=== PATIENT | female | born 1940 | race Caucasian/White ===

== ENCOUNTER → 2017-12-29 10:01 | Outpatient (CLI) | payer MEDICARE, SELFPAY ==
--- NOTE | 2017-12-29 10:07 | NM_ITS ---
Procedure: Three-phase bone scan. INDICATIONS: Pain in left ankle after physical therapy. TECHNIQUE: Anterior flow phase, anterior blood pool and delayed anterior, posterior, HDZ, LPO, MALAY, RPO and left lateral delayed scintigrams. Obtained after the uneventful intravenous administration of 26.7 mCi of technetium 99 medronate. FINDINGS: There is mild increased blow flow to the left lower extremity and proximal ankle. Blood pool images demonstrate an area of asymmetric focal uptake of the radiopharmaceutical at the anterior left ankle. Delayed scintigrams demonstrate a vividly intense focus of uptake involving the anterior tibiotalar joint region. Regions of photopenia are seen consistent with orthopedic hardware involving the right knee and right fibula. NM/Bone Scan Three Phase IMPRESSION: Anterior left tibial talar uptake and increased blood flow consistent with fracture versus stress changes versus inflammatory focus. Recommend correlation with plain film exam today. Electronically Signed: Rahul Woody MD at 11:59 EDT , Service support ,
== END ==
PROVIDERS: Family Provider Family Medicine; PCP Family Medicine; Visit Provider Family Medicine
DX: H57.8 Other specified disorders of eye and adnexa (principal); R52 Pain, unspecified
CPT/HCPCS: 78315

== ENCOUNTER → 2018-02-25 23:17 | Outpatient (CLI) | payer MEDICARE, SELFPAY | PROVIDERS: Family Provider Family Medicine; PCP Family Medicine; Visit Provider Family Medicine | DX: G47.33 Obstructive sleep apnea (adult) (pediatric) (principal) | CPT/HCPCS: 95811 ==

== ENCOUNTER 2019-03-19 11:43 | Inpatient (IN) | payer MEDICARE, SELFPAY ==
[2019-03-19] VITALS (23 sets, daily range): BP systolic 96–127; BP diastolic 46–99; PULSE 91–116; RESP 28–39; TEMP 36.8–37.6; O2SAT 80–94; BMI 43.4; BMI 39.6; BMI 39.7
--- NOTE | 2019-03-19 11:51 | EKG12_ITS ---
Test Reason : SOB Blood Pressure : / mmHG Vent. Rate : 112 BPM Atrial Rate : 112 BPM P-R Int : 174 ms QRS Dur : 082 ms QT Int : 332 ms P-R-T Axes : 047 -13 008 degrees QTc Int : 453 ms Sinus tachycardia Minimal voltage criteria for LVH, may be normal variant Inferior infarct , age undetermined Abnormal ECG Confirmed by MARY MOY, LILIA ([id number]), desk editor INDER TONEY ([id number]) on 03/21/2019 1:51:06 PM Referred By: Arben Whitt Confirmed By:LILIA HERNANDEZ MD
[2019-03-19] MEDS: Ipratropium/Albuterol Sulfate 3 ML AMPUL.NEB INHALATION ×5 (11:59→22:55)
--- NOTE | 2019-03-19 12:00 | RAD_ITS ---
STUDY: X-RAY CHEST REASON FOR EXAM: Female, 78 years old. Shortness of breath. History of aspiration. TECHNIQUE: Single AP portable view of the chest. COMPARISON: 01/08/2017. FINDINGS: There again is elevation of the left hemidiaphragm. There is patchy infiltrate in right lung base. There are prominent markings in the left lung base which may be exaggerated by hypoventilatory aeration. There is no demonstrated pleural abnormality. There is borderline cardiomegaly. Normal mediastinum and rozina. Normal visualized pulmonary arteries. There is atherosclerotic calcification of the aortic arch with tortuosity. The bony structures are unchanged. There is no demonstrated abnormality of the visualized soft tissue structures of the upper abdomen. RAD/Chest 1 View (Portable) IMPRESSION: Patchy infiltrate in the right lung base and possibly in the left lung base. Electronically Signed: Narciso Jay MD at 13:12 EDT Tel , Service support ,
--- NOTE | 2019-03-19 12:04 | ED.VIS.GEN ---
History of Present Illness Chief Complaint: Shortness of Breath Informant: Patient Onset: Today Current Severity: Mild Narrative: Patient reports that basically she was in her usual state of health until this morning when the nurse that she claims gave her her oral medications to fast and she believes she aspirated some of the meds, she has not been ill and this all began after the morning med process and she tried to swallow meds. Indicates she is had no fever no cough she has no chest pain or shortness of breath, paramedics were called her pulse ox was 82 she was put on nonrebreather her pulse ox now is 88-92 she is speaking in full sentences she indicates she has no history of cardiopulmonary disorder she is at the [facility] from her history related to generalized debilitation weakness she does not walk at baseline Past Medical History - Allergies and Home Meds Allergies/Adverse Reactions: Allergies bupropion HCl [From Wellbutrin] Adverse Reaction (Verified 01/08/17 21:12) Other DIZZY ibuprofen Adverse Reaction (Verified 01/08/17 21:12) Other ULCER nitrofurantoin [From Macrobid] Adverse Reaction (Verified 01/08/17 21:12) Other HEADACHE nitrofurantoin macrocrystalline [From Macrobid] Adverse Reaction (Verified 01/08/17 21:12) Other HEADACHE piroxicam [From Feldene] Adverse Reaction (Verified 01/08/17 21:12) Upset Stomach Primary Care Physician: Eduard Bagley MD [Primary Care Provider] - Past Medical History: - - See above Surgical History: - - no known recent surgeries, remote history of left ankle fracture with external fixator bilateral knee replacements. Smoking Status: Never smoker - Family History Maternal Family History: Reports: No pertinent history Review of Systems General: Denies: Chills, Fever, Sweats Eyes: Denies: Visual changes - bilaterally, Diplopia ENT: Denies: Rhinorrhea, Sore throat Cardiovascular: Denies: Chest pain, Palpitations Respiratory: Reports: Dyspnea, Cough. Denies: Dyspnea on exertion Gastrointestinal: Denies: Abdominal pain, Nausea, Vomiting, Diarrhea, Melena, Hematochezia Genitourinary: Denies: Dysuria, Hematuria, Frequency Musculoskeletal: Denies: Back pain, Extremity Pain Skin: Denies: Rash, Wounds Neurological: Denies: Headache, Weakness, Numbness Physical Exam Vital Signs/Narrative: Vital Signs Temp Pulse Resp BP Pulse Ox 03/19/19 11:45 98.6 F 111 H 37 H 110/85 H 80 General: Well nourished, Well developed, No Acute Distress Head: Normocephalic, Atraumatic Eyes: Perrl, EOMI ENT: Moist mucous membranes, No rhinorrhea Neck: Supple, Nontender Cardiovascular: Regular rate, Regular rhythm, No murmurs Respiratory: No distress, Chest nontender, Rales, Wheezing, Decreased Air Movement, - - The patient speaking in full sentences she has obvious raspy airway noises when she breathes she has a slight cough nothing is coming up her oral cavity is unremarkable her neck is supple her lung lungs are diminished she is a very large woman there is no signs of cardiopulmonary distress or failure Abdomen: Soft, Nontender, Nondistended, Normal bowel sounds Back: Nontender, Normal Inspection Extremities: Nontender, No edema Skin: Normal color, No rash Neurological: Alert, Oriented x3, Cranial nerves II-XII grossly intact, Normal Strength, Normal Sensation Psychological: Normal affect, Normal Mood Diagnostic/Tx/Re-eval - Medical Decision Making Given all of the above there is certainly possible of aspiration or other occult condition screening labs aerosol chest x-ray continued high flow oxygen IV antibiotics and admission Patient screening labs are generally unremarkable, her EKG shows a sinus rhythm rate 112, chest x-ray shows patchy infiltrate right base possibly left base she is maintaining her sats on the nonrebreather to about 92%, she received multiple aerosol she is awake alert speaking in full sentences, the family has arrived and report the patient chronically aspirates due to trouble swallowing, she has been in the past on pressure support type ventilation this time after the aerosols will be obtained a blood gas, 7.3, 44, PO2 64, pulse ox 90%, she seems comfortable, if pressure support ventilation is indicated we will provide that, in addition we have started IV antibiotics and will asked hospice here for the management admission Admit stable ICU Final impression Aspiration pneumonia, history of aspiration, ED Disposition - Plan for ED Patient: Referrals: Eduard Bagley MD [Primary Care Provider] -
[2019-03-19 12:23] LABS: Absolute Lymphocyte Count 2.27 X10^3/ul (0.83-4.51); Absolute Neutrophil Count 5.8 X10^3/uL (2.0-7.7); Basophil# 0.03 X10^3/uL; Basophil% 0.3 % (0-1); Eosinophil# 0.24 X10^3/uL; Eosinophils% 2.8 % (0-5); Hematocrit 45.1 % (37-47); Hemoglobin 14.1 g/dl (12.0-15.0); Lymphocyte # 2.27 X10^3/ul (4.0); Lymphocyte % 26.2 % (19-41); Mean Corp Hgb Conc 31.3 g/gl (32-36); Mean Corpuscular Hgb 31.1 pg (27.0-32.0); Mean Corpuscular Volume 99.6 fL (81-99); Mean Platelet Vol. 11.1 fl (6.2-12.0); Monocyte% 3.5 % (0-10); Neutrophil # 5.78 X10^3/uL (2.7-7.7); Neutrophil % 66.5 % (47-70); POSITIVE COUNT NO; POSITIVE DIFFERENTIAL NO; POSITIVE MORPHOLOGY NO; Platelet Count 250 K/mm3 (150-450); RBC Distribution Width CV 14.5 % (11.6-14.6); RBC Distribution Width SD 51.5 fl (35.1-43.9); Red Blood Count 4.53 M/mm3 (4.2-5.4); White Blood Count 8.7 K/mm3 (4.4-11.0)
[2019-03-19 12:35] LABS: Anion Gap 5 (5-15); BUN 27 mg/dL (7-18); BUN/Creat Ratio 26.5 RATIO (10-20); Calcium,Total 10.1 mg/dL (8.5-10.1); Chloride 109 mmol/L (98-107); Creatinine, Serum 1.02 mg/dL (0.55-1.02); EST Glomerular Filtration Rate 56 mL/min (>60); Est Glom Filt Rate - Afr Amer 67 mL/min (>60); Estimated Creatinine Clearance 33.75 ml/min; Glucose 151 mg/dL (74-106); Potassium 4.2 mmol/L (3.5-5.1); Sodium Level 142 mmol/L (136-145)
--- NOTE | 2019-03-19 12:35 | CPS ---
Verbal order for ABG and Aerosol Duoneb tx. given to this CREATIVE SERVICES DIRECTOR by .
[2019-03-19 12:49] LABS: BNP,B-Type NATRIURETIC PEPTIDE 22.8 pg/mL (0-100)
[2019-03-19 13:26] LABS: Allen Test POS; Base Excess -3 mmol/L (-2 to +2); Bicarbonate 22.6 mmol/L (22-26); Blood Gas Specimen Type ART; O2 Delivery Device NRB Mask; PO2 64 mmHG (75-100); SITE L Radial; SO2 90 % (95-99); Time Given 1319; Total Carbon Dioxide 24 mmol/L; pCO2 43.4 mmHg (35-45); pH 7.32 (7.35-7.45)
--- NOTE | 2019-03-19 14:13 | HP.PCM_ITS ---
Problem List (1) Acute respiratory failure with hypoxia Status: Acute (2) Gram-negative pneumonia Status: Suspected (3) Sepsis Status: Acute Qualifiers: Sepsis type: sepsis due to unspecified organism Qualified Code(s): A41.9 - Sepsis, unspecified organism History of Present Illness Date of Admission: 03/19/19 Chief Complaint: Aspiration and hypoxia The patient is a 78 year old F she was in her facility receiving medications. Patient has a known history of aspiration pneumonia and aspiration in general may take her pills too fast and then became short of breath and was noted to be hypoxic at 82%. Was sent to the emergency room where patient had been put on nonrebreather to maintain her sats in the low 90s. Chest x-ray showed a right lower lobe infiltrate and patient received IV Zosyn and daughter is present and provides most of the history and states that patient was diagnosed with possible pneumonia earlier in the week but she did not hear definitely about the an x-ray at that time but that showed pneumonia or not. Patient has history of chronic aspiration but does not have a PEG tube and patient does not want a PEG tube. [] Past Medical History Past Medical History (Chronic Problems): Chronic Problems (Last Updated 03/19/19 @ 14:22 by Arben Whitt DO) Dyslipidemia (Chronic) Hypothyroidism (Chronic) HTN (hypertension) (Chronic) Histrionic personality disorder (Chronic) Dysphagia (Chronic) Depression (Chronic) Medical History: Medical History (Last Updated 03/19/19 @ 14:34 by Arben Whitt DO) Depression F32.9 Dysphagia R13.10 Hypothyroidism E03.9 Post-polio syndrome G14 Venous thromboembolism (VTE) I82.90 HTN (hypertension) I10 Allergies bupropion HCl [From Wellbutrin] Adverse Reaction (Verified 01/08/17 21:12) Other DIZZY ibuprofen Adverse Reaction (Verified 01/08/17 21:12) Other ULCER nitrofurantoin [From Macrobid] Adverse Reaction (Verified 01/08/17 21:12) Other HEADACHE nitrofurantoin macrocrystalline [From Macrobid] Adverse Reaction (Verified 01/08/17 21:12) Other HEADACHE piroxicam [From Feldene] Adverse Reaction (Verified 01/08/17 21:12) Upset Stomach Home Medications: Ambulatory Orders Medication Instructions Recorded Duloxetine Hcl [Cymbalta] 60 mg PO BID 03/12/15 Fluticasone 0.05% [Flonase Nasal 2 spray NARES DAILY 03/12/15 [place]] Calcium Polycarbophil [Fiber-Lax] 1,350 mg PO BID 11/24/16 Omeprazole 20 mg PO BID 11/24/16 Levothyroxine [Synthroid] 100 mcg PO MOTUWETHFR 01/09/17 Potassium Chloride 40 meq PO DAILY 01/09/17 ALPRAZolam [Xanax] 0.5 mg PO BID 03/19/19 ALPRAZolam [Xanax] 1 mg PO QHS 03/19/19 Cholecalciferol (Vitamin D3) 4,000 unit PO DAILY 03/19/19 [Vitamin D3] Cyanocobalamin [Vitamin B12] 1,000 mcg IM Q30D 03/19/19 Fenofibrate 160 mg PO DAILY 03/19/19 Hydrocodone/Acetaminophen [Lutsen 1 ea PO TID PRN 03/19/19 5-325 Tablet] Levothyroxine [Synthroid] 50 mcg PO SUSA 03/19/19 Mv-Mn/Folic Acid/Vit K/Ofzb143 1 ea PO DAILY 03/19/19 [Alive Once Daily Women 50 Plus] Olopatadine HCl [Pataday] 1 drp OP BID PRN 03/19/19 Oxybutynin Chloride [Ditropan Xl] 15 mg PO DAILY 03/19/19 Polyethylene Glycol 3350 [Miralax] 17 gm PO DAILY 03/19/19 Rivaroxaban [Xarelto] 20 mg PO DAILY 03/19/19 Venlafaxine HCl [Venlafaxine HCl 75 mg PO DAILY 03/19/19 ER] Surgical History: - - no known recent surgeries, remote history of left ankle fracture with external fixator bilateral knee replacements. Smoking Status: Former smoker - *Family History Maternal History Items: No pertinent history Offspring History Items: - - Son from multiple myeloma Review of Systems Constitutional: Denies: Anorexia, Chills, Fever, Night Sweats Eyes: Denies: Blurred vision, Double vision HEENT: Denies: Head Aches, Sinus Congestion, Sinus Drainage Cardiovascular: Denies: Chest Pain, Palpitations Respiratory: Reports: Cough, Shortness of Breath. Denies: Sputum production Gastrointestinal: Denies: Abdominal Pain, Nausea, Vomiting Genitourinary: Denies: Dysuria, Frequency, Hematuria Musculoskeletal: Denies: Joint Pain, Joint Tenderness Skin: Denies: Rash, Wounds Neurological: Reports: Balance problems. Denies: Blurred vision, Double vision Psychiatric: Reports: Depression Hematologic/ Lymphatic: Denies: Easy Bruising, Easy Bleeding Comment: A 10 point review of systems were negative except as mentioned in the history of present illness and the other review of systems. VTE Information - Inpt Only VTE Present on Admission: No VTE Mechan Device Prophylaxis: None VTE Pharm Prophylaxis ordered?: No Reason prophylaxis not ordered:: Procedure Not Indicated Patient Problems: Active and Suspected Problems (Last Updated 03/19/19 @ 14:22 by Arben Whitt DO) Acute respiratory failure with hypoxia (Acute) Gram-negative pneumonia (Suspected) Sepsis (Acute) - Physical Exam General: Alert, Cooperative, - - Year. Speaking in full sentences. No respiratory distress. No conversational dyspnea. HEENT: Atraumatic, Normocephalic Oral: Moist Mucosa, No Gingival or Mucosal Lesions/ Ulcerations Neck: No Nodes, Thyroid Normal Size and Texture Lungs: Diminished, - - Coarse breath sounds bilaterally Cardiovascular: Regular rate, Regular Rhythm, Normal S1, Normal S2, No murmurs Abdomen: Bowel Sounds Present, Soft, Non Tender, Non-Distended, No Hepato- splenomegaly, Obese Extremities: No Calf Tenderness, Edema - Trace Skin: No rashes, No breakdown, - - Mottling of the feet as well has her right upper extremity with her fingers Musculoskeletal: No Muscle Wasting, - - Contractures of her fingers Neurological: Sensory exam intact to light touch and pain, - - No clonus Psych/Mental Status: Normal Affect, Appropriate Vital Signs Temp Pulse Resp BP Pulse Ox 37.0 C 115 H 28 H 101/81 H 91 03/19/19 11:45 03/19/19 13:56 03/19/19 13:56 03/19/19 13:56 03/19/19 13:56 Oxygen Delivery Method Non-Rebreather Weight: 104.3 kg Body Mass Index (BMI) 43.4 Laboratory Tests Past 24 Hrs 03/19/19 03/19/19 03/19/19 12:05 12:05 12:05 WBC 8.7 RBC 4.53 Hgb 14.1 Hct 45.1 MCV 99.6 H MCH 31.1 MCHC 31.3 L RDW 14.5 RDW Differential 51.5 H Plt Count 250 MPV 11.1 Immature Gran % (Auto) 0.700 Neut % (Auto) 66.5 Lymph % (Auto) 26.2 [place] % (Auto) 3.5 Eos % (Auto) 2.8 Baso % (Auto) 0.3 Absolute Neuts (auto) 5.8 Absolute Lymphs (auto) 2.27 Total Counted Not Reportable Specimen Type Sample Site pH Bicarbonate Actual POC Total CO2 Base Excess O2 Saturation ABG pCO2 ABG pO2 Yvon Test O2 Delivery Device Liter Flow Blood Gas Notified Whom Blood Gas Notified Time Sodium 142 Potassium 4.2 Chloride 109 H Carbon Dioxide 28.0 Anion Gap 5 BUN 27 H Creatinine 1.02 Estim Creat Clear Calc 33.75 Est GFR (MDRD) Af Amer 67 Est GFR (MDRD) Non-Af 56 L BUN/Creatinine Ratio 26.5 H Glucose 151 H Calcium 10.1 Troponin I < 0.015 B-Natriuretic Peptide 22.8 03/19/19 13:23 WBC RBC Hgb Hct MCV MCH MCHC RDW RDW Differential Plt Count MPV Immature Gran % (Auto) Neut % (Auto) Lymph % (Auto) [place] % (Auto) Eos % (Auto) Baso % (Auto) Absolute Neuts (auto) Absolute Lymphs (auto) Total Counted Specimen Type ART Sample Site L Radial pH 7.32 L Bicarbonate Actual 22.6 POC Total CO2 24 Base Excess -3 L O2 Saturation 90 L ABG pCO2 43.4 ABG pO2 64 L Yvon Test POS O2 Delivery Device NRB Mask Liter Flow 15.0 Blood Gas Notified Whom ED MD Blood Gas Notified Time 1319 Sodium Potassium Chloride Carbon Dioxide Anion Gap BUN Creatinine Estim Creat Clear Calc Est GFR (MDRD) Af Amer Est GFR (MDRD) Non-Af BUN/Creatinine Ratio Glucose Calcium Troponin I B-Natriuretic Peptide Chest x-ray personally reviewed and shows right lower lobe infiltrates change from 2017. Assessment/Plan All Active Problems (Last Updated 03/19/19 @ 14:22 by Arben Whitt DO) UTI (urinary tract infection) (Acute) Migraines (Acute) Pyelonephritis, acute (Acute) Sepsis (Acute) Bacteremia due to Gram-negative bacteria (Acute) Altered mental status (Acute) Acute kidney injury (Acute) Acute respiratory failure with hypoxia (Acute) Sepsis (Acute) 1. Acute hypoxic respiratory failure * Certainly the aspiration event certainly contributed but this occurred while patient was taking pills and given the extent of the infiltrate was seen to be more excessive than I would expect with her just taking her medications. Additionally seem rather early for that to present so probably on chest x-ray as well. Patient's daughter was told that she had some early pneumonia about a week prior but never heard anything further on follow-up chest x-ray. So not sure the patient had previously had pneumonia which certainly could be aspiration given the patient's chronic history of aspiration but given the lives she lives in the facility could be a healthcare acquired pneumonia. We will treat the patient empirically with healthcare acquired pneumonia with vancomycin and Zosyn. * Currently, the patient is stable on nonrebreather but given the extent of oxygen that she requires she may require BiPAP support. Patient be admitted to the progressive care unit in case she were to defervesce and require BiPAP. * Pulmonary toilet 2. Suspected gram-negative pneumonia * As mentioned previously, patient is a facility and certainly at risk for healthcare acquired pneumonia though this could certainly just be aspiration pneumonia given her history of dysphagia * Antibiotics as above 3. Sepsis present on admission * Secondary to pneumonia * Supportive management 4. Dysphagia * Clarified with the patient that she does not want a PEG tube. * Patient will be on pur?ed diet as well as nectar thickened liquids * Speech therapy to evaluate * Previously, patient was offered the ability to eat regularly but with the caveat that she would need to be hospice. Patient was seen by hospice and did not meet criteria for hospice at that time. 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 Depression and anxiety * Patient on alprazolam as outpatient 0.5 mg tablets twice daily scheduled as well as 1 mg at night. This is certainly, given the patient's overall respiratory status this is some degree but also should be used with extreme caution some of her age and multiple comorbidities. * The benzodiazepine should be weaned off over. Of the next several weeks and will start by changing over to 0.5 mg of alprazolam twice daily as needed. We then recommend after about a week of that to gear changer to daily as needed and then them for a week every other day and then to stop. 8. VTE prophylaxis: Not indicated as patient is already on rivaroxaban. Advanced care planning: Spent an additional 15 minutes discussing with the patient and the family clarifying CODE STATUS. Patient was very direct and saying that she did not want a PEG tube. I explained that if she wants to eat so we will continue to run the risk of aspiration that she should be DNR Comfort Care arrest. I did discuss CPR and ventilator in detail with her. Patient reluctantly agreed to DNR Comfort Care arrest no intubation explained to patient and her family that they can certainly make changes to this decision a later point but I feel that if we are not pursuing aggressive medical care and we are palliating her symptoms discerns extent by letting her eat then DNR Comfort Care arrest no intubation is certainly very appropriate. Code Visit Inpatient E&M: 23070 Init Hosp L3 Procedures: 92906 Advncd Care Plan 30 Min
--- NOTE | 2019-03-19 14:38 | PCM.RX.CS ---
Consult Pharmacy has been consulted to manage selected antiobiotic: Vancomycin Type of Consult: New start Suspected Infection: Pneumonia Prior Doses of Antibiotics Received/Current Regimen: NONE Labs: Sodium 142 mmol/L (136-145) 03/19/19 12:05 Potassium 4.2 mmol/L (3.5-5.1) 03/19/19 12:05 Chloride 109 mmol/L (98-107) H 03/19/19 12:05 Carbon Dioxide 28.0 mmol/L (21.0-32.0) 03/19/19 12:05 5 (5-15) 03/19/19 12:05 BUN 27 mg/dL (7-18) H 03/19/19 12:05 1.02 mg/dL (0.55-1.02) 03/19/19 12:05 Est GFR (MDRD) Af Amer 67 mL/min (>60) 03/19/19 12:05 Est GFR (MDRD) Non-Af 56 mL/min (>60) L 03/19/19 12:05 26.5 RATIO (10-20) H 03/19/19 12:05 Glucose 151 mg/dL (74-106) H 03/19/19 12:05 Weight used for dosin.4 kg Estimated Creatinine Clearance: 34 ML/MIN Goal Trough: 15-20 mcg/mL Pharmacy Plan for Drug Dosing: PLAN/RECOMMENDATIONS 1. Since initial dose and scheduled dose is the same (1500mg), will just start scheduled dosing now 2. Vancomycin 1500mg Q24h to start 03/19/19 @1500 3. Trough prior to 3rd total dose per protocol 03/21/19 @1430 4. Pharmacy Service will continue to monitor and adjust dosing as required.
[2019-03-19 16:01] LABS: Bedside Glucose 168 mg/dL (70-110)
--- NOTE | 2019-03-19 20:45 | SLEEP ---
Set up pt's home CPAP unit with oxygen bleed in at 5 lpm, New full face mask given to pt from sleep lab.
[2019-03-19] MEDS: DULoxetine Hcl 60 MG Capsule PO (21:39)
[2019-03-19] MEDS: guaiFENesin 1,200 MG Tablet 1200 MG PO (21:40)
[2019-03-19] MEDS: Menthol/Lanolin/Calamine/Znox 113 GM Tube 1 APPLIC TOPICAL (21:52)
[2019-03-19 22:16] LABS: Bedside Glucose 140 mg/dL (70-110)
[2019-03-20] VITALS (29 sets, daily range): BP systolic 94–144; BP diastolic 65–102; PULSE 81–111; RESP 21–38; TEMP 36.1–37.7; O2SAT 90–98
[2019-03-20] MEDS: Ipratropium/Albuterol Sulfate 3 ML AMPUL.NEB INHALATION ×2 (02:25→07:00)
[2019-03-20] MEDS: Levothyroxine 100 MCG Tablet PO (05:28)
[2019-03-20 06:24] LABS: Absolute Neutrophil Count 13.9 X10^3/uL (2.0-7.7); Basophil# 0.03 X10^3/uL; Basophil% 0.2 % (0-1); Eosinophil# 0.02 X10^3/uL; Eosinophils% 0.1 % (0-5); Hematocrit 38.5 % (37-47); Hemoglobin 12.1 g/dl (12.0-15.0); Lymphocyte % 11.3 % (19-41); Mean Corp Hgb Conc 31.4 g/gl (32-36); Mean Corpuscular Hgb 31.3 pg (27.0-32.0); Mean Corpuscular Volume 99.5 fL (81-99); Mean Platelet Vol. 11.5 fl (6.2-12.0); Monocyte# 0.95 X10^3/uL; Monocyte% 5.7 % (0-10); Neutrophil # 13.85 X10^3/uL (2.7-7.7); Neutrophil % 82.5 % (47-70); Platelet Count 206 K/mm3 (150-450); RBC Distribution Width CV 14.6 % (11.6-14.6); RBC Distribution Width SD 52.7 fl (35.1-43.9); Red Blood Count 3.87 M/mm3 (4.2-5.4); White Blood Count 16.8 K/mm3 (4.4-11.0)
[2019-03-20 06:39] LABS: Differential Indicated SCAN CRITERIA MET; POSITIVE COUNT NO; POSITIVE DIFFERENTIAL NO; POSITIVE MORPHOLOGY YES
[2019-03-20 06:43] LABS: Anion Gap 6 (5-15); BUN 26 mg/dL (7-18); Calcium,Total 9.5 mg/dL (8.5-10.1); Chloride 115 mmol/L (98-107); Creatinine, Serum 0.93 mg/dL (0.55-1.02); EST Glomerular Filtration Rate 62 mL/min (>60); Est Glom Filt Rate - Afr Amer 75 mL/min (>60); Estimated Creatinine Clearance 38.79 ml/min; Glucose 125 mg/dL (74-106); Potassium 4.2 mmol/L (3.5-5.1); Sodium Level 141 mmol/L (136-145)
[2019-03-20 06:55] LABS: Bedside Glucose 108 mg/dL (70-110)
[2019-03-20 07:14] LABS: Differential Comment SCANNED
[2019-03-20] MEDS: Pantoprazole Sodium 20 MG Tablet PO ×2 (09:34→21:38)
[2019-03-20] MEDS: DULoxetine Hcl 60 MG Capsule PO ×2 (09:35→21:38)
[2019-03-20] MEDS: Venlafaxine XR 75 MG Capsule PO (09:36)
[2019-03-20] MEDS: Multivitamins,Ther W-Minerals Tablet 1 TABLET PO (09:36)
[2019-03-20] MEDS: Fenofibrate 145 MG Tablet PO (09:36)
[2019-03-20] MEDS: guaiFENesin 1,200 MG Tablet 1200 MG PO ×2 (09:36→21:39)
[2019-03-20] MEDS: Menthol/Lanolin/Calamine/Znox 113 GM Tube 1 APPLIC TOPICAL ×2 (09:37→21:39)
[2019-03-20] MEDS: Polyethylene Glycol 3350 17 GM PACKET PO (09:38)
[2019-03-20] MEDS: Tolterodine Tartrate 4 MG CAP.SA PO (09:55)
[2019-03-20] MEDS: Acetaminophen 325 MG Tablet 650 MG PO (09:55)
[2019-03-20] MEDS: Fluticasone 0.05% 1 SPRAY NASAL.SRY 2 SPRAY NASAL (10:09)
--- NOTE | 2019-03-20 11:26 | PCM.PN.HOSP ---
Patient Problems: Active and Suspected Problems (Last Updated 03/19/19 @ 14:34 by Arben Whitt DO) Acute respiratory failure with hypoxia (Acute) Gram-negative pneumonia (Suspected) Sepsis (Acute) Subjective: Still confused, daughter is at bedside and states that she does seem a little bit better than she did yesterday but she is not at her baseline. No issues overnight and has improved from being on a Ventimask to nasal cannula. Vitals/I&O's: Vital Signs Temp Pulse Resp BP Pulse Ox 98.6 F 89 26 H 112/68 94 03/20/19 11:00 03/20/19 11:00 03/20/19 11:00 03/20/19 11:00 03/20/19 11:00 Oxygen Flow Rate (L/min) 5 Oxygen Delivery Method Nasal Cannula Weight: 216 lb 14.958 oz Body Mass Index (BMI) 39.6 Intake and Output for Last 24 Hours 03/18/19 03/19/19 03/20/19 23:59 23:59 23:59 Intake Total 534 / 608 397 / 397 Output Total 200 / 200 Balance 334 / 408 397 / 397 General: Alert, Cooperative, No apparent distress HEENT: Atraumatic, EOMI, Normocephalic Oral: Moist Mucosa Neck: Supple, No JVD Lungs: Diminished, Rhonchi Cardiovascular: Regular rate, Regular Rhythm, Normal S1, Normal S2, No murmurs Abdomen: Soft, Non Tender, Non-Distended, No Hepato-splenomegaly, Passing Flatus Extremities: No edema, Capillary Refill Less than 3 Seconds Skin: No rashes, No breakdown Musculoskeletal: - - Her right fingers are contracted Neurological: Neuro grossly intact, Sensory exam intact to light touch and pain Psych/Mental Status: Normal Affect, Appropriate Microbiology Past 72 Hours 03/19/19 15:45 Urine Catheter - Catheter Streptococcus pneumoniae Antigen (M - Final 03/19/19 15:45 Urine Catheter - Catheter Legionella Antigen - Final Laboratory Results 03/19/19 12:05: WBC 8.7, RBC 4.53, Hgb 14.1, Hct 45.1, MCV 99.6 H, MCH 31.1, MCHC 31.3 L, RDW 14.5, RDW Differential 51.5 H, Plt Count 250, MPV 11.1, Immature Gran % (Auto) 0.700, Neut % (Auto) 66.5, Lymph % (Auto) 26.2, [place] % (Auto) 3.5, Eos % (Auto) 2.8, Baso % (Auto) 0.3, Absolute Neuts (auto) 5.8, Absolute Lymphs (auto) 2.27, Total Counted Not Reportable 03/19/19 12:05: Sodium 142, Potassium 4.2, Chloride 109 H, Carbon Dioxide 28.0, Anion Gap 5, BUN 27 H, Creatinine 1.02, Estim Creat Clear Calc 33.75, Est GFR (MDRD) Af Amer 67, Est GFR (MDRD) Non-Af 56 L, BUN/Creatinine Ratio 26.5 H, Glucose 151 H, Calcium 10.1, Troponin I < 0.015 03/19/19 12:05: B-Natriuretic Peptide 22.8 03/19/19 13:23: Specimen Type ART, Sample Site L Radial, pH 7.32 L, Bicarbonate Actual 22.6, POC Total CO2 24, Base Excess -3 L, O2 Saturation 90 L, ABG pCO2 43.4, ABG pO2 64 L, Yvon Test POS, O2 Delivery Device NRB Mask, Liter Flow 15.0, Blood Gas Notified Whom ED MD, Blood Gas Notified Time 1319 03/19/19 15:57: POC Glucose 168 H 03/19/19 21:59: POC Glucose 140 H 03/20/19 05:56: Sodium 141, Potassium 4.2, Chloride 115 H, Carbon Dioxide 20.0 L, Anion Gap 6, BUN 26 H, Creatinine 0.93, Estim Creat Clear Calc 38.79, Est GFR (MDRD) Af Amer 75, Est GFR (MDRD) Non-Af 62, BUN/Creatinine Ratio 28.0 H, Glucose 125 H, Calcium 9.5 03/20/19 05:56: WBC 16.8 H, RBC 3.87 L, Hgb 12.1, Hct 38.5, MCV 99.5 H, MCH 31.3, MCHC 31.4 L, RDW 14.6, RDW Differential 52.7 H, Plt Count 206, MPV 11.5, Immature Gran % (Auto) 0.200, Neut % (Auto) 82.5 H, Lymph % (Auto) 11.3 L, [place] % (Auto) 5.7, Eos % (Auto) 0.1, Baso % (Auto) 0.2, Absolute Neuts (auto) 13.9 H, Absolute Lymphs (auto) 1.90, Total Counted Not Reportable, Differential Comment SCANNED 03/20/19 06:50: POC Glucose 108 Current Medications Acetaminophen (Tylenol) 650 mg PO Q6H PRN PRN PRN Reason: Mild pain 1-3/Temp > 100.7 F Last Admin: 03/20/19 09:55 Dose: 650 mg Documented by: Hydrocodone Bitart/Acetaminophen ([place] 5mg-325mg) 1 tablet PO TID PRN PRN Reason: SEVERE PAIN (6-10/10) Albuterol Sulfate (Ventolin Aerosols) 2.5 mg INHALATION Q2H PRN PRN PRN Reason: SHORTNESS OF BREATH Albuterol/Ipratropium (Duoneb) 3 ml INHALATION Q4H.RT [facility] Last Admin: 03/20/19 10:02 Dose: Not Given Documented by: Alprazolam (Xanax) 0.5 mg PO BID PRN PRN Reason: ANXIETY Calamine/Phenol (Calmoseptine Ointment) 1 applic TOPICAL BID [facility]; Protocol Last Admin: 03/20/19 09:37 Dose: 1 applicatio Documented by: Calcium Polycarbophil (Fibercon) 1,250 mg PO BID [facility] Last Admin: 03/20/19 09:35 Dose: 1,250 mg Documented by: Cholecalciferol (Vitamin D) 4,000 unit PO DAILY [facility] Last Admin: 03/20/19 09:36 Dose: 4,000 unit Documented by: Cyanocobalamin (Vitamin B12) 1,000 mcg IM Q30D [facility] Dextrose (D50w Syringe) 0 gm IV X1 PRN; Protocol PRN Reason: Hypoglycemia Duloxetine HCl (Cymbalta) 60 mg PO BID [facility] Last Admin: 03/20/19 09:35 Dose: 60 mg Documented by: Fenofibrate (Tricor) 145 mg PO DAILY [facility] Last Admin: 03/20/19 09:36 Dose: 145 mg Documented by: Fluticasone Propionate (Flonase Nasal [place]) 2 spray NASAL DAILY [facility] Last Admin: 03/20/19 10:09 Dose: 2 spray Documented by: Glucagon () 1 mg IM .X1 PRN PRN Reason: Hypoglycemia Guaifenesin (Mucinex) 1,200 mg PO BID [facility] Last Admin: 03/20/19 09:36 Dose: 1,200 mg Documented by: Piperacillin Sod/Tazobactam (Sod 3.375 gm/ Sodium Chloride) 50 mls @ 12.5 mls/hr IV Q8 [facility] Last Admin: 03/20/19 05:27 Dose: 12.5 mls/hr Documented by: Vancomycin IV Pharmacy to Dose (1 ea/ Sodium Chloride) 500 mls @ 250 mls/hr IV PRN PRN; Protocol PRN Reason: Rx to Dose Vancomycin HCl 1,500 mg/ (Sodium Chloride) 530 mls @ 250 mls/hr IV Q24H [facility] Last Admin: 03/19/19 15:52 Dose: 250 mls/hr Documented by: Insulin Human Lispro (Humalog Kwikpen (Bkc)) 0 unit SC TIDAC [facility]; Protocol Last Admin: 03/20/19 07:53 Dose: Not Given Documented by: Levothyroxine Sodium (Synthroid) 50 mcg PO SUSA [facility] Levothyroxine Sodium (Synthroid) 100 mcg PO MOTUWETHFR [facility] Last Admin: 03/20/19 05:28 Dose: 100 mcg Documented by: Multivitamins/Minerals (Multivitamin With Minerals) 1 tablet PO DAILY@0800 [facility] Last Admin: 03/20/19 09:36 Dose: 1 tablet Documented by: Ondansetron HCl (Zofran) 4 mg IV Q8H PRN PRN PRN Reason: NAUSEA/VOMITING Pantoprazole Sodium (Protonix) 20 mg PO BID [facility] Last Admin: 03/20/19 09:34 Dose: 20 mg Documented by: Polyethylene Glycol (Miralax) 17 gm PO DAILY [facility] Last Admin: 03/20/19 09:38 Dose: 17 gm Documented by: Potassium Ch[facility] (K[facility]Dur) [facility] Last Admin: 03/20/19 09:34 Dose: 40 meq Documented by: Rivaroxaban (Xarelto) 20 mg PO DAILY@1700 [facility] Sodium Chloride () 10 - 40 ml IV UD PRN PRN Reason: SALINE FLUSH Tolterodine Tartrate (Detrol La) 4 mg PO DAILY [facility] Last Admin: 03/20/19 09:55 Dose: 4 mg Documented by: Venlafaxine HCl (Effexor Xr) 75 mg PO DAILY [facility] Last Admin: 03/20/19 09:36 Dose: 75 mg Documented by: Medical Necessity - Tobacco Use Smoking Status: Former smoker Assessment/Plan All Active Problems (Last Updated 03/19/19 @ 14:34 by Arben Whitt DO) UTI (urinary tract infection) (Acute) Migraines (Acute) Pyelonephritis, acute (Acute) Sepsis (Acute) Bacteremia due to Gram-negative bacteria (Acute) Altered mental status (Acute) Acute kidney injury (Acute) Acute respiratory failure with hypoxia (Acute) Sepsis (Acute) 1. Altered mental status and acute hypoxic respiratory failure secondary to sepsis caused by gram-negative pneumonia/dysphagia -Continue with Vanco/Zosyn to treat possible aspiration event, the daughter states that she has had these in the past -She does not want a PEG tube and at the [facility] is on a pur?ed diet with nectar thickened liquids -She currently is not hospice appropriate though she has been offered hospice in the past -She is off the Ventimask and on nasal cannula, will continue to monitor 2. Anxiety/depression -Stable -Continue on Cymbalta, Effexor and Xanax 3. Hypothyroidism -Stable -Continue with Synthroid 4. GERD -Stable -Continue with PPI DVT: Xarelto for previous VTE Code Visit Inpatient E&M: 10464 Subs Hosp L2
--- NOTE | 2019-03-20 11:33 | CASEMGMT ---
Patient is from [facility]. ALIYA spoke with Shweta at [facility]. ALIYA faxed updates to [facility]. Renetta SINGH MSW
[2019-03-20 11:40] LABS: Bedside Glucose 131 mg/dL (70-110)
--- NOTE | 2019-03-20 13:30 | CASEMGMT ---
ALIYA returned a phone call from Marily with [facility]. She confirmed patient's admission date and diagnosis. Renetta RUDOLPH
[2019-03-20] MEDS: 0.9% NaCl Peripheral Flush Adult/Peds IV (16:35)
[2019-03-20 17:05] LABS: Bedside Glucose 109 mg/dL (70-110)
[2019-03-20] MEDS: Rivaroxaban 20 MG Tablet PO (18:42)
[2019-03-20 22:00] LABS: Bedside Glucose 172 mg/dL (70-110)
[2019-03-21] VITALS (16 sets, daily range): BP systolic 113–149; BP diastolic 65–98; PULSE 70–95; RESP 19–24; TEMP 36.1–37.1; O2SAT 92–97
--- NOTE | 2019-03-21 | RAD_ITS ---
STUDY: SWALLOWING STUDY REASON FOR EXAM: Female, 78 years old. Dysphagia. TECHNIQUE: The examination was performed with Speech Pathology in attendance. Under fluoroscopic observation, the patient ingested thin barium, thick barium, barium pudding, and barium coated cracker. FLUOROSCOPY TIME: 2:29 minutes/seconds. 2303 images were obtained. RADIOLOGIST INVOLVEMENT: Radiologist was present and providing direct supervision. COMPARISON: None. FINDINGS: The following was observed during swallowing of the various mixtures of barium: Thin Barium: Silent aspiration with ingestion of thin liquids. Thick Barium: Silent aspiration with injection of nectar thickened liquids. Honey thickened liquids are unremarkable. Barium Pudding: There was no evidence of aspiration or laryngeal penetration. Barium Coated Cracker: There was no evidence of aspiration or laryngeal penetration. RAD/Swallowing Function w/Video IMPRESSION: Silent aspiration with ingestion of thin liquids and nectar thickened liquids. The swallow study findings were discussed with the patient by the speech pathologist at the conclusion of the examination. Please see speech pathology report for more information and recommendations. Electronically Signed: Lloyd Ambrocio, at 14:47 EDT , Service support ,
[2019-03-21] MEDS: Levothyroxine 100 MCG Tablet PO (05:49)
[2019-03-21 06:39] LABS: Absolute Lymphocyte Count 1.33 X10^3/ul (0.83-4.51); Absolute Neutrophil Count 8.5 X10^3/uL (2.0-7.7); Basophil# 0.02 X10^3/uL; Basophil% 0.2 % (0-1); Eosinophil# 0.56 X10^3/uL; Hematocrit 37.4 % (37-47); Hemoglobin 11.7 g/dl (12.0-15.0); Lymphocyte # 1.33 X10^3/ul (4.0); Mean Corp Hgb Conc 31.3 g/gl (32-36); Mean Corpuscular Volume 99.2 fL (81-99); Mean Platelet Vol. 11.7 fl (6.2-12.0); Monocyte# 0.66 X10^3/uL; Monocyte% 5.9 % (0-10); Neutrophil % 76.6 % (47-70); POSITIVE COUNT NO; POSITIVE DIFFERENTIAL NO; POSITIVE MORPHOLOGY NO; Platelet Count 201 K/mm3 (150-450); RBC Distribution Width CV 14.5 % (11.6-14.6); RBC Distribution Width SD 50.2 fl (35.1-43.9); Red Blood Count 3.77 M/mm3 (4.2-5.4); White Blood Count 11.1 K/mm3 (4.4-11.0)
[2019-03-21 06:51] LABS: Bedside Glucose 103 mg/dL (70-110)
[2019-03-21 07:07] LABS: Anion Gap 3 (5-15); BUN 23 mg/dL (7-18); BUN/Creat Ratio 27.4 RATIO (10-20); Calcium,Total 9.6 mg/dL (8.5-10.1); Chloride 111 mmol/L (98-107); Creatinine, Serum 0.84 mg/dL (0.55-1.02); EST Glomerular Filtration Rate 70 mL/min (>60); Est Glom Filt Rate - Afr Amer 84 mL/min (>60); Estimated Creatinine Clearance 42.95 ml/min; Glucose 107 mg/dL (74-106); Potassium 3.9 mmol/L (3.5-5.1); Sodium Level 141 mmol/L (136-145)
[2019-03-21] MEDS: Multivitamins,Ther W-Minerals Tablet 1 TABLET PO (08:03)
[2019-03-21] MEDS: Menthol/Lanolin/Calamine/Znox 113 GM Tube 1 APPLIC TOPICAL ×2 (08:03→22:11)
[2019-03-21] MEDS: Fluticasone 0.05% 1 SPRAY NASAL.SRY 2 SPRAY NASAL (08:04)
[2019-03-21] MEDS: DULoxetine Hcl 60 MG Capsule PO ×2 (08:04→22:10)
[2019-03-21] MEDS: Tolterodine Tartrate 4 MG CAP.SA PO (08:04)
[2019-03-21] MEDS: Venlafaxine XR 75 MG Capsule PO (08:04)
[2019-03-21] MEDS: Polyethylene Glycol 3350 17 GM PACKET PO (08:05)
[2019-03-21] MEDS: Pantoprazole Sodium 20 MG Tablet PO ×2 (08:05→22:10)
[2019-03-21] MEDS: Fenofibrate 145 MG Tablet PO (08:05)
[2019-03-21] MEDS: guaiFENesin 1,200 MG Tablet 1200 MG PO ×2 (08:05→22:10)
--- NOTE | 2019-03-21 10:45 | PN_ITS ---
Patient Problems: Active and Suspected Problems (Last Updated 03/19/19 @ 14:34 by Arben Whitt DO) Acute respiratory failure with hypoxia (Acute) Gram-negative pneumonia (Suspected) Sepsis (Acute) Subjective: Still confused and the daughter states that she has been crying because she did not realize that her and her son had both . her leukocytosis is improving and she has remained afebrile Vitals/I&O's: Vital Signs Temp Pulse Resp BP Pulse Ox 98.6 F 70 24 H 147/98 H 94 03/21/19 09:00 03/21/19 09:00 03/21/19 09:00 03/21/19 09:00 03/21/19 09:00 Oxygen Flow Rate (L/min) 4 Oxygen Delivery Method Nasal Cannula Weight: 216 lb 14.958 oz Body Mass Index (BMI) 39.6 Intake and Output for Last 24 Hours 03/19/19 03/20/19 03/21/19 23:59 23:59 23:59 Intake Total 534 / 608 1191 / 1191 85.7 / 85.7 Output Total 200 / 200 Balance 334 / 408 1191 / 1191 85.7 / 85.7 General: Alert, Cooperative, No apparent distress, she is not oriented HEENT: Atraumatic, EOMI, Normocephalic Oral: Moist Mucosa Neck: Supple, No JVD Lungs: Diminished, Rhonchi Cardiovascular: Regular rate, Regular Rhythm, Normal S1, Normal S2, No murmurs Abdomen: Soft, Non Tender, Non-Distended, No Hepato-splenomegaly, Passing Flatus Extremities: No edema, Capillary Refill Less than 3 Seconds Skin: No rashes, No breakdown Musculoskeletal: - - Her right fingers are contracted Neurological: Neuro grossly intact, Sensory exam intact to light touch and pain Psych/Mental Status: Normal Affect, Appropriate Microbiology Past 72 Hours 03/19/19 15:45 Urine Catheter - Catheter Streptococcus pneumoniae Antigen (M - Final 03/19/19 15:45 Urine Catheter - Catheter Legionella Antigen - Final Laboratory Results 03/20/19 11:38: POC Glucose 131 H 03/20/19 16:58: POC Glucose 109 03/20/19 21:34: POC Glucose 172 H 03/21/19 06:00: WBC 11.1 H, RBC 3.77 L, Hgb 11.7 L, Hct 37.4, MCV 99.2 H, MCH 31.0, MCHC 31.3 L, RDW 14.5, RDW Differential 50.2 H, Plt Count 201, MPV 11.7, Immature Gran % (Auto) 0.300, Neut % (Auto) 76.6 H, Lymph % (Auto) 12.0 L, [place] % (Auto) 5.9, Eos % (Auto) 5.0, Baso % (Auto) 0.2, Absolute Neuts (auto) 8.5 H, Absolute Lymphs (auto) 1.33, Total Counted Not Reportable 03/21/19 06:00: Sodium 141, Potassium 3.9, Chloride 111 H, Carbon Dioxide 27.0, Anion Gap 3 L, BUN 23 H, Creatinine 0.84, Estim Creat Clear Calc 42.95, Est GFR (MDRD) Af Amer 84, Est GFR (MDRD) Non-Af 70, BUN/Creatinine Ratio 27.4 H, Glucose 107 H, Calcium 9.6 03/21/19 06:45: POC Glucose 103 Current Medications Acetaminophen (Tylenol) 650 mg PO Q6H PRN PRN PRN Reason: Mild pain 1-3/Temp > 100.7 F Last Admin: 03/20/19 09:55 Dose: 650 mg Documented by: Hydrocodone Bitart/Acetaminophen ([place] 5mg-325mg) 1 tablet PO TID PRN PRN Reason: SEVERE PAIN (6-10/10) Albuterol Sulfate (Ventolin Aerosols) 2.5 mg INHALATION Q2H PRN PRN PRN Reason: SHORTNESS OF BREATH Albuterol/Ipratropium (Duoneb) 3 ml INHALATION Q4H.RT [facility] Last Admin: 03/21/19 07:15 Dose: Not Given Documented by: Alprazolam (Xanax) 0.5 mg PO BID PRN PRN Reason: ANXIETY Calamine/Phenol (Calmoseptine Ointment) 1 applic TOPICAL BID [facility]; Protocol Last Admin: 03/21/19 08:03 Dose: 1 applicatio Documented by: Calcium Polycarbophil (Fibercon) 1,250 mg PO BID [facility] Last Admin: 03/21/19 08:04 Dose: 1,250 mg Documented by: Cholecalciferol (Vitamin D) 4,000 unit PO DAILY [facility] Last Admin: 03/21/19 08:06 Dose: 4,000 unit Documented by: Cyanocobalamin (Vitamin B12) 1,000 mcg IM Q30D [facility] Dextrose (D50w Syringe) 0 gm IV X1 PRN; Protocol PRN Reason: Hypoglycemia Duloxetine HCl (Cymbalta) 60 mg PO BID [facility] Last Admin: 03/21/19 08:04 Dose: 60 mg Documented by: Fenofibrate (Tricor) 145 mg PO DAILY [facility] Last Admin: 03/21/19 08:05 Dose: 145 mg Documented by: Fluticasone Propionate (Flonase Nasal [place]) 2 spray NASAL DAILY [facility] Last Admin: 03/21/19 08:04 Dose: 2 spray Documented by: Glucagon () 1 mg IM .X1 PRN PRN Reason: Hypoglycemia Guaifenesin (Mucinex) 1,200 mg PO BID [facility] Last Admin: 03/21/19 08:05 Dose: 1,200 mg Documented by: Piperacillin Sod/Tazobactam (Sod 3.375 gm/ Sodium Chloride) 50 mls @ 12.5 mls/hr IV Q8 [facility] Last Admin: 03/21/19 05:49 Dose: 12.5 mls/hr Documented by: Insulin Human Lispro (Humalog Kwikpen (Bkc)) 0 unit SC TIDAC [facility]; Protocol Last Admin: 03/21/19 06:46 Dose: Not Given Documented by: Levothyroxine Sodium (Synthroid) 50 mcg PO SUSA [facility] Levothyroxine Sodium (Synthroid) 100 mcg PO MOTUWETHFR [facility] Last Admin: 03/21/19 05:49 Dose: 100 mcg Documented by: Multivitamins/Minerals (Multivitamin With Minerals) 1 tablet PO DAILY@0800 [facility] Last Admin: 03/21/19 08:03 Dose: 1 tablet Documented by: Ondansetron HCl (Zofran) 4 mg IV Q8H PRN PRN PRN Reason: NAUSEA/VOMITING Pantoprazole Sodium (Protonix) 20 mg PO BID [facility] Last Admin: 03/21/19 08:05 Dose: 20 mg Documented by: Polyethylene Glycol (Miralax) 17 gm PO DAILY [facility] Last Admin: 03/21/19 08:05 Dose: 17 gm Documented by: Potassium Chloride (K-Dur) [facility] Last Admin: 03/21/19 08:03 Dose: 40 meq Documented by: Rivaroxaban (Xarelto) 20 mg PO DAILY@1700 [facility] Last Admin: 03/20/19 18:42 Dose: 20 mg Documented by: Sodium Chloride () 10 - 40 ml IV UD PRN PRN Reason: SALINE FLUSH Last Admin: 03/20/19 16:35 Dose: 10 ml Documented by: Tolterodine Tartrate (Detrol La) 4 mg PO DAILY [facility] Last Admin: 03/21/19 08:04 Dose: 4 mg Documented by: Venlafaxine HCl (Effexor Xr) 75 mg PO DAILY [facility] Last Admin: 03/21/19 08:04 Dose: 75 mg Documented by: Medical Necessity - Tobacco Use Smoking Status: Former smoker Assessment/Plan All Active Problems (Last Updated 03/19/19 @ 14:34 by Arben Whitt DO) UTI (urinary tract infection) (Acute) Migraines (Acute) Pyelonephritis, acute (Acute) Sepsis (Acute) Bacteremia due to Gram-negative bacteria (Acute) Altered mental status (Acute) Acute kidney injury (Acute) Acute respiratory failure with hypoxia (Acute) Sepsis (Acute) 1. Altered mental status and acute hypoxic respiratory failure secondary to sepsis caused by gram-negative pneumonia/dysphagia -Continue with Zosyn to treat possible aspiration event, the daughter states that she has had these in the past -She does not want a PEG tube and at the senior living is on a pur?ed diet with nectar thickened liquids -She currently is not hospice appropriate though she has been offered hospice in the past -She is off the Ventimask and on nasal cannula, will continue to monitor -We will obtain a urine culture for further evaluation as the daughter is adamant that this only happens when she has a urinary tract infection despite the chest x-ray demonstrating a pneumonia 2. Anxiety/depression -Stable -Continue on Cymbalta, Effexor and Xanax 3. Hypothyroidism -Stable -Continue with Synthroid 4. GERD -Stable -Continue with PPI DVT: Xarelto for previous VTE Code Visit Inpatient E&M: 88218 [facility] Hosp L2
--- NOTE | 2019-03-21 10:51 | CASEMGMT ---
Updates faxed to [facility]. Renetta SINGH SUPPORT [employer]CH[employer]
--- NOTE | 2019-03-21 13:30 | SP.MBSS_ITS ---
PRIMARY / SECONDARY DIAGNOSIS: Aspiration Pneumonia/Dysphagia REFERRING PHYSICIAN: Dr. Lugo CURRENT DIET: pureed textures/honey thickened liquids DENTITION: present MENTAL STATUS: WFL for participation in MBS RESPIRATORY STATUS: oxygenating on 3L/min O2 via nasal cannula PREVIOUS MODIFIED BARIUM SWALLOW STUDY: 01/11/2017 MBS revealed moderate to severe oropharyngeal dysphagia w/ SILENT aspiration of thin and nectar thickened liquids. REASON FOR REFERRAL: Presented to [facility] following aspiration event during medication consumption w/ patient reporting ?they were giving them too fast?. Per Clinical Bedside Swallow Evaluation completed 03/20/2019 - Patient did not overtly aspirate w/ thin liquids, though did demonstrate a consistent audible swallow w/ subjective reduction in hyolaryngeal excursion upon digital palpation; she does have a history of silent aspiration of multiple viscosities, which complicates clinical assessments performed at bedside. The Patient did demonstrate overt post prandial signs of aspiration, though again this was well below the expected frequencies as to what would be expected based on chart reviews. Given the above findings, advancement w/ objective imaging under fluoroscopy via MBS is clinically indicated. MEDICAL HISTORY: Patient is a 78 year old female who was admitted to [facility] on 03/19/2019 d/t hypoxia w/ RLL infiltration following aspiration event; treated for aspiration related pneumonia. Pt.?s Past medical history is significant for post-polio syndrome, dysphagia, histrionic personality disorder, depression, hypertension, dyslipidemia, hypothyroidism. STUDY FINDINGS: Patient participated in a Modified Barium Swallow (MBS) study on 03/21/2019. Dr. Ambrocio was the radiologist present for this evaluation. This study was recorded in the lateral view and images were sent to PACs for storage. The following consistencies were presented to this patient for analysis of oropharyngeal swallow function: honey thickened liquids and pudding. Results of the MBS are as follows: PENETRATION / ASPIRATION SCALE (TIMMONS): 1 = does not enter airway 2 = enters airway/above vocal folds/ejected 3 = enters airway/above vocal folds/not ejected 4 = enters airway/contacts vocal folds/ejected 5 = enters airway/contacts vocal folds/not ejected 6 = enters airway/below vocal folds/ejected 7 = enters airway/below vocal folds/not ejected despite effort 8 = enters airway/below vocal folds/no effort PENETRATION / ASPIRATION SCALE (SCORE): 1. Thin teaspoon: 5 2. Thin straw: 8; < 10% aspirated 3. Thin straw: 8; < 10% aspirated 4. Gleed straw: 2 5. Gleed straw: 1 6. Honey straw: 2 7. Honey straw: 2 8. Puddin 9. Gleed straw: 1 10. Gleed straw: 1 11. Gleed straw: 5 12. Cookie: 1 13. Honey straw: 1 14. Gleed straw: 8; < 10% aspirated IMPRESSION ORAL PHASE CHARACTERIZED BY: LABIAL SEAL: escape beyond interlabial space or lateral juncture; no extension beyond jill border TONGUE CONTROL DURING BOLUS MANIPULATION: posterior escape of greater than half of bolus BOLUS PREPARATION / MASTICATION: disorganized chewing/mashing with solid pieces of bolus unchewed BOLUS TRANSPORT / LINGUAL MOTION: slowed tongue motion ORAL RESIDUE: residue collection on oral structures PHARYNGEAL PHASE CHARACTERIZED BY: INITIATION OF PHARYNGEAL SWALLOW: bolus head in pyriforms at first hyoid excursion SOFT PALATE ELEVATION: no bolus between soft palate and pharyngeal wall LARYNGEAL ELEVATION: partial superior movement of thyroid cartilage/partial approximation of arytenoids cartilage to epiglottic petiole ANTERIOR HYOID EXCURSION: trace anterior movement EPIGLOTTIC MOVEMENT: partial epiglottic inversion LARYNGEAL VESTIBULE CLOSURE AT HEIGHT OF SWALLOW: incomplete laryngeal vestibule closure with narrow column of air/contrast in laryngeal vestibule PHARYNGEAL STRIPPING WAVE: pharyngeal stripping wave present / diminished PHARYNGOESOPHAGEAL SEGMENT OPENING: complete distension and complete duration with no obstruction of flow TONGUE BASE RETRACTION: narrow column of contrast between tongue base and posterior pharyngeal wall PHARYNGEAL RESIDUE: collection of residue within or on pharyngeal structures ESOPHAGEAL PHASE CHARACTERIZED BY: ESOPHAGEAL BOLUS CLEARANCE IN THE UPRIGHT POSITION: could not view EFFECTS OF TREATMENT STRATEGIES ATTEMPTED: Compensatory strategies not trialed under fluoroscopy in order to achieve results similar to what would be seen at bedside. Daughter reports that patient adamantly refuses to utilize strategies when prompted by therapy/staff at [facility] and will often do the opposite (ex take one bite at a time, will take several). Patient confirmed that she is supposed to tuck her chin but won?t. INTERPRETATION OF RESULTS: Patient presents with moderate oropharyngeal dysphagia (R13.12). Oral phase primarily marked by moderate mastication inefficiency and suboptimal lingual control w /swallow onset delay resulting in premature pharyngeal bolus entry w/ penetration before swallow onset. Moderate oral residue retention post deglutition. Pharyngeal phase primarily marked by delayed pharyngeal swallow onset timing resulting in suboptimal bolus location upon swallow onset. Reduced closure of the airway during deglutition attributed to incomplete laryngeal elevation and reduced anterior hyoid excursion contributing to intermittent penetration/aspiration. Aspiration was scant in volume and intermittent in nature w/ audible swallow as only outward sign of swallow dysfunction. Patient noted to SILENTLY aspirate with thin and nectar thickened liquids with clinical assessment at bedside relying on identification of classic overt signs and symptoms of aspiration unreliable. Mildly impaired pharyngeal motility attributed to reduced tongue based retraction and posterior pharyngeal stripping wave action resulting in trace-mild diffuse pharyngeal residue retention lining structures. Patient was fed by BUILDING MAINTENANCE CUSTODIAN for this study w/ liquids consumed via straw d/t inability of patient to get cup to lips given constraints of fluoroscopy suite size and UE mobility limitations. RECOMMENDATIONS DIET TEXTURE RECOMMENDATIONS: pureed textures/honey thickened liquids COMPENSATORY STRATEGIES RECOMMENDED: Supervision, assist/feed as necessary, alternate small bites & sips, liquids by straw, seated upright at 90 degrees during PO intake, remain upright for 30-60 minutes post meal (GERD precaution), medications with applesauce. JUSTIFICATION FOR SKILLED SPEECH THERAPY INTERVENTION: Patient requires intensive skilled speech-language intervention targeting diet texture management w/ use of compensatory strategies/bolus modification to reduce aspiration risk. Would strongly discourage advancement past honey thickened liquids without completion of a repeat modified barium swallow study due to the extent of aspirate identified that was SILENT in nature. Would consider training and implementation of oropharyngeal strengthening exercises to facilitate improved oropharyngeal strength and coordination, though significant improvements are unlikely due to lack of patient motivation and willingness to participate ADDITIONAL COMMENTS/RECOMMENDATIONS: Results and recommendations were discussed with the Patient immediately following MBS completion, with the Patient indicating understanding/denying questions, although additional education likely to be necessary. IMAGE COUNT: [id number]
[2019-03-21] MEDS: 0.9% NaCl Peripheral Flush Adult/Peds IV (14:18)
[2019-03-21 15:44] LABS: Vancomycin, Trough Level 14.5 ug/mL (5.0-15.0)
[2019-03-21] MEDS: Rivaroxaban 20 MG Tablet PO (16:16)
[2019-03-21] MEDS: Ipratropium/Albuterol Sulfate 3 ML AMPUL.NEB INHALATION ×2 (18:57→22:50)
[2019-03-22] VITALS (13 sets, daily range): BP systolic 113–157; BP diastolic 50–88; PULSE 60–91; RESP 16–24; TEMP 36.8–36.9; O2SAT 92–95
[2019-03-22] MEDS: Ipratropium/Albuterol Sulfate 3 ML AMPUL.NEB INHALATION ×4 (03:55→20:34)
[2019-03-22] MEDS: Levothyroxine 100 MCG Tablet PO (05:36)
[2019-03-22] MEDS: Multivitamins,Ther W-Minerals Tablet 1 TABLET PO (08:04)
[2019-03-22] MEDS: Tolterodine Tartrate 4 MG CAP.SA PO (08:05)
[2019-03-22] MEDS: Venlafaxine XR 75 MG Capsule PO (08:05)
[2019-03-22] MEDS: Menthol/Lanolin/Calamine/Znox 113 GM Tube 1 APPLIC TOPICAL ×2 (08:05→21:41)
[2019-03-22] MEDS: DULoxetine Hcl 60 MG Capsule PO ×2 (08:05→21:43)
[2019-03-22] MEDS: Fluticasone 0.05% 1 SPRAY NASAL.SRY 2 SPRAY NASAL (08:05)
[2019-03-22] MEDS: Pantoprazole Sodium 20 MG Tablet PO ×2 (08:06→21:43)
[2019-03-22] MEDS: Fenofibrate 145 MG Tablet PO (08:06)
[2019-03-22] MEDS: guaiFENesin 1,200 MG Tablet 1200 MG PO ×2 (08:06→21:42)
--- NOTE | 2019-03-22 09:06 | PCM.PN.HOSP ---
Patient Problems: Active and Suspected Problems (Last Updated 03/19/19 @ 14:34 by Arben Whitt DO) Acute respiratory failure with hypoxia (Acute) Gram-negative pneumonia (Suspected) Sepsis (Acute) Subjective: Still confused though she seems a little bit better today Vitals/I&O's: Vital Signs Temp Pulse Resp BP Pulse Ox 98.4 F 87 16 139/71 H 94 03/22/19 03:40 03/22/19 07:00 03/22/19 06:49 03/22/19 03:40 03/22/19 06:49 Oxygen Flow Rate (L/min) 4 Oxygen Delivery Method Nasal Cannula Weight: 216 lb 14.958 oz Body Mass Index (BMI) 39.6 Intake and Output for Last 24 Hours 03/20/19 03/21/19 03/22/19 23:59 23:59 23:59 Intake Total 1191 / 1191 969.5 / 969.5 137.7 / 137.7 Balance 1191 / 1191 969.5 / 969.5 137.7 / 137.7 General: Alert, Cooperative, No apparent distress, she is not oriented HEENT: Atraumatic, EOMI, Normocephalic Oral: Moist Mucosa Neck: Supple, No JVD Lungs: Diminished, clear to auscultation bilaterally, no wheezes, rales, or rhonchi Cardiovascular: Regular rate, Regular Rhythm, Normal S1, Normal S2, No murmurs Abdomen: Soft, Non Tender, Non-Distended, No Hepato-splenomegaly, Passing Flatus Extremities: No edema, Capillary Refill Less than 3 Seconds Skin: No rashes, No breakdown Musculoskeletal: - - Her right fingers are contracted Neurological: Neuro grossly intact, Sensory exam intact to light touch and pain Psych/Mental Status: Normal Affect, Appropriate Microbiology Past 72 Hours 03/19/19 14:38 Blood Culture (Wb) - Anticubital Right Blood Culture - Preliminary No growth in 48 hours. 03/19/19 12:05 Blood Culture (Wb) - Anticubital Left Blood Culture - Preliminary No growth in 48 hours. 03/19/19 15:45 Urine Catheter - Catheter Streptococcus pneumoniae Antigen (M - Final 03/19/19 15:45 Urine Catheter - Catheter Legionella Antigen - Final Laboratory Results 03/21/19 14:32: Vancomycin Trough 14.5 Current Medications Acetaminophen (Tylenol) 650 mg PO Q6H PRN PRN PRN Reason: Mild pain 1-3/Temp > 100.7 F Last Admin: 03/20/19 09:55 Dose: 650 mg Documented by: Hydrocodone Bitart/Acetaminophen ([place] 5mg-325mg) 1 tablet PO TID PRN PRN Reason: SEVERE PAIN (6-10/10) Albuterol Sulfate (Ventolin Aerosols) 2.5 mg INHALATION Q2H PRN PRN PRN Reason: SHORTNESS OF BREATH Albuterol/Ipratropium (Duoneb) 3 ml INHALATION Q4H.RT [facility] Last Admin: 03/22/19 06:49 Dose: 3 ml Documented by: Alprazolam (Xanax) 0.5 mg PO BID PRN PRN Reason: ANXIETY Calamine/Phenol (Calmoseptine Ointment) 1 applic TOPICAL BID [facility]; Protocol Last Admin: 03/22/19 08:05 Dose: 1 applicatio Documented by: Calcium Polycarbophil (Fibercon) 1,250 mg PO BID [facility] Last Admin: 03/22/19 08:05 Dose: 1,250 mg Documented by: Cholecalciferol (Vitamin D) 4,000 unit PO DAILY [facility] Last Admin: 03/22/19 08:06 Dose: 4,000 unit Documented by: Cyanocobalamin (Vitamin B12) 1,000 mcg IM Q30D [facility] Dextrose (D50w Syringe) 0 gm IV X1 PRN; Protocol PRN Reason: Hypoglycemia Duloxetine HCl (Cymbalta) 60 mg PO BID [facility] Last Admin: 03/22/19 08:05 Dose: 60 mg Documented by: Fenofibrate (Tricor) 145 mg PO DAILY [facility] Last Admin: 03/22/19 08:06 Dose: 145 mg Documented by: Fluticasone Propionate (Flonase Nasal [place]) 2 spray NASAL DAILY [facility] Last Admin: 03/22/19 08:05 Dose: 2 spray Documented by: Glucagon () 1 mg IM .X1 PRN PRN Reason: Hypoglycemia Guaifenesin (Mucinex) 1,200 mg PO BID [facility] Last Admin: 03/22/19 08:06 Dose: 1,200 mg Documented by: Piperacillin Sod/Tazobactam (Sod 3.375 gm/ Sodium Chloride) 50 mls @ 12.5 mls/hr IV Q8 [facility] Last Admin: 03/22/19 05:36 Dose: 12.5 mls/hr Documented by: Levothyroxine Sodium (Synthroid) 50 mcg PO SUSA [facility] Levothyroxine Sodium (Synthroid) 100 mcg PO MOTUWETHFR [facility] Last Admin: 03/22/19 05:36 Dose: 100 mcg Documented by: Multivitamins/Minerals (Multivitamin With Minerals) 1 tablet PO DAILY@0800 [facility] Last Admin: 03/22/19 08:04 Dose: 1 tablet Documented by: Ondansetron HCl (Zofran) 4 mg IV Q8H PRN PRN PRN Reason: NAUSEA/VOMITING Pantoprazole Sodium (Protonix) 20 mg PO BID [facility] Last Admin: 03/22/19 08:06 Dose: 20 mg Documented by: Polyethylene Glycol (Miralax) 17 gm PO DAILY [facility] Last Admin: 03/22/19 08:06 Dose: Not Given Documented by: Potassium Chloride (K-Dur) 40 meq PO DAILYCM [facility] Last Admin: 03/22/19 08:04 Dose: 40 meq Documented by: Rivaroxaban (Xarelto) 20 mg PO DAILY@1700 [facility] Last Admin: 03/21/19 16:16 Dose: 20 mg Documented by: Sodium Chloride () 10 - 40 ml IV UD PRN PRN Reason: SALINE FLUSH Last Admin: 03/21/19 14:18 Dose: 10 ml Documented by: Tolterodine Tartrate (Detrol La) 4 mg PO DAILY [facility] Last Admin: 03/22/19 08:05 Dose: 4 mg Documented by: Venlafaxine HCl (Effexor Xr) 75 mg PO DAILY [facility] Last Admin: 03/22/19 08:05 Dose: 75 mg Documented by: Medical Necessity - Tobacco Use Smoking Status: Former smoker Assessment/Plan All Active Problems (Last Updated 03/19/19 @ 14:34 by Arben Whitt DO) UTI (urinary tract infection) (Acute) Migraines (Acute) Pyelonephritis, acute (Acute) Sepsis (Acute) Bacteremia due to Gram-negative bacteria (Acute) Altered mental status (Acute) Acute kidney injury (Acute) Acute respiratory failure with hypoxia (Acute) Sepsis (Acute) 1. Altered mental status and acute hypoxic respiratory failure secondary to sepsis caused by gram-negative pneumonia/dysphagia -Continue with Zosyn to treat possible aspiration event, the daughter states that she has had these in the past -She does not want a PEG tube and at the correction is on a pur?ed diet with nectar thickened liquids -She currently is not hospice appropriate though she has been offered hospice in the past -She is off the Ventimask and on nasal cannula, will continue to monitor -We will obtain a urine culture for further evaluation as the daughter is adamant that this only happens when she has a urinary tract infection despite the chest x-ray demonstrating a pneumonia -She had a videoscopic swallowing study demonstrating silent aspiration with ingestion of thin liquid and nectar thickened liquids. This is likely going to cause continued aspiration events and pneumonia. 2. Anxiety/depression -Stable -Continue on Cymbalta, Effexor and Xanax 3. Hypothyroidism -Stable -Continue with Synthroid 4. GERD -Stable -Continue with PPI DVT: Xarelto for previous VTE Code Visit Inpatient E&M: [id number] Subs Hosp L2
[2019-03-22] MEDS: Rivaroxaban 20 MG Tablet PO (16:00)
[2019-03-23] VITALS (8 sets, daily range): BP systolic 125–148; BP diastolic 84–93; PULSE 71–84; RESP 18–20; TEMP 36.7–36.9; O2SAT 93–94
[2019-03-23] MEDS: Levothyroxine 100 MCG Tablet PO (06:34)
[2019-03-23 07:01] LABS: Anion Gap 9 (5-15); BUN 24 mg/dL (7-18); BUN/Creat Ratio 25.3 RATIO (10-20); Calcium,Total 9.7 mg/dL (8.5-10.1); Chloride 107 mmol/L (98-107); Creatinine, Serum 0.95 mg/dL (0.55-1.02); EST Glomerular Filtration Rate 60 mL/min (>60); Est Glom Filt Rate - Afr Amer 73 mL/min (>60); Estimated Creatinine Clearance 37.98 ml/min; Glucose 111 mg/dL (74-106); Potassium 4.3 mmol/L (3.5-5.1); Sodium Level 141 mmol/L (136-145)
[2019-03-23] MEDS: Ipratropium/Albuterol Sulfate 3 ML AMPUL.NEB INHALATION ×2 (07:02→11:08)
[2019-03-23] MEDS: Menthol/Lanolin/Calamine/Znox 113 GM Tube 1 APPLIC TOPICAL (08:59)
[2019-03-23] MEDS: Tolterodine Tartrate 4 MG CAP.SA PO (09:00)
[2019-03-23] MEDS: Multivitamins,Ther W-Minerals Tablet 1 TABLET PO (09:00)
[2019-03-23] MEDS: DULoxetine Hcl 60 MG Capsule PO (09:00)
[2019-03-23] MEDS: Pantoprazole Sodium 20 MG Tablet PO (09:01)
[2019-03-23] MEDS: Fluticasone 0.05% 1 SPRAY NASAL.SRY 2 SPRAY NASAL (09:01)
[2019-03-23] MEDS: guaiFENesin 1,200 MG Tablet 1200 MG PO (09:01)
[2019-03-23] MEDS: Venlafaxine XR 75 MG Capsule PO (09:01)
[2019-03-23] MEDS: Fenofibrate 145 MG Tablet PO (09:02)
--- NOTE | 2019-03-23 09:31 | TREXTCAR_ITS ---
- Diet 03/20/19 09:03 Diet: Cardiac/Low Cholesterol Food consistency:: Puree Liquid Consistency:: Honey Thick Is pt able to select menu?: Yes Diet Comments: Direct supervision; use straw; seated at 90 degrees; meds w/ purees - Routine Orders/Code Status [facility] - [facility]ies Physical Therapy: Eval and Treat Occupational Therapy: Eval and Treat Speech Therapy: Eval and Treat - Allergies/Procedures Done in Hospital Allergies/Adverse Reactions: Allergies bupropion HCl [From Wellbutrin] Adverse Reaction (Verified 01/08/17 21:12) Other DIZZY ibuprofen Adverse Reaction (Verified 01/08/17 21:12) Other ULCER nitrofurantoin [From Macrobid] Adverse Reaction (Verified 01/08/17 21:12) Other HEADACHE nitrofurantoin macrocrystalline [From Macrobid] Adverse Reaction (Verified 01/08/17 21:12) Other HEADACHE piroxicam [From Feldene] Adverse Reaction (Verified 01/08/17 21:12) Upset Stomach - Type of Care/Length of Stay Estimated LOS: Convalescent Care Less Than 30 days Type of Care Needed: Skilled Rehab Potential: Good Prognosis: Good - Additional Orders/Day of Discharge Day of Discharge: 03/23/19 - Dietary and Speech Recommendations Dietitian Recommendations/Changes: Recommend continue Cardiac diet with consistency determined by WORK OVER RIG OPERATOR. Speech Linguistic Eval Summary: RECOMMENDATIONS. DIET TEXTURE RECOMMENDATIONS: pureed textures/honey thickened liquids. COMPENSATORY STRATEGIES RECOMMENDED: Supervision, assist/feed as necessary, alternate small bites & sips, liquids by straw, seated upright at 90 degrees during PO intake, remain upright for 30-60 minutes post meal (GERD precaution), medications with applesauce. JUSTIFICATION FOR SKILLED SPEECH THERAPY INTERVENTION: Patient requires intensive skilled speech-language intervention targeting diet texture management w/ use of compensatory strategies/bolus modification to reduce aspiration risk. Would strongly discourage advancement past honey thickened liquids without completion of a repeat modified barium swallow study due to the extent of aspirate identified that was SILENT in nature. Would consider training and implementation of oropharyngeal strengthening exercises to facilitate improved oropharyngeal strength and coordination, though significant improvements are unlikely due to lack of patient motivation and willingness to participate - Follow Up Care Primary Care Physician: Eduard Bagley MD [Primary Care Provider] - Please follow up with your Primary Care Physician in: 3-5 days
--- NOTE | 2019-03-23 09:33 | PCM.DC.SUM ---
Discharge Date and Diagnosis - Problem List Patient Problems: Active and Suspected Problems (Last Updated 03/19/19 @ 14:34 by Arben Whitt DO) Acute respiratory failure with hypoxia (Acute) Gram-negative pneumonia (Suspected) Sepsis (Acute) Date of Admission: 03/19/19 Date of Discharge: 03/23/19 - Primary Discharge Diagnosis Active and Suspected Problems (Last Updated 03/19/19 @ 14:34 by Arben Whitt DO) Acute respiratory failure with hypoxia (Acute) Gram-negative pneumonia (Suspected) Sepsis (Acute) - Secondary Discharge Diagnosis Chronic Problems (Last Updated 03/19/19 @ 14:34 by Arben Whitt DO) Dyslipidemia (Chronic) Hypothyroidism (Chronic) HTN (hypertension) (Chronic) Histrionic personality disorder (Chronic) Dysphagia (Chronic) Depression (Chronic) Hospital Course and Treatment Imaging Results: CXR: IMPRESSION: Patchy infiltrate in the right lung base and possibly in the left lung base. Swallow Study: IMPRESSION: Silent aspiration with ingestion of thin liquids and nectar thickened liquids. Modified Barium Swallow:IMPRESSION ORAL PHASE CHARACTERIZED BY: LABIAL SEAL: escape beyond interlabial space or lateral juncture; no extension beyond jill border TONGUE CONTROL DURING BOLUS MANIPULATION: posterior escape of greater than half of bolus BOLUS PREPARATION / MASTICATION: disorganized chewing/mashing with solid pieces of bolus unchewed BOLUS TRANSPORT / LINGUAL MOTION: slowed tongue motion ORAL RESIDUE: residue collection on oral structures PHARYNGEAL PHASE CHARACTERIZED BY: INITIATION OF PHARYNGEAL SWALLOW: bolus head in pyriforms at first hyoid excursion SOFT PALATE ELEVATION: no bolus between soft palate and pharyngeal wall LARYNGEAL ELEVATION: partial superior movement of thyroid cartilage/partial approximation of arytenoids cartilage to epiglottic petiole ANTERIOR HYOID EXCURSION: trace anterior movement EPIGLOTTIC MOVEMENT: partial epiglottic inversion LARYNGEAL VESTIBULE CLOSURE AT HEIGHT OF SWALLOW: incomplete laryngeal vestibule closure with narrow column of air/contrast in laryngeal vestibule PHARYNGEAL STRIPPING WAVE: pharyngeal stripping wave present / diminished PHARYNGOESOPHAGEAL SEGMENT OPENING: complete distension and complete duration with no obstruction of flow TONGUE BASE RETRACTION: narrow column of contrast between tongue base and posterior pharyngeal wall PHARYNGEAL RESIDUE: collection of residue within or on pharyngeal structures ESOPHAGEAL PHASE CHARACTERIZED BY: ESOPHAGEAL BOLUS CLEARANCE IN THE UPRIGHT POSITION: could not view EFFECTS OF TREATMENT STRATEGIES ATTEMPTED: Compensatory strategies not trialed under fluoroscopy in order to achieve results similar to what would be seen at bedside. Daughter reports that patient adamantly refuses to utilize strategies when prompted by therapy/staff at [facility] and will often do the opposite (ex take one bite at a time, will take several). Patient confirmed that she is supposed to tuck her chin but won?t. INTERPRETATION OF RESULTS: Patient presents with moderate oropharyngeal dysphagia (R13.12). Oral phase primarily marked by moderate mastication inefficiency and suboptimal lingual control w /swallow onset delay resulting in premature pharyngeal bolus entry w/ penetration before swallow onset. Moderate oral residue retention post deglutition. Pharyngeal phase primarily marked by delayed pharyngeal swallow onset timing resulting in suboptimal bolus location upon swallow onset. Reduced closure of the airway during deglutition attributed to incomplete laryngeal elevation and reduced anterior hyoid excursion contributing to intermittent penetration/aspiration. Aspiration was scant in volume and intermittent in nature w/ audible swallow as only outward sign of swallow dysfunction. Patient noted to SILENTLY aspirate with thin and nectar thickened liquids with clinical assessment at bedside relying on identification of classic overt signs and symptoms of aspiration unreliable. Mildly impaired pharyngeal motility attributed to reduced tongue based retraction and posterior pharyngeal stripping wave action resulting in trace-mild diffuse pharyngeal residue retention lining structures. Patient was fed by [employer] SET UP MECHANIC for this study w/ liquids consumed via straw d/t inability of patient to get cup to lips given constraints of fluoroscopy suite size and UE mobility limitations. RECOMMENDATIONS DIET TEXTURE RECOMMENDATIONS: pureed textures/honey thickened liquids COMPENSATORY STRATEGIES RECOMMENDED: Supervision, assist/feed as necessary, alternate small bites & sips, liquids by straw, seated upright at 90 degrees during PO intake, remain upright for 30-60 minutes post meal (GERD precaution), medications with applesauce. JUSTIFICATION FOR SKILLED SPEECH THERAPY INTERVENTION: Patient requires intensive skilled speech-language intervention targeting diet texture management w/ use of compensatory strategies/bolus modification to reduce aspiration risk. Would strongly discourage advancement past honey thickened liquids without completion of a repeat modified barium swallow study due to the extent of aspirate identified that was SILENT in nature. Would consider training and implementation of oropharyngeal strengthening exercises to facilitate improved oropharyngeal strength and coordination, though significant improvements are unlikely due to lack of patient motivation and willingness to participate Operations: None Procedures: None Summary of Care Provided: Per HPI:The patient is a 78 year old F she was in her facility receiving medications. Patient has a known history of aspiration pneumonia and aspiration in general may take her pills too fast and then became short of breath and was noted to be hypoxic at 82%. Was sent to the emergency room where patient had been put on nonrebreather to maintain her sats in the low 90s. Chest x-ray showed a right lower lobe infiltrate and patient received IV Zosyn and daughter is present and provides most of the history and states that patient was diagnosed with possible pneumonia earlier in the week but she did not hear definitely about the an x-ray at that time but that showed pneumonia or not. Patient has history of chronic aspiration but does not have a PEG tube and patient does not want a PEG tube. Hospital Course: 1. Altered mental status and acute hypoxic respiratory failure secondary to sepsis caused by gram-negative pneumonia and UTI/lnvjczfel-27-eagz-old female who lives in a facility, presented with shortness of breath and hypoxia on the 82%. She was sent to the emergency room where she was found to have possibly bilateral pneumonia, with most of the disease present on the right. This was felt to be secondary to probable aspiration and she had a modified barium swallow during her stay which recommended pur?ed textures and honey thickened liquids. Per the daughter's request a urine culture was obtained which did show 100,000 E. coli sensitive to Augmentin. She has been on Zosyn for 3 days for her pneumonia and will be discharged for 6 more days on Augmentin twice daily. Her mental status was according to the daughter very different during her admission, she was highly confused and did not remember that her had and that her son had also . She did not know where she was and what the year was. However this morning on the day of discharge she stated that she was at [facility] and that the year was 2018. She is still requiring 4 L nasal cannula to maintain her oxygenation and she does wear her CPAP at night which she was wearing at the assisted living. I anticipate that this should improve over the course of her antibiotics, and also if she is more ambulatory or at least out of the hospital bed at the group home. 2. Her other medical diagnoses were evaluated and her home medications were continued where appropriate Patient Problems: Active and Suspected Problems (Last Updated 03/19/19 @ 14:34 by Arben Whitt DO) Acute respiratory failure with hypoxia (Acute) Gram-negative pneumonia (Suspected) Sepsis (Acute) Objective: General: Alert, Cooperative, No apparent distress, oriented x3 HEENT: Atraumatic, EOMI, Normocephalic Oral: Moist Mucosa Neck: Supple, No JVD Lungs: Diminished, clear to auscultation bilaterally, no wheezes, rales, or rhonchi Cardiovascular: Regular rate, Regular Rhythm, Normal S1, Normal S2, No murmurs Abdomen: Soft, Non Tender, Non-Distended, No Hepato-splenomegaly Extremities: No edema, Capillary Refill Less than 3 Seconds Skin: No rashes, No breakdown Musculoskeletal: - - Her right fingers are contracted Neurological: Neuro grossly intact, Sensory exam intact to light touch and pain Psych/Mental Status: Normal Affect, Appropriate - Physical Exam Vital Signs Temp Pulse Resp BP Pulse Ox 98.1 F 80 18 148/93 H 94 03/23/19 03:25 03/23/19 07:07 03/23/19 07:03 03/23/19 03:25 03/23/19 07:03 Oxygen Flow Rate (L/min) 4 Oxygen Delivery Method Nasal Cannula Weight: 216 lb 14.958 oz Body Mass Index (BMI) 39.6 Intake and Output for Last 24 Hours 03/21/19 03/22/19 03/23/19 23:59 23:59 23:59 Intake Total 969.5 / 969.5 661.5 / 661.5 290.4 / 290.4 Balance 969.5 / 969.5 661.5 / 661.5 290.4 / 290.4 Microbiology Past 72 Hours 03/19/19 15:45 Urine Culture - Final Urine Catheter - Catheter Presumptive E. coli 03/19/19 14:38 Blood Culture - Preliminary Blood Culture (Wb) - Anticubital Right No growth in 48 hours. 03/19/19 12:05 Blood Culture - Preliminary Blood Culture (Wb) - Anticubital Left No growth in 48 hours. Laboratory Tests Past 24 Hrs 03/23/19 06:25 Sodium 141 Potassium 4.3 Chloride 107 Carbon Dioxide 25.0 Anion Gap 9 BUN 24 H Creatinine 0.95 Estim Creat Clear Calc 37.98 Est GFR (MDRD) Af Amer 73 Est GFR (MDRD) Non-Af 60 BUN/Creatinine Ratio 25.3 H Glucose 111 H Calcium 9.7 Home Medications: Medications to take at Discharge Duloxetine Hcl [Cymbalta] 60 mg PO BID 03/12/15 Fluticasone 0.05% [Flonase Nasal [place]] 2 spray NARES DAILY 03/12/15 Calcium Polycarbophil [Fiber-Lax] 1,350 mg PO BID 11/24/16 Omeprazole 20 mg PO BID 11/24/16 Levothyroxine [Synthroid] 100 mcg PO MOTUWETHFR 01/09/17 Potassium Chloride 40 meq PO DAILY 01/09/17 ALPRAZolam [Xanax] 0.5 mg PO BID 03/19/19 ALPRAZolam [Xanax] 1 mg PO QHS 03/19/19 Cholecalciferol (Vitamin D3) [Vitamin D3] 4,000 unit PO DAILY 03/19/19 Cyanocobalamin [Vitamin B12] 1,000 mcg IM Q30D 03/19/19 Fenofibrate 160 mg PO DAILY 03/19/19 Hydrocodone/Acetaminophen [[place] 5-325 Tablet] 1 ea PO TID PRN 03/19/19 Levothyroxine [Synthroid] 50 mcg PO SUSA 03/19/19 Mv-Mn/Folic Acid/Vit K/Xszh020 [Alive Once Daily Women 50 Plus] 1 ea PO DAILY 03/19/19 Olopatadine HCl [Pataday] 1 drp OP BID PRN 03/19/19 Oxybutynin Chloride [Ditropan Xl] 10 mg PO DAILY 03/19/19 Polyethylene Glycol 3350 [Miralax] 17 gm PO DAILY 03/19/19 Rivaroxaban [Xarelto] 20 mg PO DAILY 03/19/19 Venlafaxine HCl [Venlafaxine HCl ER] 75 mg PO DAILY 03/19/19 Amoxicillin/Potassium Clav [Augmentin 875-125 Tablet] 1 ea PO BID #12 tab 03/23/19 Following Prescrptions Were Given to Patient: Amoxicillin/Potassium Clav [Augmentin 875-125 Tablet] 1 ea PO BID #12 tab Primary Care Physician: Eduard Bagley MD [Primary Care Provider] - Please follow up with your Primary Care Physician in: 3-5 days Disposition: Long-Term facility Minutes spent on discharge:: 35 Patient Condition:: Stable Medical Necessity - Tobacco Use Smoking Status: Former smoker Meaningful Use Info Meaningful Use Diagnoses (Choose all that apply): None applicable Code Visit Inpatient E&M: 16628 Disch Hosp
--- NOTE | 2019-03-23 16:13 | CASEMGMT ---
Patient is ready for discharge back to [facility]. ALIYA faxed orders to [facility]. ALIYA called [facility] and arranged for patient to get picked up at 2p via cot. ALIYA notified Coni NOLAN at [facility], and assistant corporate secretary. Plan: d/c back to [facility] under skilled level of care. 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. [facility] transported via cot. Renetta SINGH MSW
--- NOTE | 2019-03-23 16:15 | CASEMGMT ---
ALIYA called patient's daughter, Brenda and let her know [facility]. ALIYA apologized for not notifying her before now. Renetta SINGH MSW
--- NOTE | 2019-03-24 09:08 | CASEMGMT ---
ALIYA called Marily, patient's [facility] case reviewer and left her a voice mail letting her know [facility]. Renetta SINGH MSW
== END 2019-03-23 14:05 | disposition skilled nursing facility (03) | DRG 871 ==
LOC: ED 13:24 → PCU 16:55
PROVIDERS: Emergency Provider Emergency Medicine; Family Provider Family Medicine; PCP Family Medicine; Visit Provider Family Medicine
DX: A41.9 Sepsis, unspecified organism (principal); J96.01 Acute respiratory failure with hypoxia; J15.6 Pneumonia due to other Gram-negative bacteria; N39.0 Urinary tract infection, site not specified; E78.5 Hyperlipidemia, unspecified; E03.9 Hypothyroidism, unspecified; I10 Essential (primary) hypertension; F32.9 Major depressive disorder, single episode, unspecified; G14 Postpolio syndrome; F60.4 Histrionic personality disorder; R13.10 Dysphagia, unspecified; B96.20 Unspecified Escherichia coli [E. coli] as the cause of diseases classified elsewhere; Z87.891 Personal history of nicotine dependence
CPT/HCPCS: 36415; 36600; 71045; 74230; 80048; 80202; 82803; 82962; 83880; 84484; 85025; 87040; 87086; 87088; 87186; 87449; 92526; 92610; 92611; 93005; 94640; 94667; 97162; 97166; 97530; 97802; 99251; 99285; J7040; A4216; G0463

== ENCOUNTER 2019-04-06 11:02 | Inpatient (IN) | payer MEDICARE, SELFPAY ==
[2019-03-19 14:27] VITALS: BMI 39.6
[2019-04-06] VITALS (9 sets, daily range): BP systolic 150–177; BP diastolic 66–94; PULSE 69–98; RESP 14–24; TEMP 36.6–36.9; O2SAT 95–99; BMI 40.9; BMI 39.9
--- NOTE | 2019-04-06 11:12 | ED.RN ---
PER ECF PT WAS GIVEN 0600 MEDS BUT WAS UNABLE TO SWALLOW SO STAFF CLEARED HER MOUTH WITH A SPOON. UNKNOWN HOW LONG PT HAS BEEN HAVING DIFFICULTY.
--- NOTE | 2019-04-06 12:01 | RAD_ITS ---
STUDY: X-RAY CHEST REASON FOR EXAM: Female, 78 years old. Dyspnea. TECHNIQUE: Single AP portable view of the chest. COMPARISON: Comparison is made with prior study dated March 19, 2019. FINDINGS: EKG electrodes are seen. There is evidence of a central pulmonary vascular congestion with mild increased markings at the lung bases suggestive of atelectasis. There is no demonstrated pleural abnormality. There is mild cardiac enlargement. Normal mediastinum and rozina. Normal visualized pulmonary arteries. There is atherosclerotic calcification of the aortic arch with tortuosity. There are diffuse degenerative changes of the visualized thoracic spine. [place] pins are seen overlying the left humeral head in keeping with prior rotator cuff surgery. There is no demonstrated abnormality of the visualized soft tissue structures of the upper abdomen. RAD/Chest 1 View (Portable) IMPRESSION: Findings suggestive of a vascular congestion with superimposed bibasilar atelectasis more prominent on the left side. Electronically Signed: Lloyd Ambrocio, at 13:21 EDT , Service support ,
--- NOTE | 2019-04-06 12:01 | EKG12_ITS ---
Test Reason : Blood Pressure : / mmHG Vent. Rate : 095 BPM Atrial Rate : 095 BPM P-R Int : 172 ms QRS Dur : 092 ms QT Int : 370 ms P-R-T Axes : 045 -17 028 degrees QTc Int : 464 ms Sinus rhythm with frequent Premature ventricular complexes Minimal voltage criteria for LVH, may be normal variant Inferior infarct , age undetermined Abnormal ECG Confirmed by MARY MOY, LILIA ([id number]), acquisition editor SANTHOSH AGUILA ([id number]) on 04/10/2019 1:15:00 PM Referred By: Anshu López Confirmed By:LILIA HERNANDEZ MD
--- NOTE | 2019-04-06 12:03 | ED.DCSUM_ITS ---
- ER Visit Summary Date of Service: 04/06/19 Chief Complaint: Not acting right per the ECF. History of Present Illness: The patient is a 78 F currently in the senior living after being discharged from the hospital recently for UTI and aspiration pneumonia. 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 And treatment oxygen ever since she was in the hospital. Daughter states he was called by nursing today they thought she was herself and was not talking as much as she normally does so they sent her to the hospital. Patient does not give me any history. Physical Examination: Vital signs are stable and pulse ox is 99% on oxygen. Temperature 97. HEENT exam atraumatic. TMs. Neck nontender. Lungs clear to auscultation bilaterally. Diminished lower bases. Heart rate and rhythm no murmur. Abdomen soft obese but nontender. Normal bowel sounds no peritoneal signs. Extremities she does move all 4. She does paper twister tender my hands. Neurologically she is awake. The room she follows commands. She really is not speaking or give me any history. Test Results: Chest x-ray chronic changes no acute process. One view portable. CT brain chronic changes no acute process read by the radiologist reviewed by me. EKG sinus rhythm rate of 95 with PVCs. White count elevated 15,000. No bands. Electro lites unremarkable normal creatinine and gap. UA consistent with infection with 10-25 white cells greater than 100 red cells and 1+ bacteria. Culture sent. Troponin normal. Lactic acid 1.6. Calcium slightly elevated 10.3. Emergency Department Course and Treatment: White female from a senior living clinically looks dehydrated no vital status change. CT and labs to be obtained. She will be treated with a liter of normal saline. Repeat exam no change. Patient started on IV Rocephin for UTI. Treatment Plan: I spoke to the hospitalist about admission. Discussed test results with family. Disposition: Admission Impression: Acute mental status change Acute UTI Leukocytosis Anticoagulated on Xarelto This note was generated with [employer] dictation software. It may contain incorrect words, spelling, and punctuation that were not noted in review of the chart prior to signing ED Disposition - Plan for ED Patient: Referrals: Eduard Bagley MD [Primary Care Provider] -
--- NOTE | 2019-04-06 12:03 | CT_ITS ---
STUDY: CT BRAIN WITHOUT CONTRAST REASON FOR EXAM: Female, 78 years old. Mental status change. RADIATION DOSAGE (If Supplied By Facility): CTDIvol = ( 44.99 ) mGy, DLP = ( 796.11 ) mGycm TECHNIQUE: Transaxial CT imaging of the brain was performed without administration of intravenous contrast material. Individualized dose optimization techniques were used for this CT. COMPARISON: No relevant priors. FINDINGS: Normal soft tissue structures. Normal calvarium. There is moderate cerebral atrophy with widening of the extra-axial spaces and ventricular dilatation. There are areas of decreased attenuation within the white matter tracts of the supratentorial brain, consistent with microvascular disease changes. Normal basal ganglia and thalami. Normal brainstem. There is mild cerebellar atrophy. There is no intracranial hemorrhage. There are no findings of an acute ischemic infarction. Atherosclerotic calcification of the vertebral arteries and cavernous portions of the internal carotid arteries bilaterally. Normal visualized paranasal sinuses. CT/Brain/Head without Contrast IMPRESSION: Chronic involutional changes of the brain. Electronically Signed: Lloyd Ambrocio, at 13:16 EDT , Service support ,
[2019-04-06 12:12] LABS: Absolute Lymphocyte Count 1.64 X10^3/uL (0.83-4.51); Absolute Neutrophil Count 12.9 X10^3/uL (2.0-7.7); Basophil# 0.05 X10^3/uL; Basophil% 0.3 % (0-1); Eosinophils% 1.3 % (0-5); Hematocrit 44.1 % (37-47); Hemoglobin 13.6 g/dL (12.0-15.0); Lymphocyte # 1.64 X10^3/ul (4.0); Lymphocyte % 10.4 % (19-41); Mean Corp Hgb Conc 30.8 g/dL (32-36); Mean Corpuscular Hgb 31.6 pg (27.0-32.0); Mean Corpuscular Volume 102.3 fL (81-99); Mean Platelet Vol. 11.8 fl (6.2-12.0); Monocyte# 0.81 X10^3/uL; Monocyte% 5.1 % (0-10); NRBC Flagged by Analyzer 0 % (0-5); Neutrophil # 12.93 X10^3/uL (2.7-7.7); Neutrophil % 82.2 % (47-70); Platelet Count 274 K/mm3 (150-450); RBC Distribution Width CV 14.6 % (11.6-14.6); RBC Distribution Width SD 54.7 fl (35.1-43.9); Red Blood Count 4.31 M/mm3 (4.2-5.4); White Blood Count 15.7 K/mm3 (4.4-11.0)
[2019-04-06 12:41] LABS: Anion Gap 8 (5-15); BUN 19 mg/dL (7-18); BUN/Creat Ratio 19.8 RATIO (10-20); Calcium,Total 10.3 mg/dL (8.5-10.1); Chloride 105 mmol/L (98-107); Creatinine, Serum 0.96 mg/dL (0.55-1.02); EST Glomerular Filtration Rate 60 mL/min (>60); Est Glom Filt Rate - Afr Amer 72 mL/min (>60); Estimated Creatinine Clearance 37.58 ml/min; Glucose 133 mg/dL (74-106); Lactic Acid 1.6 mmol/L (0.4-2.0); Potassium 4.3 mmol/L (3.5-5.1); Sodium Level 145 mmol/L (136-145)
--- NOTE | 2019-04-06 13:18 | ED.RN ---
ATTEMPTED TO STRAIGHT CATH THE PT. PT IS RED AND SWOLLEN IN THAT AREA. UNABLE TO ADVANCE CATHETER TO GET URINE. PT WAS INCONTINENT OF STOOL AND WAS CLEANED UP WITH A CLEAN DEPENDS PLACED UNDER HER. A PURE WICK WAS ALSO PLACED. PHYSICIAN WAS NOTIFIED.
[2019-04-06] MEDS: 0.9% Normal Saline 1,000 ML 1000 ML IV (13:20)
[2019-04-06 14:30] LABS: Mucous, Urine 0 SEEN /hpf (<or=2+)
[2019-04-06 14:37] LABS: Color, Urine Yellow (Yellow); Glucose, Dipstick Normal (Normal); Ketone-Dipstick 5 mg/dl (Negative); Leukocyte Esterase-Dipstick 100 /ul (Negative); Nitrite-Dipstick Negative (Negative); Occult Blood-Urine 250 /ul (Negative); Protein-Dipstick 30 mg/dl (Negative); Urine Bilirubin Dipstick Negative (Negative); Urine Clarity Clear (Clear); Urine Urobilinogen 1 mg/dl (Normal)
[2019-04-06 14:45] LABS: Red Blood Cells-Urine > 100 SEEN /hpf (0-5); Squamous Epithelial Cells - UA 0-5 SEEN /hpf (5-10); White Blood Cells 10-25 SEEN /hpf (0-5)
[2019-04-06 14:46] LABS: Bacteria 1+ /hpf (None Seen)
--- NOTE | 2019-04-06 16:33 | NURSING ---
HOSPITALIST FOR DR KWON
--- NOTE | 2019-04-06 16:43 | NURSING ---
MED SURG UTI, LEUKOCYTOSIS, CONFUSION ELEANOR
[2019-04-06] MEDS: Ceftriaxone 1 GM/50 ML BAG IV (17:11)
--- NOTE | 2019-04-06 18:37 | HP.PCM_ITS ---
Problem List (1) Acute hypoactive delirium due to another medical condition Status: Acute History of Present Illness Date of Admission: 04/06/19 Chief Complaint: Change in mental status The patient is a 78 year old F with a senior living resident recently admitted f or pneumonia and UTI. Presents to the hospital with a 1 day history of change in mental status and personality changes as well. Patient has been more confused and disoriented and not quite herself. On account of this patient was sent to the emergency department. Daughters by the bedside and provides some of the history. Patient herself states that she feels fairly good. [] Past Medical History Past Medical History (Chronic Problems): Chronic Problems (Last Updated 03/19/19 @ 14:34 by Arben Whitt DO) Dyslipidemia (Chronic) Hypothyroidism (Chronic) HTN (hypertension) (Chronic) Histrionic personality disorder (Chronic) Dysphagia (Chronic) Depression (Chronic) Medical History: Medical History (Last Updated 03/19/19 @ 14:34 by Arben Whitt DO) Depression F32.9 Dysphagia R13.10 Hypothyroidism E03.9 Post-polio syndrome G14 Venous thromboembolism (VTE) I82.90 HTN (hypertension) I10 Allergies bupropion HCl [From Wellbutrin] Adverse Reaction (Verified 04/06/19 11:15) Other DIZZY ibuprofen Adverse Reaction (Verified 04/06/19 11:15) Other ULCER nitrofurantoin [From Macrobid] Adverse Reaction (Verified 04/06/19 11:15) Other HEADACHE nitrofurantoin macrocrystalline [From Macrobid] Adverse Reaction (Verified 04/06/19 11:15) Other HEADACHE piroxicam [From Feldene] Adverse Reaction (Verified 04/06/19 11:15) Upset Stomach Home Medications: Ambulatory Orders Medication Instructions Recorded Duloxetine Hcl [Cymbalta] 60 mg PO BID 03/12/15 Fluticasone 0.05% [Flonase Nasal 2 spray NARES DAILY 03/12/15 [place]] Levothyroxine [Synthroid] 100 mcg PO MOTUWETHFR 01/09/17 ALPRAZolam [Xanax] 0.5 mg PO BID 03/19/19 ALPRAZolam [Xanax] 1 mg PO QHS 03/19/19 Cholecalciferol (Vitamin D3) 1,000 unit PO DAILY 03/19/19 [Vitamin D3] Cyanocobalamin [Vitamin B12] 1,000 mcg IM Q30D 03/19/19 Fenofibrate 160 mg PO DAILY 03/19/19 Hydrocodone/Acetaminophen [[facility] 1 ea PO TID 03/19/19 5-325 Tablet] Levothyroxine [Synthroid] 50 mcg PO SUSA 03/19/19 Mv-Mn/Folic Acid/Vit K/Lvku198 1 ea PO DAILY 03/19/19 [Alive Once Daily Women 50 Plus] Olopatadine HCl [Pataday] 1 drp OP BID PRN PRN 03/19/19 Polyethylene Glycol 3350 [Miralax] 17 gm PO DAILY 03/19/19 Rivaroxaban [Xarelto] 20 mg PO DAILY 03/19/19 Venlafaxine HCl [Venlafaxine HCl 75 mg PO DAILY 03/19/19 ER] Calcium Polycarbophil [Fiber Lax] 1,250 mg PO BID 04/06/19 Diclofenac Sodium [Voltaren] 4 gm TP BID 04/06/19 Omeprazole 20 mg PO BID 04/06/19 Oxybutynin [Ditropan] 10 mg PO DAILY 04/06/19 Potassium Chloride 40 meq PO DAILY 04/06/19 Surgical History: - - no known recent surgeries, remote history of left ankle fracture with external fixator bilateral knee replacements. Smoking Status: Never smoker Tobacco Use: Non-smoker - *Family History Offspring History Items: - - Son from multiple myeloma Maternal History Items: No pertinent history Review of Systems Constitutional: Reports: Anorexia, Chills, Fever HEENT: Reports: Difficulty Hearing Cardiovascular: Denies: Chest Pain Respiratory: Denies: Cough, Hemoptysis Gastrointestinal: Denies: Abdominal Pain Genitourinary: Denies: Dysuria, Frequency Skin: Reports: Wounds Psychiatric: Reports: Anxiety Endocrine: Reports: Hx of Irradiation Comment: Will order systems reviewed and essentially negative VTE Information - Inpt Only VTE Present on Admission: No VTE Mechan Device Prophylaxis: None VTE Pharm Prophylaxis ordered?: Yes Reason prophylaxis not ordered:: Medical Contraindication Patient Problems: Active and Suspected Problems (Last Updated 03/19/19 @ 14:34 by Arben Whitt DO) Acute hypoactive delirium due to another medical condition (Acute) - Physical Exam General: Lethargic, - - Acutely ill looking but not in any obvious distress. HEENT: Atraumatic, PERRLA Oral: Moist Mucosa, No Gingival or Mucosal Lesions/ Ulcerations Neck: Supple, No Nodes Lungs: Clear to auscultation, Normal air movement, No rhonchi, No wheeze Cardiovascular: Regular rate, Normal S2 Abdomen: Soft, Non Tender, Non-Distended, No Hepato-splenomegaly Extremities: No clubbing, No cyanosis Skin: No rashes Musculoskeletal: No Tenderness to Palpation of Joints or Extremities Neurological: Cranial nerves II-XII grossly intact Vital Signs Temp Pulse Resp BP Pulse Ox 98.5 F 80 22 H 158/75 H 95 04/06/19 17:30 04/06/19 17:53 04/06/19 17:53 04/06/19 17:30 04/06/19 17:53 Oxygen Flow Rate (L/min) 3 Oxygen Delivery Method Nasal Cannula Weight: 98.43 kg Body Mass Index (BMI) 39.9 Laboratory Tests Past 24 Hrs 04/06/19 04/06/19 04/06/19 11:24 11:24 11:24 WBC 15.7 H RBC 4.31 Hgb 13.6 Hct 44.1 MCV 102.3 H MCH 31.6 MCHC 30.8 L RDW Std Deviation 54.7 H RDW Coeff of Kadeem 14.6 Plt Count 274 MPV 11.8 Immature Gran % (Auto) 0.700 Neut % (Auto) 82.2 H Lymph % (Auto) 10.4 L [place] % (Auto) 5.1 Eos % (Auto) 1.3 Baso % (Auto) 0.3 Absolute Neuts (auto) 12.9 H Absolute Lymphs (auto) 1.64 Nucleated RBC % 0 Sodium 145 Potassium 4.3 Chloride 105 Carbon Dioxide 32.0 Anion Gap 8 BUN 19 H Creatinine 0.96 Estim Creat Clear Calc 37.58 Est GFR (MDRD) Af Amer 72 Est GFR (MDRD) Non-Af 60 BUN/Creatinine Ratio 19.8 Glucose 133 H Lactic Acid 1.6 Calcium 10.3 H Troponin I < 0.015 Urine Color Urine Clarity Urine pH Ur Specific [place] Urine Protein Urine Glucose (UA) Urine Ketones Urine Occult Blood Urine Nitrite Urine Bilirubin Urine Urobilinogen Ur Leukocyte Esterase Urine RBC Urine WBC Ur Squamous Epith Cells Urine Bacteria Urine Mucus 04/06/19 14:25 WBC RBC Hgb Hct MCV MCH MCHC RDW Std Deviation RDW Coeff of Kadeem Plt Count MPV Immature Gran % (Auto) Neut % (Auto) Lymph % (Auto) [place] % (Auto) Eos % (Auto) Baso % (Auto) Absolute Neuts (auto) Absolute Lymphs (auto) Nucleated RBC % Sodium Potassium Chloride Carbon Dioxide Anion Gap BUN Creatinine Estim Creat Clear Calc Est GFR (MDRD) Af Amer Est GFR (MDRD) Non-Af BUN/Creatinine Ratio Glucose Lactic Acid Calcium Troponin I Urine Color Yellow Urine Clarity Clear Urine pH 7.0 Ur Specific [place] 1.010 Urine Protein 30 H Urine Glucose (UA) Normal Urine Ketones 5 H Urine Occult Blood 250 H Urine Nitrite Negative Urine Bilirubin Negative Urine Urobilinogen 1 H Ur Leukocyte Esterase 100 H Urine RBC > 100 SEEN Urine WBC 10-25 SEEN Ur Squamous Epith Cells 0-5 SEEN Urine Bacteria 1+ Urine Mucus 0 SEEN Assessment/Plan All Active Problems (Last Updated 03/19/19 @ 14:34 by Arben Whitt DO) UTI (urinary tract infection) (Acute) Migraines (Acute) Pyelonephritis, acute (Acute) Sepsis (Acute) Bacteremia due to Gram-negative bacteria (Acute) Altered mental status (Acute) Acute kidney injury (Acute) Acute respiratory failure with hypoxia (Acute) Sepsis (Acute) Acute hypoactive delirium due to another medical condition (Acute) #1. Acute hypoactive delirium. Unable to UTI. Will treat with IV antibiotics. [place] delirium precautions. 2. Recurrent urinary tract infection. Patient may benefit from use of topical estrogen cream for prevention and prophylaxis. 3. Morbid obesity. 4. Acute hypoxic respiratory failure. Most likely secondary to aspiration and atelectasis. Chest x-ray showing reduced left lung volume. We will do chest CT without contrast to further evaluate and define. Consult pulmonology. Continue oxygen supplementation. Breathing treatments. IV Zosyn should cover. Breathing treatments and mucolytic's. Code Visit Inpatient E&M: 61189 Init Hosp L3
--- NOTE | 2019-04-06 19:06 | CT_ITS ---
STUDY: CT CHEST WITHOUT CONTRAST REASON FOR EXAM: Female, 78 years old. Hypoxia. UTI. Altered mental status. RADIATION DOSAGE (If Supplied By Facility): CTDIvol = ( 20.03 ) mGy, DLP = ( 705.78 ) mGycm TECHNIQUE: Transaxial imaging was performed without the administration of intravenous contrast material. Multiplanar coronal and sagittal images were reformatted. Individualized dose optimization techniques were used for this CT. COMPARISON: Chest, April 06, 2019. FINDINGS: The lungs appear hypoexpanded. There are bilateral pleural effusions and atelectasis at the lung bases. There is mild elevation of the left hemidiaphragm. There is no focal mass. Normal heart and pericardium. There are calcifications of the coronary arteries. Normal mediastinum. Normal hilar regions. Normal unenhanced pulmonary arteries. There is atherosclerotic calcification of the aortic arch with tortuosity and elongation of the aortic arch and descending thoracic aorta. There are multi-level degenerative changes of the thoracic spine. Question mild fatty infiltration liver. There is barium within diverticuli in the neck fracture. CT/Chest without Contrast IMPRESSION: 1. Bilateral pleural effusions with atelectasis. The lungs appear hypoexpanded. 2. 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 3. Question fatty infiltration of liver. 4. Diverticulosis. 5. Degenerative changes of the thoracic spine. Electronically Signed: Castillo Mina DO at 21:51 EDT Tel [phone], Service support ,
--- NOTE | 2019-04-06 19:23 | NURSING ---
female at bedside, states she is pt daughter and POA and medical POA. states pt is a DNRCCA thats what she was 2 weeks ago in PCU and that is what mom wanted at that time.
--- NOTE | 2019-04-06 19:25 | NURSING ---
daughter reports she is on a pureed diet with honey thickened liquids at [facility]. md phoned in, updated him on pt and daughter request- while on the phone in the room with md- informed pt daughter states DNRCCA, daughter corrects nurse and states 'she is to be DNRCC, not DNRCCA, just a DNRCC.
[2019-04-07] VITALS (7 sets, daily range): BP systolic 131–155; BP diastolic 71–97; PULSE 84–96; RESP 16–20; TEMP 36.6–37.1; O2SAT 93–98
--- NOTE | 2019-04-07 05:34 | CCHN_ITS ---
Hospitalist Note The nurse called me for positive blood culture. Preliminary blood culture shows gram-positive cocci. MRSA nasal screen ordered. Patient is [facility] resident and admitted for change in mental status. Chest CT shows bilateral pleural effusion with atelectasis. UA positive of WBCs 10-25 cells, RBC more than 100 cells. Urine culture pending. Patient already on IV Zosyn. MRSA nasal screen ordered. Empirically started on IV vancomycin for gram-positive cocci coverage. Microbiology Past 72 Hours 04/06/19 13:15 Blood Culture (Wb) - Right Hand Blood Culture - Preliminary Clinical Impression(s) from Imaging Studies Chest X-Ray 04/06/19 12:01 IMPRESSION: Findings suggestive of a vascular congestion with superimposed bibasilar atelectasis more prominent on the left side. Chest CT 04/06/19 19:06 IMPRESSION: 1. Bilateral pleural effusions with atelectasis. The lungs appear hypoexpanded. 2. 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 3. Question fatty infiltration of liver. 4. Diverticulosis. 5. Degenerative changes of the thoracic spine.
[2019-04-07 05:54] LABS: Absolute Neutrophil Count 4.8 X10^3/uL (2.0-7.7); Basophil# 0.06 X10^3/uL; Basophil% 0.8 % (0-1); Eosinophil# 0.54 X10^3/uL; Eosinophils% 7.3 % (0-5); Hematocrit 36.8 % (37-47); Hemoglobin 11.4 g/dL (12.0-15.0); Lymphocyte % 17.7 % (19-41); Mean Corpuscular Hgb 31.2 pg (27.0-32.0); Mean Corpuscular Volume 100.8 fL (81-99); Mean Platelet Vol. 11.4 fl (6.2-12.0); Monocyte# 0.61 X10^3/uL; Monocyte% 8.3 % (0-10); NRBC Flagged by Analyzer 0 % (0-5); Neutrophil % 65.4 % (47-70); Platelet Count 219 K/mm3 (150-450); RBC Distribution Width CV 14.7 % (11.6-14.6); RBC Distribution Width SD 53.7 fl (35.1-43.9); Red Blood Count 3.65 M/mm3 (4.2-5.4); White Blood Count 7.4 K/mm3 (4.4-11.0)
--- NOTE | 2019-04-07 06:13 | PCM.RX.CS ---
Consult Pharmacy has been consulted to manage selected antiobiotic: Vancomycin Type of Consult: New start Suspected Infection: Other Microbiology: Microbiology 04/06/19 13:15 Blood Culture (Wb) - Right Hand Blood Culture - Preliminary Weight used for dosin.4 kg Estimated Creatinine Clearance: 51.82 Goal Trough: 10-15 mcg/mL Pharmacy Plan for Drug Dosing: Pharmacy Service will continue to monitor and adjust dosing as required. Medications Vancomycin HCl 1,500 mg/ (Sodium Chloride) 530 mls @ 250 mls/hr IV X1 ONE Stop: 04/07/19 08:07 Last Admin: 04/07/19 06:05 Dose: 250 mls/hr Documented by: Vancomycin HCl 750 mg/ Sodium (Chloride) 265 mls @ 250 mls/hr IV Q12H ESTHER Follow-Up Labs: Trough Vancomycin Labs to be done on [date and time ordered]: 04/08 @ 6662
[2019-04-07 06:22] LABS: ALB/GLOB Ratio 0.7 RATIO (0.9-2.4); AST(SGOT) 21 U/L (15-37); Alanine Aminotransfer ALT/SGPT 22 U/L (13-56); Albumin, Serum 2.5 g/dL (3.2-5.0); Alkaline Phosphatase 50 U/L (45-117); Anion Gap 7 (5-15); BUN 18 mg/dL (7-18); BUN/Creat Ratio 23.7 RATIO (10-20); Calcium,Total 9.6 mg/dL (8.5-10.1); Chloride 110 mmol/L (98-107); Creatinine, Serum 0.76 mg/dL (0.55-1.02); EST Glomerular Filtration Rate 78 mL/min (>60); Est Glom Filt Rate - Afr Amer 94 mL/min (>60); Estimated Creatinine Clearance 34.42 ml/min; Globulin 3.7 g/dL (2.2-4.2); Glucose 111 mg/dL (74-106); Potassium 3.9 mmol/L (3.5-5.1); Protein, Total 6.2 g/dL (6.4-8.2); Sodium Level 146 mmol/L (136-145)
[2019-04-07] MEDS: Ipratropium/Albuterol Sulfate 3 ML AMPUL.NEB INHALATION ×3 (06:54→18:48)
[2019-04-07] MEDS: DULoxetine Hcl 60 MG Capsule PO ×2 (08:33→08:34)
[2019-04-07] MEDS: Venlafaxine XR 75 MG Capsule PO (08:34)
[2019-04-07] MEDS: guaiFENesin 1,200 MG Tablet 1200 MG PO ×2 (08:34→21:43)
--- NOTE | 2019-04-07 09:19 | PCM.PN.HOSP ---
Patient Problems: Active and Suspected Problems (Last Updated 03/19/19 @ 14:34 by Arben Whitt DO) Acute hypoactive delirium due to another medical condition (Acute) Subjective: Patient seen and examined. She was admitted from a snf with complaint of altered mental status and was found to have urinary tract infection. She has been managed for acute hyperactive delirium due to UTI. Also be managed for acute hypoxic respiratory failure thought to be due to atelectasis possible aspiration. Patient is currently on IV Zosyn. This morning. She was alert but confused and kept saying she was going to get into a car and drive home. Patient was in the differential for exactly where she was. However she was able to deny any fever chills, chest pain, palpitations or dizziness, burning with urination, diarrhea vomiting. Review of systems otherwise negative. Labs and vitals reviewed. Vitals/I&O's: Vital Signs Temp Pulse Resp BP Pulse Ox 98.2 F 85 18 149/97 H 94 04/07/19 08:30 04/07/19 08:30 04/07/19 08:30 04/07/19 08:30 04/07/19 08:30 Oxygen Flow Rate (L/min) 3 Oxygen Delivery Method Nasal Cannula Weight: 217 lb Body Mass Index (BMI) 39.9 Intake and Output for Last 24 Hours 04/05/19 04/06/19 04/07/19 23:59 23:59 23:59 Intake Total 858 / 858 Output Total 460 / 460 Balance 398 / 398 General: Alert, Confused HEENT: Atraumatic, PERRLA, EOMI, Normocephalic Oral: Dry Mucosa Neck: Supple, No JVD, Negative Carotid Bruits Lungs: Clear to auscultation, Normal air movement, No rhonchi, No wheeze, No rales Cardiovascular: Regular rate, Regular Rhythm, Normal S1, Normal S2, No murmurs Abdomen: Bowel Sounds Present, Soft, Non Tender, Non-Distended, No Hepato-splenomegaly Extremities: No clubbing, No cyanosis, No edema, Capillary Refill Less than 3 Seconds Skin: No rashes, No breakdown Musculoskeletal: No Tenderness to Palpation of Joints or Extremities Lymphatic: No Cervical, Supraclavicular, or Inguinal Adenopathy Neurological: Cranial nerves II-XII grossly intact Psych/Mental Status: Normal Affect, - - confused Microbiology Past 72 Hours 04/06/19 13:15 Blood Culture (Wb) - Right Hand Bacteria Detection (PCR) - Final Coag Negative Staph 04/06/19 13:15 Blood Culture (Wb) - Right Hand Blood Culture - Preliminary 04/07/19 02:45 Urine Catheter - Catheter Legionella Antigen - Preliminary 04/07/19 02:45 Urine Catheter - Catheter Streptococcus pneumoniae Antigen (M - Preliminary Laboratory Results 04/06/19 11:24: WBC 15.7 H, RBC 4.31, Hgb 13.6, Hct 44.1, MCV 102.3 H, MCH 31.6, MCHC 30.8 L, RDW Std Deviation 54.7 H, RDW Coeff of Kadeem 14.6, Plt Count 274, MPV 11.8, Immature Gran % (Auto) 0.700, Neut % (Auto) 82.2 H, Lymph % (Auto) 10.4 L, [place] % (Auto) 5.1, Eos % (Auto) 1.3, Baso % (Auto) 0.3, Absolute Neuts (auto) 12.9 H, Absolute Lymphs (auto) 1.64, Nucleated RBC % 0 04/06/19 11:24: Sodium 145, Potassium 4.3, Chloride 105, Carbon Dioxide 32.0, Anion Gap 8, BUN 19 H, Creatinine 0.96, Estim Creat Clear Calc 37.58, Est GFR (MDRD) Af Amer 72, Est GFR (MDRD) Non-Af 60, BUN/Creatinine Ratio 19.8, Glucose 133 H, Calcium 10.3 H, Troponin I < 0.015 04/06/19 11:24: Lactic Acid 1.6 04/06/19 14:25: Urine Color Yellow, Urine Clarity Clear, Urine pH 7.0, Ur Specific [place] 1.010, Urine Protein 30 H, Urine Glucose (UA) Normal, Urine Ketones 5 H, Urine Occult Blood 250 H, Urine Nitrite Negative, Urine Bilirubin Negative, Urine Urobilinogen 1 H, Ur Leukocyte Esterase 100 H, Urine RBC > 100 SEEN, Urine WBC 10-25 SEEN, Ur Squamous Epith Cells 0-5 SEEN, Urine Bacteria 1+, Urine Mucus 0 SEEN 04/07/19 05:35: WBC 7.4, RBC 3.65 L, Hgb 11.4 L, Hct 36.8 L, MCV 100.8 H, MCH 31.2, MCHC 31.0 L, RDW Std Deviation 53.7 H, RDW Coeff of Kadeem 14.7 H, Plt Count 219, MPV 11.4, Immature Gran % (Auto) 0.500, Neut % (Auto) 65.4, Lymph % (Auto) 17.7 L, [place] % (Auto) 8.3, Eos % (Auto) 7.3 H, Baso % (Auto) 0.8, Absolute Neuts (auto) 4.8, Absolute Lymphs (auto) 1.30, Nucleated RBC % 0 04/07/19 05:35: Sodium 146 H, Potassium 3.9, Chloride 110 H, Carbon Dioxide 29.0, Anion Gap 7, BUN 18, Creatinine 0.76, Estim Creat Clear Calc 34.42, Est GFR (MDRD) Af Amer 94, Est GFR (MDRD) Non-Af 78, BUN/Creatinine Ratio 23.7 H, Glucose 111 H, Calcium 9.6, Total Bilirubin 0.70, AST 21, ALT 22, Alkaline Phosphatase 50, Total Protein 6.2 L, Albumin 2.5 L, Globulin 3.7, Albumin/Globulin Ratio 0.7 L Diagnostic Data Chest X-Ray 04/06/19 12:01 IMPRESSION: Findings suggestive of a vascular congestion with superimposed bibasilar atelectasis more prominent on the left side. Electronically Signed: Lloyd Ambrocio, at 13:21 EDT , Service support , Brain CT 04/06/19 12:03 IMPRESSION: Chronic involutional changes of the brain. Electronically Signed: Lloyd Ambrocio, at 13:16 EDT , Service support , Chest CT 04/06/19 19:06 IMPRESSION: 1. Bilateral pleural effusions with atelectasis. The lungs appear hypoexpanded. 2. 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 3. Question fatty infiltration of liver. 4. Diverticulosis. 5. Degenerative changes of the thoracic spine. Electronically Signed: Castillo Mina at 21:51 EDT Tel [phone], Service support , Current Medications Acetaminophen (Tylenol) 650 mg PO Q6H PRN PRN PRN Reason: Mild Pain (1-3)/Temp > 100.7 F Hydrocodone Bitart/Acetaminophen ([place] 5mg-325mg) 1 tablet PO TID PRN PRN PRN Reason: SEVERE PAIN (6-10/10) Albuterol/Ipratropium (Duoneb) 3 ml INHALATION Q6H.RT [facility] Last Admin: 04/07/19 06:54 Dose: 3 ml Documented by: Calcium Polycarbophil (Fibercon) 1,250 mg PO BID [facility] Last Admin: 04/07/19 08:33 Dose: 1,250 mg Documented by: Duloxetine HCl (Cymbalta) 60 mg PO BID [facility] Last Admin: 04/07/19 08:34 Dose: 60 mg Documented by: Guaifenesin (Mucinex) 1,200 mg PO BID [facility] Last Admin: 04/07/19 08:34 Dose: 1,200 mg Documented by: Potassium Chloride/Sodium Chloride () 1,000 mls @ 100 mls/hr IV .Q10H [facility] Stop: 04/08/19 18:01 Last Admin: 04/07/19 06:45 Dose: Not Given Documented by: Piperacillin Sod/Tazobactam (Sod 3.375 gm/ Sodium Chloride) 50 mls @ 12.5 mls/hr IV Q8 [facility] Last Admin: 04/07/19 05:43 Dose: 12.5 mls/hr Documented by: Sodium Chloride () 250 mls @ 15 mls/hr IV .[id number] PRN PRN Reason: SALINE FLUSH Vancomycin IV Pharmacy to Dose (1 ea/ Sodium Chloride) 500 mls @ 250 mls/hr IV DAILY PRN; Protocol Vancomycin HCl 750 mg/ Sodium (Chloride) 265 mls @ 250 mls/hr IV Q12H [facility] Lactobacillus Acidophilus (Acidophilus) 2 tablet PO BID [facility] Last Admin: 04/07/19 08:35 Dose: Not Given Documented by: Levothyroxine Sodium (Synthroid) 50 mcg PO SuSa@0600 [facility] Levothyroxine Sodium (Synthroid) 100 mcg PO MoTuWeThFr@0600 [facility] Last Admin: 04/07/19 05:18 Dose: Not Given Documented by: Melatonin (Melatonin) 10 mg PO QHS [facility] Last Admin: 04/06/19 20:30 Dose: Not Given Documented by: Potassium Chloride (K-Dur) 40 meq PO DAILY@0800 [facility] Last Admin: 04/07/19 08:33 Dose: 40 meq Documented by: Rivaroxaban (Xarelto) 20 mg PO DAILY@1700 [facility] Sodium Chloride () 10 - 40 ml IV UD PRN PRN Reason: SALINE FLUSH Venlafaxine HCl (Effexor Xr) 75 mg PO DAILY [facility] Last Admin: 04/07/19 08:34 Dose: 75 mg Documented by: Medical Necessity - Tobacco Use Smoking Status: Never smoker Tobacco Use: Non-smoker Assessment/Plan All Active Problems (Last Updated 03/19/19 @ 14:34 by Arben Whitt DO) UTI (urinary tract infection) (Acute) Migraines (Acute) Pyelonephritis, acute (Acute) Sepsis (Acute) Bacteremia due to Gram-negative bacteria (Acute) Altered mental status (Acute) Acute kidney injury (Acute) Acute respiratory failure with hypoxia (Acute) Sepsis (Acute) Acute hypoactive delirium due to another medical condition (Acute) 1. Acute hypoactive delirium due to UTI patient more alert today. She still is confused, but is able to carry on a conversation continue treatment for UTI fall precautions 2. UTI: has had recurrent UTIs. On IV zosyn. Urine cultures pending. also on IV vancomycin as blood cultures gram positive cocci (speciation pending) 3. Acute hypoxic respiratory failure due to and pleural effusions currently on 3L of oxygen CT chest showed small bilateral pleural effusions with atelectasis and hypoexpanded lungs. chest physiotherapy; incentive spirometry breathing treatments. Titrate oxygen to maintain sats >90% 4. Hypothyroidism: on synthroid 5. History of venous thromboembolism: on xarelto 6. Morbid obesity: complicates current care and management, expected recovery and prognosis DVT prophylaxis: on xarelto Code status: DNRCC Code Visit Inpatient E&M: 69080 Subs Hosp L3
--- NOTE | 2019-04-07 09:42 | CASEMGMT ---
Addendum entered by Daisha Peoples 04/07/19 10:46: ALIYA placed a call to pt's daughter Brenda. Brenda confirms pt is from [facility] and the plan is for pt to return to [facility] once medically cleared. ALIYA placed green sheet and transportation form on pt's chart. Original Note: Social Work Note Pt is listed as being from [facility]. ALIYA placed a call to Lizy at [facility] [address]. [facility] states pt is skilled nursing resident and is able to return whenever medically cleared. ALIYA faxed updated clinicals to [facility]. Plan: Return to [facility] [address] once medically cleared Daisha Peoples POLICE COMMUNICATIONS DISPATCHER, SANE RN
--- NOTE | 2019-04-07 16:21 | CHAPLAIN ---
Type of Pastoral Visit _x__ Initial Visit ___ Follow-up Visit ___ On-call Visit ___ General Patient Visit ___ Spiritual Assessment ___ Family Conference ___ Bereavement ___ Rapid Response ___ Code Blue ___ Other (describe below) Pastoral Care Referral From _x__ Patient ___ Family ___ Nurse ___ Physician ___ Floor Helper ___ Breaker Mechanic ___ Other (describe below) Sacrament/Intervention _x__ Active listening ___ Anointing ___ Jain ___ Bereavement ___ Communion ___ Ana exploration ___ ___ Life review _x__ Prayer ___ Reconciliation ___ Sacrament of Sick _x__ Supportive presence ___ Wedding ___ Other (describe below) Pastoral Comments
[2019-04-07] MEDS: Rivaroxaban 20 MG Tablet PO (17:08)
[2019-04-07] MEDS: MELATONIN 10 MG TABLET PO (21:43)
[2019-04-08] VITALS (8 sets, daily range): BP systolic 128–150; BP diastolic 67–87; PULSE 59–104; RESP 17–19; TEMP 36.4–37.3; O2SAT 92–99
[2019-04-08] MEDS: 0.9% NaCl Peripheral Flush Adult/Peds IV (06:05)
[2019-04-08] MEDS: Levothyroxine 50 MCG Tablet PO (06:14)
[2019-04-08] MEDS: Ipratropium/Albuterol Sulfate 3 ML AMPUL.NEB INHALATION ×2 (06:44→18:33)
[2019-04-08 07:14] LABS: Absolute Lymphocyte Count 1.66 X10^3/uL (0.83-4.51); Absolute Neutrophil Count 3.3 X10^3/uL (2.0-7.7); Basophil# 0.05 X10^3/uL; Basophil% 0.8 % (0-1); Hematocrit 35.8 % (37-47); Hemoglobin 10.9 g/dL (12.0-15.0); Lymphocyte # 1.66 X10^3/ul (4.0); Lymphocyte % 26.4 % (19-41); Mean Corp Hgb Conc 30.4 g/dL (32-36); Mean Corpuscular Volume 101.7 fL (81-99); Mean Platelet Vol. 11.7 fl (6.2-12.0); Monocyte# 0.66 X10^3/uL; Monocyte% 10.5 % (0-10); NRBC Flagged by Analyzer 0 % (0-5); Neutrophil # 3.33 X10^3/uL (2.7-7.7); Platelet Count 210 K/mm3 (150-450); RBC Distribution Width CV 14.9 % (11.6-14.6); RBC Distribution Width SD 54.4 fl (35.1-43.9); Red Blood Count 3.52 M/mm3 (4.2-5.4); White Blood Count 6.3 K/mm3 (4.4-11.0)
[2019-04-08 07:34] LABS: Anion Gap 6 (5-15); BUN 20 mg/dL (7-18); BUN/Creat Ratio 24.8 RATIO (10-20); Calcium,Total 9.6 mg/dL (8.5-10.1); Chloride 112 mmol/L (98-107); EST Glomerular Filtration Rate 73 mL/min (>60); Est Glom Filt Rate - Afr Amer 88 mL/min (>60); Estimated Creatinine Clearance 43.03 ml/min; Glucose 113 mg/dL (74-106); Sodium Level 144 mmol/L (136-145)
--- NOTE | 2019-04-08 09:15 | PCM.PN.HOSP ---
Patient Problems: Active and Suspected Problems (Last Updated 03/19/19 @ 14:34 by Arben Whitt DO) Acute hypoactive delirium due to another medical condition (Acute) Subjective: Patient seen and examined. Daughter was by her bedside. Patient was much more alert today. She had no complaints and felt well. Review of systems otherwise negative. Labs and vitals reviewed. She is on IV vancomycin and Zosyn. Vitals/I&O's: Vital Signs Temp Pulse Resp BP Pulse Ox 97.7 F L 68 18 150/81 H 95 04/08/19 08:31 04/08/19 08:31 04/08/19 08:31 04/08/19 08:31 04/08/19 08:31 Oxygen Flow Rate (L/min) 3 Oxygen Delivery Method Room Air Weight: 217 lb Body Mass Index (BMI) 39.9 Intake and Output for Last 24 Hours 04/06/19 04/07/19 04/08/19 23:59 23:59 23:59 Intake Total 1799 / 1924 276 / 276 Output Total 760 / 910 650 / 650 Balance 1039 / 1014 -374 / -374 General: Alert, Confused HEENT: Atraumatic, PERRLA, EOMI, Normocephalic Oral: Dry Mucosa Neck: Supple, No JVD, Negative Carotid Bruits Lungs: Clear to auscultation, Normal air movement, No rhonchi, No wheeze, No rales Cardiovascular: Regular rate, Regular Rhythm, Normal S1, Normal S2, No murmurs Abdomen: Bowel Sounds Present, Soft, Non Tender, Non-Distended, No Hepato-splenomegaly Extremities: No clubbing, No cyanosis, No edema, Capillary Refill Less than 3 Seconds Skin: No rashes, No breakdown Musculoskeletal: No Tenderness to Palpation of Joints or Extremities Lymphatic: No Cervical, Supraclavicular, or Inguinal Adenopathy Neurological: Cranial nerves II-XII grossly intact Psych/Mental Status: Normal Affect, - - confused Microbiology Past 72 Hours 04/06/19 13:15 Blood Culture (Wb) - Right Hand Bacteria Detection (PCR) - Final Coag Negative Staph 04/06/19 13:15 Blood Culture (Wb) - Right Hand Blood Culture - Preliminary Coag Negative Staph Coag Negative Staph#2 04/07/19 02:45 Urine Catheter - Catheter Streptococcus pneumoniae Antigen (M - Final 04/07/19 02:45 Urine Catheter - Catheter Legionella Antigen - Final Laboratory Results 04/08/19 06:50: WBC 6.3, RBC 3.52 L, Hgb 10.9 L, Hct 35.8 L, MCV 101.7 H, MCH 31.0, MCHC 30.4 L, RDW Std Deviation 54.4 H, RDW Coeff of Kadeem 14.9 H, Plt Count 210, MPV 11.7, Immature Gran % (Auto) 1.300 H, Neut % (Auto) 53.0, Lymph % (Auto) 26.4, [place] % (Auto) 10.5 H, Eos % (Auto) 8.0 H, Baso % (Auto) 0.8, Absolute Neuts (auto) 3.3, Absolute Lymphs (auto) 1.66, Nucleated RBC % 0 04/08/19 06:50: Sodium 144, Potassium 4.0, Chloride 112 H, Carbon Dioxide 26.0, Anion Gap 6, BUN 20 H, Creatinine 0.80, Estim Creat Clear Calc 43.03, Est GFR (MDRD) Af Amer 88, Est GFR (MDRD) Non-Af 73, BUN/Creatinine Ratio 24.8 H, Glucose 113 H, Calcium 9.6 Diagnostic Data Chest X-Ray 04/06/19 12:01 IMPRESSION: Findings suggestive of a vascular congestion with superimposed bibasilar atelectasis more prominent on the left side. Electronically Signed: Lloyd Ambrocio, at 13:21 EDT , Service support , Brain CT 04/06/19 12:03 IMPRESSION: Chronic involutional changes of the brain. Electronically Signed: Lloyd Ambrocio, at 13:16 EDT , Service support , Chest CT 04/06/19 19:06 IMPRESSION: 1. Bilateral pleural effusions with atelectasis. The lungs appear hypoexpanded. 2. 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 3. Question fatty infiltration of liver. 4. Diverticulosis. 5. Degenerative changes of the thoracic spine. Electronically Signed: Castillo Mina at 21:51 EDT Tel [phone], Service support , Current Medications Acetaminophen (Tylenol) 650 mg PO Q6H PRN PRN PRN Reason: Mild Pain (1-3)/Temp > 100.7 F Hydrocodone Bitart/Acetaminophen ([place] 5mg-325mg) 1 tablet PO TID PRN PRN PRN Reason: SEVERE PAIN (6-10/10) Albuterol/Ipratropium (Duoneb) 3 ml INHALATION Q6H.RT [facility] Last Admin: 04/08/19 06:44 Dose: 3 ml Documented by: Calcium Polycarbophil (Fibercon) 1,250 mg PO BID [facility] Last Admin: 04/07/19 21:43 Dose: 1,250 mg Documented by: Duloxetine HCl (Cymbalta) 60 mg PO BID [facility] Last Admin: 04/07/19 08:34 Dose: 60 mg Documented by: Guaifenesin (Mucinex) 1,200 mg PO BID [facility] Last Admin: 04/07/19 21:43 Dose: 1,200 mg Documented by: Piperacillin Sod/Tazobactam (Sod 3.375 gm/ Sodium Chloride) 50 mls @ 12.5 mls/hr IV Q8 [facility] Last Admin: 04/08/19 06:13 Dose: 12.5 mls/hr Documented by: Sodium Chloride () 250 mls @ 15 mls/hr IV .[id number] PRN PRN Reason: SALINE FLUSH Vancomycin IV Pharmacy to Dose (1 ea/ Sodium Chloride) 500 mls @ 250 mls/hr IV DAILY PRN; Protocol Vancomycin HCl 750 mg/ Sodium (Chloride) 265 mls @ 250 mls/hr IV Q12H [facility] Last Admin: 04/08/19 06:05 Dose: 250 mls/hr Documented by: Lactobacillus Acidophilus (Acidophilus) 2 tablet PO BID [facility] Last Admin: 04/07/19 21:43 Dose: 2 tablet Documented by: Levothyroxine Sodium (Synthroid) 50 mcg PO SuSa@0600 [facility] Last Admin: 04/08/19 06:14 Dose: 50 mcg Documented by: Levothyroxine Sodium (Synthroid) 100 mcg PO MoTuWeThFr@0600 [facility] Last Admin: 04/07/19 05:18 Dose: Not Given Documented by: Melatonin (Melatonin) 10 mg PO QHS [facility] Last Admin: 04/07/19 21:43 Dose: 10 mg Documented by: Potassium Chloride (K-Dur) 40 meq PO DAILY@0800 [facility] Last Admin: 04/08/19 08:36 Dose: 40 meq Documented by: Rivaroxaban (Xarelto) 20 mg PO DAILY@1700 [facility] Last Admin: 04/07/19 17:08 Dose: 20 mg Documented by: Sodium Chloride () 10 - 40 ml IV UD PRN PRN Reason: SALINE FLUSH Last Admin: 04/08/19 06:05 Dose: 10 ml Documented by: Venlafaxine HCl (Effexor Xr) 75 mg PO DAILY [facility] Last Admin: 04/07/19 08:34 Dose: 75 mg Documented by: Medical Necessity - Tobacco Use Smoking Status: Never smoker Tobacco Use: Non-smoker Assessment/Plan All Active Problems (Last Updated 03/19/19 @ 14:34 by Arben Whitt DO) UTI (urinary tract infection) (Acute) Migraines (Acute) Pyelonephritis, acute (Acute) Sepsis (Acute) Bacteremia due to Gram-negative bacteria (Acute) Altered mental status (Acute) Acute kidney injury (Acute) Acute respiratory failure with hypoxia (Acute) Sepsis (Acute) Acute hypoactive delirium due to another medical condition (Acute) 1. Acute hypoactive delirium due to UTI patient more alert and was able to answer questions. on IV antibiotics for UTI fall precautions PT/OT on board 2. UTI: has had recurrent UTIs. On IV vancomycin and zosyn. Urine cultures pending. wbc is 6.3 blood cultured Coagulase negative Staph, likely a contaminant. will dc IV vancomycin. 3. Acute hypoxic respiratory failure due to and pleural effusions currently on 3L of oxygen CT chest showed small bilateral pleural effusions with atelectasis and hypoexpanded lungs. chest physiotherapy; incentive spirometry breathing treatments. Titrate oxygen to maintain sats >90% 4. Hypothyroidism: on synthroid 5. History of venous thromboembolism: on xarelto 6. Morbid obesity: complicates current care and management, expected recovery and prognosis DVT prophylaxis: on xarelto Code status: DNRCC Code Visit Inpatient E&M: 75964 Subs Hosp L2
[2019-04-08] MEDS: DULoxetine Hcl 60 MG Capsule PO ×2 (10:52→21:37)
[2019-04-08] MEDS: Venlafaxine XR 75 MG Capsule PO (10:52)
[2019-04-08] MEDS: guaiFENesin 1,200 MG Tablet 1200 MG PO ×2 (10:53→21:37)
[2019-04-08] MEDS: Rivaroxaban 20 MG Tablet PO (17:32)
[2019-04-08] MEDS: MELATONIN 10 MG TABLET PO (21:37)
[2019-04-09 01:50] VITALS: BP 134/82; PULSE 46; RESP 18; TEMP 36.4; O2SAT 94
[2019-04-09] MEDS: Levothyroxine 100 MCG Tablet PO (05:31)
[2019-04-09] MEDS: 0.9% NaCl Peripheral Flush Adult/Peds IV (05:32)
[2019-04-09] MEDS: Levothyroxine 50 MCG Tablet PO (05:32)
[2019-04-09 06:19] LABS: Absolute Lymphocyte Count 1.59 X10^3/uL (0.83-4.51); Absolute Neutrophil Count 3.5 X10^3/uL (2.0-7.7); Basophil# 0.04 X10^3/uL; Basophil% 0.6 % (0-1); Eosinophil# 0.58 X10^3/uL; Hematocrit 38.1 % (37-47); Lymphocyte # 1.59 X10^3/ul (4.0); Lymphocyte % 24.8 % (19-41); Mean Corp Hgb Conc 31.5 g/dL (32-36); Mean Corpuscular Hgb 31.6 pg (27.0-32.0); Mean Corpuscular Volume 100.3 fL (81-99); Mean Platelet Vol. 11.7 fl (6.2-12.0); Monocyte# 0.56 X10^3/uL; Monocyte% 8.7 % (0-10); NRBC Flagged by Analyzer 0 % (0-5); Neutrophil # 3.53 X10^3/uL (2.7-7.7); Neutrophil % 55.2 % (47-70); Platelet Count 228 K/mm3 (150-450); RBC Distribution Width CV 14.6 % (11.6-14.6); RBC Distribution Width SD 52.3 fl (35.1-43.9); White Blood Count 6.4 K/mm3 (4.4-11.0)
[2019-04-09 06:35] LABS: Anion Gap 5 (5-15); BUN 17 mg/dL (7-18); Calcium,Total 9.5 mg/dL (8.5-10.1); Chloride 109 mmol/L (98-107); Creatinine, Serum 0.77 mg/dL (0.55-1.02); EST Glomerular Filtration Rate 77 mL/min (>60); Est Glom Filt Rate - Afr Amer 93 mL/min (>60); Estimated Creatinine Clearance 34.42 ml/min; Glucose 122 mg/dL (74-106); Sodium Level 141 mmol/L (136-145)
[2019-04-09 08:01] VITALS: BP 158/89; PULSE 78; RESP 18; TEMP 36.6; O2SAT 94
[2019-04-09 09:01] VITALS: O2SAT 94
--- NOTE | 2019-04-09 09:34 | PCM.TXEXTCAR ---
- Diet 04/07/19 08:44 Diet: Regular Diet Food consistency:: Puree Liquid Consistency:: Honey Thick Is pt able to select menu?: No Diet Comments: Supervision w/ assist; use straws; seated at 90 degrees; meds w/purees - Routine Orders/Code Status Enema Type: Fleetz Enema Frequency: Daily PRN Suppository Type: Dulcolax 10mg Suppository Frequency: Daily PRN O2 Frequency: PRN Keep PO Greater than or Equal to (%): 90 Code Status: DNRCC - Therapies Physical Therapy: Eval and Treat Occupational Therapy: Eval and Treat - Allergies/Procedures Done in Hospital Allergies/Adverse Reactions: Allergies bupropion HCl [From Wellbutrin] Adverse Reaction (Verified 04/06/19 11:15) Other DIZZY ibuprofen Adverse Reaction (Verified 04/06/19 11:15) Other ULCER nitrofurantoin [From Macrobid] Adverse Reaction (Verified 04/06/19 11:15) Other HEADACHE nitrofurantoin macrocrystalline [From Macrobid] Adverse Reaction (Verified 04/06/19 11:15) Other HEADACHE piroxicam [From Feldene] Adverse Reaction (Verified 04/06/19 11:15) Upset Stomach - Type of Care/Length of Stay Estimated LOS: More Than 30 Days Type of Care Needed: Skilled Rehab Potential: Fair Prognosis: Fair - Additional Orders/Day of Discharge Day of Discharge: 04/09/19 - Dietary and Speech Recommendations Dietitian Recommendations/Changes: Rec Cardiac diet d/t pmhx and BMI - consistency per ASSEMBLY ADJUSTER - Follow Up Care Primary Care Physician: Eduard Bagley MD [Primary Care Provider] - Please follow up with your Primary Care Physician in: within one week
--- NOTE | 2019-04-09 09:38 | PCM.DC.SUM ---
Discharge Date and Diagnosis - Problem List Patient Problems: Active and Suspected Problems (Last Updated 03/19/19 @ 14:34 by Arben Whitt DO) Acute hypoactive delirium due to another medical condition (Acute) Date of Admission: 04/06/19 Date of Discharge: 04/09/19 - Primary Discharge Diagnosis Active and Suspected Problems (Last Updated 03/19/19 @ 14:34 by Arben Whitt DO) Acute hypoactive delirium due to another medical condition (Acute) UTI acute on chronic hypoxic respiratory failure - Secondary Discharge Diagnosis Chronic Problems (Last Updated 03/19/19 @ 14:34 by Arben Whitt DO) Dyslipidemia (Chronic) Hypothyroidism (Chronic) HTN (hypertension) (Chronic) Histrionic personality disorder (Chronic) Dysphagia (Chronic) Depression (Chronic) Hospital Course and Treatment Imaging Results: Diagnostic Data Chest X-Ray 04/06/19 12:01 IMPRESSION: Findings suggestive of a vascular congestion with superimposed bibasilar atelectasis more prominent on the left side. Electronically Signed: Lloyd Ambrocio at 13:21 EDT , Service support , Brain CT 04/06/19 12:03 IMPRESSION: Chronic involutional changes of the brain. Electronically Signed: Lloyd Ambrocio, at 13:16 EDT , Service support , Chest CT 04/06/19 19:06 IMPRESSION: 1. Bilateral pleural effusions with atelectasis. The lungs appear hypoexpanded. 2. 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 3. Question fatty infiltration of liver. 4. Diverticulosis. 5. Degenerative changes of the thoracic spine. Electronically Signed: Castillo Mina DO at 21:51 EDT Tel [phone], Service support , Operations: None Procedures: None Summary of Care Provided: The patient is a 78 year old F with a PMH as listed. She was admitted through the ED from her long term on 04/06/2019 with a complaint of altered mental status. Patient had recently been admitted in the hospital and managed for pneumonia and UTI. She was noted to become more confused and disoriented in the long term and was brought to the ED. She was admitted and managed for acute hyperactive delirium due to UTI and acute hypoxic respiratory failure due to atelectasis. Patient was started on IV Zosyn for UTI and possible concerns for aspiration pneumonia. Urine showed evidence of UTI. Urine culture was negative and blood culture coagulase-negative staph in 1 out of 2 samples which was thought to be a skin contaminant. Urine for strep and Legionella were negative. Patient originally received vancomycin at time of blood culture results and this was eventually stopped. Patient's MRSA nasal screen was also positive but as she had received vancomycin, no further treatment was warranted. Patient remained stable and was discharged back to a long term on 04/09/2019. She was eventually weaned down to 1L of oxygen at time of discharge. Patient has been on oxygen in the long term, and is to continue her oxygen by nasal canula prn in SNF, to maintain sats>90%. She was discharged with a prescription for p.o. cefdinir. She is to follow-up with her primary care doctor within 1 to 2 weeks. Patient seen and examined prior to discharge. She is much more alert and had no complaints. Review of systems otherwise negative. Labs and vitals reviewed. Medications reviewed and reconciled. o/E: Vital Signs Height 5 ft 1.81 in Weight: 217 lb Weight in Pounds 217.0 lbs Pulse Ox 94 Temperature 97.9 F Pulse Rate 78 Respiratory Rate 18 Blood Pressure 158/89 Blood Pressure Position Semi-Fowlers [] General: Alert, Confused HEENT: Atraumatic, PERRLA, EOMI, Normocephalic Oral: Dry Mucosa Neck: Supple, No JVD, Negative Carotid Bruits Lungs: Clear to auscultation, Normal air movement, No rhonchi, No wheeze, No rales; on 1L of oxygen Cardiovascular: Regular rate, Regular Rhythm, Normal S1, Normal S2, No murmurs Abdomen: Bowel Sounds Present, Soft, Non Tender, Non-Distended, No Hepato-splenomegaly Extremities: No clubbing, No cyanosis, No edema, Capillary Refill Less than 3 Seconds Skin: No rashes, No breakdown Musculoskeletal: No Tenderness to Palpation of Joints or Extremities Lymphatic: No Cervical, Supraclavicular, or Inguinal Adenopathy Neurological: Cranial nerves II-XII grossly intact Psych/Mental Status: Normal Affect, - - confused Plan as above. Patient Problems: Active and Suspected Problems (Last Updated 03/19/19 @ 14:34 by Arben Whitt DO) Acute hypoactive delirium due to another medical condition (Acute) - Physical Exam Vital Signs Temp Pulse Resp BP Pulse Ox 97.9 F 78 18 158/89 H 94 04/09/19 08:01 04/09/19 08:01 04/09/19 08:01 04/09/19 08:01 04/09/19 09:01 Oxygen Flow Rate (L/min) 2 Oxygen Delivery Method Nasal Cannula Weight: 217 lb Body Mass Index (BMI) 39.9 Intake and Output for Last 24 Hours 04/07/19 04/08/19 04/09/19 23:59 23:59 23:59 Intake Total 1799 / 1924 1046 / 1046 250 / 250 Output Total 760 / 910 1000 / 1000 400 / 400 Balance 1039 / 1014 46 / 46 -150 / -150 Microbiology Past 72 Hours 04/06/19 11:24 Blood Culture - Preliminary Blood Culture (Wb) - Anticubital Left No growth in 48 hours. 04/07/19 05:35 Nasal Screen MRSA/MSSA - Final Swab (Method) 04/06/19 14:25 Urine Culture - Preliminary Urine, Clean Catch Culture exhibits no growth. 04/06/19 13:15 Bacteria Detection (PCR) - Final Blood Culture (Wb) - Right Hand Coag Negative Staph Blood Culture - Preliminary Coag Negative Staph Coag Negative Staph#2 04/07/19 02:45 Streptococcus pneumoniae Antigen (M - Final Urine Catheter - Catheter 04/07/19 02:45 Legionella Antigen - Final Urine Catheter - Catheter Laboratory Tests Past 24 Hrs 04/09/19 04/09/19 05:30 05:30 WBC 6.4 RBC 3.80 L Hgb 12.0 Hct 38.1 MCV 100.3 H MCH 31.6 MCHC 31.5 L RDW Std Deviation 52.3 H RDW Coeff of Kadeem 14.6 Plt Count 228 MPV 11.7 Immature Gran % (Auto) 1.700 H Neut % (Auto) 55.2 Lymph % (Auto) 24.8 [place] % (Auto) 8.7 Eos % (Auto) 9.0 H Baso % (Auto) 0.6 Absolute Neuts (auto) 3.5 Absolute Lymphs (auto) 1.59 Nucleated RBC % 0 Sodium 141 Potassium 4.0 Chloride 109 H Carbon Dioxide 27.0 Anion Gap 5 BUN 17 Creatinine 0.77 Estim Creat Clear Calc 34.42 Est GFR (MDRD) Af Amer 93 Est GFR (MDRD) Non-Af 77 BUN/Creatinine Ratio 22.0 H Glucose 122 H Calcium 9.5 Diagnostic Data Chest X-Ray 04/06/19 12:01 IMPRESSION: Findings suggestive of a vascular congestion with superimposed bibasilar atelectasis more prominent on the left side. Electronically Signed: Lloyd Ambrocio, at 13:21 EDT , Service support , Brain CT 04/06/19 12:03 IMPRESSION: Chronic involutional changes of the brain. Electronically Signed: Lloyd Ambrocio, at 13:16 EDT , Service support , Chest CT 04/06/19 19:06 IMPRESSION: 1. Bilateral pleural effusions with atelectasis. The lungs appear hypoexpanded. 2. 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 3. Question fatty infiltration of liver. 4. Diverticulosis. 5. Degenerative changes of the thoracic spine. Electronically Signed: Castillo Mina DO at 21:51 EDT Tel [phone], Service support , Discharge Diet: Low fat/ Low Cholesterol Weight Bearing Status: Weight bearing as tolerated Call your doctor if you observe: Fever of 101 or Higher, Shortness of breath Home Medications: Medications to take at Discharge Duloxetine Hcl [Cymbalta] 60 mg PO BID 03/12/15 Fluticasone 0.05% [Flonase Nasal [place]] 2 spray NARES DAILY 03/12/15 Levothyroxine [Synthroid] 100 mcg PO MOTUWETHFR 01/09/17 ALPRAZolam [Xanax] 0.5 mg PO BID 03/19/19 ALPRAZolam [Xanax] 1 mg PO QHS 03/19/19 Cholecalciferol (Vitamin D3) [Vitamin D3] 1,000 unit PO DAILY 03/19/19 Cyanocobalamin [Vitamin B12] 1,000 mcg IM Q30D 03/19/19 Fenofibrate 160 mg PO DAILY 03/19/19 Hydrocodone/Acetaminophen [[place] 5-325 Tablet] 1 ea PO TID 03/19/19 Levothyroxine [Synthroid] 50 mcg PO SUSA 03/19/19 Mv-Mn/Folic Acid/Vit [id number] [Alive Once Daily Women 50 Plus] 1 ea PO DAILY 03/19/19 Olopatadine HCl [Pataday] 1 drp OP BID PRN PRN 03/19/19 Polyethylene Glycol 3350 [Miralax] 17 gm PO DAILY 03/19/19 Rivaroxaban [Xarelto] 20 mg PO DAILY 03/19/19 Venlafaxine HCl [Venlafaxine HCl ER] 75 mg PO DAILY 03/19/19 Calcium Polycarbophil [Fiber Lax] 1,250 mg PO BID 04/06/19 Diclofenac Sodium [Voltaren] 4 gm TP BID 04/06/19 Omeprazole 20 mg PO BID 04/06/19 Oxybutynin [Ditropan] 10 mg PO DAILY 04/06/19 Potassium Chloride 40 meq PO DAILY 04/06/19 Cefdinir [Omnicef [equiv]] 300 mg PO Q12H #3 cap 04/09/19 Following Prescrptions Were Given to Patient: Cefdinir [Omnicef [equiv]] 300 mg PO Q12H #3 cap Prescription Printed Primary Care Physician: Eduard Bagley MD [Primary Care Provider] - Please follow up with your Primary Care Physician in: within one week Disposition: [facility] facility Minutes spent on discharge:: 40 Patient Condition:: Stable Medical Necessity - Tobacco Use Smoking Status: Never smoker Tobacco Use: Non-smoker Meaningful Use Info Meaningful Use Diagnoses (Choose all that apply): None applicable Code Visit Inpatient E&M: 50099 Disch Hosp
[2019-04-09] MEDS: DULoxetine Hcl 60 MG Capsule PO (09:52)
[2019-04-09] MEDS: Venlafaxine XR 75 MG Capsule PO (09:52)
[2019-04-09] MEDS: guaiFENesin 1,200 MG Tablet 1200 MG PO (09:53)
[2019-04-09 12:36] VITALS: BP 139/82; PULSE 87; RESP 18; TEMP 36.6; O2SAT 95
--- NOTE | 2019-04-09 13:32 | NURSING ---
report called to [facility] and talked with franck phelps
== END 2019-04-09 14:32 | disposition skilled nursing facility (03) | DRG 689 ==
LOC: ED 12:07 → MS3 17:52
PROVIDERS: Admitting Provider Internal Medicine; Emergency Provider Emergency Medicine; Family Provider Family Medicine; PCP Family Medicine; Referring Provider Internal Medicine; Visit Provider Student in an Organized Health Care Education/Training Program
DX: N39.0 Urinary tract infection, site not specified (principal); J96.21 Acute and chronic respiratory failure with hypoxia; F05 Delirium due to known physiological condition; J90 Pleural effusion, not elsewhere classified; J98.11 Atelectasis; Z86.718 Personal history of other venous thrombosis and embolism; Z79.02 Long term (current) use of antithrombotics/antiplatelets; E86.0 Dehydration; E78.5 Hyperlipidemia, unspecified; E03.9 Hypothyroidism, unspecified; I10 Essential (primary) hypertension; R13.10 Dysphagia, unspecified; F32.9 Major depressive disorder, single episode, unspecified; G14 Postpolio syndrome; Z79.899 Other long term (current) drug therapy; Z87.440 Personal history of urinary (tract) infections; E66.01 Morbid (severe) obesity due to excess calories; Z68.39 Body mass index [BMI] 39.0-39.9, adult; Z66 Do not resuscitate; Z99.81 Dependence on supplemental oxygen
CPT/HCPCS: 36415; 70450; 71045; 71250; 80048; 80053; 81001; 83605; 84484; 85025; 87040; 87077; 87081; 87086; 87149; 87449; 92526; 92610; 93005; 94640; 99285; J7030; J7040; J7050; A4216

== ENCOUNTER 2019-04-17 15:11 | Emergency (ER) | payer MEDICARE, SELFPAY ==
[2019-04-06 17:29] VITALS: BMI 39.9
[2019-04-17 15:16] VITALS: BP 137/97; PULSE 76; RESP 20; TEMP 36.2; O2SAT 97; BMI 39.1
[2019-04-17 15:20] VITALS: BP 137/97; PULSE 81; RESP 20; TEMP 36.2; O2SAT 96
--- NOTE | 2019-04-17 16:03 | EKG12_ITS ---
Test Reason : SOB Blood Pressure : / mmHG Vent. Rate : 077 BPM Atrial Rate : 277 BPM P-R Int : 000 ms QRS Dur : 088 ms QT Int : 416 ms P-R-T Axes : 061 011 046 degrees QTc Int : 470 ms Atrial flutter with variable A-V block with premature ventricular or aberrantly conducted complexes Abnormal ECG Confirmed by CONCHA QUINTEROS ([id number]), editor publications DEANNA JONES ([id number]) on 04/20/2019 2:12:46 PM Referred By: JESSICA Confirmed By:CONCHA QUINTEROS
--- NOTE | 2019-04-17 16:03 | RAD_ITS ---
STUDY: X-RAY CHEST REASON FOR EXAM: Female, 78 years old. Short of breath TECHNIQUE: AP portable COMPARISON: April 06, 2019 FINDINGS: Less than optimal inspiratory effort is seen. There is atelectasis in left lower lobe.. There is no demonstrated pleural abnormality. Normal size heart. Normal mediastinum and rozina. Normal visualized pulmonary arteries. Mildly calcified aortic arch and descending thoracic aorta. Dorsal spine demonstrates degenerative change. Normal visualized ribs, and postsurgical changes of the left shoulder. Status post resection of the mid left clavicle There is no demonstrated abnormality of the visualized soft tissue structures of the upper abdomen. RAD/Chest 1 View (Portable) IMPRESSION: Mild left lower lobe atelectasis Electronically Signed: Niranjan Chamberlain MD at 16:32 EDT , Service support ,
--- NOTE | 2019-04-17 16:14 | ED.DCSUM_ITS ---
- ER Visit Summary Date of Service: 04/17/19 Chief Complaint: Shortness of breath, altered mental status History of Present Illness: The patient is a 78 F who presents with shortness of breath and altered mental status that was noticed today the extended care facility. Patient is a poor historian. Patient states she has been having a cough. Patient denies any fevers or chills. Patient denies any chest pain. Patient denies any nausea or vomiting. Physical Examination: Vital signs are stable. Patient is afebrile. Patient is in no acute distress. Oral mucosa is pink and somewhat dry. Neck is supple. Trachea is midline. There is no JVD. Heart was regular rate and rhythm. Lungs are clear and equal bilaterally. There is poor respiratory effort. There are no retractions noted. Abdomen is soft. Bowel sounds are normal. There is mild diffuse tenderness. There is no rebound or guarding noted. Patient is awake, alert, and oriented to person, place, year, and month. Patient is unsure of the day. Cranial nerves II through XII are intact. There are no focal motor or sensory deficits noted. Test Results: EKG showed atrial flutter with variable block with a rate of 77. There are no acute ST or T wave changes noted. Portable chest x-ray shows mild left lower lobe atelectasis but no acute infiltrate. CT scan of the brain was obtained. There is atrophy but no acute process. CBC showed a slight leukocytosis of 11.2. Comprehensive metabolic profile was essentially within normal limits. PT with INR was obtained and INR was 2.9. PTT was normal. Urinalysis showed evidence of hematuria but no evidence of urinary tract infection. Patient was complaining of abdominal pain. CT scan of the abdomen pelvis was then obtained. There is no acute intra-abdominal process. There is cholelithiasis without evidence of cholecystitis. There is diverticulosis but no evidence of diverticulitis. Emergency Department Course and Treatment: Patient was resting comfortably. Patient remained stable throughout her emergency department course. I do not have any signs of any infection or sepsis. Patient will be discharged back to the extended care facility. Disposition: Discharge to extended care facility Impression: Dyspnea This note was generated with [employer] dictation software. It may contain incorrect words, spelling, and punctuation that were not noted in review of the chart prior to signing ED Disposition - Plan for ED Patient: Disposition: [facility] Facility Diagnosis: Dyspnea Instructions: ED Dyspnea Referrals: Eduard Bagley MD [Primary Care Provider] - 5-7 Days
--- NOTE | 2019-04-17 16:17 | CT_ITS ---
STUDY: CT BRAIN WITHOUT CONTRAST REASON FOR EXAM: Female, 78 years old. Altered mental status RADIATION DOSAGE (If Supplied By Facility): CTDIvol = ( 44.99 ) mGy, DLP = ( 779.24 ) mGycm TECHNIQUE: Transaxial CT imaging of the brain was performed without administration of intravenous contrast material. Individualized dose optimization techniques were used for this CT. COMPARISON: April 06, 2018 FINDINGS: Normal soft tissue structures. Normal calvarium. Calcification of cavernous carotids. Vertebrobasilar dolichoectasia consistent with systemic hypertension Moderate atrophy and periventricular white matter ischemic changes. Normal basal ganglia and thalami. Normal brainstem. Normal cerebellum. There is no intracranial hemorrhage. There are no findings of an acute ischemic infarction. Postsurgical changes of the orbits. Normal visualized paranasal sinuses. No significant changes since prior study CT/Brain/Head without Contrast IMPRESSION: Moderate atrophy and periventricular white matter ischemic change. No evidence for acute bleed. If concern for acute infarct MRI recommended Electronically Signed: Niranjan Chamberlain MD at 17:43 EDT , Service support ,
[2019-04-17 16:27] LABS: Absolute Lymphocyte Count 1.62 X10^3/uL (0.83-4.51); Absolute Neutrophil Count 8.6 X10^3/uL (2.0-7.7); Basophil# 0.04 X10^3/uL; Basophil% 0.3 % (0-1); Eosinophil# 0.68 X10^3/uL; Eosinophils% 5.8 % (0-5); Hematocrit 43.5 % (37-47); Hemoglobin 13.4 g/dL (12.0-15.0); Lymphocyte # 1.62 X10^3/ul (4.0); Lymphocyte % 13.8 % (19-41); Mean Corp Hgb Conc 30.8 g/dL (32-36); Mean Corpuscular Hgb 31.6 pg (27.0-32.0); Mean Corpuscular Volume 102.6 fL (81-99); Mean Platelet Vol. 11.4 fl (6.2-12.0); Monocyte# 0.68 X10^3/uL; Monocyte% 5.8 % (0-10); NRBC Flagged by Analyzer 0 % (0-5); Neutrophil # 8.64 X10^3/uL (2.7-7.7); Neutrophil % 73.5 % (47-70); Platelet Count 247 K/mm3 (150-450); RBC Distribution Width SD 56.6 fl (35.1-43.9); Red Blood Count 4.24 M/mm3 (4.2-5.4); White Blood Count 11.8 K/mm3 (4.4-11.0)
[2019-04-17 16:45] LABS: ALB/GLOB Ratio 0.7 RATIO (0.9-2.4); AST(SGOT) 36 U/L (15-37); Alanine Aminotransfer ALT/SGPT 25 U/L (13-56); Albumin, Serum 2.9 g/dL (3.2-5.0); Alkaline Phosphatase 59 U/L (45-117); Anion Gap 4 (5-15); BUN 20 mg/dL (7-18); BUN/Creat Ratio 20.2 RATIO (10-20); Calcium,Total 10.3 mg/dL (8.5-10.1); Chloride 106 mmol/L (98-107); Creatinine, Serum 0.99 mg/dL (0.55-1.02); EST Glomerular Filtration Rate 57 mL/min (>60); Est Glom Filt Rate - Afr Amer 69 mL/min (>60); Estimated Creatinine Clearance 36.44 ml/min; Globulin 4.4 g/dL (2.2-4.2); Glucose 135 mg/dL (74-106); Potassium 4.7 mmol/L (3.5-5.1); Protein, Total 7.3 g/dL (6.4-8.2); Sodium Level 141 mmol/L (136-145)
[2019-04-17 16:49] LABS: Lactic Acid 1.4 mmol/L (0.4-2.0)
[2019-04-17 16:50] LABS: International Normalized Ratio 2.9; Prothrombin Time (Protime)PT. 30.2 SECONDS (11.7-14.9)
[2019-04-17 16:51] LABS: Partial Thromboplast Time 53.5 Seconds (24.1-36.2)
[2019-04-17 17:12] LABS: Bacteria 0 SEEN /hpf (None Seen); Mucous, Urine 0 SEEN /hpf (<or=2+)
[2019-04-17 17:15] VITALS: BP 142/94; PULSE 75; RESP 15; O2SAT 98
[2019-04-17 17:31] LABS: Color, Urine Yellow (Yellow); Glucose, Dipstick Normal (Normal); Ketone-Dipstick 5 mg/dl (Negative); Leukocyte Esterase-Dipstick 100 /ul (Negative); Nitrite-Dipstick Negative (Negative); Occult Blood-Urine 250 /ul (Negative); Protein-Dipstick Negative (Negative); Urine Bilirubin Dipstick Negative (Negative); Urine Clarity Sl. Cloudy (Clear); Urine Urobilinogen Normal (Normal)
[2019-04-17 17:45] LABS: Red Blood Cells-Urine 50-100 SEEN /hpf (0-5); Squamous Epithelial Cells - UA 5-10 SEEN /hpf (5-10); White Blood Cells 5-10 SEEN /hpf (0-5)
[2019-04-17 19:00] VITALS: BP 132/90; PULSE 87; RESP 16; O2SAT 91
[2019-04-17 19:28] VITALS: BMI 39.2
--- NOTE | 2019-04-17 20:03 | CT_ITS ---
STUDY: CT ABDOMEN AND PELVIS WITHOUT CONTRAST REASON FOR EXAM: Female, 78 years old. Increasing shortness of breath and lower abdominal pain RADIATION DOSAGE (If Supplied By Facility): CTDIvol = ( 23.68 ) mGy, DLP = ( 1236.59 ) mGycm TECHNIQUE: Transaxial images were obtained from the dome of the diaphragm to the symphysis pubis without oral contrast, and without intravenous contrast. Sagittal and coronal images were reconstructed. Individualized dose optimization techniques were used for this CT. COMPARISON: None. FINDINGS: There are small bilateral pleural effusions and bibasilar atelectasis. The heart is normal size and there is multivessel coronary artery calcification. Normal liver. Calcified gallstones are noted. There is no evidence for pericholecystic edema Normal spleen. Mildly atrophic pancreas Normal bilateral adrenal glands. No evidence for renal obstruction or ureteral calculus. There are tiny cysts Normal visualized stomach. Normal small intestine. Scattered diverticular changes of the descending and sigmoid colon without evidence for acute diverticulitis. No evidence for acute appendicitis. Atherosclerotic changes of the aorta without evidence for aneurysm Normal inferior vena cava. Normal retroperitoneum. There is mild asymmetric thickening of the left posterior inferior wall of the bladder. Possibility of bladder wall lesion not excluded. Normal abdominal wall. Lumbar spine demonstrates spondylosis CT/Abdomen/Pelvis without Cont IMPRESSION: Cholelithiasis without definitive evidence for acute cholecystitis. HIDA scan would be helpful for further evaluation if indicated Diverticular disease of the descending and sigmoid colon without evidence for acute diverticulitis Question focal wall lesion of the right posterior-inferior bladder wall. Clinical correlation recommended Electronically Signed: Niranjan Chamberlain MD at 21:18 EDT , Service support ,
[2019-04-17 21:00] VITALS: BP 110/74; PULSE 99; RESP 19; O2SAT 95
--- NOTE | 2019-04-17 21:24 | ED.RN ---
PT FAMILY MEMBER MARY ISABEL CALLED FOR AN UPDATE, PT SAID IT WAS OK TO UPDATE HER, NOTHING NEW TO REPORT AT THIS TIME, DAUGHTER WANTS AN UPDATE IF THE PT IS GOING TO GET ADMITTED PHONE NUMBER [phone].
--- NOTE | 2019-04-17 21:36 | ED.RN ---
REPORT WAS CALLED TO [facility], THIS NURSE SPOKE WITH NURSE HUYNH AT [phone], [facility] WILL BE TRANSPORTING THE PT TO [facility] BY JENAE.
--- NOTE | 2019-04-17 21:50 | ED.RN ---
REPORT GIVEN TO [facility].
[2019-04-17 21:51] VITALS: BP 116/95; PULSE 83; RESP 14; O2SAT 95
--- NOTE | 2019-04-17 21:54 | ED.RN ---
FAMILY MEMBER MAAME WAS UPDATED PER FAMILIES EARLIER REQUEST. FAMILY AND PT HAD NO FURTHER QUESTOINS ATT THI TIME AND VERBALIZED UNDERSTANDING OF DISCHARGE INSTRUCTIONS
--- NOTE | 2019-04-19 10:09 | ED.RN ---
SPOKE WITH THE STAFF AT [facility]. PT IS NOT FEELING ILL SO THEY TOOK A VERBAL ORDER FROM DR TENORIO FOR FOSFOMYCIN 3G X 1. THEY WERE GOING TO CALL IT INTO [place]. NURSE WAS TOLD TO SEND PT IN IF SHE STARTED FEELING BAD.
== END 2019-04-17 21:55 | disposition skilled nursing facility (03) ==
PROVIDERS: Emergency Provider Emergency Medicine; Family Provider Family Medicine; PCP Family Medicine
DX: R06.00 Dyspnea, unspecified (principal); K80.20 Calculus of gallbladder without cholecystitis without obstruction; K57.30 Diverticulosis of large intestine without perforation or abscess without bleeding; R31.9 Hematuria, unspecified
CPT/HCPCS: 36415; 70450; 71045; 74176; 80053; 81001; 83605; 85025; 85610; 85730; 87040; 87077; 87086; 87088; 87186; 93005; 99285; J7030; A4216

== ENCOUNTER 2020-07-11 09:13 | Inpatient (IN) | payer MEDICARE, MEDICAID, SELFPAY ==
[2020-07-11] VITALS (12 sets, daily range): BP systolic 106–182; BP diastolic 71–104; PULSE 56–103; RESP 16–28; TEMP 36.4–37.1; O2SAT 90–98; BMI 26.4; BMI 25.2
--- NOTE | 2020-07-11 09:15 | EKG12_ITS ---
Test Reason : Blood Pressure : / mmHG Vent. Rate : 044 BPM Atrial Rate : 044 BPM P-R Int : 148 ms QRS Dur : 084 ms QT Int : 484 ms P-R-T Axes : 046 -04 041 degrees QTc Int : 413 ms Marked sinus bradycardia Abnormal ECG Confirmed by KURT MOY, PILAR ([id number]), marketing editor DEANNA JONES ([id number]) on 07/15/2020 2:36:41 PM Referred By: MJ Confirmed By:PILAR HICKS MD
--- NOTE | 2020-07-11 09:17 | ED.VIS.GEN ---
History of Present Illness Chief Complaint: Fever Narrative: Patient presents with mental status and fever from an ECF she is usually somewhat oriented however over the past 3 days she has been minimally responsive. She has a history of a rapid positive Covid but the PCR was negative she is on a Covid floor at her ECF. She has not eaten and has not been verbal now she is not speaking at all. Past Medical History - Allergies and Home Meds Allergies/Adverse Reactions: Allergies bupropion HCl [From Wellbutrin] Adverse Reaction (Verified 04/06/19 11:15) Other DIZZY ibuprofen Adverse Reaction (Verified 04/06/19 11:15) Other ULCER nitrofurantoin [From Macrobid] Adverse Reaction (Verified 04/06/19 11:15) Other HEADACHE nitrofurantoin macrocrystalline [From Macrobid] Adverse Reaction (Verified 04/06/19 11:15) Other HEADACHE piroxicam [From Feldene] Adverse Reaction (Verified 04/06/19 11:15) Upset Stomach Primary Care Physician: Eduard Bagley MD [Primary Care Provider] - Past Medical History: - - Dysphagia COPD CHF hypothyroidism depression GERD bipolar Surgical History: - - no known recent surgeries, remote history of left ankle fracture with external fixator bilateral knee replacements. Smoking Status: Never smoker - Family History Offspring Family History: Reports: - - Son from multiple myeloma Maternal Family History: Reports: No pertinent history Review of Systems ROS: Unable to Obtain - Secondary to mental status changes Physical Exam General: - - Paper patient is nonverbal she does not appear in distress but she does look acutely ill Head: Normocephalic, Atraumatic Eyes: Pale conjunctiva ENT: Dry mucous membranes Neck: Supple Cardiovascular: Regular rhythm Respiratory: - - Coarse bilateral breath sounds no obvious respiratory distress Abdomen: Soft, - - As I palpate her abdomen she does not seem to withdraw or grimace : - - Haque catheter intact otherwise normal external genitalia Back: Nontender, Normal Inspection. Negative for: CVA tenderness Extremities: Nontender Skin: Normal color Neurological: - - GCS is E:3, V:2, M:4 Diagnostic/Tx/Re-eval - Rhythm Strip Rhythm Strip: Sinus Rhythm Rate: 81 Ectopy: None - EKG Initial EKG Interpretation: - - This rhythm with a rate of 86. Normal MS and QTc intervals. There is artifact however no obvious ischemic changes even though limited the artifact. Interpreted by emergency doctor - Medical Decision Making Patient is given IV fluids, she has a normal blood pressure. She is found to have a urinary tract infection and I do see a left-sided fullness on the x-ray which may be secondary to Covid or an underlying pneumonia patient is given antibiotics for both a possible pneumonia and urinary tract infection. She will be admitted - Critical Care Time Critical care time (excluding procedures): 30-74 minutes ED Disposition - Plan for ED Patient: Disposition: Acute Care Hospital [facility] Diagnosis: Sepsis, UTI (urinary tract infection) Referrals: Eduard Bagley MD [Primary Care Provider] -
[2020-07-11] MEDS: 0.9% Normal Saline 1,000 ML 999 ML IV (09:39)
[2020-07-11 09:46] LABS: Mucous, Urine 0 SEEN /hpf (<or=2+); Squamous Epithelial Cells - UA 0 SEEN /hpf (5-10)
[2020-07-11 09:47] LABS: Color, Urine Yellow (Yellow); Glucose, Dipstick Normal (Normal); Ketone-Dipstick 15 mg/dl (Negative); Leukocyte Esterase-Dipstick 500 /ul (Negative); Nitrite-Dipstick Negative (Negative); Occult Blood-Urine 250 /ul (Negative); Protein-Dipstick 100 mg/dl (Negative); Specific Gravity, Urine 1.015 (1.002-1.030); Urine Clarity Cloudy (Clear); Urine Urobilinogen 4 mg/dl (Normal)
[2020-07-11 09:50] LABS: Urine Bilirubin Dipstick 1 mg/dL (Negative)
--- NOTE | 2020-07-11 09:50 | RAD_ITS ---
STUDY: X-RAY CHEST REASON FOR EXAM: Female, 80 years old. FEVER/ SOB, DECREASED URIN OUTPUT, URINARY SEPSIS TECHNIQUE: Single AP portable view of the chest. COMPARISON: Comparison is made with prior study done 04/17/2019. FINDINGS: EKG electrodes are seen. Stable increased markings at the left lung base suggestive of left basilar scarring. There is no demonstrated pleural abnormality. Normal size heart. Normal mediastinum and rozina. Normal visualized pulmonary arteries. There is atherosclerotic calcification of the aortic arch with tortuosity. There are diffuse degenerative changes of the visualized thoracic spine. Evidence of prior left rotator cuff surgery. There is no demonstrated abnormality of the visualized soft tissue structures of the upper abdomen. RAD/Chest 1 View (Portable) IMPRESSION: Stable mild increased markings at the lung bases suggestive of basilar scarring. Electronically Signed: Lloyd Ambrocio, at 10:43 EST , Service support ,
[2020-07-11 09:52] LABS: Hematocrit 45.7 % (37-47); Mean Corp Hgb Conc 30.6 g/dL (32-36); Mean Corpuscular Volume 98.1 fL (81-99); Mean Platelet Vol. 11.6 fl (6.2-12.0); POSITIVE COUNT YES; POSITIVE MORPHOLOGY YES; Platelet Count 283 K/mm3 (150-450); RBC Distribution Width CV 14.4 % (11.6-14.6); RBC Distribution Width SD 51.8 fl (35.1-43.9); Red Blood Count 4.66 M/mm3 (4.2-5.4); White Blood Count 8.9 K/mm3 (4.4-11.0)
[2020-07-11 09:53] LABS: Differential Indicated MANUAL DIFF
[2020-07-11 09:58] LABS: Bacteria 3+ /hpf (None Seen); White Blood Cells 25-50 SEEN /hpf (0-5)
[2020-07-11 09:59] LABS: Red Blood Cells-Urine 0-5 SEEN /hpf (0-5)
[2020-07-11 10:06] LABS: ALB/GLOB Ratio 0.6 RATIO (0.9-2.4); AST(SGOT) 71 U/L (15-37); Alanine Aminotransfer ALT/SGPT 55 U/L (13-56); Albumin, Serum 2.9 g/dL (3.2-5.0); Alkaline Phosphatase 164 U/L (45-117); Anion Gap 9 (5-15); BUN 36 mg/dL (7-18); BUN/Creat Ratio 44.9 RATIO (10-20); Calcium,Total 10.5 mg/dL (8.5-10.1); Chloride 117 mmol/L (98-107); EST Glomerular Filtration Rate 73 mL/min (>60); Est Glom Filt Rate - Afr Amer 88 mL/min (>60); Estimated Creatinine Clearance 47.63 ml/min; Globulin 4.9 g/dL (2.2-4.2); Glucose 102 mg/dL (74-106); Protein, Total 7.8 g/dL (6.4-8.2); Sodium Level 149 mmol/L (136-145)
[2020-07-11 10:07] LABS: International Normalized Ratio 1.1; Partial Thromboplast Time 27.2 Seconds (24.1-36.2); Prothrombin Time (Protime)PT. 13.5 SECONDS (11.7-14.9)
[2020-07-11 10:14] LABS: Lactic Acid 0.6 mmol/L (0.4-1.9)
--- NOTE | 2020-07-11 10:45 | CT_ITS ---
STUDY: CT BRAIN WITHOUT CONTRAST REASON FOR EXAM: Female, 80 years old. CONFUSION, FEVER, DECREASED URINARY OUTPUT, NEG COVID RADIATION DOSAGE (If Supplied By Facility): CTDIvol = ( 44.99 ) mGy, DLP = ( 812.98 ) mGycm TECHNIQUE: Transaxial CT imaging of the brain was performed without administration of intravenous contrast material. Individualized dose optimization techniques were used for this CT. COMPARISON: Comparison is made with prior study dated 04/17/2019. FINDINGS: Normal soft tissue structures. Normal calvarium. There is moderate cerebral atrophy with widening of the extra-axial spaces and ventricular dilatation. There are areas of decreased attenuation within the white matter tracts of the supratentorial brain, consistent with microvascular disease changes. Stable focal encephalomalacia in the anterior aspect of the right temporal lobe. Normal basal ganglia and thalami. Normal brainstem. Normal cerebellum. There is no intracranial hemorrhage. There are no findings of an acute ischemic infarction. Normal visualized paranasal sinuses. CT/Brain/Head without Contrast IMPRESSION: Chronic involutional changes of the brain. Electronically Signed: Lloyd Ambrocio, at 11:01 EST , Service support ,
--- NOTE | 2020-07-11 10:48 | HP.PCM_ITS ---
Problem List (1) COVID-19 Status: Acute (2) Sepsis Status: Acute (3) UTI (urinary tract infection) Status: Acute Qualifiers: Urinary tract infection type: acute cystitis (4) Altered mental status Status: Acute (5) Dyslipidemia Status: Chronic (6) Hypothyroidism Status: Chronic (7) HTN (hypertension) Status: Chronic (8) Histrionic personality disorder Status: Chronic (9) Migraines Status: Chronic (10) Dysphagia Status: Chronic (11) Pyelonephritis, acute Status: Resolved (12) Depression Status: Chronic (13) Acute kidney injury Status: Ruled-out History of Present Illness Date of Admission: 07/11/20 Chief Complaint: Altered mental status The patient is a 80 year old F with multiple comorbidities resident [facility] who was brought to the emergency department with increasing lethargy with associated fever and decreased urine output. Patient could not provide any history given her admission status. Patient was reported to have tested positive on a Covid screening test at the [facility] follow-up PCR was however reported to be nondiagnostic. As stated above patient was brought to the emergency department in view of worsening clinical condition. Repeat COVID-19 assay performed in the ED came back positive. Patient was also found to have abnormal urinalysis consistent with cystitis. Started on antibiotic therapy admitted to a monitored bed for subsequent management. Past Medical History Past Medical History (Chronic Problems): Chronic Problems (Last Updated 03/19/19 @ 14:[address] Arben Whitt DO) Dyslipidemia (Chronic) Hypothyroidism (Chronic) HTN (hypertension) (Chronic) Histrionic personality disorder (Chronic) Migraines (Chronic) Dysphagia (Chronic) Depression (Chronic) Medical History: Medical History (Last Reviewed 07/11/20 @ 15:[address] 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 HTN (hypertension) I10 Allergies bupropion HCl [From Wellbutrin] Adverse Reaction (Verified 04/06/19 11:15) Other DIZZY ibuprofen Adverse Reaction (Verified 04/06/19 11:15) Other ULCER nitrofurantoin [From Macrobid] Adverse Reaction (Verified 04/06/19 11:15) Other HEADACHE nitrofurantoin macrocrystalline [From Macrobid] Adverse Reaction (Verified 04/06/19 11:15) Other HEADACHE piroxicam [From Feldene] Adverse Reaction (Verified 04/06/19 11:15) Upset Stomach Home Medications: Ambulatory Orders Medication Instructions Recorded Duloxetine Hcl [Cymbalta] 60 mg PO BID 03/12/15 Fluticasone 0.05% [Flonase Nasal 2 spray NARES DAILY 03/12/15 [place]] ALPRAZolam [Xanax] 0.5 mg PO TID 03/19/19 Cyanocobalamin [Vitamin B12] 1,000 mcg IM Q30D 03/19/19 Polyethylene Glycol 3350 [Miralax] 17 gm PO DAILY 03/19/19 Venlafaxine HCl [Venlafaxine HCl 75 mg PO DAILY 03/19/19 ER] Diclofenac Sodium [Voltaren] 4 gm TP BID 04/06/19 Omeprazole 20 mg PO BID 04/06/19 Cholecalciferol (VIT D3) [Vitamin 2,000 unit PO DAILY 04/17/19 D] Calcium Polycarbophil [Fiber Lax] 1,250 mg PO BID 07/11/20 Fluconazole [Diflucan] 150 mg PO WE 07/11/20 Hydrocodone Bitart/Apap 5-325 1 tab PO Q6H 07/11/20 [[place] 5MG-325MG] Levothyroxine Sodium [Synthroid] 100 mcg PO DAILY 07/11/20 Potassium Chloride 40 meq PO DAILY 07/11/20 Quetiapine Fumarate [Seroquel Xr] 200 mg PO QHS 07/11/20 Rivaroxaban [Xarelto] 10 mg PO DAILY 07/11/20 Surgical History: - - no known recent surgeries, remote history of left ankle fracture with external fixator bilateral knee replacements. Smoking Status: Unknown if ever smoked - *Family History Offspring History Items: - - Son from multiple myeloma Maternal History Items: No pertinent history Review of Systems Unable to obtain accurate/complete ROS d/t: Current medical condition?patient noncommunicative VTE Information - Inpt Only VTE Present on Admission: No VTE Mechan Device Prophylaxis: None VTE Pharm Prophylaxis ordered?: Yes Patient Problems: Active and Suspected Problems (Last Updated 03/19/19 @ 14:[address] Arben Whitt, DO) UTI (urinary tract infection) (Acute) Sepsis (Acute) Altered mental status (Acute) COVID-19 (Acute) Objective: GENERAL: Patient awake but not responding to questions HEENT: Atraumatic; EYES; Anicteric, Normal Conjunctiva NECK; supple, normal thyroid, RESPIRATORY: Diminished to auscultation CARDIOVASCULAR: Regular S1 S2, GI: soft, normoactive bowel sounds, : No Renal angle tenderness; EXTREMITIES: No edema, no clubbing, MUSCULOSKELETAL: no muscle waisting NEURO: Awake; no lateralizing signs. SKIN: No Rash PSYCH; Flat affect - Physical Exam Vitals/I&O's: Vital Signs Temp Pulse Resp BP Pulse Ox 98.7 F 85 16 182/104 H 98 07/11/20 10:40 07/11/20 10:40 07/11/20 10:40 07/11/20 10:40 07/11/20 10:40 Oxygen Flow Rate (L/min) 3 Oxygen Delivery Method Nasal Cannula Weight: 70 kg Body Mass Index (BMI) 26.4 Laboratory Results 07/11/20 09:25: WBC 8.9, RBC 4.66, Hgb 14.0, Hct 45.7, MCV 98.1, MCH 30.0, MCHC 30.6 L, RDW Std Deviation 51.8 H, RDW Coeff of Kadeem 14.4, Plt Count 283, MPV 11.6, Neut % (Auto) Not Reportable, Absolute Neuts (auto) Pending 07/11/20 09:25: PT 13.5, INR 1.1, APTT 27.2 07/11/20 09:25: Sodium 149 H, Potassium 4.0, Chloride 117 H, Carbon Dioxide 23.0, Anion Gap 9, BUN 36 H, Creatinine 0.80, Estim Creat Clear Calc 47.63, Est GFR (MDRD) Af Amer 88, Est GFR (MDRD) Non-Af 73, BUN/Creatinine Ratio 44.9 H, Glucose 102, Calcium 10.5 H, Total Bilirubin 2.40 H, AST 71 H, ALT 55, Alkaline Phosphatase 164 H, Total Protein 7.8, Albumin 2.9 L, Globulin 4.9 H, Albumin/Globulin Ratio 0.6 L 07/11/20 09:25: Lactic Acid 0.6 07/11/20 09:37: Urine Color Yellow, Urine Clarity Cloudy, Urine pH 8.0, Ur Specific [place] 1.015, Urine Protein 100 H, Urine Glucose (UA) Normal, Urine Ketones 15 H, Urine Occult Blood 250 H, Urine Nitrite Negative, Urine Bilirubin 1 H, Urine Urobilinogen 4 H, Ur Leukocyte Esterase 500 H, Urine RBC 0-5 SEEN, Urine WBC 25-50 SEEN, Ur Squamous Epith Cells 0 SEEN, Urine Bacteria 3+, Urine Mucus 0 SEEN Current Medications Vancomycin HCl (Vancomycin) 1,000 mg in 200 mls @ 200 mls/hr IV X1 ONE Stop: 07/11/20 11:29 Assessment/Plan All Active Problems (Last Updated 03/19/19 @ 14:[address] Arben Whitt, DO) UTI (urinary tract infection) (Acute) Pyelonephritis, acute (Resolved) Sepsis (Acute) Altered mental status (Acute) Acute kidney injury (Ruled-out) COVID-19 (Acute) Patient is an 80-year-old lady admitted with increasing lethargy fever and decreased urine output. An assessment of acute COVID-19 infection and cystitis made admitted for subsequent inpatient management 1. Acute COVID-19 infection ?Patient has been admitted to the COVID-19 cohort floor. Placed on supplemental oxygen and Decadron with consultation placed to both pulmonary medicine and infectious disease. Decision to start adjuvant therapy including remdesivir deferred 2. Acute cystitis ?Urine and blood culture sent patient started on Rocephin with plans to either continue or adjust antibiotic therapy based on results 3. Hyponatremia ?Secondary to dehydration patient on half-normal saline with subsequent monitoring of electrolyte 4. Hypertension -blood pressure controlled, home medications continued with dose adjustment as needed 5. Dyslipidemia -patient is on statin therapy, continued at home dose 6. Hypothyroidism -patient is on levothyroxine home dose continued 7. History of venous thromboembolism ?Patient is on Xarelto did continue Advance planning; did discuss with the patient daughter who happens to be her POA regarding advanced directives as well as CODE STATUS. Did explain the various scenarios involved ( FULL CODE, DNR CCA, DNR CCA with no intubation, and DNR CC and what each meant) patient's daughter elected to be DNR CCA no intubation. Order was placed. Time spent on discussion 18 minutes. Clinical Impression(s) from Imaging Studies Chest X-Ray 07/11/20 09:50 IMPRESSION: Stable mild increased markings at the lung bases suggestive of basilar scarring. Electronically Signed: Lloyd Ambrocio, at 10:43 EST , Service support , Brain CT 07/11/20 10:45 IMPRESSION: Chronic involutional changes of the brain. Electronically Signed: Lloyd Ambrocio, at 11:01 EST , Service support , Inpatient E&M: [id number] Init Hosp L3 Procedures: [id number] Advncd Care Plan 30 Min
[2020-07-11 10:57] LABS: Lymphocyte 17 % (19-41); Metamyelocyte 4 % (0-1); Monocyte 5 % (0-10); Neutrophil-Segmented 71 % (47-70); Platelet Estimate ADEQUATE (ADEQ); Promyelocyte 3 (0-0); Red Cell Morphology NORM C+C NORMAL (NORM C&C); Total Cells Counted 100 (MANUAL DIFF)
[2020-07-11 10:58] LABS: Absolute Neutrophil Count 6.3 X10^3/uL (2.0-7.7)
[2020-07-11] MEDS: Vancomycin IV 1,000 MG/200 ML BAG 200 MG IV (11:07)
--- NOTE | 2020-07-11 12:27 | ED.RN ---
spoke to pts daughter bernarda. She is aware of what is going on and would like updated when we figure out where she is going and the results of the covid test
--- NOTE | 2020-07-11 12:57 | ED.RN ---
SWABBED PTS MOUTH MULTIPLE TIMES WITH WATER. PT IS RESPONDING WITH HEAD NODS. PT DENIES PAIN AND STATES MOUTH FELS BETTER AFTER MULTIPLE SWABS AND WIPING THE DRY SKIN OFF.
--- NOTE | 2020-07-11 14:15 | ED.RN ---
REPORT CALLED TO [facility]
[2020-07-11] MEDS: 0.9% Normal Saline 1,000 ML 125 ML IV (15:47)
[2020-07-11 16:11] LABS: AST(SGOT) 69 U/L (15-37); Alanine Aminotransfer ALT/SGPT 55 U/L (13-56); Albumin, Serum 2.9 g/dL (3.2-5.0); Alkaline Phosphatase 164 U/L (45-117); Bilirubin, Direct 1.71 mg/dL (0.00-0.30); Protein, Total 7.9 g/dL (6.4-8.2)
[2020-07-11 16:23] LABS: Procalcitonin 0.08 ng/mL (0.00-0.09)
[2020-07-11 16:37] LABS: D-Dimer Quantitative (DVT/PE) 0.67 FEU/ug/m (0.27-0.49)
[2020-07-11] MEDS: Dext 5%-0.45% NS 1,000 ML 150 ML IV (17:49)
--- NOTE | 2020-07-11 18:54 | CON.PCM_ITS ---
Problem List (1) COVID-19 Status: Acute Reason for Consult: covid Consulted by: Dr. Sigala History of Present Illness: The patient is a 80 year old F F resident, presented with confusion, fever, not feeling well from ECF. UA with some pyuria, pt not able to provide history or ROS. Covid pcr (+), given vanc/zosyn, changed to azithro and ceftriaxone. - Medical History Past Medical History (Chronic Problems): Chronic Problems (Last Reviewed 07/11/20 @ 15:[address] Jaylon Sigala MD) Dyslipidemia (Chronic) Hypothyroidism (Chronic) HTN (hypertension) (Chronic) Histrionic personality disorder (Chronic) Migraines (Chronic) Dysphagia (Chronic) Depression (Chronic) Allergies/Adverse Reactions: Allergies bupropion HCl [From Wellbutrin] Adverse Reaction (Verified 04/06/19 11:15) Other DIZZY ibuprofen Adverse Reaction (Verified 04/06/19 11:15) Other ULCER nitrofurantoin [From Macrobid] Adverse Reaction (Verified 04/06/19 11:15) Other HEADACHE nitrofurantoin macrocrystalline [From Macrobid] Adverse Reaction (Verified 04/06/19 11:15) Other HEADACHE piroxicam [From Feldene] Adverse Reaction (Verified 04/06/19 11:15) Upset Stomach Home Medications: Ambulatory Orders Medication Instructions Recorded Duloxetine Hcl [Cymbalta] 60 mg PO BID 03/12/15 Fluticasone 0.05% [Flonase Nasal 2 spray NARES DAILY 03/12/15 [place]] ALPRAZolam [Xanax] 0.5 mg PO TID 03/19/19 Cyanocobalamin [Vitamin B12] 1,000 mcg IM Q30D 03/19/19 Polyethylene Glycol 3350 [Miralax] 17 gm PO DAILY 03/19/19 Venlafaxine HCl [Venlafaxine HCl 75 mg PO DAILY 03/19/19 ER] Diclofenac Sodium [Voltaren] 4 gm TP BID 04/06/19 Omeprazole 20 mg PO BID 04/06/19 Cholecalciferol (VIT D3) [Vitamin 2,000 unit PO DAILY 04/17/19 D] Calcium Polycarbophil [Fiber Lax] 1,250 mg PO BID 07/11/20 Fluconazole [Diflucan] 150 mg PO WE 07/11/20 Hydrocodone Bitart/Apap 5-325 1 tab PO Q6H 07/11/20 [Brandon 5MG-325MG] Levothyroxine Sodium [Synthroid] 100 mcg PO DAILY 07/11/20 Potassium Chloride 40 meq PO DAILY 07/11/20 Quetiapine Fumarate [Seroquel Xr] 200 mg PO QHS 07/11/20 Rivaroxaban [Xarelto] 10 mg PO DAILY 07/11/20 - Social History SMOKING STATUS:: Unknow if ever smoked Vital Signs Temp Pulse Resp BP Pulse Ox 97.7 F L 56 L 18 149/71 H 96 07/11/20 18:17 07/11/20 18:17 07/11/20 18:17 07/11/20 18:17 07/11/20 18:17 Oxygen Flow Rate (L/min) 4 Oxygen Delivery Method Nasal Cannula Weight: 66.7 kg Body Mass Index (BMI) 25.2 Microbiology Past 72 Hours 07/11/20 09:37 Legionella Antigen - Final Urine Catheter - Haque Streptococcus pneumoniae Antigen (M - Final Laboratory Tests Past 24 Hrs 07/11/20 07/11/20 07/11/20 09:25 09:25 09:25 WBC 8.9 RBC 4.66 Hgb 14.0 Hct 45.7 MCV 98.1 MCH 30.0 MCHC 30.6 L RDW Std Deviation 51.8 H RDW Coeff of Kadeem 14.4 Plt Count 283 MPV 11.6 Neut % (Auto) Not Reportable Absolute Neuts (auto) 6.3 Absolute Lymphs (auto) 1.50 Total Counted 100 Neutrophils % (Manual) 71 H Lymphocytes % (Manual) 17 L Monocytes % (Manual) 5 Metamyelocytes % 4 H Promyelocytes % 3 H Diff Path Review May foll Platelet Estimate ADEQUATE RBC Morphology NORM C+C PT 13.5 INR 1.1 APTT 27.2 D-Dimer Quant (PE/DVT) Sodium 149 H Potassium 4.0 Chloride 117 H Carbon Dioxide 23.0 Anion Gap 9 BUN 36 H Creatinine 0.80 Estim Creat Clear Calc 47.63 Est GFR (MDRD) Af Amer 88 Est GFR (MDRD) Non-Af 73 BUN/Creatinine Ratio 44.9 H Glucose 102 Lactic Acid Calcium 10.5 H Total Bilirubin 2.40 H Direct Bilirubin AST 71 H ALT 55 Alkaline Phosphatase 164 H Total Protein 7.8 Albumin 2.9 L Globulin 4.9 H Albumin/Globulin Ratio 0.6 L Procalcitonin Urine Color Urine Clarity Urine pH Ur Specific [place] Urine Protein Urine Glucose (UA) Urine Ketones Urine Occult Blood Urine Nitrite Urine Bilirubin Urine Urobilinogen Ur Leukocyte Esterase Urine RBC Urine WBC Ur Squamous Epith Cells Urine Bacteria Urine Mucus COVID-19 (RAQUEL) 07/11/20 07/11/20 07/11/20 09:25 09:25 09:25 WBC RBC Hgb Hct MCV MCH MCHC RDW Std Deviation RDW Coeff of Kadeem Plt Count MPV Neut % (Auto) Absolute Neuts (auto) Absolute Lymphs (auto) Total Counted Neutrophils % (Manual) Lymphocytes % (Manual) Monocytes % (Manual) Metamyelocytes % Promyelocytes % Diff Path Review Platelet Estimate RBC Morphology PT INR APTT D-Dimer Quant (PE/DVT) 0.67 H* Sodium Potassium Chloride Carbon Dioxide Anion Gap BUN Creatinine Estim Creat Clear Calc Est GFR (MDRD) Af Amer Est GFR (MDRD) Non-Af BUN/Creatinine Ratio Glucose Lactic Acid 0.6 Calcium Total Bilirubin 2.60 H Direct Bilirubin 1.71 H AST 69 H ALT 55 Alkaline Phosphatase 164 H Total Protein 7.9 Albumin 2.9 L Globulin 5.0 H Albumin/Globulin Ratio Procalcitonin Urine Color Urine Clarity Urine pH Ur Specific [place] Urine Protein Urine Glucose (UA) Urine Ketones Urine Occult Blood Urine Nitrite Urine Bilirubin Urine Urobilinogen Ur Leukocyte Esterase Urine RBC Urine WBC Ur Squamous Epith Cells Urine Bacteria Urine Mucus COVID-19 (RAQUEL) 07/11/20 07/11/20 07/11/20 09:25 09:37 10:59 WBC RBC Hgb Hct MCV MCH MCHC RDW Std Deviation RDW Coeff of Kadeem Plt Count MPV Neut % (Auto) Absolute Neuts (auto) Absolute Lymphs (auto) Total Counted Neutrophils % (Manual) Lymphocytes % (Manual) Monocytes % (Manual) Metamyelocytes % Promyelocytes % Diff Path Review Platelet Estimate RBC Morphology PT INR APTT D-Dimer Quant (PE/DVT) Sodium Potassium Chloride Carbon Dioxide Anion Gap BUN Creatinine Estim Creat Clear Calc Est GFR (MDRD) Af Amer Est GFR (MDRD) Non-Af BUN/Creatinine Ratio Glucose Lactic Acid Calcium Total Bilirubin Direct Bilirubin AST ALT Alkaline Phosphatase Total Protein Albumin Globulin Albumin/Globulin Ratio Procalcitonin 0.08 Urine Color Yellow Urine Clarity Cloudy Urine pH 8.0 Ur Specific [place] 1.015 Urine Protein 100 H Urine Glucose (UA) Normal Urine Ketones 15 H Urine Occult Blood 250 H Urine Nitrite Negative Urine Bilirubin 1 H Urine Urobilinogen 4 H Ur Leukocyte Esterase 500 H Urine RBC 0-5 SEEN Urine WBC 25-50 SEEN Ur Squamous Epith Cells 0 SEEN Urine Bacteria 3+ Urine Mucus 0 SEEN COVID-19 (RAQUEL) Detected - Other Studies Radiology: [] reviewed Other Studies: [] Route of nutrition/ use of supplements: [] Nutritional Intake: [] IV Site: [] Haque Catheter: [] - Physical Exam General: Lethargic, Non-Cooperative HEENT: Atraumatic, PERRLA, EOMI Neck: Supple, No Nodes Lungs: Diminished Cardiovascular: Regular rate, Regular Rhythm Abdomen: Soft, Non Tender, Non-Distended Extremities: No edema Skin: No rashes IV Site: Peripheral, without redness Musculoskeletal: No Tenderness to Palpation of Joints or Extremities Neurological: Cranial nerves II-XII grossly intact - Assessment/Plan Antibiotics: [] Assessment/Plan: [] Active and Suspected Problems (Last Reviewed 07/11/20 @ 15:[address] Jaylon Sigala MD) UTI (urinary tract infection) (Acute) Sepsis (Acute) Altered mental status (Acute) COVID-19 (Acute) covid with hypoxia and encephalopathy - UAg neg. mild rise in d-dimer. Will order dose of dexamethasone for today and start remdesivir. Will stop azithro, continue ceftriaxone for urinary coverage given pyuria seen on UA. Daily CMP and cbc while on remdesivir. Head CT neg. Will follow, thank you
[2020-07-11] MEDS: dexAMETHasone 4 MG/ML Vial 6 MG IV (21:13)
[2020-07-12] VITALS (11 sets, daily range): BP systolic 123–154; BP diastolic 66–89; PULSE 40–106; RESP 16–18; TEMP 36.4–36.8; O2SAT 94–98
[2020-07-12] MEDS: Dext 5%-0.45% NS 1,000 ML 150 ML IV ×3 (04:00→22:58)
--- NOTE | 2020-07-12 06:51 | NURSING ---
pt's hr noted to be variable over this shift. telemetry applied. pt spontaneously converts from aflutter to SB. tele strips printed and placed in pt chart. dr burnett aware. new orders entered.
[2020-07-12 07:19] LABS: Hematocrit 39.1 % (37-47); Hemoglobin 11.6 g/dL (12.0-15.0); Mean Corp Hgb Conc 29.7 g/dL (32-36); Mean Platelet Vol. 11.5 fl (6.2-12.0); POSITIVE COUNT YES; POSITIVE MORPHOLOGY YES; Platelet Count 202 K/mm3 (150-450); RBC Distribution Width CV 14.4 % (11.6-14.6); RBC Distribution Width SD 53.9 fl (35.1-43.9); Red Blood Count 3.87 M/mm3 (4.2-5.4)
--- NOTE | 2020-07-12 08:11 | PN_ITS ---
Patient Problems: Active and Suspected Problems (Last Reviewed 07/11/20 @ 15:[address] Jaylon Sigala MD) UTI (urinary tract infection) (Acute) Sepsis (Acute) Altered mental status (Acute) COVID-19 (Acute) Bradycardia (Acute) Reason for Visit: COVID-19 pneumonia Acute cystitis Bradycardia Subjective: Patient is an 80-year-old lady admitted with increasing lethargy fever and decreased urine output. An assessment of acute COVID-19 infection and cystitis made admitted for subsequent inpatient management Patient was found to be significantly bradycardic. Confirmed with EKG. Troponin ordered during the night. Consultation placed to cardiology. Objective: GENERAL: Patient awake but not responding to questions HEENT: Atraumatic; EYES; Anicteric, Normal Conjunctiva NECK; supple, normal thyroid, RESPIRATORY: Diminished to auscultation CARDIOVASCULAR: Regular S1 S2, GI: soft, normoactive bowel sounds, : No Renal angle tenderness; EXTREMITIES: No edema, no clubbing, MUSCULOSKELETAL: no muscle waisting NEURO: Awake; no lateralizing signs. SKIN: No Rash PSYCH; Flat affect Vitals/I&O's: Vital Signs Temp Pulse Resp BP Pulse Ox 98.2 F 50 L 16 142/66 H 95 07/12/20 08:00 07/12/20 08:00 07/12/20 08:00 07/12/20 08:00 07/12/20 08:00 Oxygen Flow Rate (L/min) 4 Oxygen Delivery Method Nasal Cannula Weight: 66.7 kg Body Mass Index (BMI) 25.2 Intake and Output for Last 24 Hours 07/10/20 07/11/20 07/12/20 23:59 23:59 23:59 Intake Total 1920. / 1920.25 0 / 0 Output Total 400 / 400 Balance 1920.25 / 192.25 -400 / -400 Microbiology Past 72 Hours 07/11/20 09:37 Urine Catheter - Haque Legionella Antigen - Final 07/11/20 09:37 Urine Catheter - Haque Streptococcus pneumoniae Antigen (M - Final Laboratory Results 07/11/20 09:25: WBC 8.9, RBC 4.66, Hgb 14.0, Hct 45.7, MCV 98.1, MCH 30.0, MCHC 30.6 L, RDW Std Deviation 51.8 H, RDW Coeff of Kadeem 14.4, Plt Count 283, MPV 11.6, Neut % (Auto) Not Reportable, Absolute Neuts (auto) 6.3, Absolute Lymphs (auto) 1.50, Total Counted 100, Neutrophils % (Manual) 71 H, Lymphocytes % (Manual) 17 L, Monocytes % (Manual) 5, Metamyelocytes % 4 H, Promyelocytes % 3 H , Diff Path Review January, Platelet Estimate ADEQUATE, RBC Morphology NORM C+C 07/11/20 09:25: PT 13.5, INR 1.1, APTT 27.2 07/11/20 09:25: Sodium 149 H, Potassium 4.0, Chloride 117 H, Carbon Dioxide 23.0, Anion Gap 9, BUN 36 H, Creatinine 0.80, Estim Creat Clear Calc 47.63, Est GFR (MDRD) Af Amer 88, Est GFR (MDRD) Non-Af 73, BUN/Creatinine Ratio 44.9 H, Glucose 102, Calcium 10.5 H, Total Bilirubin 2.40 H, AST 71 H, ALT 55, Alkaline Phosphatase 164 H, Total Protein 7.8, Albumin 2.9 L, Globulin 4.9 H, Albumin/Globulin Ratio 0.6 L 07/11/20 09:25: Lactic Acid 0.6 07/11/20 09:25: D-Dimer Quant (PE/DVT) 0.67 H* 07/11/20 09:25: Total Bilirubin 2.60 H, Direct Bilirubin 1.71 H, AST 69 H, ALT 55, Alkaline Phosphatase 164 H, Total Protein 7.9, Albumin 2.9 L, Globulin 5.0 H 07/11/20 09:25: Procalcitonin 0.08 07/11/20 09:37: Urine Color Yellow, Urine Clarity Cloudy, Urine pH 8.0, Ur Specific [place] 1.015, Urine Protein 100 H, Urine Glucose (UA) Normal, Urine Ketones 15 H, Urine Occult Blood 250 H, Urine Nitrite Negative, Urine Bilirubin 1 H, Urine Urobilinogen 4 H, Ur Leukocyte Esterase 500 H, Urine RBC 0-5 SEEN, Urine WBC 25-50 SEEN, Ur Squamous Epith Cells 0 SEEN, Urine Bacteria 3+, Urine Mucus 0 SEEN 07/11/20 10:59: COVID-19 (RAQUEL) Detected 07/12/20 07:00: WBC 6.0, RBC 3.87 L, Hgb 11.6 L, Hct 39.1, MCV 101.0 H, MCH 30.0, MCHC 29.7 L, RDW Std Deviation 53.9 H, RDW Coeff of Kadeem 14.4, Plt Count 202, MPV 11.5, Immature Gran % (Auto) 7.800 H, Neut % (Auto) 65.9, Lymph % (Auto) 17.8 L, [place] % (Auto) 7.3, Eos % (Auto) 0.2, Baso % (Auto) 1.0, Absolute Neuts (auto) 4.0, Absolute Lymphs (auto) 1.07, Nucleated RBC % 0 07/12/20 07:00: Sodium Pending, Potassium Pending, Chloride Pending, Carbon Dioxide Pending, Anion Gap Pending, BUN Pending, Creatinine Pending, Est GFR (M DRD) Af Amer Pending, Est GFR (MDRD) Non-Af Pending, BUN/Creatinine Ratio Pending, Glucose Pending, Calcium Pending, Magnesium Pending, Total Bilirubin Pending, AST Pending, ALT Pending, Alkaline Phosphatase Pending, Total Protein Pending, Albumin Pending, TSH Pending, Free T4 Pending 07/12/20 07:00: Troponin I < 0.015 Current Medications Acetaminophen (Acetaminophen 325 Mg Tablet) 650 mg PO Q6H PRN PRN PRN Reason: Pain Score 1-10/Temp > 100.7 F Albuterol Sulfate (Albuterol 2.5 Mg/3 Ml Vial.Neb.) 2.5 mg INHALATION Q2H PRN PRN PRN Reason: Shortness of Breath/Wheezing Dexamethasone Sodium Phosphate (Dexamethasone 10 Mg/Ml Vial) 6 mg IV DAILY [facility] Duloxetine HCl (Duloxetine Hcl 60 Mg Capsule) 60 mg PO BID [facility] Last Admin: 07/11/20 21:13 Dose: Not Given Documented by: Fluticasone Propionate (Fluticasone 0.05% 1 [place] Nasal.Sry) 2 spray NASAL DAILY [facility] Guaifenesin (Guaifenesin 10 Ml Udc (200mg/10ml)) 20 ml PO Q4H PRN PRN PRN Reason: COUGH Ceftriaxone Sodium (Rocephin) 1 gm in 50 mls @ 100 mls/hr IV Q24 [facility] Dextrose/Sodium Chloride () 1,000 mls @ 150 mls/hr IV .Q6H40M [facility] Last Admin: 07/12/20 04:00 Dose: 150 mls/hr Documented by: Remdesivir 100 mg/ Sodium (Chloride) 250 mls @ 125 mls/hr IV DAILY [facility]; Protocol Stop: 07/15/20 11:59 Levothyroxine Sodium (Levothyroxine 100 Mcg Tablet) 100 mcg PO DAILY@0600 [facility] Last Admin: 07/12/20 05:22 Dose: Not Given Documented by: Ondansetron HCl (Ondansetron 4 Mg/2 Ml Vial) 4 mg IV Q8H PRN PRN PRN Reason: NAUSEA/VOMITING Pantoprazole Sodium (Pantoprazole Sodium 20 Mg Tablet) 20 mg PO BID [facility] Last Admin: 07/11/20 21:14 Dose: Not Given Documented by: Polyethylene Glycol (Polyethylene Glycol 3350 17 Gm Packet) 17 gm PO DAILY [facility] Potassium Chloride (Potassium Chloride 20 Meq Tablet) 40 meq PO DAILY [facility] Quetiapine Fumarate (Quetiapine 100 Mg Tablet) 100 mg PO BID [facility] Last Admin: 07/11/20 21:14 Dose: Not Given Documented by: Rivaroxaban (Rivaroxaban 10 Mg Tablet) 10 mg PO DAILY [facility] Senna/Docusate Sodium (Senna/Docusate Sodium 1 Tablet) 2 tablet PO BID PRN PRN PRN Reason: Constipation Sodium Chloride (0.9% Saline Lock 10 Ml Syringe) 10 - 40 ml IV UD PRN PRN Reason: SALINE FLUSH Venlafaxine HCl (Venlafaxine Xr 75 Mg Capsule) 75 mg PO DAILY [facility] STROKE Vital Signs/Narrative: Vital Signs Temp Pulse Resp BP Pulse Ox 07/12/20 08:00 98.2 F 50 L 16 142/66 H 95 07/12/20 05:48 45 L 07/12/20 05:36 41 L 18 96 Medical Necessity - Tobacco Use Smoking Status: Unknown if ever smoked Assessment/Plan All Active Problems (Last Reviewed 07/11/20 @ 15:[address] Jaylon Sigala MD) UTI (urinary tract infection) (Acute) Pyelonephritis, acute (Resolved) Sepsis (Acute) Altered mental status (Acute) Acute kidney injury (Ruled-out) COVID-19 (Acute) Bradycardia (Acute) Patient is an 80-year-old lady admitted with increasing lethargy fever and decreased urine output. An assessment of acute COVID-19 infection and cystitis made admitted for subsequent inpatient management 1. Acute COVID-19 infection ?Patient has been admitted to the COVID-19 cohort floor. Placed on supplemental oxygen and Decadron with consultation placed to both pulmonary medicine and infectious disease. Decision to start adjuvant therapy including remdesivir deferred -07/12/2020; patient started on remdesivir by infectious disease 2. Acute cystitis ?Urine and blood culture sent patient started on Rocephin with plans to either continue or adjust antibiotic therapy based on results 3. Hyponatremia ?Secondary to dehydration patient on half-normal saline with subsequent monitoring of electrolyte 4. Hypertension -blood pressure controlled, home medications continued with dose adjustment as needed 5. Dyslipidemia -patient is on statin therapy, continued at home dose 6. Hypothyroidism -patient is on levothyroxine home dose continued 7. History of venous thromboembolism ?Patient is on Xarelto did continue 8. Bradycardia ?Patient currently being monitored continuously on telemetry. As part of her management ordered TSH, serial cardiac enzymes and consultation placed to cardiology. Will defer decision to obtain echo to cardiology. Inpatient E&M: [facility] L3
[2020-07-12 08:18] LABS: ALB/GLOB Ratio 0.6 RATIO (0.9-2.4); AST(SGOT) 65 U/L (15-37); Alanine Aminotransfer ALT/SGPT 50 U/L (13-56); Albumin, Serum 2.3 g/dL (3.2-5.0); Alkaline Phosphatase 128 U/L (45-117); Anion Gap 8 (5-15); BUN 26 mg/dL (7-18); BUN/Creat Ratio 44.5 RATIO (10-20); Calcium,Total 8.6 mg/dL (8.5-10.1); Chloride 116 mmol/L (98-107); Creatinine, Serum 0.58 mg/dL (0.55-1.02); EST Glomerular Filtration Rate 105 mL/min (>60); Est Glom Filt Rate - Afr Amer 127 mL/min (>60); Globulin 4.1 g/dL (2.2-4.2); Glucose 141 mg/dL (74-106); Magnesium 1.7 mg/dL (1.6-2.6); Potassium 3.1 mmol/L (3.5-5.1); Protein, Total 6.4 g/dL (6.4-8.2); Sodium Level 147 mmol/L (136-145); Thyroid Stim Hormone (TSH) 1.41 uIU/mL (0.358-3.74)
[2020-07-12 08:26] LABS: Differential Indicated MANUAL DIFF
[2020-07-12 08:31] LABS: Eosinophil 1 % (0-5); Lymphocyte 17 % (19-41); Monocyte 5 % (0-10); Neutrophil-Band 1 % (0-5); Neutrophil-Segmented 76 % (47-70); Total Cells Counted 100 (MANUAL DIFF)
[2020-07-12 08:32] LABS: Anisocytosis 1+; Platelet Estimate ADEQUATE (ADEQ); Red Cell Morphology N CHROM NORMAL (NORM C&C)
[2020-07-12 08:33] LABS: Scan Smear per Review Criteria MANUAL DIFF
[2020-07-12 08:34] LABS: Absolute Lymphocyte Count 1.02 X10^3/uL (0.83-4.51); Absolute Neutrophil Count 4.6 X10^3/uL (2.0-7.7)
[2020-07-12] MEDS: Ceftriaxone 1 GM/50 ML BAG IV (08:55)
--- NOTE | 2020-07-12 10:06 | CON.PCM_ITS ---
Problem List (1) Bradycardia Status: Acute (2) Dyslipidemia Status: Chronic (3) HTN (hypertension) Status: Chronic (4) UTI (urinary tract infection) Status: Acute Qualifiers: Urinary tract infection type: acute cystitis (5) COVID-19 Status: Acute (6) Altered mental status Status: Acute Reason for Consult Date of Consultation: 07/12/20 History of Present Illness: The patient is a 80 year old white female resident of an extended care facility who presented for altered mental status with a history of dyslipidemia, hypertension, who was also found to have concerns of UTI and is COVID-19 positive who is being referred for concerns of sinus bradycardia. The patient was reported as being relatively noncommunicative and not providing any obvious history. She has been evaluated by internal medicine and has been undergoing cardiac rhythm monitoring, laboratory evaluation, radiologic evaluation, and adjustments of medication. She was noted to be in sinus rhythm. Earlier this day there were concerns that she had sinus bradycardia. An ECG was performed. She did demonstrate evidence of sinus bradycardia with a ventricular rate in the 40s. She was not reported as hypotensive and has had episodes of hypertension. There was no obvious symptomatic complaints. Upon my evaluation the patient was able to open her eyes to verbal stimuli. She did answer no to the question as to whether or not she was in any pain. However upon palpating her abdomen she did grimace. During that time, watching her cardiac rhythm monitor, she was noted to have an increase in her heart rate up to approximately 60 bpm-sinus rhythm. There is been no other report of any acute cardiovascular symptoms such as ongoing chest discomfort or acute respiratory distress. There has been no report of any obvious orthopnea or PND. There is been no report of near syncope or syncope. [] Past Medical History Allergies/Adverse Reactions: Allergies bupropion HCl [From Wellbutrin] Adverse Reaction (Verified 04/06/19 11:15) Other DIZZY ibuprofen Adverse Reaction (Verified 04/06/19 11:15) Other ULCER nitrofurantoin [From Macrobid] Adverse Reaction (Verified 04/06/19 11:15) Other HEADACHE nitrofurantoin macrocrystalline [From Macrobid] Adverse Reaction (Verified 04/06/19 11:15) Other HEADACHE piroxicam [From Feldene] Adverse Reaction (Verified 04/06/19 11:15) Upset Stomach Home Medications: Ambulatory Orders Medication Instructions Recorded Duloxetine Hcl [Cymbalta] 60 mg PO BID 03/12/15 Fluticasone 0.05% [Flonase Nasal 2 spray NARES DAILY 03/12/15 [place]] ALPRAZolam [Xanax] 0.5 mg PO TID 03/19/19 Cyanocobalamin [Vitamin B12] 1,000 mcg IM Q30D 03/19/19 Polyethylene Glycol 3350 [Miralax] 17 gm PO DAILY 03/19/19 Venlafaxine HCl [Venlafaxine HCl 75 mg PO DAILY 03/19/19 ER] Diclofenac Sodium [Voltaren] 4 gm TP BID 04/06/19 Omeprazole 20 mg PO BID 04/06/19 Cholecalciferol (VIT D3) [Vitamin 2,000 unit PO DAILY 04/17/19 D] Calcium Polycarbophil [Fiber Lax] 1,250 mg PO BID 07/11/20 Fluconazole [Diflucan] 150 mg PO WE 07/11/20 Hydrocodone Bitart/Apap 5-325 1 tab PO Q6H 07/11/20 [[place] 5MG-325MG] Levothyroxine Sodium [Synthroid] 100 mcg PO DAILY 07/11/20 Potassium Chloride 40 meq PO DAILY 07/11/20 Quetiapine Fumarate [Seroquel Xr] 200 mg PO QHS 07/11/20 Rivaroxaban [Xarelto] 10 mg PO DAILY 07/11/20 Past Medical History (Chronic Problems): Chronic Problems (Last Reviewed 07/11/20 @ 15:[address] Jaylon Sigala MD) Dyslipidemia (Chronic) Hypothyroidism (Chronic) HTN (hypertension) (Chronic) Histrionic personality disorder (Chronic) Migraines (Chronic) Dysphagia (Chronic) Depression (Chronic) Surgical History: - - no known recent surgeries, remote history of left ankle fracture with external fixator bilateral knee replacements. - *Family History Offspring History Items: - - Son from multiple myeloma Maternal History Items: No pertinent history Lives: Long-Term Smoking Status: Unknown if ever smoked Review of Systems - Review of Systems Gastrointestinal: Reports: Abdominal Discomfort Objective: Vital Signs Temp Pulse Resp BP Pulse Ox 98.2 F 50 L 16 142/66 H 95 07/12/20 08:00 07/12/20 08:00 07/12/20 08:00 07/12/20 08:00 07/12/20 08:00 Oxygen Flow Rate (L/min) 4 Oxygen Delivery Method Nasal Cannula Weight: 147 lb 0.773 oz Body Mass Index (BMI) 25.2 Intake and Output for Last 24 Hours 07/10/20 07/11/20 07/12/20 23:59 23:59 23:59 Intake Total 1920. / 1920. 0 / 0 Output Total 400 / 400 Balance 1920.25 / 192.25 -400 / -400 07/11/20 09:25: Absolute Neuts (auto) 6.3, Total Counted 100, Neutrophils % (Manual) 71 H, Lymphocytes % (Manual) 17 L, Monocytes % (Manual) 5, Metamyelocytes % 4 H, Promyelocytes % 3 H 07/11/20 09:25: PT 13.5, INR 1.1, APTT 27.2 07/11/20 09:25: Sodium 149 H, Potassium 4.0, Chloride 117 H, Carbon Dioxide 23.0, Anion Gap 9, BUN 36 H, Creatinine 0.80, Est GFR (MDRD) Af Amer 88, Est GFR (MDRD) Non-Af 73, BUN/Creatinine Ratio 44.9 H, Glucose 102, Calcium 10.5 H, Total Bilirubin 2.40 H 07/11/20 09:25: Lactic Acid 0.6 07/11/20 09:25: D-Dimer Quant (PE/DVT) 0.67 H* 07/11/20 09:25: Total Bilirubin 2.60 H, Direct Bilirubin 1.71 H 07/12/20 07:00: WBC 6.0, RBC 3.87 L, Hgb 11.6 L, Hct 39.1, MCV 101.0 H, MCH 30.0, MCHC 29.7 L, Plt Count 202, MPV 11.5, Immature Gran % (Auto) [employer]PERATIONS [employer]OCATIONAL INSTRUCTOR, Neut % (Auto) OPERATIONS VOCATIONAL INSTRUCTOR, Lymph % (Auto) OPERATIONS VOCATIONAL INSTRUCTOR, [place] % (Auto) OPERATIONS VOCATIONAL INSTRUCTOR, Eos % (Auto) OPERATIONS VOCATIONAL INSTRUCTOR, Baso % (Auto) OPERATIONS VOCATIONAL INSTRUCTOR, Absolute Neuts (auto) 4.6, Total Counted 100, Neutrophils % (Manual) 76 H, Band Neutrophils % 1, Lymphocytes % (Manual) 17 L, Monocytes % (Manual) 5, Eosinophils % (Manual) 1, Nucleated RBC % [employer]PERATIONS VOCATIONAL INSTRUCTOR 07/12/20 07:00: Sodium 147 H, Potassium 3.1 L, Chloride 116 H, Carbon Dioxide 23.0, Anion Gap 8, BUN 26 H, Creatinine 0.58, Est GFR (MDRD) Af Amer 127, Est GFR (MDRD) Non-Af 105, BUN/Creatinine Ratio 44.5 H, Glucose 141 H, Calcium 8.6, Magnesium 1.7, Total Bilirubin 0.70 07/12/20 07:00: Troponin I < 0.015 Rhythm: Sinus rhythm EKG: As noted above ECHO: Stress Test: 05-02-2014 PHARMACOLOGIC MYOCARDIAL PERFUSION STRESS TEST REASON FOR EVALUATION: This is a 73-year-old lady with a history of coronary artery disease. BASELINE INFORMATION: Baseline EKG demonstrates sinus rhythm with a rate of 66 beats per minute. Normal intervals are noted. The resting blood pressure was 128/84. STRESS TEST: 0.4 mg of regadenoson was infused per usual protocol followed by rapid intravenous saline flush injection. Continuous EKG monitoring was performed. The maximum heart rate was 90 beats per minute, which was 61% of maximum predicted heart rate. The maximum workload attained was 1 MET. At rest, there were no ST or T-wave changes noted to suggest abnormal flow reserve. At peak infusion, no ST or T-wave changes were noted to suggest abnormal flow reserve. MYOCARDIAL PERFUSION PROTOCOL: 11.5 mCi of Sestamibi was injected at rest. 0.4 mg of regadenoson was infused per usual protocol. At peak infusion, 34.2 mCi of Sestamibi was injected. Stress images were obtained. Stress and rest images were reconstructed and compared in the short axis, vertical long, and horizontal long axes. Gated images were also obtained. PERFUSION SPECT ANALYSIS: Review of the images demonstrate normal uptake of tracer noted in all areas of the myocardium on the stress and resting images to a similar extent with no areas of reversibility to suggest ischemia or previous infarct. Mild GI attenuation artifact is present. GATED SPECT ANALYSIS: The gated ejection fraction is 60%. No wall motion abnormalities are present. CONCLUSION: 1. Normal pharmacologic myocardial perfusion stress test. 2. Preserved ejection fraction. Chest x-ray: 07-11-2020 IMPRESSION: Stable mild increased markings at the lung bases suggestive of basilar scarring. Assessment/Plan 1. Sinus bradycardia The patient has had transient sinus bradycardia. She appears without obvious acute symptoms. She appears with a stable blood pressure. She has reportedly not been on any specific rate limiting medications. She has been found to have hypokalemia. Her TSH was checked and appears to be within normal range. At the present time she will continue to be monitored. She should avoid any rate limiting medications. An attempt should be made to correct any underlying correctable such as her hypokalemia. She does not appear at this time to require additional supportive therapy in the way of medications such as atropine, dopamine, etc. or other measures such as transcutaneous or temporary transvenous pacemakers or a more permanent solution such as a permanent pacemaker. 2. Dyslipidemia She has a history of dyslipidemia. She should continue medical therapy as deemed appropriate. 3. Hypertension Her blood pressure can be followed. She can be treated with nonrate limiting medications as needed. 4. UTI She is reported as having a UTI. She is undergoing evaluation care per internal medicine. 5. COVID-19 positive She has been found to be COVID-19 positive. She is being monitored for the need for any additional pulmonary support. 6. Altered mental status She has been reported as having an altered mental status. It is unclear whether this is related to her underlying infectious disease process such as UTI. She will need to be followed for change in mental status as she undergoes her evaluation and care/treatment. Overall, at the present time, the patient will continue as above. She can be reassessed by cardiology as needed. Comment: The patient's case was discussed and reviewed with Dr. Sigala. This note was generated using a voice recognition system and there may be incorrect words, spelling or punctuation that were not noted when reviewing the office note prior to saving.
--- NOTE | 2020-07-12 10:38 | CASEMGMT ---
Addendum entered by Renetta Ramirez 07/12/20 13:17: Green sheet on patient's chart in the event she is ready over the weekend. 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 Renetta RUDOLPH Original Note: [facility]. ALIYA spoke with Lizy and there is no problem with patient returning even though she has COVID. They just need to know in advance so they can find a room for patient. She will also work on obtaining pre-cert. [facility] [place]. Renetta SINGH MSW
[2020-07-12] MEDS: DULoxetine Hcl 60 MG Capsule PO ×2 (11:10→21:32)
[2020-07-12] MEDS: Venlafaxine XR 75 MG Capsule PO (11:10)
[2020-07-12] MEDS: Polyethylene Glycol 3350 17 GM PACKET PO (11:10)
[2020-07-12] MEDS: Pantoprazole Sodium 20 MG Tablet PO ×2 (11:10→21:32)
[2020-07-12] MEDS: Acetaminophen 325 MG Tablet 650 MG PO (11:15)
[2020-07-12] MEDS: dexAMETHasone 10 MG/ML Vial 6 MG IV (11:16)
[2020-07-12] MEDS: Rivaroxaban 10 MG Tablet PO (11:17)
--- NOTE | 2020-07-12 12:57 | PCM.CONS.PUL ---
Reason for Consult Date of Consultation: 07/12/20 Reason for Consultation: Acute hypoxemic respiratory insufficiency secondary to COVID-19 pneumonia History of Present Illness: The patient is an 80-year-old female, with a history as outlined below, who presented to the emergency department on July 11 from her nursing home facility with altered mentation, malaise and fever. On presentation to the emergency department, the patient was noted to be afebrile and hemodynamically stable. She was initially documented to be saturating 96% on room air. Laboratory evaluation revealed a normal white blood cell count. Coagulation profile revealed a D-dimer level of 0.67. Lactate was within normal limits. Urine analysis was negative for nitrates, positive for leukocyte esterase and 3+ urine bacteria. Coronavirus PCR was positive. Head CT only revealed chronic involutional changes of the brain. Chest x-ray revealed some possible basilar scarring but was otherwise unremarkable. The patient was placed on Decadron and admitted to the progressive care unit for further management. The patient was subsequently seen in consultation by infectious diseases. She was started on remdesivir and continued on ceftriaxone over concerns for possible urinary tract source of infection as well. Past Medical History Past Medical History (Chronic Problems): Chronic Problems (Last Reviewed 07/11/20 @ 15:[address] Jaylon Sigala MD) Dyslipidemia (Chronic) Hypothyroidism (Chronic) HTN (hypertension) (Chronic) Histrionic personality disorder (Chronic) Migraines (Chronic) Dysphagia (Chronic) Depression (Chronic) Medical History: Medical History (Last Reviewed 07/11/20 @ 15:[address] 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 HTN (hypertension) I10 Allergies bupropion HCl [From Wellbutrin] Adverse Reaction (Verified 04/06/19 11:15) Other DIZZY ibuprofen Adverse Reaction (Verified 04/06/19 11:15) Other ULCER nitrofurantoin [From Macrobid] Adverse Reaction (Verified 04/06/19 11:15) Other HEADACHE nitrofurantoin macrocrystalline [From Macrobid] Adverse Reaction (Verified 04/06/19 11:15) Other HEADACHE piroxicam [From Feldene] Adverse Reaction (Verified 04/06/19 11:15) Upset Stomach Home Medications: Ambulatory Orders Medication Instructions Recorded Duloxetine Hcl [Cymbalta] 60 mg PO BID 03/12/15 Fluticasone 0.05% [Flonase Nasal 2 spray NARES DAILY 03/12/15 [place]] ALPRAZolam [Xanax] 0.5 mg PO TID 03/19/19 Cyanocobalamin [Vitamin B12] 1,000 mcg IM Q30D 03/19/19 Polyethylene Glycol 3350 [Miralax] 17 gm PO DAILY 03/19/19 Venlafaxine HCl [Venlafaxine HCl 75 mg PO DAILY 03/19/19 ER] Diclofenac Sodium [Voltaren] 4 gm TP BID 04/06/19 Omeprazole 20 mg PO BID 04/06/19 Cholecalciferol (VIT D3) [Vitamin 2,000 unit PO DAILY 04/17/19 D] Calcium Polycarbophil [Fiber Lax] 1,250 mg PO BID 07/11/20 Fluconazole [Diflucan] 150 mg PO WE 07/11/20 Hydrocodone Bitart/Apap 5-325 1 tab PO Q6H 07/11/20 [Ronald 5MG-325MG] Levothyroxine Sodium [Synthroid] 100 mcg PO DAILY 07/11/20 Potassium Chloride 40 meq PO DAILY 07/11/20 Quetiapine Fumarate [Seroquel Xr] 200 mg PO QHS 07/11/20 Rivaroxaban [Xarelto] 10 mg PO DAILY 07/11/20 Surgical History: - - no known recent surgeries, remote history of left ankle fracture with external fixator bilateral knee replacements. Lives: Retirement Smoking Status: Unknown if ever smoked - *Family History Offspring History Items: - - Son from multiple myeloma Maternal History Items: No pertinent history Review of Systems Unable to obtain accurate/complete ROS d/t: Due to encephalopathy Patient Problems: Active and Suspected Problems (Last Reviewed 07/11/20 @ 15:[address] Jaylon Sigala MD) UTI (urinary tract infection) (Acute) Sepsis (Acute) Altered mental status (Acute) COVID-19 (Acute) Bradycardia (Acute) Objective: The patient's most recent lab work, culture data and imaging studies have all been personally reviewed. Coronavirus PCR was positive on July 11. Preliminary urine culture is positive for gram-negative lactose milieu manager. - Physical Exam Vitals/I&O's: Vital Signs Temp Pulse Resp BP Pulse Ox 98.2 F 50 L 16 142/66 H 95 07/12/20 08:00 07/12/20 08:00 07/12/20 08:00 07/12/20 08:00 07/12/20 08:00 Oxygen Flow Rate (L/min) 4 Oxygen Delivery Method Nasal Cannula Weight: 147 lb 0.773 oz Body Mass Index (BMI) 25.2 Intake and Output for Last 24 Hours 07/10/20 07/11/20 07/12/20 23:59 23:59 23:59 Intake Total 1050 / 1050 Output Total 400 / 400 Balance 650 / 650 General: No apparent distress, Confused, Lethargic HEENT: Atraumatic, Normocephalic Oral: Moist Mucosa Neck: Supple, No Nodes, Trachea Midline Lungs: Diminished Cardiovascular: Normal S1, Normal S2, Bradycardic Abdomen: Bowel Sounds Present, Soft, Non Tender Extremities: No clubbing, No cyanosis, No edema Skin: No breakdown Musculoskeletal: No Tenderness to Palpation of Joints or Extremities Lymphatic: No Cervical, Supraclavicular, or Inguinal Adenopathy Neurological: Cranial nerves II-XII grossly intact Psych/Mental Status: Flat Affect Labs (Last 48 Hours) 07/11/20 07/11/20 07/11/20 09:25 09:25 09:25 WBC 8.9 RBC 4.66 Hgb 14.0 Hct 45.7 MCV 98.1 MCH 30.0 MCHC 30.6 L RDW Std Deviation 51.8 H RDW Coeff of Kadeem 14.4 Plt Count 283 MPV 11.6 Immature Gran % (Auto) Neut % (Auto) Not Reportable Lymph % (Auto) Lake % (Auto) Eos % (Auto) Baso % (Auto) Absolute Neuts (auto) 6.3 Absolute Lymphs (auto) 1.50 Total Counted 100 Neutrophils % (Manual) 71 H Band Neutrophils % Lymphocytes % (Manual) 17 L Monocytes % (Manual) 5 Eosinophils % (Manual) Metamyelocytes % 4 H Promyelocytes % 3 H Nucleated RBC % Diff Path Review May foll Platelet Estimate ADEQUATE RBC Morphology NORM C+C Anisocytosis PT 13.5 INR 1.1 APTT 27.2 D-Dimer Quant (PE/DVT) Sodium 149 H Potassium 4.0 Chloride 117 H Carbon Dioxide 23.0 Anion Gap 9 BUN 36 H Creatinine 0.80 Estim Creat Clear Calc 47.63 Est GFR (MDRD) Af Amer 88 Est GFR (MDRD) Non-Af 73 BUN/Creatinine Ratio 44.9 H Glucose 102 Lactic Acid Calcium 10.5 H Magnesium Total Bilirubin 2.40 H Direct Bilirubin AST 71 H ALT 55 Alkaline Phosphatase 164 H Troponin I Total Protein 7.8 Albumin 2.9 L Globulin 4.9 H Albumin/Globulin Ratio 0.6 L Procalcitonin TSH Free T4 Urine Color Urine Clarity Urine pH Ur Specific [place] Urine Protein Urine Glucose (UA) Urine Ketones Urine Occult Blood Urine Nitrite Urine Bilirubin Urine Urobilinogen Ur Leukocyte Esterase Urine RBC Urine WBC Ur Squamous Epith Cells Urine Bacteria Urine Mucus COVID-19 ([facility]) 07/11/20 07/11/20 07/11/20 09:25 09:25 09:25 WBC RBC Hgb Hct MCV MCH MCHC RDW Std Deviation RDW Coeff of Kadeem Plt Count MPV Immature Gran % (Auto) Neut % (Auto) Lymph % (Auto) [place] % (Auto) Eos % (Auto) Baso % (Auto) Absolute Neuts (auto) Absolute Lymphs (auto) Total Counted Neutrophils % (Manual) Band Neutrophils % Lymphocytes % (Manual) Monocytes % (Manual) Eosinophils % (Manual) Metamyelocytes % Promyelocytes % Nucleated RBC % Diff Path Review Platelet Estimate RBC Morphology Anisocytosis PT INR APTT D-Dimer Quant (PE/DVT) 0.67 H* Sodium Potassium Chloride Carbon Dioxide Anion Gap BUN Creatinine Estim Creat Clear Calc Est GFR (MDRD) Af Amer Est GFR (MDRD) Non-Af BUN/Creatinine Ratio Glucose Lactic Acid 0.6 Calcium Magnesium Total Bilirubin 2.60 H Direct Bilirubin 1.71 H AST 69 H ALT 55 Alkaline Phosphatase 164 H Troponin I Total Protein 7.9 Albumin 2.9 L Globulin 5.0 H Albumin/Globulin Ratio Procalcitonin TSH Free T4 Urine Color Urine Clarity Urine pH Ur Specific [place] Urine Protein Urine Glucose (UA) Urine Ketones Urine Occult Blood Urine Nitrite Urine Bilirubin Urine Urobilinogen Ur Leukocyte Esterase Urine RBC Urine WBC Ur Squamous Epith Cells Urine Bacteria Urine Mucus COVID-19 (RAQUEL) 07/11/20 07/11/20 07/11/20 09:25 09:37 10:59 WBC RBC Hgb Hct MCV MCH MCHC RDW Std Deviation RDW Coeff of Kadeem Plt Count MPV Immature Gran % (Auto) Neut % (Auto) Lymph % (Auto) [place] % (Auto) Eos % (Auto) Baso % (Auto) Absolute Neuts (auto) Absolute Lymphs (auto) Total Counted Neutrophils % (Manual) Band Neutrophils % Lymphocytes % (Manual) Monocytes % (Manual) Eosinophils % (Manual) Metamyelocytes % Promyelocytes % Nucleated RBC % Diff Path Review Platelet Estimate RBC Morphology Anisocytosis PT INR APTT D-Dimer Quant (PE/DVT) Sodium Potassium Chloride Carbon Dioxide Anion Gap BUN Creatinine Estim Creat Clear Calc Est GFR (MDRD) Af Amer Est GFR (MDRD) Non-Af BUN/Creatinine Ratio Glucose Lactic Acid Calcium Magnesium Total Bilirubin Direct Bilirubin AST ALT Alkaline Phosphatase Troponin I Total Protein Albumin Globulin Albumin/Globulin Ratio Procalcitonin 0.08 TSH Free T4 Urine Color Yellow Urine Clarity Cloudy Urine pH 8.0 Ur Specific [place] 1.015 Urine Protein 100 H Urine Glucose (UA) Normal Urine Ketones 15 H Urine Occult Blood 250 H Urine Nitrite Negative Urine Bilirubin 1 H Urine Urobilinogen 4 H Ur Leukocyte Esterase 500 H Urine RBC 0-5 SEEN Urine WBC 25-50 SEEN Ur Squamous Epith Cells 0 SEEN Urine Bacteria 3+ Urine Mucus 0 SEEN COVID-19 (RAQUEL) Detected 07/12/20 07/12/20 07/12/20 07:00 07:00 07:00 WBC 6.0 RBC 3.87 L Hgb 11.6 L Hct 39.1 MCV 101.0 H MCH 30.0 MCHC 29.7 L RDW Std Deviation 53.9 H RDW Coeff of Kadeem 14.4 Plt Count 202 MPV 11.5 Immature Gran % (Auto) ASSOCIATE PROFESSOR OF ANTHROPOLOGY Neut % (Auto) ASSOCIATE PROFESSOR OF ANTHROPOLOGY Lymph % (Auto) ASSOCIATE PROFESSOR OF ANTHROPOLOGY [place] % (Auto) ASSOCIATE PROFESSOR OF ANTHROPOLOGY Eos % (Auto) ASSOCIATE PROFESSOR OF ANTHROPOLOGY Baso % (Auto) ASSOCIATE PROFESSOR OF ANTHROPOLOGY Absolute Neuts (auto) 4.6 Absolute Lymphs (auto) 1.02 Total Counted 100 Neutrophils % (Manual) 76 H Band Neutrophils % 1 Lymphocytes % (Manual) 17 L Monocytes % (Manual) 5 Eosinophils % (Manual) 1 Metamyelocytes % Promyelocytes % Nucleated RBC % ASSOCIATE PROFESSOR OF ANTHROPOLOGY Diff Path Review May foll Platelet Estimate ADEQUATE RBC Morphology N CHROM Anisocytosis 1+ PT INR APTT D-Dimer Quant (PE/DVT) Sodium 147 H Potassium 3.1 L Chloride 116 H Carbon Dioxide 23.0 Anion Gap 8 BUN 26 H Creatinine 0.58 Estim Creat Clear Calc 38.10 Est GFR (MDRD) Af Amer 127 Est GFR (MDRD) Non-Af 105 BUN/Creatinine Ratio 44.5 H Glucose 141 H Lactic Acid Calcium 8.6 Magnesium 1.7 Total Bilirubin 0.70 Direct Bilirubin AST 65 H ALT 50 Alkaline Phosphatase 128 H Troponin I < 0.015 Total Protein 6.4 Albumin 2.3 L Globulin 4.1 Albumin/Globulin Ratio 0.6 L Procalcitonin TSH 1.41 Free T4 1.30 Urine Color Urine Clarity Urine pH Ur Specific [place] Urine Protein Urine Glucose (UA) Urine Ketones Urine Occult Blood Urine Nitrite Urine Bilirubin Urine Urobilinogen Ur Leukocyte Esterase Urine RBC Urine WBC Ur Squamous Epith Cells Urine Bacteria Urine Mucus COVID-19 (RAQUEL) 07/12/20 11:35 WBC RBC Hgb Hct MCV MCH MCHC RDW Std Deviation RDW Coeff of Kadeem Plt Count MPV Immature Gran % (Auto) Neut % (Auto) Lymph % (Auto) [place] % (Auto) Eos % (Auto) Baso % (Auto) Absolute Neuts (auto) Absolute Lymphs (auto) Total Counted Neutrophils % (Manual) Band Neutrophils % Lymphocytes % (Manual) Monocytes % (Manual) Eosinophils % (Manual) Metamyelocytes % Promyelocytes % Nucleated RBC % Diff Path Review Platelet Estimate RBC Morphology Anisocytosis PT INR APTT D-Dimer Quant (PE/DVT) Sodium Potassium Chloride Carbon Dioxide Anion Gap BUN Creatinine Estim Creat Clear Calc Est GFR (MDRD) Af Amer Est GFR (MDRD) Non-Af BUN/Creatinine Ratio Glucose Lactic Acid Calcium Magnesium Total Bilirubin Direct Bilirubin AST ALT Alkaline Phosphatase Troponin I < 0.015 Total Protein Albumin Globulin Albumin/Globulin Ratio Procalcitonin TSH Free T4 Urine Color Urine Clarity Urine pH Ur Specific [place] Urine Protein Urine Glucose (UA) Urine Ketones Urine Occult Blood Urine Nitrite Urine Bilirubin Urine Urobilinogen Ur Leukocyte Esterase Urine RBC Urine WBC Ur Squamous Epith Cells Urine Bacteria Urine Mucus COVID-19 ([facility]QUEL) Microbiology 07/11/20 09:37 Urine Catheter - Haque Urine Culture - Preliminary GNR lactose milieu manager Gram negative zia 07/11/20 09:37 Urine Catheter - Haque Legionella Antigen - Final 07/11/20 09:37 Urine Catheter - Haque Streptococcus pneumoniae Antigen (M - Final Clinical Impression(s) from Imaging Studies Chest X-Ray 07/11/20 09:50 IMPRESSION: Stable mild increased markings at the lung bases suggestive of basilar scarring. Electronically Signed: Lloyd Bridgesluc, at 10:43 EST , Service support , Brain CT 07/11/20 10:45 IMPRESSION: Chronic involutional changes of the brain. Electronically Signed: Lloyd Cristóbal, at 11:01 EST , Service support , Current Medications Acetaminophen (Acetaminophen 325 Mg Tablet) 650 mg PO Q6H PRN PRN PRN Reason: Pain Score 1-10/Temp > 100.7 F Last Admin: 07/12/20 11:15 Dose: 650 mg Documented by: Albuterol Sulfate (Albuterol 2.5 Mg/3 Ml Vial.Neb.) 2.5 mg INHALATION Q2H PRN PRN PRN Reason: Shortness of Breath/Wheezing Dexamethasone Sodium Phosphate (Dexamethasone 10 Mg/Ml Vial) 6 mg IV DAILY [facility] Last Admin: 07/12/20 11:16 Dose: 6 mg Documented by: Duloxetine HCl (Duloxetine Hcl 60 Mg Capsule) 60 mg PO BID [facility] Last Admin: 07/12/20 11:10 Dose: 60 mg Documented by: Fluticasone Propionate (Fluticasone 0.05% 1 [place] Nasal.Sry) 2 spray NASAL DAILY [facility] Last Admin: 07/12/20 11:31 Dose: Not Given Documented by: Guaifenesin (Guaifenesin 10 Ml Udc (200mg/10ml)) 20 ml PO Q4H PRN PRN PRN Reason: COUGH Ceftriaxone Sodium (Rocephin) 1 gm in 50 mls @ 100 mls/hr IV Q24 [facility] Last Infusion: 07/12/20 10:06 Dose: Infused Documented by: Dextrose/Sodium Chloride () 1,000 mls @ 150 mls/hr IV .Q6H40M [facility] Last Infusion: 07/12/20 11:07 Dose: Infused Documented by: Remdesivir 100 mg/ Sodium (Chloride) 250 mls @ 125 mls/hr IV DAILY [facility]; Protocol Stop: 07/15/20 11:59 Last Admin: 07/12/20 11:07 Dose: 125 mls/hr Documented by: Levothyroxine Sodium (Levothyroxine 100 Mcg Tablet) 100 mcg PO DAILY@0600 [facility] Last Admin: 07/12/20 05:22 Dose: Not Given Documented by: Nutritional Formula (Nutritional Supplement (Michael) Packet) [facility] Nutritional Formula (Lactose Free) (Ensure Enlive 120 Ml Liquid) 120 ml PO 4X/DAY [facility] Ondansetron HCl (Ondansetron 4 Mg/2 Ml Vial) 4 mg IV Q8H PRN PRN PRN Reason: NAUSEA/VOMITING Pantoprazole Sodium (Pantoprazole Sodium 20 Mg Tablet) 20 mg PO BID [facility] Last Admin: 07/12/20 11:10 Dose: 20 mg Documented by: Polyethylene Glycol (Polyethylene Glycol 3350 17 Gm Packet) 17 gm PO DAILY [facility] Last Admin: 07/12/20 11:10 Dose: 17 gm Documented by: Potassium Chloride (Potassium Chloride 20 Meq Tablet) 40 meq PO DAILY [facility] Last Admin: 07/12/20 11:10 Dose: 40 meq Documented by: Quetiapine Fumarate (Quetiapine 100 Mg Tablet) 100 mg PO BID [facility] Last Admin: 07/12/20 11:11 Dose: Not Given Documented by: Rivaroxaban (Rivaroxaban 10 Mg Tablet) 10 mg PO DAILY [facility] Last Admin: 07/12/20 11:17 Dose: 10 mg Documented by: Senna/Docusate Sodium (Senna/Docusate Sodium 1 Tablet) 2 tablet PO BID PRN PRN PRN Reason: Constipation Sodium Chloride (0.9% Saline Lock 10 Ml Syringe) 10 - 40 ml IV UD PRN PRN Reason: SALINE FLUSH Venlafaxine HCl (Venlafaxine Xr 75 Mg Capsule) 75 mg PO DAILY [facility] Last Admin: 07/12/20 11:10 Dose: 75 mg Documented by: Assessment/Plan All Active Problems (Last Reviewed 07/11/20 @ 15:[address] Jaylon Sigala MD) UTI (urinary tract infection) (Acute) Pyelonephritis, acute (Resolved) Sepsis (Acute) Altered mental status (Acute) Acute kidney injury (Ruled-out) COVID-19 (Acute) Bradycardia (Acute) RECOMMENDATIONS: 1. Continue supplemental oxygen to maintain saturations at or above 90%. 2. Continue remdesivir and Decadron daily. 3. Continue to monitor renal and liver function profiles. 4. Encourage incentive spirometer use and mobilize patient as tolerated. 5. Potassium repletion. 6. Avoid sedating medications. IMPRESSIONS: 1. Acute hypoxemic respiratory insufficiency secondary to COVID-19 pneumonia Continue current supportive measures with supplemental oxygen to maintain saturations at or above 90%. Renal and hepatic function profile are within normal limits. Plan to continue remdesivir. In addition, the patient will be continued on Decadron 6 mg daily. Encourage incentive spirometer use and mobilize patient as tolerated. 2. Encephalopathy Likely metabolic in etiology and potentially related to underlying infectious etiologies. The patient is currently on therapy for her COVID-19 pneumonia as well as antimicrobials for her underlying gram-negative urinary tract source of infection. Recommend continuing to hold sedating medications. TSH is within normal limits. Continue Synthroid per home regimen. 3. Hypokalemia Electrolyte repletion as ordered. Recheck levels in the morning. 4. Advanced age/hypertension/hyperlipidemia/hypothyroidism/history of VTE Complicates care, management, recovery and prognosis. Continue home medications as indicated. This note was generated with [employer] dictation software. It may contain incorrect words, spelling, and punctuation that were not noted in checking the note before signing. Inpatient E&M: 72727 Init Hosp L3
[2020-07-12 13:21] LABS: Pathologist Review Reviewed
--- NOTE | 2020-07-12 16:19 | PN.ID_ITS ---
Patient Problems: Active and Suspected Problems (Last Reviewed 07/11/20 @ 15:[address] Jaylon Sigala MD) UTI (urinary tract infection) (Acute) Sepsis (Acute) Altered mental status (Acute) COVID-19 (Acute) Bradycardia (Acute) Subjective: Mental status slightly improved per nursing, no fever - Physical Exam Vitals/I&O's: Vital Signs Temp Pulse Resp BP Pulse Ox 98 F 55 L 18 131/77 H 95 07/12/20 14:00 07/12/20 16:17 07/12/20 14:00 07/12/20 14:00 07/12/20 14:00 Oxygen Flow Rate (L/min) 4 Oxygen Delivery Method Nasal Cannula Weight: 66.7 kg Body Mass Index (BMI) 25.2 Intake and Output for Last 24 Hours 07/10/20 07/11/20 07/12/20 23:59 23:59 23:59 Intake Total 1921.25 / 1921.25 1520 / 1520 Output Total 600 / 600 Balance 1921.25 / 1921.25 920 / 920 General: No apparent distress, Lethargic, Non-Cooperative Lungs: Diminished Cardiovascular: Regular rate, Regular Rhythm Abdomen: Soft, Non Tender, Non-Distended Skin: No rashes Microbiology Past 72 Hours 07/11/20 09:37 Urine Catheter - Haque Urine Culture - Preliminary GNR lactose security sales consultant Gram negative zia 07/11/20 09:37 Urine Catheter - Haque Legionella Antigen - Final 07/11/20 09:37 Urine Catheter - Haque Streptococcus pneumoniae Antigen (M - Final Laboratory Results 07/11/20 09:25: Diff Path Review Reviewed 07/11/20 09:25: D-Dimer Quant (PE/DVT) 0.67 H* 07/11/20 09:25: Procalcitonin 0.08 07/12/20 07:00: WBC 6.0, RBC 3.87 L, Hgb 11.6 L, Hct 39.1, MCV 101.0 H, MCH 30.0, MCHC 29.7 L, RDW Std Deviation 53.9 H, RDW Coeff of Kadeem 14.4, Plt Count 202, MPV 11.5, Immature Gran % (Auto) QUILTER FIXER, Neut % (Auto) QUILTER FIXER, Lymph % (Auto) QUILTER FIXER, [place] % (Auto) QUILTER FIXER, Eos % (Auto) QUILTER FIXER, Baso % (Auto) QUILTER FIXER, Absolute Neuts (auto) 4.6, Absolute Lymphs (auto) 1.02, Total Counted 100, Neutrophils % (Manual) 76 H, Band Neutrophils % 1, Lymphocytes % (Manual) 17 L, Monocytes % (Manual) 5, Eosinophils % (Manual) 1, Nucleated RBC % QUILTER FIXER, Diff Path Review January, Platelet Estimate ADEQUATE, RBC Morphology N CHROM, Anisocytosis 1+ 07/12/20 07:00: Sodium 147 H, Potassium 3.1 L, Chloride 116 H, Carbon Dioxide 23.0, Anion Gap 8, BUN 26 H, Creatinine 0.58, Estim Creat Clear Calc 38.10, Est GFR (MDRD) Af Amer 127, Est GFR (MDRD) Non-Af 105, BUN/Creatinine Ratio 44.5 H, Glucose 141 H, Calcium 8.6, Magnesium 1.7, Total Bilirubin 0.70, AST 65 H, ALT 50, Alkaline Phosphatase 128 H, Total Protein 6.4, Albumin 2.3 L, Globulin 4.1, Albumin/Globulin Ratio 0.6 L, TSH 1.41, Free T4 1.30 07/12/20 07:00: Troponin I < 0.015 07/12/20 11:35: Troponin I < 0.015 07/12/20 13:40: Troponin I < 0.015 Current Medications Acetaminophen (Acetaminophen 325 Mg Tablet) 650 mg PO Q6H PRN PRN PRN Reason: Pain Score 1-10/Temp > 100.7 F Last Admin: 07/12/20 11:15 Dose: 650 mg Documented by: Albuterol Sulfate (Albuterol 2.5 Mg/3 Ml Vial.Neb.) 2.5 mg INHALATION Q2H PRN PRN PRN Reason: Shortness of Breath/Wheezing Dexamethasone Sodium Phosphate (Dexamethasone 10 Mg/Ml Vial) 6 mg IV DAILY [facility] Last Admin: 07/12/20 11:16 Dose: 6 mg Documented by: Duloxetine HCl (Duloxetine Hcl 60 Mg Capsule) 60 mg PO BID [facility] Last Admin: 07/12/20 11:10 Dose: 60 mg Documented by: Fluticasone Propionate (Fluticasone 0.05% 1 [place] Nasal.Sry) 2 spray NASAL DAILY [facility] Last Admin: 07/12/20 11:31 Dose: Not Given Documented by: Guaifenesin (Guaifenesin 10 Ml Udc (200mg/10ml)) 20 ml PO Q4H PRN PRN PRN Reason: COUGH Ceftriaxone Sodium (Rocephin) 1 gm in 50 mls @ 100 mls/hr IV Q24 [facility] Last Infusion: 07/12/20 10:06 Dose: Infused Documented by: Dextrose/Sodium Chloride () 1,000 mls @ 150 mls/hr IV .Q6H40M [facility] Last Admin: 07/12/20 15:06 Dose: 150 mls/hr Documented by: Remdesivir 100 mg/ Sodium (Chloride) 250 mls @ 125 mls/hr IV DAILY [facility]; Protocol Stop: 07/15/20 11:59 Last Infusion: 07/12/20 15:06 Dose: Infused Documented by: Levothyroxine Sodium (Levothyroxine 100 Mcg Tablet) 100 mcg PO DAILY@0600 [facility] Last Admin: 07/12/20 05:22 Dose: Not Given Documented by: Nutritional Formula (Nutritional Supplement (Michael) Packet) 1 packet PO BIDCM [facility] Nutritional Formula (Lactose Free) (Ensure Enlive 120 Ml Liquid) 120 ml PO 4X/DAY [facility] Last Admin: 07/12/20 15:17 Dose: Not Given Documented by: Ondansetron HCl (Ondansetron 4 Mg/2 Ml Vial) 4 mg IV Q8H PRN PRN PRN Reason: NAUSEA/VOMITING Pantoprazole Sodium (Pantoprazole Sodium 20 Mg Tablet) 20 mg PO BID [facility] Last Admin: 07/12/20 11:10 Dose: 20 mg Documented by: Polyethylene Glycol (Polyethylene Glycol 3350 17 Gm Packet) 17 gm PO DAILY [facility] Last Admin: 07/12/20 11:10 Dose: 17 gm Documented by: Potassium Chloride (Potassium Chloride 20 Meq Tablet) 40 meq PO DAILY [facility] Last Admin: 07/12/20 11:10 Dose: 40 meq Documented by: Quetiapine Fumarate (Quetiapine 100 Mg Tablet) 100 mg PO BID [facility] Last Admin: 07/12/20 11:11 Dose: Not Given Documented by: Rivaroxaban (Rivaroxaban 10 Mg Tablet) 10 mg PO DAILY [facility] Last Admin: 07/12/20 11:17 Dose: 10 mg Documented by: Senna/Docusate Sodium (Senna/Docusate Sodium 1 Tablet) 2 tablet PO BID PRN PRN PRN Reason: Constipation Sodium Chloride (0.9% Saline Lock 10 Ml Syringe) 10 - 40 ml IV UD PRN PRN Reason: SALINE FLUSH Venlafaxine HCl (Venlafaxine Xr 75 Mg Capsule) 75 mg PO DAILY [facility] Last Admin: 07/12/20 11:10 Dose: 75 mg Documented by: Medical Necessity - Tobacco Use Smoking Status: Unknown if ever smoked Route of nutrition/ use of supplements: [] Nutritional Intake: [] IV Site: [] Haque Catheter: [] - Assessment/Plan Antibiotics: [] Assessment/Plan: [] Active and Suspected Problems (Last Reviewed 07/11/20 @ 15:[address] Jaylon Sigala MD) UTI (urinary tract infection) (Acute) Sepsis (Acute) Altered mental status (Acute) COVID-19 (Acute) covid with hypoxia and encephalopathy - UAg neg. mild rise in d-dimer. Cont dex and remdesivir. Will continue ceftriaxone for urinary coverage given pyuria seen on UA. Ucx with GNR x2. Daily CMP and cbc while on remdesivir. Head CT neg. Will follow
[2020-07-12] MEDS: QUEtiapine 100 MG Tablet PO (21:32)
[2020-07-13] VITALS (11 sets, daily range): BP systolic 118–152; BP diastolic 59–98; PULSE 44–66; RESP 17–18; TEMP 35.8–37.2; O2SAT 90–96
[2020-07-13] MEDS: Dext 5%-0.45% NS 1,000 ML 150 ML IV ×3 (05:57→22:49)
[2020-07-13] MEDS: Levothyroxine 100 MCG Tablet PO (05:57)
--- NOTE | 2020-07-13 08:00 | PCM.PN.HOSP ---
Patient Problems: Active and Suspected Problems (Last Reviewed 07/11/20 @ 15:[address] Jaylon Sigala MD) UTI (urinary tract infection) (Acute) Sepsis (Acute) Altered mental status (Acute) COVID-19 (Acute) Bradycardia (Acute) Reason for Visit: COVID-19 infection Acute cystitis Subjective: Patient seen level of sensorium continues to improve. Cultures so far positive for gram-negative rods. Final identification and sensitivities pending Objective: GENERAL: Patient in no apparent distress HEENT: Atraumatic; EYES; Anicteric, Normal Conjunctiva NECK; supple, normal thyroid, RESPIRATORY: Diminished to auscultation CARDIOVASCULAR: Regular S1 S2, GI: soft, normoactive bowel sounds, : No Renal angle tenderness; EXTREMITIES: No edema, no clubbing, MUSCULOSKELETAL: no muscle waisting NEURO: Awake; no lateralizing signs. SKIN: No Rash PSYCH; Flat affect Vitals/I&O's: Vital Signs Temp Pulse Resp BP Pulse Ox 98.4 F 44 L 18 152/98 H 90 07/13/20 04:30 07/13/20 07:10 07/13/20 04:30 07/13/20 04:30 07/13/20 04:30 Oxygen Flow Rate (L/min) 4 Oxygen Delivery Method Nasal Cannula Weight: 66.7 kg Body Mass Index (BMI) 25.2 Intake and Output for Last 24 Hours 07/11/20 07/12/20 07/13/20 23:59 23:59 23:59 Intake Total 1921.25 / 1921.25 2550 / 2550 1000 / 1000 Output Total 950 / 950 300 / 300 Balance 1921.25 / 1921.25 1600 / 1600 700 / 700 Microbiology Past 72 Hours 07/11/20 09:25 Blood Culture (Wb) - Anticubital Right Blood Culture - Preliminary No growth in 48 hours. 07/11/20 09:25 Blood Culture (Wb) - Left Wrist Blood Culture - Preliminary No growth in 48 hours. 07/11/20 09:37 Urine Catheter - Haque Urine Culture - Preliminary GNR lactose accounts manager Gram negative zia 07/11/20 09:37 Urine Catheter - Haque Legionella Antigen - Final 07/11/20 09:37 Urine Catheter - Haque Streptococcus pneumoniae Antigen (M - Final Laboratory Results 07/11/20 09:25: Diff Path Review Reviewed 07/12/20 07:00: Immature Gran % (Auto) EMERGENCY VEHICLE TECHNICIAN, Neut % (Auto) EMERGENCY VEHICLE TECHNICIAN, Lymph % (Auto) EMERGENCY VEHICLE TECHNICIAN, [place] % (Auto) EMERGENCY VEHICLE TECHNICIAN, Eos % (Auto) EMERGENCY VEHICLE TECHNICIAN, Baso % (Auto) EMERGENCY VEHICLE TECHNICIAN, Absolute Neuts (auto) 4.6, Absolute Lymphs (auto) 1.02, Total Counted 100, Neutrophils % (Manual) 76 H, Band Neutrophils % 1, Lymphocytes % (Manual) 17 L, Monocytes % (Manual) 5, Eosinophils % (Manual) 1, Nucleated RBC % EMERGENCY VEHICLE TECHNICIAN, Diff Path Review May foll, Platelet Estimate ADEQUATE, RBC Morphology N CHROM, Anisocytosis 1+ 07/12/20 07:00: Sodium 147 H, Potassium 3.1 L, Chloride 116 H, Carbon Dioxide 23.0, Anion Gap 8, BUN 26 H, Creatinine 0.58, Estim Creat Clear Calc 38.10, Est GFR (MDRD) Af Amer 127, Est GFR (MDRD) Non-Af 105, BUN/Creatinine Ratio 44.5 H, Glucose 141 H, Calcium 8.6, Magnesium 1.7, Total Bilirubin 0.70, AST 65 H, ALT 50, Alkaline Phosphatase 128 H, Total Protein 6.4, Albumin 2.3 L, Globulin 4.1, Albumin/Globulin Ratio 0.6 L, TSH 1.41, Free T4 1.30 07/12/20 07:00: Troponin I < 0.015 07/12/20 11:35: Troponin I < 0.015 07/12/20 13:40: Troponin I < 0.015 Current Medications Acetaminophen (Acetaminophen 325 Mg Tablet) 650 mg PO Q6H PRN PRN PRN Reason: Pain Score 1-10/Temp > 100.7 F Last Admin: 07/12/20 11:15 Dose: 650 mg Documented by: Albuterol Sulfate (Albuterol 2.5 Mg/3 Ml Vial.Neb.) 2.5 mg INHALATION Q2H PRN PRN PRN Reason: Shortness of Breath/Wheezing Dexamethasone Sodium Phosphate (Dexamethasone 10 Mg/Ml Vial) 6 mg IV DAILY [facility] Last Admin: 07/12/20 11:16 Dose: 6 mg Documented by: Duloxetine HCl (Duloxetine Hcl 60 Mg Capsule) 60 mg PO BID [facility] Last Admin: 07/12/20 21:32 Dose: 60 mg Documented by: Fluticasone Propionate (Fluticasone 0.05% 1 [place] Nasal.Sry) 2 spray NASAL DAILY [facility] Last Admin: 07/12/20 11:31 Dose: Not Given Documented by: Guaifenesin (Guaifenesin 10 Ml Udc (200mg/10ml)) 20 ml PO Q4H PRN PRN PRN Reason: COUGH Ceftriaxone Sodium (Rocephin) 1 gm in 50 mls @ 100 mls/hr IV Q24 [facility] Last Infusion: 07/12/20 10:06 Dose: Infused Documented by: Dextrose/Sodium Chloride () 1,000 mls @ 150 mls/hr IV .Q6H40M [facility] Last Admin: 07/13/20 05:57 Dose: 150 mls/hr Documented by: Remdesivir 100 mg/ Sodium (Chloride) 250 mls @ 125 mls/hr IV DAILY [facility]; Protocol Stop: 07/15/20 11:59 Last Infusion: 07/12/20 15:06 Dose: Infused Documented by: Levothyroxine Sodium (Levothyroxine 100 Mcg Tablet) 100 mcg PO DAILY@0600 [facility] Last Admin: 07/13/20 05:57 Dose: 100 mcg Documented by: Nutritional Formula (Nutritional Supplement (Michael) Packet) 1 packet PO BIDCM [facility] Last Admin: 07/12/20 18:10 Dose: Not Given Documented by: Nutritional Formula (Lactose Free) (Ensure Enlive 120 Ml Liquid) 120 ml PO 4X/DAY [facility] Last Admin: 07/12/20 21:39 Dose: Not Given Documented by: Ondansetron HCl (Ondansetron 4 Mg/2 Ml Vial) 4 mg IV Q8H PRN PRN PRN Reason: NAUSEA/VOMITING Pantoprazole Sodium (Pantoprazole Sodium 20 Mg Tablet) 20 mg PO BID [facility] Last Admin: 07/12/20 21:32 Dose: 20 mg Documented by: Polyethylene Glycol (Polyethylene Glycol 3350 17 Gm Packet) 17 gm PO DAILY [facility] Last Admin: 07/12/20 11:10 Dose: 17 gm Documented by: Potassium Chloride (Potassium Chloride 20 Meq Tablet) 40 meq PO DAILY [facility] Last Admin: 07/12/20 11:10 Dose: 40 meq Documented by: Quetiapine Fumarate (Quetiapine 100 Mg Tablet) 100 mg PO BID [facility] Last Admin: 07/12/20 21:32 Dose: 100 mg Documented by: Rivaroxaban (Rivaroxaban 10 Mg Tablet) 10 mg PO DAILY [facility] Last Admin: 07/12/20 11:17 Dose: 10 mg Documented by: Senna/Docusate Sodium (Senna/Docusate Sodium 1 Tablet) 2 tablet PO BID PRN PRN PRN Reason: Constipation Sodium Chloride (0.9% Saline Lock 10 Ml Syringe) 10 - 40 ml IV UD PRN PRN Reason: SALINE FLUSH Venlafaxine HCl (Venlafaxine Xr 75 Mg Capsule) 75 mg PO DAILY [facility] Last Admin: 07/12/20 11:10 Dose: 75 mg Documented by: STROKE Vital Signs/Narrative: Vital Signs Temp Pulse Resp BP Pulse Ox 07/13/20 07:10 44 L 07/13/20 04:30 98.4 F 56 L 18 152/98 H 90 Medical Necessity - Tobacco Use Smoking Status: Unknown if ever smoked Assessment/Plan All Active Problems (Last Reviewed 07/11/20 @ 15:[address] Jaylon Sigala MD) UTI (urinary tract infection) (Acute) Pyelonephritis, acute (Resolved) Sepsis (Acute) Altered mental status (Acute) Acute kidney injury (Ruled-out) COVID-19 (Acute) Bradycardia (Acute) Patient is an 80-year-old lady admitted with increasing lethargy fever and decreased urine output. An assessment of acute COVID-19 infection and cystitis made admitted for subsequent inpatient management 1. Acute COVID-19 infection ?Patient has been admitted to the COVID-19 cohort floor. Placed on supplemental oxygen and Decadron with consultation placed to both pulmonary medicine and infectious disease. Decision to start adjuvant therapy including remdesivir deferred -07/12/2020; patient started on remdesivir by infectious disease ?07/13/2020; level of sensorium continues to improve. Patient is on remdesivir her kidney function and liver function tests remain stable 2. Acute cystitis ?Urine and blood culture sent patient started on Rocephin with plans to either continue or adjust antibiotic therapy based on results ?07/13/2020 urine culture so far positive for gram-negative rods final identification and sensitivities pending 3. Hyponatremia ?Secondary to dehydration patient on half-normal saline with subsequent monitoring of electrolyte ?07/13/2020; sodium levels down to 143 from 149 4. Hypertension -blood pressure controlled, home medications continued with dose adjustment as needed 5. Dyslipidemia -patient is on statin therapy, continued at home dose 6. Hypothyroidism -patient is on levothyroxine home dose continued 7. History of venous thromboembolism ?Patient is on Xarelto did continue 8. Bradycardia ?Patient currently being monitored continuously on telemetry. As part of her management ordered TSH, serial cardiac enzymes and consultation placed to cardiology. Will defer decision to obtain echo to cardiology. 07/13/2020; patient was seen in consultation by Dr. Warren his note and recommendations reviewed. Patient heart rate appears to have stabilized 9. Physical deconditioning - Requested for PT OT eval and social work assistant to assist with discharge planning Inpatient E&M: 22394 Subs Hosp L2
[2020-07-13] MEDS: Rivaroxaban 10 MG Tablet PO (08:58)
[2020-07-13] MEDS: Polyethylene Glycol 3350 17 GM PACKET PO (08:58)
[2020-07-13] MEDS: QUEtiapine 100 MG Tablet PO ×2 (08:58→21:18)
[2020-07-13] MEDS: DULoxetine Hcl 60 MG Capsule PO ×2 (08:58→21:18)
[2020-07-13] MEDS: Venlafaxine XR 75 MG Capsule PO (08:58)
[2020-07-13] MEDS: Fluticasone 0.05% 1 SPRAY NASAL.SRY 2 SPRAY NASAL (08:59)
[2020-07-13] MEDS: 0.9% Saline Lock 10 ML Syringe IV (09:00)
[2020-07-13] MEDS: dexAMETHasone 10 MG/ML Vial 6 MG IV (09:00)
[2020-07-13] MEDS: Pantoprazole Sodium 20 MG Tablet PO ×2 (09:00→21:18)
[2020-07-13] MEDS: Ceftriaxone 1 GM/50 ML BAG IV (09:03)
[2020-07-13 09:14] LABS: Hematocrit 35.8 % (37-47); Hemoglobin 10.7 g/dL (12.0-15.0); Mean Corp Hgb Conc 29.9 g/dL (32-36); Mean Corpuscular Hgb 30.1 pg (27.0-32.0); Mean Corpuscular Volume 100.6 fL (81-99); Mean Platelet Vol. 12.3 fl (6.2-12.0); POSITIVE COUNT YES; POSITIVE MORPHOLOGY YES; Platelet Count 178 K/mm3 (150-450); RBC Distribution Width CV 14.3 % (11.6-14.6); RBC Distribution Width SD 53.1 fl (35.1-43.9); Red Blood Count 3.56 M/mm3 (4.2-5.4); White Blood Count 5.3 K/mm3 (4.4-11.0)
[2020-07-13 09:28] LABS: Differential Indicated MANUAL DIFF
[2020-07-13 09:34] LABS: ALB/GLOB Ratio 0.5 RATIO (0.9-2.4); AST(SGOT) 54 U/L (15-37); Alanine Aminotransfer ALT/SGPT 38 U/L (13-56); Albumin, Serum 2.1 g/dL (3.2-5.0); Alkaline Phosphatase 96 U/L (45-117); Anion Gap 5 (5-15); BUN 25 mg/dL (7-18); BUN/Creat Ratio 44.7 RATIO (10-20); Calcium,Total 8.4 mg/dL (8.5-10.1); Chloride 115 mmol/L (98-107); Creatinine, Serum 0.56 mg/dL (0.55-1.02); EST Glomerular Filtration Rate 111 mL/min (>60); Est Glom Filt Rate - Afr Amer 134 mL/min (>60); Globulin 3.9 g/dL (2.2-4.2); Glucose 119 mg/dL (74-106); Potassium 4.2 mmol/L (3.5-5.1); Sodium Level 143 mmol/L (136-145)
[2020-07-13 10:04] LABS: Lymphocyte 30 % (19-41); Metamyelocyte 1 % (0-1); Monocyte 10 % (0-10); Neutrophil-Segmented 59 % (47-70); Platelet Estimate ADEQUATE (ADEQ); Total Cells Counted 100 (MANUAL DIFF)
[2020-07-13 10:05] LABS: Absolute Lymphocyte Count 1.58 X10^3/uL (0.83-4.51); Absolute Neutrophil Count 3.1 X10^3/uL (2.0-7.7); Hypochromasia RARE; Macrocytosis 1+
[2020-07-14] VITALS (11 sets, daily range): BP systolic 123–149; BP diastolic 62–79; PULSE 51–98; RESP 17–18; TEMP 36.3–37.1; O2SAT 93–97
[2020-07-14] MEDS: 0.9% Saline Lock 10 ML Syringe IV ×2 (05:17→09:48)
[2020-07-14] MEDS: Dext 5%-0.45% NS 1,000 ML 150 ML IV ×3 (05:17→23:20)
[2020-07-14] MEDS: Levothyroxine 100 MCG Tablet PO (05:17)
[2020-07-14 05:37] LABS: Hematocrit 36.3 % (37-47); Hemoglobin 10.8 g/dL (12.0-15.0); Mean Corp Hgb Conc 29.8 g/dL (32-36); Mean Corpuscular Hgb 29.7 pg (27.0-32.0); Mean Corpuscular Volume 99.7 fL (81-99); Mean Platelet Vol. 11.9 fl (6.2-12.0); POSITIVE COUNT YES; POSITIVE MORPHOLOGY YES; Platelet Count 171 K/mm3 (150-450); RBC Distribution Width CV 14.1 % (11.6-14.6); RBC Distribution Width SD 52.2 fl (35.1-43.9); Red Blood Count 3.64 M/mm3 (4.2-5.4); White Blood Count 4.1 K/mm3 (4.4-11.0)
[2020-07-14 05:48] LABS: Differential Indicated MANUAL DIFF
[2020-07-14 06:06] LABS: ALB/GLOB Ratio 0.6 RATIO (0.9-2.4); AST(SGOT) 26 U/L (15-37); Alanine Aminotransfer ALT/SGPT 34 U/L (13-56); Alkaline Phosphatase 90 U/L (45-117); Anion Gap 5 (5-15); BUN 24 mg/dL (7-18); BUN/Creat Ratio 48.4 RATIO (10-20); Calcium,Total 8.2 mg/dL (8.5-10.1); Chloride 116 mmol/L (98-107); EST Glomerular Filtration Rate 127 mL/min (>60); Est Glom Filt Rate - Afr Amer 154 mL/min (>60); Globulin 3.4 g/dL (2.2-4.2); Glucose 132 mg/dL (74-106); Potassium 3.4 mmol/L (3.5-5.1); Protein, Total 5.4 g/dL (6.4-8.2); Sodium Level 144 mmol/L (136-145)
[2020-07-14 06:13] LABS: Lymphocyte 26 % (19-41); Metamyelocyte 7 % (0-1); Monocyte 10 % (0-10); Neutrophil-Band 6 % (0-5); Neutrophil-Segmented 58 % (47-70); Total Cells Counted 100 (MANUAL DIFF)
[2020-07-14 06:14] LABS: Absolute Neutrophil Count 2.6 X10^3/uL (2.0-7.7)
[2020-07-14 06:15] LABS: Absolute Lymphocyte Count 1.05 X10^3/uL (0.83-4.51)
--- NOTE | 2020-07-14 07:13 | PCM.PN.PUL ---
Patient Problems: Active and Suspected Problems (Last Reviewed 07/11/20 @ 15:[address] Jaylon Sigala MD) UTI (urinary tract infection) (Acute) Sepsis (Acute) Altered mental status (Acute) COVID-19 (Acute) Bradycardia (Acute) Subjective: The patient was seen and examined at the bedside this morning. Events from the last 24 hours have been reviewed. The patient is currently afebrile, hemodynamically stable and maintaining appropriate oxygen saturations on 4 L/min via nasal cannula. Potassium is low this morning at 3.4. Renal and liver function are stable. The patient remains on antimicrobials, remdesivir and Decadron. The patient is currently documented to be overall net +6.4 L for the hospital admission. The patient's mentation does appear to be improving. Objective: The patient's most recent lab work, culture data and imaging studies have all been personally reviewed. Coronavirus PCR was positive on July 11. Urine culture was positive for a gram-negative zia, lactose spiral winding machine helper. - Physical Exam Vitals/I&O's: Vital Signs Temp Pulse Resp BP Pulse Ox 97.3 F L 51 L 17 123/62 H 95 07/14/20 02:43 07/14/20 03:00 07/14/20 02:43 07/14/20 02:43 07/14/20 02:43 Oxygen Flow Rate (L/min) 4 Oxygen Delivery Method Nasal Cannula Weight: 147 lb 0.773 oz Body Mass Index (BMI) 25.2 Intake and Output for Last 24 Hours 07/12/20 07/13/20 07/14/20 23:59 23:59 23:59 Intake Total 2550 / 2550 3830.0 / 3830.0 970 / 970 Output Total 950 / 950 550 / 1500 1325 / 1325 Balance 1600 / 1600 3280.0 / 2330.0 -355 / -355 General: Alert, No apparent distress Oral: Moist Mucosa Neck: Supple, No Nodes, Trachea Midline Lungs: Diminished Cardiovascular: Regular rate, Regular Rhythm Abdomen: Bowel Sounds Present, Soft, Non Tender Extremities: No clubbing, No cyanosis, No edema Skin: No breakdown Musculoskeletal: No Tenderness to Palpation of Joints or Extremities Lymphatic: No Cervical, Supraclavicular, or Inguinal Adenopathy Neurological: Neuro grossly intact Psych/Mental Status: Normal Affect Labs (Last 48 Hours) 07/11/20 07/12/20 07/12/20 09:25 07:00 07:00 WBC 6.0 RBC 3.87 L Hgb 11.6 L Hct 39.1 MCV 101.0 H MCH 30.0 MCHC 29.7 L RDW Std Deviation 53.9 H RDW Coeff of Kadeem 14.4 Plt Count 202 MPV 11.5 Immature Gran % (Auto) HYDRO STATION OPERATOR Neut % (Auto) HYDRO STATION OPERATOR Lymph % (Auto) HYDRO STATION OPERATOR [place] % (Auto) HYDRO STATION OPERATOR Eos % (Auto) HYDRO STATION OPERATOR Baso % (Auto) HYDRO STATION OPERATOR Absolute Neuts (auto) 4.6 Absolute Lymphs (auto) 1.02 Total Counted 100 Neutrophils % (Manual) 76 H Band Neutrophils % 1 Lymphocytes % (Manual) 17 L Monocytes % (Manual) 5 Eosinophils % (Manual) 1 Metamyelocytes % Nucleated RBC % HYDRO STATION OPERATOR Diff Path Review Reviewed May foll Platelet Estimate ADEQUATE RBC Morphology N CHROM Hypochromasia Anisocytosis 1+ Macrocytosis Sodium 147 H Potassium 3.1 L Chloride 116 H Carbon Dioxide 23.0 Anion Gap 8 BUN 26 H Creatinine 0.58 Estim Creat Clear Calc 38.10 Est GFR (MDRD) Af Amer 127 Est GFR (MDRD) Non-Af 105 BUN/Creatinine Ratio 44.5 H Glucose 141 H Calcium 8.6 Magnesium 1.7 Total Bilirubin 0.70 AST 65 H ALT 50 Alkaline Phosphatase 128 H Troponin I Total Protein 6.4 Albumin 2.3 L Globulin 4.1 Albumin/Globulin Ratio 0.6 L TSH 1.41 Free T4 1.30 07/12/20 07/12/20 07/12/20 07:00 11:35 13:40 WBC RBC Hgb Hct MCV MCH MCHC RDW Std Deviation RDW Coeff of Kadeem Plt Count MPV Immature Gran % (Auto) Neut % (Auto) Lymph % (Auto) [place] % (Auto) Eos % (Auto) Baso % (Auto) Absolute Neuts (auto) Absolute Lymphs (auto) Total Counted Neutrophils % (Manual) Band Neutrophils % Lymphocytes % (Manual) Monocytes % (Manual) Eosinophils % (Manual) Metamyelocytes % Nucleated RBC % Diff Path Review Platelet Estimate RBC Morphology Hypochromasia Anisocytosis Macrocytosis Sodium Potassium Chloride Carbon Dioxide Anion Gap BUN Creatinine Estim Creat Clear Calc Est GFR (MDRD) Af Amer Est GFR (MDRD) Non-Af BUN/Creatinine Ratio Glucose Calcium Magnesium Total Bilirubin AST ALT Alkaline Phosphatase Troponin I < 0.015 < 0.015 < 0.015 Total Protein Albumin Globulin Albumin/Globulin Ratio TSH Free T4 07/13/20 07/13/20 07/14/20 08:31 08:31 05:31 WBC 5.3 4.1 L RBC 3.56 L 3.64 L Hgb 10.7 L 10.8 L Hct 35.8 L 36.3 L MCV 100.6 H 99.7 H MCH 30.1 29.7 MCHC 29.9 L 29.8 L RDW Std Deviation 53.1 H 52.2 H RDW Coeff of Kadeem 14.3 14.1 Plt Count 178 171 MPV 12.3 H 11.9 Immature Gran % (Auto) Neut % (Auto) Not Reportable Not Reportable Lymph % (Auto) [place] % (Auto) Eos % (Auto) Baso % (Auto) Absolute Neuts (auto) 3.1 2.6 Absolute Lymphs (auto) 1.58 1.05 Total Counted 100 100 Neutrophils % (Manual) 59 58 Band Neutrophils % 6 H Lymphocytes % (Manual) 30 26 Monocytes % (Manual) 10 10 Eosinophils % (Manual) Metamyelocytes % 1 7 H Nucleated RBC % Diff Path Review May foll May foll Platelet Estimate ADEQUATE RBC Morphology Hypochromasia RARE Anisocytosis Macrocytosis 1+ Sodium 143 Potassium 4.2 Chloride 115 H Carbon Dioxide 23.0 Anion Gap 5 BUN 25 H Creatinine 0.56 Estim Creat Clear Calc 38.10 Est GFR (MDRD) Af Amer 134 Est GFR (MDRD) Non-Af 111 BUN/Creatinine Ratio 44.7 H Glucose 119 H Calcium 8.4 L Magnesium Total Bilirubin 0.50 AST 54 H ALT 38 Alkaline Phosphatase 96 Troponin I Total Protein 6.0 L Albumin 2.1 L Globulin 3.9 Albumin/Globulin Ratio 0.5 L TSH Free T4 07/14/20 05:31 WBC RBC Hgb Hct MCV MCH MCHC RDW Std Deviation RDW Coeff of Kadeem Plt Count MPV Immature Gran % (Auto) Neut % (Auto) Lymph % (Auto) [place] % (Auto) Eos % (Auto) Baso % (Auto) Absolute Neuts (auto) Absolute Lymphs (auto) Total Counted Neutrophils % (Manual) Band Neutrophils % Lymphocytes % (Manual) Monocytes % (Manual) Eosinophils % (Manual) Metamyelocytes % Nucleated RBC % Diff Path Review Platelet Estimate RBC Morphology Hypochromasia Anisocytosis Macrocytosis Sodium 144 Potassium 3.4 L Chloride 116 H Carbon Dioxide 23.0 Anion Gap 5 BUN 24 H Creatinine 0.50 L Estim Creat Clear Calc 38.10 Est GFR (MDRD) Af Amer 154 Est GFR (MDRD) Non-Af 127 BUN/Creatinine Ratio 48.4 H Glucose 132 H Calcium 8.2 L Magnesium Total Bilirubin 0.50 AST 26 ALT 34 Alkaline Phosphatase 90 Troponin I Total Protein 5.4 L Albumin 2.0 L Globulin 3.4 Albumin/Globulin Ratio 0.6 L TSH Free T4 Microbiology 07/11/20 09:37 Urine Catheter - Haque Urine Culture - Preliminary GNR lactose spiral winding machine helper Gram negative zia 07/11/20 09:25 Blood Culture (Wb) - Anticubital Right Blood Culture - Preliminary No growth in 48 hours. 07/11/20 09:25 Blood Culture (Wb) - Left Wrist Blood Culture - Preliminary No growth in 48 hours. Clinical Impression(s) from Imaging Studies Chest X-Ray 07/11/20 09:50 IMPRESSION: Stable mild increased markings at the lung bases suggestive of basilar scarring. Electronically Signed: Lloyd Ambrocio, at 10:43 EST , Service support , Brain CT 07/11/20 10:45 IMPRESSION: Chronic involutional changes of the brain. Electronically Signed: Lloyd Ambrocio, at 11:01 EST , Service support , Current Medications Acetaminophen (Acetaminophen 325 Mg Tablet) 650 mg PO Q6H PRN PRN PRN Reason: Pain Score 1-10/Temp > 100.7 F Last Admin: 07/12/20 11:15 Dose: 650 mg Documented by: Albuterol Sulfate (Albuterol 2.5 Mg/3 Ml Vial.Neb.) 2.5 mg INHALATION Q2H PRN PRN PRN Reason: Shortness of Breath/Wheezing Dexamethasone Sodium Phosphate (Dexamethasone 10 Mg/Ml Vial) 6 mg IV DAILY [facility] Last Admin: 07/13/20 09:00 Dose: 6 mg Documented by: Duloxetine HCl (Duloxetine Hcl 60 Mg Capsule) 60 mg PO BID [facility] Last Admin: 07/13/20 21:18 Dose: 60 mg Documented by: Fluticasone Propionate (Fluticasone 0.05% 1 [place] Nasal.Sry) 2 spray NASAL DAILY [facility] Last Admin: 07/13/20 08:59 Dose: 2 spray Documented by: Guaifenesin (Guaifenesin 10 Ml Udc (200mg/10ml)) 20 ml PO Q4H PRN PRN PRN Reason: COUGH Ceftriaxone Sodium (Rocephin) 1 gm in 50 mls @ 100 mls/hr IV Q24 [facility] Last Infusion: 07/13/20 09:35 Dose: Infused Documented by: Dextrose/Sodium Chloride () 1,000 mls @ 150 mls/hr IV .Q6H40M [facility] Last Admin: 07/14/20 05:17 Dose: 150 mls/hr Documented by: Remdesivir 100 mg/ Sodium (Chloride) 250 mls @ 125 mls/hr IV DAILY [facility]; Protocol Stop: 07/15/20 11:59 Last Infusion: 07/13/20 14:34 Dose: Infused Documented by: Levothyroxine Sodium (Levothyroxine 100 Mcg Tablet) 100 mcg PO DAILY@0600 [facility] Last Admin: 07/14/20 05:17 Dose: 100 mcg Documented by: Nutritional Formula (Nutritional Supplement (Michael) Packet) 1 packet PO BIDCM [facility] Last Admin: 07/13/20 18:15 Dose: 1 packet Documented by: Nutritional Formula (Lactose Free) (Ensure Enlive 120 Ml Liquid) 120 ml PO 4X/DAY [facility] Last Admin: 07/13/20 21:18 Dose: 120 ml Documented by: Ondansetron HCl (Ondansetron 4 Mg/2 Ml Vial) 4 mg IV Q8H PRN PRN PRN Reason: NAUSEA/VOMITING Pantoprazole Sodium (Pantoprazole Sodium 20 Mg Tablet) 20 mg PO BID [facility] Last Admin: 07/13/20 21:18 Dose: 20 mg Documented by: Polyethylene Glycol (Polyethylene Glycol 3350 17 Gm Packet) 17 gm PO DAILY [facility] Last Admin: 07/13/20 08:58 Dose: 17 gm Documented by: Potassium Chloride (Potassium Chloride 20 Meq Tablet) 40 meq PO DAILY [facility] Last Admin: 07/13/20 08:59 Dose: 40 meq Documented by: Quetiapine Fumarate (Quetiapine 100 Mg Tablet) 100 mg PO BID [facility] Last Admin: 07/13/20 21:18 Dose: 100 mg Documented by: Rivaroxaban (Rivaroxaban 10 Mg Tablet) 10 mg PO DAILY [facility] Last Admin: 07/13/20 08:58 Dose: 10 mg Documented by: Senna/Docusate Sodium (Senna/Docusate Sodium 1 Tablet) 2 tablet PO BID PRN PRN PRN Reason: Constipation Sodium Chloride (0.9% Saline Lock 10 Ml Syringe) 10 - 40 ml IV UD PRN PRN Reason: SALINE FLUSH Last Admin: 07/14/20 05:17 Dose: 10 ml Documented by: Venlafaxine HCl (Venlafaxine Xr 75 Mg Capsule) 75 mg PO DAILY [facility] Last Admin: 07/13/20 08:58 Dose: 75 mg Documented by: Medical Necessity - Tobacco Use Smoking Status: Unknown if ever smoked Assessment/Plan All Active Problems (Last Reviewed 07/11/20 @ 15:[address] Jaylon Sigala MD) UTI (urinary tract infection) (Acute) Pyelonephritis, acute (Resolved) Sepsis (Acute) Altered mental status (Acute) Acute kidney injury (Ruled-out) COVID-19 (Acute) Bradycardia (Acute) RECOMMENDATIONS: 1. Continue supplemental oxygen to maintain saturations at or above 90%. 2. Continue remdesivir and Decadron daily. 3. Continue to monitor renal and liver function profiles. 4. Encourage incentive spirometer use and mobilize patient as tolerated. 5. Potassium repletion. 6. Give IV Lasix x1 today. IMPRESSIONS: 1. Acute hypoxemic respiratory insufficiency secondary to COVID-19 pneumonia Continue current supportive measures with supplemental oxygen to maintain saturations at or above 90%. Renal and hepatic function profile are within normal limits. Plan to continue remdesivir. In addition, the patient will be continued on Decadron 6 mg daily. Encourage incentive spirometer use and mobilize patient as tolerated. 2. Encephalopathy Likely metabolic in etiology and potentially related to underlying infectious etiologies. The patient is currently on therapy for her COVID-19 pneumonia as well as antimicrobials for her underlying gram-negative urinary tract source of infection. Recommend continuing to hold sedating medications. TSH is within normal limits. Continue Synthroid per home regimen. 3. Hypokalemia Electrolyte repletion as ordered. Recheck levels in the morning. 4. Advanced age/hypertension/hyperlipidemia/hypothyroidism/history of VTE Complicates care, management, recovery and prognosis. Continue home medications as indicated. This note was generated with [employer] dictation software. It may contain incorrect words, spelling, and punctuation that were not noted in checking the note before signing. Inpatient E&M: 33744 Subs Hosp L2
[2020-07-14 07:22] LABS: Red Cell Morphology NORM C+C NORMAL (NORM C&C)
--- NOTE | 2020-07-14 07:39 | PCM.PN.HOSP ---
Patient Problems: Active and Suspected Problems (Last Reviewed 07/11/20 @ 15:[address] Jaylon Sigala MD) UTI (urinary tract infection) (Acute) Sepsis (Acute) Altered mental status (Acute) COVID-19 (Acute) Bradycardia (Acute) Reason for Visit: COVID-19 infection Acute cystitis Subjective: Patient urine cultures came back positive for ESBL positive E. coli as well as Providencia stuartii. Antibiotic regimen subsequently adjusted Patient much more awake and interactive compared to previous days. Microbiology 07/11/20 09:37 Urine Catheter - Haque Urine Culture - Preliminary Escherichia coli Providencia stuartii 07/11/20 09:25 Blood Culture (Wb) - Anticubital Right Blood Culture - Preliminary No growth in 48 hours. 07/11/20 09:25 Blood Culture (Wb) - Left Wrist Blood Culture - Preliminary No growth in 48 hours. 07/11/20 09:37 Urine Catheter - Haque Legionella Antigen - Final 07/11/20 09:37 Urine Catheter - Haque Streptococcus pneumoniae Antigen (M - Final Objective: GENERAL: Patient in no apparent distress HEENT: Atraumatic; EYES; Anicteric, Normal Conjunctiva NECK; supple, normal thyroid, RESPIRATORY: Diminished to auscultation CARDIOVASCULAR: Regular S1 S2, GI: soft, normoactive bowel sounds, : No Renal angle tenderness; EXTREMITIES: No edema, no clubbing, MUSCULOSKELETAL: no muscle waisting NEURO: Awake; no lateralizing signs. SKIN: No Rash PSYCH; Flat affect Vitals/I&O's: Vital Signs Temp Pulse Resp BP Pulse Ox 97.3 F L 54 L 17 123/62 H 95 07/14/20 02:43 07/14/20 07:06 07/14/20 02:43 07/14/20 02:43 07/14/20 02:43 Oxygen Flow Rate (L/min) 4 Oxygen Delivery Method Nasal Cannula Weight: 66.7 kg Body Mass Index (BMI) 25.2 Intake and Output for Last 24 Hours 07/12/20 07/13/20 07/14/20 23:59 23:59 23:59 Intake Total 2550 / 2550 3830.0 / 3830.0 970 / 970 Output Total 950 / 950 550 / 1500 1325 / 1325 Balance 1600 / 1600 3280.0 / 2330.0 -355 / -355 Microbiology Past 72 Hours 07/11/20 09:37 Urine Catheter - Haque Urine Culture - Preliminary Escherichia coli Providencia stuartii 07/11/20 09:25 Blood Culture (Wb) - Anticubital Right Blood Culture - Preliminary No growth in 48 hours. 07/11/20 09:25 Blood Culture (Wb) - Left Wrist Blood Culture - Preliminary No growth in 48 hours. 07/11/20 09:37 Urine Catheter - Haque Legionella Antigen - Final 07/11/20 09:37 Urine Catheter - Haque Streptococcus pneumoniae Antigen (M - Final Laboratory Results 07/13/20 08:31: WBC 5.3, RBC 3.56 L, Hgb 10.7 L, Hct 35.8 L, MCV 100.6 H, MCH 30.1, MCHC 29.9 L, RDW Std Deviation 53.1 H, RDW Coeff of Kadeem 14.3, Plt Count 178, MPV 12.3 H, Neut % (Auto) Not Reportable, Absolute Neuts (auto) 3.1, Absolute Lymphs (auto) 1.58, Total Counted 100, Neutrophils % (Manual) 59, Lymphocytes % (Manual) 30, Monocytes % (Manual) 10, Metamyelocytes % 1, Diff Path Review May , Platelet Estimate ADEQUATE, Hypochromasia RARE, Macrocytosis 1+ 07/13/20 08:31: Sodium 143, Potassium 4.2, Chloride 115 H, Carbon Dioxide 23.0, Anion Gap 5, BUN 25 H, Creatinine 0.56, Estim Creat Clear Calc 38.10, Est GFR (MDRD) Af Amer 134, Est GFR (MDRD) Non-Af 111, BUN/Creatinine Ratio 44.7 H, Glucose 119 H, Calcium 8.4 L, Total Bilirubin 0.50, AST 54 H, ALT 38, Alkaline Phosphatase 96, Total Protein 6.0 L, Albumin 2.1 L, Globulin 3.9, Albumin/Globulin Ratio 0.5 L 07/14/20 05:31: WBC 4.1 L, RBC 3.64 L, Hgb 10.8 L, Hct 36.3 L, MCV 99.7 H, MCH 29.7, MCHC 29.8 L, RDW Std Deviation 52.2 H, RDW Coeff of Kadeem 14.1, Plt Count 171, MPV 11.9, Neut % (Auto) Not Reportable, Absolute Neuts (auto) 2.6, Absolute Lymphs (auto) 1.05, Total Counted 100, Neutrophils % (Manual) 58, Band Neutrophils % 6 H, Lymphocytes % (Manual) 26, Monocytes % (Manual) 10, Metamyelocytes % 7 H, Diff Path Review January foll, Platelet Estimate A, RBC Morphology NORM C+C 07/14/20 05:31: Sodium 144, Potassium 3.4 L, Chloride 116 H, Carbon Dioxide 23.0, Anion Gap 5, BUN 24 H, Creatinine 0.50 L, Estim Creat Clear Calc 38.10, Est GFR (MDRD) Af Amer 154, Est GFR (MDRD) Non-Af 127, BUN/Creatinine Ratio 48.4 H, Glucose 132 H, Calcium 8.2 L, Total Bilirubin 0.50, AST 26, ALT 34, Alkaline Phosphatase 90, Total Protein 5.4 L, Albumin 2.0 L, Globulin 3.4, Albumin/Globulin Ratio 0.6 L Current Medications Acetaminophen (Acetaminophen 325 Mg Tablet) 650 mg PO Q6H PRN PRN PRN Reason: Pain Score 1-10/Temp > 100.7 F Last Admin: 07/12/20 11:15 Dose: 650 mg Documented by: Albuterol Sulfate (Albuterol 2.5 Mg/3 Ml Vial.Neb.) 2.5 mg INHALATION Q2H PRN PRN PRN Reason: Shortness of Breath/Wheezing Dexamethasone Sodium Phosphate (Dexamethasone 10 Mg/Ml Vial) 6 mg IV DAILY [facility] Last Admin: 07/13/20 09:00 Dose: 6 mg Documented by: Duloxetine HCl (Duloxetine Hcl 60 Mg Capsule) 60 mg PO BID [facility] Last Admin: 07/13/20 21:18 Dose: 60 mg Documented by: Fluticasone Propionate (Fluticasone 0.05% 1 [employer] Nasal.Sry) 2 spray NASAL DAILY [facility] Last Admin: 07/13/20 08:59 Dose: 2 spray Documented by: Furosemide (Furosemide 40 Mg/4 Ml Vial) 40 mg IV X1 ONE Stop: 07/14/20 07:17 Guaifenesin (Guaifenesin 10 Ml Udc (200mg/10ml)) 20 ml PO Q4H PRN PRN PRN Reason: COUGH Ceftriaxone Sodium (Rocephin) 1 gm in 50 mls @ 100 mls/hr IV Q24 [facility] Last Infusion: 07/13/20 09:35 Dose: Infused Documented by: Dextrose/Sodium Chloride () 1,000 mls @ 150 mls/hr IV .Q6H40M [facility] Last Admin: 07/14/20 05:17 Dose: 150 mls/hr Documented by: Remdesivir 100 mg/ Sodium (Chloride) 250 mls @ 125 mls/hr IV DAILY [facility]; Protocol Stop: 07/15/20 11:59 Last Infusion: 07/13/20 14:34 Dose: Infused Documented by: Potassium Chloride () 10 meq in 100 mls @ 100 mls/hr IV BOLUS Q1H [facility] Stop: 07/14/20 11:14 Levothyroxine Sodium (Levothyroxine 100 Mcg Tablet) 100 mcg PO DAILY@0600 [facility] Last Admin: 07/14/20 05:17 Dose: 100 mcg Documented by: Nutritional Formula (Nutritional Supplement (Michael) Packet) 1 packet PO BIDCM [facility] Last Admin: 07/13/20 18:15 Dose: 1 packet Documented by: Nutritional Formula (Lactose Free) (Ensure Enlive 120 Ml Liquid) 120 ml PO 4X/DAY [facility] Last Admin: 07/13/20 21:18 Dose: 120 ml Documented by: Ondansetron HCl (Ondansetron 4 Mg/2 Ml Vial) 4 mg IV Q8H PRN PRN PRN Reason: NAUSEA/VOMITING Pantoprazole Sodium (Pantoprazole Sodium 20 Mg Tablet) 20 mg PO BID [facility] Last Admin: 07/13/20 21:18 Dose: 20 mg Documented by: Polyethylene Glycol (Polyethylene Glycol 3350 17 Gm Packet) 17 gm PO DAILY [facility] Last Admin: 07/13/20 08:58 Dose: 17 gm Documented by: Potassium Chloride (Potassium Chloride 20 Meq Tablet) 40 meq PO DAILY [facility] Last Admin: 07/13/20 08:59 Dose: 40 meq Documented by: Quetiapine Fumarate (Quetiapine 100 Mg Tablet) 100 mg PO BID [facility] Last Admin: 07/13/20 21:18 Dose: 100 mg Documented by: Rivaroxaban (Rivaroxaban 10 Mg Tablet) 10 mg PO DAILY [facility] Last Admin: 07/13/20 08:58 Dose: 10 mg Documented by: Senna/Docusate Sodium (Senna/Docusate Sodium 1 Tablet) 2 tablet PO BID PRN PRN PRN Reason: Constipation Sodium Chloride (0.9% Saline Lock 10 Ml Syringe) 10 - 40 ml IV UD PRN PRN Reason: SALINE FLUSH Last Admin: 07/14/20 05:17 Dose: 10 ml Documented by: Venlafaxine HCl (Venlafaxine Xr 75 Mg Capsule) 75 mg PO DAILY [facility] Last Admin: 07/13/20 08:58 Dose: 75 mg Documented by: STROKE Vital Signs/Narrative: Vital Signs Pulse 07/14/20 07:06 54 L Medical Necessity - Tobacco Use Smoking Status: Unknown if ever smoked Assessment/Plan All Active Problems (Last Reviewed 07/11/20 @ 15:[address] Jaylon Sigala MD) UTI (urinary tract infection) (Acute) Pyelonephritis, acute (Resolved) Sepsis (Acute) Altered mental status (Acute) Acute kidney injury (Ruled-out) COVID-19 (Acute) Bradycardia (Acute) Patient is an 80-year-old lady admitted with increasing lethargy fever and decreased urine output. An assessment of acute COVID-19 infection and cystitis made admitted for subsequent inpatient management 1. Acute COVID-19 infection ?Patient has been admitted to the COVID-19 cohort floor. Placed on supplemental oxygen and Decadron with consultation placed to both pulmonary medicine and infectious disease. Decision to start adjuvant therapy including remdesivir deferred -07/12/2020; patient started on remdesivir by infectious disease ?07/13/2020; level of sensorium continues to improve. Patient is on remdesivir her kidney function and liver function tests remain stable ?07/14/2020. Clinical condition continues to improve clinically. 2. Acute cystitis ?Urine and blood culture sent patient started on Rocephin with plans to either continue or adjust antibiotic therapy based on results ?07/13/2020 urine culture so far positive for gram-negative rods final identification and sensitivities pending -07/24/2020; Patient urine cultures came back positive for ESBL positive E. coli as well as Providencia stuartii. Antibiotic regimen subsequently adjusted. Discontinued Rocephin and started patient on Invanz 3. Hyponatremia ?Secondary to dehydration patient on half-normal saline with subsequent monitoring of electrolyte ?07/13/2020; sodium levels down to 143 from 149 4. Hypertension -blood pressure controlled, home medications continued with dose adjustment as needed 5. Dyslipidemia -patient is on statin therapy, continued at home dose 6. Hypothyroidism -patient is on levothyroxine home dose continued 7. History of venous thromboembolism ?Patient is on Xarelto did continue 8. Bradycardia ?Patient currently being monitored continuously on telemetry. As part of her management ordered TSH, serial cardiac enzymes and consultation placed to cardiology. Will defer decision to obtain echo to cardiology. 07/13/2020; patient was seen in consultation by Dr. Warren his note and recommendations reviewed. Patient heart rate appears to have stabilized 9. Physical deconditioning - Requested for PT OT eval and social staff worker to assist with discharge planning Inpatient E&M: 88226 Subs Hosp L2
[2020-07-14] MEDS: Furosemide 40 MG/4 ML Vial IV (09:47)
[2020-07-14] MEDS: dexAMETHasone 10 MG/ML Vial 6 MG IV (09:49)
[2020-07-14] MEDS: DULoxetine Hcl 60 MG Capsule PO ×2 (09:49→21:33)
[2020-07-14] MEDS: Venlafaxine XR 75 MG Capsule PO (09:53)
[2020-07-14] MEDS: Fluticasone 0.05% 1 SPRAY NASAL.SRY 2 SPRAY NASAL (09:53)
[2020-07-14] MEDS: QUEtiapine 100 MG Tablet PO ×2 (09:55→21:33)
[2020-07-14] MEDS: Rivaroxaban 10 MG Tablet PO (09:55)
[2020-07-14] MEDS: Pantoprazole Sodium 20 MG Tablet PO ×2 (09:55→21:33)
[2020-07-14] MEDS: Menthol/Lanolin/Calamine/Znox 113 GM Tube 1 APPLIC TOPICAL (17:56)
[2020-07-15] VITALS (10 sets, daily range): BP systolic 145–168; BP diastolic 76–89; PULSE 55–72; RESP 16–19; TEMP 35.9–37; O2SAT 94–99; BMI 25.2
[2020-07-15 02:14] LABS: Platelet Estimate ADEQUATE (ADEQ)
[2020-07-15] MEDS: Levothyroxine 100 MCG Tablet PO (05:55)
[2020-07-15] MEDS: Dext 5%-0.45% NS 1,000 ML 150 ML IV ×2 (06:47→20:07)
[2020-07-15] MEDS: dexAMETHasone 10 MG/ML Vial 6 MG IV (09:54)
[2020-07-15] MEDS: Pantoprazole Sodium 20 MG Tablet PO ×2 (09:56→20:08)
[2020-07-15] MEDS: QUEtiapine 100 MG Tablet PO ×2 (09:56→20:08)
[2020-07-15] MEDS: DULoxetine Hcl 60 MG Capsule PO ×2 (09:57→20:08)
[2020-07-15] MEDS: Fluticasone 0.05% 1 SPRAY NASAL.SRY 2 SPRAY NASAL (09:57)
[2020-07-15] MEDS: Rivaroxaban 10 MG Tablet PO (09:57)
[2020-07-15] MEDS: Venlafaxine XR 75 MG Capsule PO (09:57)
--- NOTE | 2020-07-15 12:49 | PN_ITS ---
Patient Problems: Active and Suspected Problems (Last Reviewed 07/11/20 @ 15:[address] Jaylon Sigala MD) UTI (urinary tract infection) (Acute) Sepsis (Acute) Altered mental status (Acute) COVID-19 (Acute) Bradycardia (Acute) Subjective: Patient was seen and examined. No acute events overnight. Remains on 4 L of oxygen. Objective: Physical exam: Vitals/I&O's: Vital Signs Temp Pulse Resp BP Pulse Ox 97.5 F L 65 16 168/84 H 95 07/15/20 09:27 07/15/20 09:27 07/15/20 09:27 07/15/20 09:27 07/15/20 10:33 Oxygen Flow Rate (L/min) 4 Oxygen Delivery Method Nasal Cannula Weight: 66.7 kg Body Mass Index (BMI) 25.2 Intake and Output for Last 24 Hours 07/13/20 07/14/20 07/15/20 23:59 23:59 23:59 Intake Total 3830.0 / 3830.0 4330 / 4330 1632.5 / 1632.5 Output Total 550 / 1500 6200 / 6200 775 / 775 Balance 3280.0 / 2330.0 -1870 / -1870 857.5 / 857.5 General: Alert, Oriented x3, Cooperative, No apparent distress, - - on 4L oxygen HEENT: Atraumatic, PERRLA, EOMI, Normocephalic Oral: Dry Mucosa Neck: Supple Lungs: Clear to auscultation, Normal air movement Cardiovascular: Regular rate, Regular Rhythm, Normal S1, Normal S2, No murmurs Abdomen: Bowel Sounds Present, Soft, Non Tender, Non-Distended, No Hepato- splenomegaly Extremities: No edema Skin: No rashes, No breakdown Musculoskeletal: No Tenderness to Palpation of Joints or Extremities Lymphatic: No Cervical, Supraclavicular, or Inguinal Adenopathy Neurological: Cranial nerves II-XII grossly intact, Neuro grossly intact Psych/Mental Status: Normal Affect, Appropriate Microbiology Past 72 Hours 07/11/20 09:37 Urine Catheter - Haque Urine Culture - Final Escherichia coli Providencia stuartii 07/11/20 09:25 Blood Culture (Wb) - Anticubital Right Blood Culture - Preliminary No growth in 48 hours. 07/11/20 09:25 Blood Culture (Wb) - Left Wrist Blood Culture - Preliminary No growth in 48 hours. Laboratory Results 07/14/20 05:31: Platelet Estimate ADEQUATE Current Medications Acetaminophen (Acetaminophen 325 Mg Tablet) 650 mg PO Q6H PRN PRN PRN Reason: Pain Score 1-10/Temp > 100.7 F Last Admin: 07/12/20 11:15 Dose: 650 mg Documented by: Albuterol Sulfate (Albuterol 2.5 Mg/3 Ml Vial.Neb.) 2.5 mg INHALATION Q2H PRN PRN PRN Reason: Shortness of Breath/Wheezing Calamine/Phenol (Menthol/Lanolin/Calamine/Znox 113 Gm Tube) 1 applic TOPICAL 4X/DAY [facility]; Protocol Last Admin: 07/15/20 10:05 Dose: Not Given Documented by: Cholecalciferol (Cholecalciferol (Vit D3) 1,000 Unit (25mcg)) 2,000 unit PO DAILY [facility] Last Admin: 07/15/20 09:57 Dose: 2,000 unit Documented by: Dexamethasone Sodium Phosphate (Dexamethasone 10 Mg/Ml Vial) 6 mg IV DAILY [facility] Last Admin: 07/15/20 09:54 Dose: 6 mg Documented by: Duloxetine HCl (Duloxetine Hcl 60 Mg Capsule) 60 mg PO BID [facility] Last Admin: 07/15/20 09:57 Dose: 60 mg Documented by: Fluconazole (Fluconazole 150 Mg Tablet) 150 mg PO We@1000 [facility] Fluticasone Propionate (Fluticasone 0.05% 1 [place] Nasal.Sry) 2 spray NASAL DAILY [facility] Last Admin: 07/15/20 09:57 Dose: 2 spray Documented by: Guaifenesin (Guaifenesin 10 Ml Udc (200mg/10ml)) 20 ml PO Q4H PRN PRN PRN Reason: COUGH Dextrose/Sodium Chloride () 1,000 mls @ 150 mls/hr IV .Q6H40M [facility] Last Infusion: 07/15/20 09:48 Dose: 0 mls/hr Documented by: Ertapenem 1 gm/ Sodium (Chloride) 60 mls @ 100 mls/hr IV Q24 [facility] Last Infusion: 07/15/20 10:20 Dose: Infused Documented by: Levothyroxine Sodium (Levothyroxine 100 Mcg Tablet) 100 mcg PO DAILY@0600 [facility] Last Admin: 07/15/20 05:55 Dose: 100 mcg Documented by: Nutritional Formula ([facility]al [facility] (Michael) Packet) [facility] Last Admin: 07/15/20 09:54 Dose: 1 packet Documented by: Ondansetron HCl (Ondansetron 4 Mg/2 Ml Vial) 4 mg IV Q8H PRN PRN PRN Reason: NAUSEA/VOMITING Pantoprazole Sodium (Pantoprazole Sodium 20 Mg Tablet) 20 mg PO BID [facility] Last Admin: 07/15/20 09:56 Dose: 20 mg Documented by: Polyethylene Glycol (Polyethylene Glycol 3350 17 Gm Packet) 17 gm PO DAILY [facility] Last Admin: 07/15/20 09:58 Dose: Not Given Documented by: Potassium Chloride (Potassium Chloride 20 Meq Tablet) 40 meq PO DAILY [facility] Last Admin: 07/15/20 09:57 Dose: 40 meq Documented by: Quetiapine Fumarate (Quetiapine 100 Mg Tablet) 100 mg PO BID [facility] Last Admin: 07/15/20 09:56 Dose: 100 mg Documented by: Rivaroxaban (Rivaroxaban 10 Mg Tablet) 10 mg PO DAILY [facility] Last Admin: 07/15/20 09:57 Dose: 10 mg Documented by: Senna/Docusate Sodium (Senna/Docusate Sodium 1 Tablet) 2 tablet PO BID PRN PRN PRN Reason: Constipation Sodium Chloride (0.9% Saline Lock 10 Ml Syringe) 10 - 40 ml IV UD PRN PRN Reason: SALINE FLUSH Last Admin: 07/14/20 09:48 Dose: 20 ml Documented by: Venlafaxine HCl (Venlafaxine Xr 75 Mg Capsule) 75 mg PO DAILY [facility] Last Admin: 07/15/20 09:57 Dose: 75 mg Documented by: STROKE Vital Signs/Narrative: Vital Signs Temp Pulse Resp BP Pulse Ox 07/15/20 10:33 95 07/15/20 09:27 97.5 F L 65 16 168/84 H 98 Medical Necessity - Tobacco Use Smoking Status: Unknown if ever smoked Assessment/Plan All Active Problems (Last Reviewed 07/11/20 @ 15:[address] Jaylon Sigala MD) UTI (urinary tract infection) (Acute) Pyelonephritis, acute (Resolved) Sepsis (Acute) Altered mental status (Acute) Acute kidney injury (Ruled-out) COVID-19 (Acute) Bradycardia (Acute) 1. Acute hypoxic insufficiency secondary to acute COVID-19 pneumonia Continue with breathing treatments, IV steroids, encourage use of incentive spirometer. Wean off oxygen for SPO2 more than 94% 2. Acute COVID-19 pneumonia hypoxia, severe Continue on IV Decadron and Remdesivir ID and pulmo 3. Acute ESBL E. coli, was on ertapenem, started on fosfomycin x1 ID following, will continue 4. Hypothyroidism, on Synthroid 5. H/o VTE, on Xarelto 6. DVT PPx- Xarelto Inpatient E&M: 36874 Subs Hosp L2
--- NOTE | 2020-07-15 12:57 | PCM.NTREPORT ---
Nutrition Therapy Report - History Nutrition Services has been consulted to:: Manage nutrient details of diet order Current diet / nutrition support order:: Regular--pureed; honey-thick liquids with Michael, Ensure Pudding/Magic Cup and thickened Ensure Enlive w/ medpass. Pt is a total feed at meals. - Anthropometric Measurements Height:: 5 ft 4 in Weight:: 66.7 kg Body Mass Index (BMI):: 25.2 - Relevant Labs Relevant Labs:: WBC 4.1 K/mm3 (4.4-11.0) L 07/14/20 05:31 RBC 3.64 M/mm3 (4.2-5.4) L 07/14/20 05:31 Hgb 10.8 g/dL (12.0-15.0) L 07/14/20 05:31 Hct 36.3 % (37-47) L 07/14/20 05:31 MCV 99.7 fL (81-99) H 07/14/20 05:31 MCHC 29.8 g/dL (32-36) L 07/14/20 05:31 RDW Std Deviation 52.2 fl (35.1-43.9) H 07/14/20 05:31 MPV 12.3 fl (6.2-12.0) H 07/13/20 08:31 Neutrophils % (Manual) 76 % (47-70) H 07/12/20 07:00 Band Neutrophils % 6 % (0-5) H 07/14/20 05:31 Lymphocytes % (Manual) 17 % (19-41) L 07/12/20 07:00 Metamyelocytes % 7 % (0-1) H 07/14/20 05:31 Promyelocytes % 3 (0-0) H 07/11/20 09:25 D-Dimer Quant (PE/DVT) 0.67 FEU/ug/m (0.27-0.49) H* 07/11/20 09:25 Sodium 147 mmol/L (136-145) H 07/12/20 07:00 Potassium 3.4 mmol/L (3.5-5.1) L 07/14/20 05:31 Chloride 116 mmol/L (98-107) H 07/14/20 05:31 BUN 24 mg/dL (7-18) H 07/14/20 05:31 Creatinine 0.50 mg/dL (0.55-1.02) L 07/14/20 05:31 BUN/Creatinine Ratio 48.4 RATIO (10-20) H 07/14/20 05:31 Glucose 132 mg/dL (74-106) H 07/14/20 05:31 Calcium 8.2 mg/dL (8.5-10.1) L 07/14/20 05:31 Total Bilirubin 2.40 mg/dL (0.20-1.00) H 07/11/20 09:25 Total Bilirubin 2.60 mg/dL (0.20-1.00) H 07/11/20 09:25 Direct Bilirubin 1.71 mg/dL (0.00-0.30) H 07/11/20 09:25 AST 54 U/L (15-37) H 07/13/20 08:31 Alkaline Phosphatase 128 U/L (45-117) H 07/12/20 07:00 Total Protein 5.4 g/dL (6.4-8.2) L 07/14/20 05:31 Albumin 2.0 g/dL (3.2-5.0) L 07/14/20 05:31 Globulin 4.9 g/dL (2.2-4.2) H 07/11/20 09:25 Globulin 5.0 g/dL (2.2-4.2) H 07/11/20 09:25 Albumin/Globulin Ratio 0.6 RATIO (0.9-2.4) L 07/14/20 05:31 - Assessment Food / Nutrition-Related History:: Pt with COVID-19 infection/Acute cystitis. Unknown UBW but, Per EMR - UBW: 97.522 kg - wt 04/06/19 = 98.43 kg. 03/19/19 = 98.4 kg - this indicates pt w/ ~31% wt loss x 15 mos which is significant for malnutrition. Pt with open pressure ulcers coccyx and lidia heels--michael bid ordered. Intake at meals has been overall poor since admit less than 25-50% noted--will continue ONS as tolerated but, suspect continued wt loss given inadequate intake at meals. Pt meets criteria for malnutrition given significant wt loss and ongoing poor intake at meals. - Nutrition Diagnosis Problem / Etiology / Signs & Symptoms (PES):: Pt with severe pro/elsa malnutrition in the context of acute and chronic disease related to swallowing difficulty and increased nutrition needs as evidenced by poor intake at meals less than 25-50% at meals since admit and wt loss~30% x past 15 months. Evidence of Malnutrition Exists:: Yes Severe PCM:: Chronic Illness - Nutrition Intervention Nutrition Prescription:: Estimated nutrition needs~[id number] kcal and ~80-90 gm protein for repletion. - Food / Nutrient Delivery Interventions Summary of nutrition intervention:: Will contine ONS adjustment to help improve/optimize intake w/ meals; may need to consider TF support if intake remains poor and inadequate at meals. 120 ml ensure enlive thickened plus ensure pudding TID w/ meals in addition to Michael BID due to skin status. Nutrition education provided?: No - MNT Monitoring Further MNT monitoring and evaluation required?: Yes MNT Follow-up in:: 3-5 days
[2020-07-15] MEDS: Acetaminophen 325 MG Tablet 650 MG PO (14:22)
--- NOTE | 2020-07-15 14:35 | CASEMGMT ---
ALIYA called Lizy at [facility] letting her know patient will likely return tomorrow and that she may be on IV antibiotics. She asked ALIYA to send updates and she will work on pre-cert. She said patient will need another COVID test before she can return even though she is positive they still have to have one. ALIYA sent updates to [facility] Renetta SINGH MSW
--- NOTE | 2020-07-15 17:14 | PN.ID_ITS ---
Patient Problems: Active and Suspected Problems (Last Reviewed 07/11/20 @ 15:[address] Jaylon Sigala MD) UTI (urinary tract infection) (Acute) Sepsis (Acute) Altered mental status (Acute) COVID-19 (Acute) Bradycardia (Acute) Subjective: Feeling better, more interactive - Physical Exam Vitals/I&O's: Vital Signs Temp Pulse Resp BP Pulse Ox 98.6 F 70 16 154/81 H 98 07/15/20 14:30 07/15/20 15:00 07/15/20 14:30 07/15/20 14:30 07/15/20 14:30 Oxygen Flow Rate (L/min) 4 Oxygen Delivery Method Nasal Cannula Weight: 66.7 kg Body Mass Index (BMI) 25.2 Intake and Output for Last 24 Hours 07/13/20 07/14/20 07/15/20 23:59 23:59 23:59 Intake Total 3830.0 / 3830.0 4330 / 4330 1982.5 / 1982.5 Output Total 550 / 1500 6200 / 6200 1050 / 1050 Balance 3280.0 / 2330.0 -1870 / -1870 932.5 / 932.5 General: Alert, No apparent distress Lungs: Clear to auscultation, Diminished Cardiovascular: Regular rate, Regular Rhythm Abdomen: Soft, Non Tender, Non-Distended Skin: No rashes Microbiology Past 72 Hours 07/11/20 09:37 Urine Catheter - Haque Urine Culture - Final Escherichia coli Providencia stuartii 07/11/20 09:25 Blood Culture (Wb) - Anticubital Right Blood Culture - Preliminary No growth in 48 hours. 07/11/20 09:25 Blood Culture (Wb) - Left Wrist Blood Culture - Preliminary No growth in 48 hours. Laboratory Results 07/14/20 05:31: Platelet Estimate ADEQUATE Current Medications Acetaminophen (Acetaminophen 325 Mg Tablet) 650 mg PO Q6H PRN PRN PRN Reason: Pain Score 1-10/Temp > 100.7 F Last Admin: 07/15/20 14:22 Dose: 650 mg Documented by: Albuterol Sulfate (Albuterol 2.5 Mg/3 Ml Vial.Neb.) 2.5 mg INHALATION Q2H PRN PRN PRN Reason: Shortness of Breath/Wheezing Calamine/Phenol (Menthol/Lanolin/Calamine/Znox 113 Gm Tube) 1 applic TOPICAL 4X/DAY [facility]; Protocol Last Admin: 07/15/20 16:09 Dose: Not Given Documented by: Cholecalciferol (Cholecalciferol (Vit D3) 1,000 Unit (25mcg)) 2,000 unit PO DAILY [facility] Last Admin: 07/15/20 09:57 Dose: 2,000 unit Documented by: Dexamethasone Sodium Phosphate (Dexamethasone 10 Mg/Ml Vial) 6 mg IV DAILY [facility] Last Admin: 07/15/20 09:54 Dose: 6 mg Documented by: Duloxetine HCl (Duloxetine Hcl 60 Mg Capsule) 60 mg PO BID [facility] Last Admin: 07/15/20 09:57 Dose: 60 mg Documented by: Fluconazole (Fluconazole 150 Mg Tablet) 150 mg PO We@1000 [facility] Fluticasone Propionate (Fluticasone 0.05% 1 [place] Nasal.Sry) 2 spray NASAL DAILY [facility] Last Admin: 07/15/20 09:57 Dose: 2 spray Documented by: Guaifenesin (Guaifenesin 10 Ml Udc (200mg/10ml)) 20 ml PO Q4H PRN PRN PRN Reason: COUGH Dextrose/Sodium Chloride () 1,000 mls @ 150 mls/hr IV .Q6H40M [facility] Last Infusion: 07/15/20 16:04 Dose: 150 mls/hr Documented by: Levothyroxine Sodium (Levothyroxine 100 Mcg Tablet) 100 mcg PO DAILY@0600 [facility] Last Admin: 07/15/20 05:55 Dose: 100 mcg Documented by: Nutritional Formula (Nutritional Supplement (Michael) Packet) 1 packet PO BIDCM [facility] Last Admin: 07/15/20 16:12 Dose: 1 packet Documented by: Ondansetron HCl (Ondansetron 4 Mg/2 Ml Vial) 4 mg IV Q8H PRN PRN PRN Reason: NAUSEA/VOMITING Pantoprazole Sodium (Pantoprazole Sodium 20 Mg Tablet) 20 mg PO BID [facility] Last Admin: 07/15/20 09:56 Dose: 20 mg Documented by: Polyethylene Glycol (Polyethylene Glycol 3350 17 Gm Packet) 17 gm PO DAILY [facility] Last Admin: 07/15/20 09:58 Dose: Not Given Documented by: Potassium Chloride (Potassium Chloride 20 Meq Tablet) 40 meq PO DAILY [facility] Last Admin: 07/15/20 09:57 Dose: 40 meq Documented by: Quetiapine Fumarate (Quetiapine 100 Mg Tablet) 100 mg PO BID [facility] Last Admin: 07/15/20 09:56 Dose: 100 mg Documented by: Rivaroxaban (Rivaroxaban 10 Mg Tablet) 10 mg PO DAILY [facility] Last Admin: 07/15/20 09:57 Dose: 10 mg Documented by: Senna/Docusate Sodium (Senna/Docusate Sodium 1 Tablet) 2 tablet PO BID PRN PRN PRN Reason: Constipation Sodium Chloride (0.9% Saline Lock 10 Ml Syringe) 10 - 40 ml IV UD PRN PRN Reason: SALINE FLUSH Last Admin: 07/14/20 09:48 Dose: 20 ml Documented by: Venlafaxine HCl (Venlafaxine Xr 75 Mg Capsule) 75 mg PO DAILY [facility] Last Admin: 07/15/20 09:57 Dose: 75 mg Documented by: Medical Necessity - Tobacco Use Smoking Status: Unknown if ever smoked Route of nutrition/ use of supplements: [] Nutritional Intake: [] IV Site: [] Haque Catheter: [] - Assessment/Plan Antibiotics: [] Assessment/Plan: [] Active and Suspected Problems (Last Reviewed 07/11/20 @ 15:[address] Jaylon Sigala MD) UTI (urinary tract infection) (Acute) Sepsis (Acute) Altered mental status (Acute) COVID-19 (Acute) covid with hypoxia and encephalopathy - UAg neg. mild rise in d-dimer. Cont dex and completed remdesivir. Ucx with esbl ecoli and proteus; she was changed to ertapenem 07/14. Will stop erta, change to fosfomycin x1 in AM. Will follow
--- NOTE | 2020-07-15 18:20 | PCM.PN.PUL ---
Patient Problems: Active and Suspected Problems (Last Reviewed 07/11/20 @ 15:[address] Jaylon Sigala MD) UTI (urinary tract infection) (Acute) Sepsis (Acute) Altered mental status (Acute) COVID-19 (Acute) Bradycardia (Acute) Subjective: Patient did well overnight. No acute issues were reported. Patient continues to require 4 L nasal cannula to maintain saturations. No concerns were reported, but mentation is reportedly improved - Physical Exam Vitals/I&O's: Vital Signs Temp Pulse Resp BP Pulse Ox 37.0 C 70 16 154/81 H 98 07/15/20 14:30 07/15/20 15:00 07/15/20 14:30 07/15/20 14:30 07/15/20 14:30 Oxygen Flow Rate (L/min) 4 Oxygen Delivery Method Nasal Cannula Weight: 66.7 kg Body Mass Index (BMI) 25.2 Intake and Output for Last 24 Hours 07/13/20 07/14/20 07/15/20 23:59 23:59 23:59 Intake Total 3830.0 / 3830.0 4330 / 4330 1982.5 / 1982.5 Output Total 550 / 1500 6200 / 6200 1050 / 1050 Balance 3280.0 / 2330.0 -1870 / -1870 932.5 / 932.5 General: Alert, Cooperative, No apparent distress, - - Readily makes eye contact, but not vocalizing frequently HEENT: Atraumatic, PERRLA, EOMI, Normocephalic, - - Scleral icterus or injection Oral: Moist Mucosa, No Gingival or Mucosal Lesions/ Ulcerations Neck: Supple, No Nodes, Trachea Midline, JVD, Right Lungs: No rhonchi, No wheeze, Diminished, Rales - Right base Cardiovascular: Regular rate, Regular Rhythm, Normal S1, Normal S2, No murmurs, No rub noted, No Gallop Abdomen: Bowel Sounds Present, Soft, Non Tender, Non-Distended Extremities: No clubbing, No cyanosis, No edema, Capillary Refill Less than 3 Seconds Skin: No rashes, No breakdown Musculoskeletal: No Tenderness to Palpation of Joints or Extremities Lymphatic: No Cervical, Supraclavicular, or Inguinal Adenopathy Neurological: Neuro grossly intact Psych/Mental Status: Appropriate, Flat Affect Microbiology Past 72 Hours 07/11/20 09:37 Urine Catheter - Haque Urine Culture - Final Escherichia coli Providencia stuartii 07/11/20 09:25 Blood Culture (Wb) - Anticubital Right Blood Culture - Preliminary No growth in 48 hours. 07/11/20 09:25 Blood Culture (Wb) - Left Wrist Blood Culture - Preliminary No growth in 48 hours. Laboratory Results 07/14/20 05:31: Platelet Estimate ADEQUATE Current Medications Acetaminophen (Acetaminophen 325 Mg Tablet) 650 mg PO Q6H PRN PRN PRN Reason: Pain Score 1-10/Temp > 100.7 F Last Admin: 07/15/20 14:22 Dose: 650 mg Documented by: Albuterol Sulfate (Albuterol 2.5 Mg/3 Ml Vial.Neb.) 2.5 mg INHALATION Q2H PRN PRN PRN Reason: Shortness of Breath/Wheezing Calamine/Phenol (Menthol/Lanolin/Calamine/Znox 113 Gm Tube) 1 applic TOPICAL 4X/DAY [facility]; Protocol Last Admin: 07/15/20 16:09 Dose: Not Given Documented by: Cholecalciferol (Cholecalciferol (Vit D3) 1,000 Unit (25mcg)) 2,000 unit PO DAILY [facility] Last Admin: 07/15/20 09:57 Dose: 2,000 unit Documented by: Dexamethasone Sodium Phosphate (Dexamethasone 10 Mg/Ml Vial) 6 mg IV DAILY [facility] Last Admin: 07/15/20 09:54 Dose: 6 mg Documented by: Duloxetine HCl (Duloxetine Hcl 60 Mg Capsule) 60 mg PO BID [facility] Last Admin: 07/15/20 09:57 Dose: 60 mg Documented by: Fluconazole (Fluconazole 150 Mg Tablet) 150 mg PO We@1000 [facility] Fluticasone Propionate (Fluticasone 0.05% 1 [place] Nasal.Sry) 2 spray NASAL DAILY [facility] Last Admin: 07/15/20 09:57 Dose: 2 spray Documented by: Fosfomycin Tromethamine (Fosfomycin Tromethamine 3 Gm Packet) 3 gm PO X1 ONE Stop: 07/16/20 08:01 Guaifenesin (Guaifenesin 10 Ml Udc (200mg/10ml)) 20 ml PO Q4H PRN PRN PRN Reason: COUGH Dextrose/Sodium Chloride () 1,000 mls @ 150 mls/hr IV .Q6H40M [facility] Last Infusion: 07/15/20 16:04 Dose: 150 mls/hr Documented by: Levothyroxine Sodium (Levothyroxine 100 Mcg Tablet) 100 mcg PO DAILY@0600 [facility] Last Admin: 07/15/20 05:55 Dose: 100 mcg Documented by: Nutritional Formula ([facility] (Michael) [facility] Last Admin: 07/15/20 16:12 Dose: 1 packet Documented by: Ondansetron HCl (Ondansetron 4 Mg/2 Ml Vial) 4 mg IV Q8H PRN PRN PRN Reason: NAUSEA/VOMITING Pantoprazole Sodium (Pantoprazole Sodium 20 Mg Tablet) 20 mg PO BID [facility] Last Admin: 07/15/20 09:56 Dose: 20 mg Documented by: Polyethylene Glycol (Polyethylene Glycol 3350 17 Gm Packet) 17 gm PO DAILY [facility] Last Admin: 07/15/20 09:58 Dose: Not Given Documented by: Potassium Chloride (Potassium Chloride 20 Meq Tablet) 40 meq PO DAILY [facility] Last Admin: 07/15/20 09:57 Dose: 40 meq Documented by: Quetiapine Fumarate (Quetiapine 100 Mg Tablet) 100 mg PO BID [facility] Last Admin: 07/15/20 09:56 Dose: 100 mg Documented by: Rivaroxaban (Rivaroxaban 10 Mg Tablet) 10 mg PO DAILY [facility] Last Admin: 07/15/20 09:57 Dose: 10 mg Documented by: Senna/Docusate Sodium (Senna/Docusate Sodium 1 Tablet) 2 tablet PO BID PRN PRN PRN Reason: Constipation Sodium Chloride (0.9% Saline Lock 10 Ml Syringe) 10 - 40 ml IV UD PRN PRN Reason: SALINE FLUSH Last Admin: 07/14/20 09:48 Dose: 20 ml Documented by: Venlafaxine HCl (Venlafaxine Xr 75 Mg Capsule) 75 mg PO DAILY [facility] Last Admin: 07/15/20 09:57 Dose: 75 mg Documented by: Medical Necessity - Tobacco Use Smoking Status: Unknown if ever smoked Assessment/Plan All Active Problems (Last Reviewed 07/11/20 @ 15:[address] Jaylon Sigala MD) UTI (urinary tract infection) (Acute) Pyelonephritis, acute (Resolved) Sepsis (Acute) Altered mental status (Acute) Acute kidney injury (Ruled-out) COVID-19 (Acute) Bradycardia (Acute) RECOMMENDATIONS: 1. Continue supplemental oxygen to maintain saturations at or above 90%. 2. Continue remdesivir and Decadron daily. 3. Continue to monitor renal and liver function profiles. 4. Encourage incentive spirometer use and mobilize patient as tolerated. 5. Potassium repletion. 6. Stop IV fluids IMPRESSIONS: 1. Acute hypoxemic respiratory insufficiency secondary to COVID-19 pneumonia Continue current supportive measures with supplemental oxygen to maintain saturations at or above 90%. Renal and hepatic function profile are within normal limits. Plan to continue remdesivir. In addition, the patient will be continued on Decadron 6 mg daily. Encourage incentive spirometer use and mobilize patient as tolerated. Patient does have baseline deficits that will limit recovery and ability to use incentive spirometer 2. Encephalopathy Likely metabolic in etiology and potentially related to underlying infectious etiologies. The patient is currently on therapy for her COVID-19 pneumonia as well as antimicrobials for her underlying ESBL E. coli urinary tract source of infection. Recommend continuing to hold sedating medications. TSH is within normal limits. Continue Synthroid per home regimen. 3. Hypokalemia Electrolyte repletion as ordered. Recheck levels in the morning. 4. Advanced age/hypertension/hyperlipidemia/hypothyroidism/history of VTE Complicates care, management, recovery and prognosis. Continue home medications as indicated. Inpatient E&M: 90470 [facility] L2
[2020-07-16] MEDS: 0.9% Saline Lock 10 ML Syringe IV (00:03)
[2020-07-16 03:00] VITALS: PULSE 69
[2020-07-16] MEDS: Dext 5%-0.45% NS 1,000 ML 150 ML IV (03:38)
[2020-07-16 05:20] VITALS: BP 145/70; PULSE 68; RESP 16; TEMP 36.2; O2SAT 95
[2020-07-16] MEDS: Levothyroxine 100 MCG Tablet PO (05:25)
[2020-07-16 06:59] LABS: ALB/GLOB Ratio 0.6 RATIO (0.9-2.4); AST(SGOT) 32 U/L (15-37); Alanine Aminotransfer ALT/SGPT 44 U/L (13-56); Albumin, Serum 2.3 g/dL (3.2-5.0); Alkaline Phosphatase 97 U/L (45-117); Anion Gap 7 (5-15); BUN 23 mg/dL (7-18); BUN/Creat Ratio 49.8 RATIO (10-20); Calcium,Total 8.9 mg/dL (8.5-10.1); Chloride 108 mmol/L (98-107); Creatinine, Serum 0.46 mg/dL (0.55-1.02); EST Glomerular Filtration Rate 138 mL/min (>60); Est Glom Filt Rate - Afr Amer 167 mL/min (>60); Globulin 3.7 g/dL (2.2-4.2); Glucose 104 mg/dL (74-106); Sodium Level 138 mmol/L (136-145)
[2020-07-16 07:00] VITALS: PULSE 55
[2020-07-16 08:02] VITALS: O2SAT 95
[2020-07-16 09:47] LABS: Pathologist Review Reviewed
[2020-07-16 09:56] LABS: Pathologist Review Reviewed
[2020-07-16] MEDS: DULoxetine Hcl 60 MG Capsule PO (09:56)
[2020-07-16] MEDS: Rivaroxaban 10 MG Tablet PO (09:58)
[2020-07-16] MEDS: QUEtiapine 100 MG Tablet PO (09:58)
[2020-07-16] MEDS: Pantoprazole Sodium 20 MG Tablet PO (09:58)
[2020-07-16] MEDS: Venlafaxine XR 75 MG Capsule PO (09:58)
[2020-07-16] MEDS: Fluticasone 0.05% 1 SPRAY NASAL.SRY 2 SPRAY NASAL (09:59)
[2020-07-16 10:01] LABS: Pathologist Review Reviewed
--- NOTE | 2020-07-16 10:14 | TREXTCAR_ITS ---
- Diet 07/11/20 15:09 Diet: Regular - General Food consistency:: Pureed Liquid Consistency:: [place]/Mildly Thick Diet Comments: total feed; feed only when fully alert, frequent oral care - Routine Orders/Code Status O2 Liters per Minute: 2 O2 Frequency: Continuous Keep PO Greater than or Equal to (%): 94 - Encourage use of incentive spirometer Routine Lab Work: CBC - within 3 days, BMP - within 3 days Code Status: DNRCC-A - with intubation - Wound(s) right heel Wound Type: Pressure Injury left heel Wound Type: Pressure Injury coccyc area Wound Type: Pressure Injury sacrum Wound Type: Pressure Injury Dressing Change: applied Mepilex sacral dressing - Therapies Weight Bearing: Weight bearing as tolerated Physical Therapy: Eval and Treat Occupational Therapy: Eval and Treat - Allergies/Procedures Done in Hospital Allergies/Adverse Reactions: Allergies bupropion HCl [From Wellbutrin] Adverse Reaction (Verified 04/06/19 11:15) Other DIZZY ibuprofen Adverse Reaction (Verified 04/06/19 11:15) Other ULCER nitrofurantoin [From Macrobid] Adverse Reaction (Verified 04/06/19 11:15) Other HEADACHE nitrofurantoin macrocrystalline [From Macrobid] Adverse Reaction (Verified 04/06/19 11:15) Other HEADACHE piroxicam [From Feldene] Adverse Reaction (Verified 04/06/19 11:15) Upset Stomach Procedures: None - Type of Care/Length of Stay Estimated LOS: Convalescent Care Less Than 30 days Type of Care Needed: Skilled Rehab Potential: Good Prognosis: Good - Additional Orders/Day of Discharge Day of Discharge: 07/16/20 - Dietary and Speech Recommendations Dietitian Recommendations/Changes: Continue Regular/pureed diet with honey-thick liquids; Michael bid and ensure pudding w/ meals for increased nutrition if consumed. Will add 120 mL ensure enlive 3x/day - thickened per [employer] with meals instead of medpass. - Follow Up Care Primary Care Physician: Eduard Bagley MD [Primary Care Provider] - Please follow up with your Primary Care Physician in: within 2 weeks
--- NOTE | 2020-07-16 10:18 | PCM.DC.SUM ---
Discharge Date and Diagnosis - Problem List Patient Problems: Active and Suspected Problems (Last Reviewed 07/11/20 @ 15:[address] Jaylon Sigala MD) UTI (urinary tract infection) (Acute) Sepsis (Acute) Altered mental status (Acute) COVID-19 (Acute) Bradycardia (Acute) Date of Admission: 07/11/20 Date of Discharge: 07/16/20 - Primary Discharge Diagnosis Acute Problems: Active Problems (Last Reviewed 07/11/20 @ 15:[address] Jaylon Sigala MD) Acute hypoxic insufficiency secondary to acute COVID-19 pneumonia Acute COVID-19 pneumonia Acute metabolic encephalopathy Acute ESBL E. coli UTI Hypokalemia Hyponatremia secondary dehydration - Secondary Discharge Diagnosis Chronic Problems: Chronic Problems (Last Reviewed 07/11/20 @ 15:[address] Jaylon Sigala MD) Dyslipidemia (Chronic) Hypothyroidism (Chronic) HTN (hypertension) (Chronic) Histrionic personality disorder (Chronic) Migraines (Chronic) Dysphagia (Chronic) Depression (Chronic) Hospital Course and Treatment Imaging Results: Clinical Impression(s) from Imaging Studies Chest X-Ray 07/11/20 09:50 IMPRESSION: Stable mild increased markings at the lung bases suggestive of basilar scarring. Electronically Signed: Lloyd Ambrocio, at 10:43 EST , Service support , Brain CT 07/11/20 10:45 IMPRESSION: Chronic involutional changes of the brain. Electronically Signed: Lloyd Ambrocio, at 11:01 EST , Service support , Consultations 07/11/20 15:38 Consult: Onc/Wound/tool tender Routine Comment: Reason for Consult:: lidia heel wounds/coccyx wound ID Pulmonology Operations: None Procedures: None Summary of Care Provided: The patient is a 80 year old F with multiple comorbidities, resident in an shelter facility who was brought to the emergency department with increasing lethargy, fever and decreased urine output. Patient was seen in the emergency department and COVID-19 PCR came back positive. She also had abnormal urinalysis with urine cultures growing ESBL E. Coli. She was managed symptomatically on oxygen and Decadron. She was also started on IV Rocephin and later transitioned to ertapenem. She continued to fluctuating her encephalopathy and eventual improvement. She was later transitioned to IV ertapenem when her urine cultures came back for ESBL E. coli. Patient was followed up by ID and was given 1 more dose of fosfomycin. She was discharged to complete 4 more doses of Decadron. Patient Problems: Active and Suspected Problems (Last Reviewed 07/11/20 @ 15:[address] Jaylon Sigala MD) UTI (urinary tract infection) (Acute) Sepsis (Acute) Altered mental status (Acute) COVID-19 (Acute) Bradycardia (Acute) Subjective: On the day of discharge, patient was seen and examined. No acute events. Objective: Physical exam: General: Alert, Oriented x3, Cooperative, No apparent distress, - - on 2 L oxygen HEENT: Atraumatic, PERRLA, EOMI, Normocephalic Oral: Dry Mucosa Neck: Supple Lungs: Clear to auscultation, Normal air movement Cardiovascular: Regular rate, Regular Rhythm, Normal S1, Normal S2, No murmurs Abdomen: Bowel Sounds Present, Soft, Non Tender, Non-Distended, No Hepato-splenomegaly Extremities: No edema Skin: No rashes, No breakdown Musculoskeletal: No Tenderness to Palpation of Joints or Extremities Lymphatic: No Cervical, Supraclavicular, or Inguinal Adenopathy Neurological: Cranial nerves II-XII grossly intact, Neuro grossly intact Psych/Mental Status: Normal Affect, Appropriate - Physical Exam Vitals/I&O's: Vital Signs Temp Pulse Resp BP Pulse Ox 97.1 F L 55 L 16 145/70 H 95 07/16/20 05:20 07/16/20 07:00 07/16/20 05:20 07/16/20 05:20 07/16/20 08:02 Oxygen Flow Rate (L/min) 2 Oxygen Delivery Method Nasal Cannula Weight: 66.7 kg Body Mass Index (BMI) 25.2 Intake and Output for Last 24 Hours 07/14/20 07/15/20 07/16/20 23:59 23:59 23:59 Intake Total 4330 / 4330 3075.0 / 3075.0 1482.5 / 1482.5 Output Total 6200 / 6200 1800 / 1800 500 / 500 Balance -1870 / -1870 1275.0 / 1275.0 982.5 / 982.5 Microbiology Past 72 Hours 07/11/20 09:37 Urine Catheter - Haque Urine Culture - Final Escherichia coli Providencia stuartii 07/11/20 09:25 Blood Culture (Wb) - Anticubital Right Blood Culture - Preliminary No growth in 48 hours. 07/11/20 09:25 Blood Culture (Wb) - Left Wrist Blood Culture - Preliminary No growth in 48 hours. Laboratory Results 07/12/20 07:00: Diff Path Review Reviewed 07/13/20 08:31: Diff Path Review Reviewed 07/14/20 05:31: Diff Path Review Reviewed 07/16/20 05:42: Sodium 138, Potassium 4.0, Chloride 108 H, Carbon Dioxide 23.0, Anion Gap 7, BUN 23 H, Creatinine 0.46 L, Estim Creat Clear Calc 38.10, Est GFR (MDRD) Af Amer 167, Est GFR (MDRD) Non-Af 138, BUN/Creatinine Ratio 49.8 H, Glucose 104, Calcium 8.9, Total Bilirubin 0.60, AST 32, ALT 44, Alkaline Phosphatase 97, Total Protein 6.0 L, Albumin 2.3 L, Globulin 3.7, Albumin/Globulin Ratio 0.6 L 07/16/20 09:45: COVID-19 (RAQUEL) Pending Current Medications Acetaminophen (Acetaminophen 325 Mg Tablet) 650 mg PO Q6H PRN PRN PRN Reason: Pain Score 1-10/Temp > 100.7 F Last Admin: 07/15/20 14:22 Dose: 650 mg Documented by: Albuterol Sulfate (Albuterol 2.5 Mg/3 Ml Vial.Neb.) 2.5 mg INHALATION Q2H PRN PRN PRN Reason: Shortness of Breath/Wheezing Calamine/Phenol (Menthol/Lanolin/Calamine/Znox 113 Gm Tube) 1 applic TOPICAL 4X/DAY [facility]; Protocol Last Admin: 07/16/20 10:00 Dose: Not Given Documented by: Cholecalciferol (Cholecalciferol (Vit D3) 1,000 Unit (25mcg)) 2,000 unit PO DAILY [facility] Last Admin: 07/16/20 09:58 Dose: 2,000 unit Documented by: Dexamethasone (Dexamethasone 4 Mg Tablet) 6 mg PO DAILY [facility] Stop: 07/20/20 10:01 Duloxetine HCl (Duloxetine Hcl 60 Mg Capsule) 60 mg PO BID [facility] Last Admin: 07/16/20 09:56 Dose: 60 mg Documented by: Fluconazole (Fluconazole 150 Mg Tablet) 150 mg PO We@1000 EST[facility] Fluticasone Propionate (Fluticasone 0.05% 1 [place] Nasal.Sry) 2 spray NASAL DAILY [facility] Last Admin: 07/16/20 09:59 Dose: 2 spray Documented by: Furosemide (Furosemide 40 Mg Tablet) 40 mg PO X1 ONE Stop: 07/16/20 10:14 Guaifenesin (Guaifenesin 10 Ml Udc (200mg/10ml)) 20 ml PO Q4H PRN PRN PRN Reason: COUGH Levothyroxine Sodium (Levothyroxine 100 Mcg Tablet) 100 mcg PO DAILY@0600 [facility] Last Admin: 07/16/20 05:25 Dose: 100 mcg Documented by: Nutritional Formula (Nutritional Supplement (Michael) Packet) 1 packet PO BIDCM [facility] Last Admin: 07/16/20 09:56 Dose: 1 packet Documented by: Ondansetron HCl (Ondansetron 4 Mg/2 Ml Vial) 4 mg IV Q8H PRN PRN PRN Reason: NAUSEA/VOMITING Pantoprazole Sodium (Pantoprazole Sodium 20 Mg Tablet) 20 mg PO BID [facility] Last Admin: 07/16/20 09:58 Dose: 20 mg Documented by: Polyethylene Glycol (Polyethylene Glycol 3350 17 Gm Packet) 17 gm PO DAILY [facility] Last Admin: 07/16/20 09:56 Dose: Not Given Documented by: Potassium Chloride (Potassium Chloride 20 Meq Tablet) 40 meq PO DAILY [facility] Last Admin: 07/16/20 09:58 Dose: 40 meq Documented by: Quetiapine Fumarate (Quetiapine 100 Mg Tablet) 100 mg PO BID [facility] Last Admin: 07/16/20 09:58 Dose: 100 mg Documented by: Rivaroxaban (Rivaroxaban 10 Mg Tablet) 10 mg PO DAILY [facility] Last Admin: 07/16/20 09:58 Dose: 10 mg Documented by: Senna/Docusate Sodium (Senna/Docusate Sodium 1 Tablet) 2 tablet PO BID PRN PRN PRN Reason: Constipation Sodium Chloride (0.9% Saline Lock 10 Ml Syringe) 10 - 40 ml IV UD PRN PRN Reason: SALINE FLUSH Last Admin: 07/16/20 00:03 Dose: 10 ml Documented by: Venlafaxine HCl (Venlafaxine Xr 75 Mg Capsule) 75 mg PO DAILY [facility] Last Admin: 07/16/20 09:58 Dose: 75 mg Documented by: Discharge Diet: Low fat/ Low Cholesterol, 2000 mg Sodium Diet Home Medications: Medications to take at Discharge Duloxetine Hcl [Cymbalta] 60 mg PO BID 03/12/15 Fluticasone 0.05% [Flonase Nasal [place]] 2 spray NARES DAILY 03/12/15 Cyanocobalamin [Vitamin B12] 1,000 mcg IM Q30D 03/19/19 Polyethylene Glycol 3350 [Miralax] 17 gm PO DAILY 03/19/19 Venlafaxine HCl [Venlafaxine HCl ER] 75 mg PO DAILY 03/19/19 Omeprazole 20 mg PO BID 04/06/19 Cholecalciferol (VIT D3) [Vitamin D3] 2,000 unit PO DAILY 04/17/19 Calcium Polycarbophil [Fiber Lax] 1,250 mg PO BID 07/11/20 Fluconazole [Diflucan] 150 mg PO WE 07/11/20 Levothyroxine Sodium [Synthroid] 100 mcg PO DAILY 07/11/20 Potassium Chloride 40 meq PO DAILY 07/11/20 Quetiapine Fumarate [Seroquel XR] 200 mg PO QHS 07/11/20 Rivaroxaban [Xarelto] 10 mg PO DAILY 07/11/20 Acetaminophen [Tylenol Tablet] 650 mg PO Q6H PRN PRN tab 07/16/20 Dexamethasone [Decadron] 6 mg PO DAILY 4 Days #0 tab 07/16/20 Guaifenesin [Robitussin] 20 ml PO Q4H PRN PRN #0 udc 07/16/20 Menthol/Lanolin/Calamine/Znox [Calmoseptine Ointment] 1 applic TOPICAL 4X/DAY tube 07/16/20 Nutritional Supplement [Michael - ORANGE FLAVOR] 1 packet PO BIDCM packet 07/16/20 Primary Care Physician: Eduard Bagley MD [Primary Care Provider] - Please follow up with your Primary Care Physician in: within 2 weeks Disposition: Detention facility Minutes spent on discharge:: 45 Patient Condition:: Fair Medical Necessity - Tobacco Use Smoking Status: Unknown if ever smoked Meaningful Use Info Meaningful Use Diagnoses (Choose all that apply): None applicable Inpatient E&M: 56863 [facility]
[2020-07-16] MEDS: FOSFOMYCIN TROMETHAMINE 3 GM PACKET PO (10:22)
[2020-07-16] MEDS: dexAMETHasone 4 MG Tablet 6 MG PO (10:23)
--- NOTE | 2020-07-16 10:29 | PCM.PN.PUL ---
Patient Problems: Active and Suspected Problems (Last Reviewed 07/11/20 @ 15:[address] Jaylon Sigala MD) UTI (urinary tract infection) (Acute) Sepsis (Acute) Altered mental status (Acute) COVID-19 (Acute) Bradycardia (Acute) Subjective: Patient did okay overnight. Patient has been able to be weaned to 2 L nasal cannula. Patient is more interactive today compared to yesterday. Patient is having her IV removed secondary to infiltration. - Physical Exam Vitals/I&O's: Vital Signs Temp Pulse Resp BP Pulse Ox 36.2 C L 55 L 16 145/70 H 95 07/16/20 05:20 07/16/20 07:00 07/16/20 05:20 07/16/20 05:20 07/16/20 08:02 Oxygen Flow Rate (L/min) 2 Oxygen Delivery Method Nasal Cannula Weight: 66.7 kg Body Mass Index (BMI) 25.2 Intake and Output for Last 24 Hours 07/14/20 07/15/20 07/16/20 23:59 23:59 23:59 Intake Total 4330 / 4330 3075.0 / 3075.0 1482.5 / 1482.5 Output Total 6200 / 6200 1800 / 1800 500 / 500 Balance -1870 / -1870 1275.0 / 1275.0 982.5 / 982.5 General: Alert, Cooperative, No apparent distress, - - More interactive compared to yesterday HEENT: Atraumatic, PERRLA, EOMI, Normocephalic, - - No scleral icterus or injection noted Oral: Moist Mucosa, No Gingival or Mucosal Lesions/ Ulcerations Neck: Supple, No JVD, No Nodes, Trachea Midline Lungs: No rhonchi, No wheeze, No rales, Diminished, - - Symmetric expansion. Cardiovascular: Regular rate, Regular Rhythm, Normal S1, Normal S2, No murmurs, No rub noted, No Gallop Abdomen: Bowel Sounds Present, Soft, Non Tender, Non-Distended Extremities: No clubbing, No cyanosis Skin: No rashes, No breakdown, - - Dermal atrophy noted Musculoskeletal: No Tenderness to Palpation of Joints or Extremities Lymphatic: No Cervical, Supraclavicular, or Inguinal Adenopathy Neurological: Cranial nerves II-XII grossly intact, Neuro grossly intact, Motor Exam 5/5 strength throughout Psych/Mental Status: Flat Affect Microbiology Past 72 Hours 07/11/20 09:37 Urine Catheter - Haque Urine Culture - Final Escherichia coli Providencia stuartii 07/11/20 09:25 Blood Culture (Wb) - Anticubital Right Blood Culture - Preliminary No growth in 48 hours. 07/11/20 09:25 Blood Culture (Wb) - Left Wrist Blood Culture - Preliminary No growth in 48 hours. Laboratory Results 07/12/20 07:00: Diff Path Review Reviewed 07/13/20 08:31: Diff Path Review Reviewed 07/14/20 05:31: Diff Path Review Reviewed 07/16/20 05:42: Sodium 138, Potassium 4.0, Chloride 108 H, Carbon Dioxide 23.0, Anion Gap 7, BUN 23 H, Creatinine 0.46 L, Estim Creat Clear Calc 38.10, Est GFR (MDRD) Af Amer 167, Est GFR (MDRD) Non-Af 138, BUN/Creatinine Ratio 49.8 H, Glucose 104, Calcium 8.9, Total Bilirubin 0.60, AST 32, ALT 44, Alkaline Phosphatase 97, Total Protein 6.0 L, Albumin 2.3 L, Globulin 3.7, Albumin/Globulin Ratio 0.6 L 07/16/20 09:45: COVID-19 (RAQUEL) Pending Current Medications Acetaminophen (Acetaminophen 325 Mg Tablet) 650 mg PO Q6H PRN PRN PRN Reason: Pain Score 1-10/Temp > 100.7 F Last Admin: 07/15/20 14:22 Dose: 650 mg Documented by: Albuterol Sulfate (Albuterol 2.5 Mg/3 Ml Vial.Neb.) 2.5 mg INHALATION Q2H PRN PRN PRN Reason: Shortness of Breath/Wheezing Calamine/Phenol (Menthol/Lanolin/Calamine/Znox 113 Gm Tube) 1 applic TOPICAL 4X/DAY ESTHER; Protocol Last Admin: 07/16/20 10:00 Dose: Not Given Documented by: Cholecalciferol (Cholecalciferol (Vit D3) 1,000 Unit (25mcg)) 2,000 unit PO DAILY ESTHER Last Admin: 07/16/20 09:58 Dose: 2,000 unit Documented by: Dexamethasone (Dexamethasone 4 Mg Tablet) 6 mg PO DAILY ESTHER Stop: 07/20/20 10:01 Last Admin: 07/16/20 10:23 Dose: 6 mg Documented by: Duloxetine HCl (Duloxetine Hcl 60 Mg Capsule) 60 mg PO BID [facility] Last Admin: 07/16/20 09:56 Dose: 60 mg Documented by: Fluconazole (Fluconazole 150 Mg Tablet) 150 mg PO We@1000 [facility] Fluticasone Propionate (Fluticasone 0.05% 1 [place] Nasal.Sry) 2 spray NASAL DAILY [facility] Last Admin: 07/16/20 09:59 Dose: 2 spray Documented by: Furosemide (Furosemide 40 Mg Tablet) 40 mg PO X1 ONE Stop: 07/16/20 10:14 Guaifenesin (Guaifenesin 10 Ml Udc (200mg/10ml)) 20 ml PO Q4H PRN PRN PRN Reason: COUGH Levothyroxine Sodium (Levothyroxine 100 Mcg Tablet) 100 mcg PO DAILY@0600 [facility] Last Admin: 07/16/20 05:25 Dose: 100 mcg Documented by: Nutritional Formula (Nutritional Supplement (Michael) Packet) 1 packet PO BIDCM [facility] Last Admin: 07/16/20 09:56 Dose: 1 packet Documented by: Ondansetron HCl (Ondansetron 4 Mg/2 Ml Vial) 4 mg IV Q8H PRN PRN PRN Reason: NAUSEA/VOMITING Pantoprazole Sodium (Pantoprazole Sodium 20 Mg Tablet) 20 mg PO BID [facility] Last Admin: 07/16/20 09:58 Dose: 20 mg Documented by: Polyethylene Glycol (Polyethylene Glycol 3350 17 Gm Packet) 17 gm PO DAILY [facility] Last Admin: 07/16/20 09:56 Dose: Not Given Documented by: Potassium Chloride (Potassium Chloride 20 Meq Tablet) 40 meq PO DAILY [facility] Last Admin: 07/16/20 09:58 Dose: 40 meq Documented by: Quetiapine Fumarate (Quetiapine 100 Mg Tablet) 100 mg PO BID [facility] Last Admin: 07/16/20 09:58 Dose: 100 mg Documented by: Rivaroxaban (Rivaroxaban 10 Mg Tablet) 10 mg PO DAILY [facility] Last Admin: 07/16/20 09:58 Dose: 10 mg Documented by: Senna/Docusate Sodium (Senna/Docusate Sodium 1 Tablet) 2 tablet PO BID PRN PRN PRN Reason: Constipation Sodium Chloride (0.9% Saline Lock 10 Ml Syringe) 10 - 40 ml IV UD PRN PRN Reason: SALINE FLUSH Last Admin: 07/16/20 00:03 Dose: 10 ml Documented by: Venlafaxine HCl (Venlafaxine Xr 75 Mg Capsule) 75 mg PO DAILY ESTHER Last Admin: 07/16/20 09:58 Dose: 75 mg Documented by: Medical Necessity - Tobacco Use Smoking Status: Unknown if ever smoked Assessment/Plan All Active Problems (Last Reviewed 07/11/20 @ 15:[address] Jaylon Sigala MD) UTI (urinary tract infection) (Acute) Pyelonephritis, acute (Resolved) Sepsis (Acute) Altered mental status (Acute) Acute kidney injury (Ruled-out) COVID-19 (Acute) Bradycardia (Acute) RECOMMENDATIONS: 1. Continue supplemental oxygen to maintain saturations at or above 90%. 2. Continue remdesivir and Decadron per infectious disease. 3. Continue to monitor renal and liver function profiles. 4. Encourage incentive spirometer use and mobilize patient as tolerated. 5. Patient can follow-up as an outpatient if still requires supplemental oxygen following extended care stay. 6. Stop IV fluids IMPRESSIONS: 1. Acute hypoxemic respiratory insufficiency secondary to COVID-19 pneumonia Continue current supportive measures with supplemental oxygen to maintain saturations at or above 90%. Renal and hepatic function profile are within normal limits. Plan to continue remdesivir. In addition, the patient will be continued on Decadron 6 mg daily. Encourage incentive spirometer use and mobilize patient as tolerated. Patient does have baseline deficits that will limit recovery and ability to use incentive spirometer. That being said, patient has been relatively stable on low-dose nasal cannula oxygen. Will likely need to continue to monitor fluid status and give diuretics as necessary. 2. Encephalopathy Likely metabolic in etiology and potentially related to underlying infectious etiologies. The patient is currently on therapy for her COVID-19 pneumonia as well as antimicrobials for her underlying ESBL E. coli urinary tract source of infection. Recommend continuing to hold sedating medications. TSH is within normal limits. Continue Synthroid per home regimen. 3. Hypokalemia Electrolyte repletion as ordered. Recheck levels intermittently while on Lasix therapy. 4. Advanced age/hypertension/hyperlipidemia/hypothyroidism/history of VTE Complicates care, management, recovery and prognosis. Continue home medications as indicated. Inpatient E&M: 02938 Subs Hosp L2
[2020-07-16 10:30] VITALS: BP 176/72; PULSE 73; RESP 18; TEMP 36.4; O2SAT 97
--- NOTE | 2020-07-16 11:14 | PHA.DC.MR ---
Pharmacy Service has performed discharge medication reconciliation for this patient upon transfer to [facility]. The patient's discharge medication list was reviewed for discrepancies and discrepancies were resolved. Home Medications Duloxetine Hcl [Cymbalta] 60 mg PO BID 03/12/15 Fluticasone 0.05% [Flonase Nasal [place]] 2 spray NARES DAILY 03/12/15 Cyanocobalamin [Vitamin B12] 1,000 mcg IM Q30D 03/19/19 Polyethylene Glycol 3350 [Miralax] 17 gm PO DAILY 03/19/19 Venlafaxine HCl [Venlafaxine HCl ER] 75 mg PO DAILY 03/19/19 Omeprazole 20 mg PO BID 04/06/19 Cholecalciferol (VIT D3) [Vitamin D3] 2,000 unit PO DAILY 04/17/19 Calcium Polycarbophil [Fiber Lax] 1,250 mg PO BID 07/11/20 Fluconazole [Diflucan] 150 mg PO WE 07/11/20 Levothyroxine Sodium [Synthroid] 100 mcg PO DAILY 07/11/20 Potassium Chloride 40 meq PO DAILY 07/11/20 Quetiapine Fumarate [Seroquel XR] 200 mg PO QHS 07/11/20 Rivaroxaban [Xarelto] 10 mg PO DAILY 07/11/20 Acetaminophen [Tylenol Tablet] 650 mg PO Q6H PRN PRN tab 07/16/20 Dexamethasone [Decadron] 6 mg PO DAILY 4 Days #0 tab 07/16/20 Guaifenesin [Robitussin] 20 ml PO Q4H PRN PRN #0 udc 07/16/20 Menthol/Lanolin/Calamine/Znox [Calmoseptine Ointment] 1 applic TOPICAL 4X/DAY tube 07/16/20 Nutritional Supplement [Michael - ORANGE FLAVOR] 1 packet PO BIDCM packet 07/16/20
--- NOTE | 2020-07-16 11:15 | CASEMGMT ---
ALIYA faxed orders to [facility]. We are still awaiting COVID test results. ALIYA wrote this information on the fax face sheet. ALIYA received a call from Lizy at [facility] stating she received patient's orders and she was not informed of her discharge or a time. ALIYA told her that is because a time has not been set up yet as we are waiting on her COVID test. She said she needs a pre-cert still. ALIYA told her that she told SW the pre-cert will not hold up her discharge as she [facility]. She said she needs to start it at least and that is why she needed notice of when she will return. ALIYA told her SW called yesterday and let her know patient will likely return today. SW told her SW will let her know when SW has a time. Plan: d/c back to [facility] under intermediate level of care. Awaiting COVID test and then time will be arranged. Renetta SINGH MSW
[2020-07-16] MEDS: Furosemide 40 MG Tablet PO (11:55)
--- NOTE | 2020-07-16 13:25 | CASEMGMT ---
Patient's COVID test results came back. SW called [facility] and arranged for patient to get picked up at 330 via cot. SW notified Lizy at [facility]. SW notified scrap charger. SW will notify RN and she said she would notify patient's daughter. Plan: d/c back to [facility] under intermediate level of care. She is a residential resident of [facility]. [facility] transported patient via cot. Renetta SINGH MSW
--- NOTE | 2020-07-16 14:36 | NURSING ---
This RN [facility]da denies any further questions at this time.
--- NOTE | 2020-07-16 15:03 | NURSING ---
Report called Steffen Hi to Jammie REYES.
[2020-07-16 15:31] VITALS: BP 142/70; PULSE 78; RESP 18; TEMP 36.5; O2SAT 93
== END 2020-07-16 15:50 | disposition skilled nursing facility (03) | DRG 177 ==
LOC: ED 10:16 → PCU 13:35
PROVIDERS: Family Medicine; Admitting Provider Internal Medicine; Emergency Provider Emergency Medicine; PCP Family Medicine; Visit Provider Internal Medicine
DX: U07.1 COVID-19 (principal); J12.89 Other viral pneumonia; G93.41 Metabolic encephalopathy; Z16.12 Extended spectrum beta lactamase (ESBL) resistance; E87.1 Hypo-osmolality and hyponatremia; N30.00 Acute cystitis without hematuria; R09.02 Hypoxemia; B96.20 Unspecified Escherichia coli [E. coli] as the cause of diseases classified elsewhere; E86.0 Dehydration; E87.6 Hypokalemia; R00.1 Bradycardia, unspecified; I10 Essential (primary) hypertension; E78.5 Hyperlipidemia, unspecified; E03.9 Hypothyroidism, unspecified; Z86.718 Personal history of other venous thrombosis and embolism; Z79.02 Long term (current) use of antithrombotics/antiplatelets; Z79.899 Other long term (current) drug therapy; Z66 Do not resuscitate; B96.4 Proteus (mirabilis) (morganii) as the cause of diseases classified elsewhere
CPT/HCPCS: 36415; 70450; 71045; 80053; 80076; 81001; 83605; 83735; 84145; 84439; 84443; 84484; 85025; 85379; 85610; 85730; 87040; 87077; 87086; 87088; 87186; 87449; 87635; 92526; 92610; 93005; 97110; 97162; 97165; 97530; 97535; 97802; 97803; 99285; J7030; J7040; J7050; A4216; J0696; J1940; J7799; U0002

== ENCOUNTER 2021-05-21 15:38 | Emergency (ER) | payer MEDICARE, MEDICAID, SELFPAY ==
[2021-05-21] VITALS (8 sets, daily range): BP systolic 97–142; BP diastolic 60–86; PULSE 73–86; RESP 11–18; TEMP 36.4–36.9; O2SAT 94–99; BMI 34.2
--- NOTE | 2021-05-21 16:01 | EKG12_ITS ---
Test Reason : ALT LOC Blood Pressure : / mmHG Vent. Rate : 074 BPM Atrial Rate : 074 BPM P-R Int : 166 ms QRS Dur : 080 ms QT Int : 398 ms P-R-T Axes : 010 -15 -01 degrees QTc Int : 441 ms Normal sinus rhythm Inferior infarct , age undetermined Abnormal ECG Confirmed by MARY MOY, LILIA ([id number]), news editor DEANNA JONES ([id number]) on 05/22/2021 10:41:26 AM Referred By: RICCO Confirmed By:LILIA HERNANDEZ MD
--- NOTE | 2021-05-21 16:04 | EDS_ITS ---
HPI History of Present Illness Chief Complaint: Alt LOC Informant: patient and family Onset/Context/Timing Onset: Days Context: Gradual Onset Timing: Continuous Current Severity: Mild Maximum Severity: Mild Narrative Narrative: 80-year-old female from [facility]. She has been there around 6 years. In April she was diagnosed with a UTI. She has had decreased mental status recently. She has been on IV imipenem at the skilled nursing that recently was finished. On Wednesday she choked and added to the Heimlich maneuver. I did a chest x-ray the next day and it was questionable she may have developed pneumonia so they started her on Augmentin. The last day or so she has had decreased oral intake and not talking so they sent her in the emergency department for evaluation. Patient is DNR [facility] arrest. Her daughter is in the room and gives me the entire history. Her daughter wants things done but not heroic measures this year rest. Patient is a very limited informant. Prior similar symptoms: Yes Recent Illness/Hospitalization: No PFSH PFSH Medical History Anxiety Depression Dysphagia GERD (gastroesophageal reflux disease) HTN (hypertension) Hypothyroidism Post-polio syndrome Venous thromboembolism (VTE) Home Medications duloxetine 60 mg PO DAILY 03/12/15 [History Last Taken 07/10/20] fluticasone propionate 2 spray NARES DAILY 03/12/15 [History Last Taken 07/10/20] cyanocobalamin (vitamin B-12) 1,000 mcg IM Q30D 03/19/19 [History Last Taken 06/25/20] polyethylene glycol 3350 17 gm PO DAILY 03/19/19 [History Last Taken 07/10/20] venlafaxine 75 mg PO DAILY 03/19/19 [History Last Taken 07/10/20] omeprazole 20 mg PO BID 04/06/19 [History Last Taken 07/10/20] cholecalciferol (vitamin D3) 2,000 unit PO DAILY 04/17/19 [History Last Taken 07/10/20] Potassium Chloride 40 meq PO DAILY 07/11/20 [History Last Taken 07/10/20] calcium polycarbophil 1,250 mg PO BID 07/11/20 [History Last Taken 07/10/20] fluconazole 150 mg PO WE 07/11/20 [History Last Taken 07/10/20] levothyroxine 125 mcg PO DAILY 07/11/20 [History Last Taken 07/11/20] quetiapine 200 mg PO QHS 07/11/20 [History Last Taken 07/10/20] [id number]-[id number] 1 packet PO BIDCM packet 07/16/20 [Rx Last Taken Unknown] guaifenesin 20 ml PO Q4H PRN PRN #0 udc 07/16/20 [Rx Last Taken Unknown] menthol-zinc oxide 1 applic TOPICAL 4X/DAY tube 07/16/20 [Rx Last Taken Unknown] alprazolam [Xanax] 0.25 mg PO TID 05/21/21 [History Last Taken Unknown] diclofenac sodium [Voltaren Arthritis Pain] 1 ea TOPICAL TID 05/21/21 [History Last Taken Unknown] ferrous sulfate [Iron (ferrous sulfate)] 325 mg PO DAILY 05/21/21 [History Last Taken Unknown] gabapentin 100 mg PO TID 05/21/21 [History Last Taken Unknown] hydrocodone-acetaminophen [[place]] 1 tab PO 4X/DAY 05/21/21 [History Last Taken Unknown] olopatadine 1 drp EACH EYE BID 05/21/21 [History Last Taken Unknown] rivaroxaban [Xarelto] 10 mg PO QHS 05/21/21 [History Last Taken Unknown] Allergy/AdvReac Type Severity Reaction Status Date / Time bupropion HCl AdvReac Other Verified 05/21/21 15:40 [From Wellbutrin] ibuprofen AdvReac Other Verified 05/21/21 15:40 nitrofurantoin AdvReac Other Verified 05/21/21 15:40 [From Macrobid] nitrofurantoin AdvReac Other Verified 05/21/21 15:40 macrocrystalline [From Macrobid] piroxicam [From Feldene] AdvReac Upset Verified 05/21/21 15:40 Stomach Social History Smoking Status: Unknown if ever smoked ROS ROS ED ROS Narrative Family denies recent vomiting or diarrhea. Recent UTI. Review of Systems ROS Unobtainable: due to mental status Constitutional Constitutional ED: Denies chills or fever(s) Eyes Eyes: Denies change in vision ENT ENT ED: Denies ear pain or sore throat Cardiovascular Cardiovascular: Denies chest pain Respiratory/Chest Respiratory/Chest: Denies cough or dyspnea Gastrointestinal Gastrointestinal: Denies abdominal pain, diarrhea, nausea or vomiting Genitourinary Genitourinary ED: Denies dysuria Musculoskeletal Musculoskeletal: Denies myalgias Integumentary Denies rash Neurologic Neurologic: Denies headache(s) Psychiatric Psychiatric: Denies depression Endocrine Endocrinology: Denies polyuria Allergic/Immunologic Allergic/Immunologic ED: Denies urticaria EXAM Physical Exam Narrative Exam Narrative: Elderly female lying in bed. Vital signs are stable. She is afebrile temperature is 98.3. Pulse ox 99% on 3 L no hypoxia General oxygen. She is in no distress. H EENT exam unremarkable. No trauma. Pupils round reactive light. Patient is speaking. Neck nontender. No lymphadenopathy. Lungs are clear. Heart regular rhythm rate about 70 no murmur. Abdomen obese but soft nontender normal bowel sounds no peritoneal signs. Extremities are atrophied in the musculature. There is no tenderness. No deformity. She is generally weak in both the upper and lower extremities. Neurologically she will speak. She is confused. Const Vital Signs: 05/21/21 15:41 05/21/21 15:47 05/21/21 16:50 Temperature 98.3 F 98.3 F Temperature Source Oral Oral Pulse Rate 73 73 76 Respiratory Rate 13 13 11 L Respiratory Effort Respiratory Pattern Blood Pressure 142/86 H 142/86 H 97/82 H Blood Pressure Mean 104 104 87 Pulse Ox 99 99 95 Oxygen Delivery Method Nasal Cannula Nasal Cannula Room Air Oxygen Flow Rate (L/min) 3 3 05/21/21 17:26 05/21/21 17:27 05/21/21 17:45 Temperature 98.3 F Temperature Source Oral Pulse Rate 86 Respiratory Rate 14 Respiratory Effort Normal Non-Labored Respiratory Pattern Normal Blood Pressure 126/67 H Blood Pressure Mean 86 Pulse Ox 95 Oxygen Delivery Method Room Air Oxygen Flow Rate (L/min) 05/21/21 18:20 05/21/21 21:00 Temperature 98.4 F Temperature Source Temporal Pulse Rate 76 79 Respiratory Rate 13 18 Respiratory Effort Respiratory Pattern Blood Pressure 118/74 136/60 H Blood Pressure Mean 88 85 Pulse Ox 94 94 Oxygen Delivery Method Room Air Oxygen Flow Rate (L/min) Positive well nourished, well developed and obese; Negative for cachectic, contractures or unkempt General Appearance ED: well developed and NAD; Negative for unkempt, cachectic or contractures Nutritional Appearance: obese; Negative for cachectic HEENT Reports moist mucous membranes Negative for trauma or tenderness Eyes PERRL and EOMs intact bilaterally Neck no lymphadenopathy, supple and no JVD General: Negative for tenderness Chest Wall inspection of chest normal and palpation of chest normal Resp normal respiratory effort and clear to auscultation bilaterally Auscultation: Negative for rales, rhonchi or wheezes Cardio regular rate, S1 normal heart sound, S2 normal heart sound and no murmurs GI normal to inspection, nondistended, normoactive bowel sounds, non-tender, non- distended and no masses Inspection: Negative for abdominal distention Auscultation: normoactive bowel sounds Palpation: soft; Negative for tender, guarding or rebound tenderness present Extremity normal to inspection Extremity Narrative: Atrophied musculature. Generalized weakness of both upper and lower extremities. General Extremety ED: Negative for edema or tenderness General Extremity: Negative for edema Neuro No oriented x3 Sensorium / Orientation: alert and orientation impaired; Negative for lethargic or stuporous Motor Exam: Negative for strength 5/5 throughout Psych mental status grossly normal Appearance: Negative for unkempt Skin no rashes or lesions noted and no wounds MDM MDM MDM Narrative Medical decision making narrative: Elderly female from a skilled nursing with decreased mental status. To be undergo a septic work-up. She is DNR [facility]. Repeat exam at 9:28 PM patient is doing well. No change. I went over all test results with patient and her daughter. There is really no significant change. She is currently on Augmentin for possible aspiration and/or UTI. Urine culture is pending as are blood cultures. Patient will be discharged back to the extended care facility by ambulance. Lab Data Attestation: I reviewed the patient's lab results. Lab results narrative: CBC shows a white count 9.5. Hemoglobin 10.9. PT 16 with an INR 1. Urinalysis is contaminated has 10-25 red cells. On her white cells for the epithelial cells. 1+ bacteria no nitrites. Electrolytes unremarkable normal creatinine and gap. Lactic acid normal at 0.7. Labs: Laboratory Results - last 24 hr 05/21/21 05/21/21 05/21/21 17:00 17:41 17:41 WBC 9.5 RBC 3.59 L Hgb 10.9 L Hct 36.3 L MCV 101.1 H MCH 30.4 MCHC 30.0 L RDW Std Deviation 52.9 H RDW Coeff of Kadeem 14.5 Plt Count 252 MPV 11.1 Immature Gran % (Auto) 1.100 H Neut % (Auto) 62.1 Lymph % (Auto) 22.2 Moody % (Auto) 7.4 Eos % (Auto) 6.4 H Baso % (Auto) 0.8 Absolute Neuts (auto) 5.9 Absolute Lymphs (auto) 2.11 Nucleated RBC % 0 PT 16.2 H INR 1.4 APTT 38.5 H Sodium Potassium Chloride Carbon Dioxide Anion Gap BUN Creatinine Estim Creat Clear Calc Est GFR (MDRD) Af Amer Est GFR (MDRD) Non-Af BUN/Creatinine Ratio Glucose Lactic Acid Calcium Total Bilirubin AST ALT Alkaline Phosphatase Total Protein Albumin Globulin Albumin/Globulin Ratio Urine Color Yellow Urine Clarity Cloudy Urine pH 7.0 Ur Specific [place] 1.010 Urine Protein 100 H Urine Glucose (UA) Normal Urine Ketones Negative Urine Occult Blood 250 H Urine Nitrite Negative Urine Bilirubin Negative Urine Urobilinogen Normal Ur Leukocyte Esterase 500 H Urine RBC 10-25 SEEN Urine WBC >100 SEEN Ur Squamous Epith Cells 25-50 SEEN Urine Bacteria 1+ Urine Mucus 0 SEEN 05/21/21 05/21/21 17:41 17:41 WBC RBC Hgb Hct MCV MCH MCHC RDW Std Deviation RDW Coeff of Kadeem Plt Count MPV Immature Gran % (Auto) Neut % (Auto) Lymph % (Auto) Moody % (Auto) Eos % (Auto) Baso % (Auto) Absolute Neuts (auto) Absolute Lymphs (auto) Nucleated RBC % PT INR APTT Sodium 144 Potassium 4.4 Chloride 110 H Carbon Dioxide 29.0 Anion Gap 5 BUN 16 Creatinine 0.56 Estim Creat Clear Calc 34.90 Est GFR (MDRD) Af Amer 133 Est GFR (MDRD) Non-Af 110 BUN/Creatinine Ratio 28.6 H Glucose 90 Lactic Acid 0.7 Calcium 9.0 Total Bilirubin 0.30 AST 17 ALT 14 Alkaline Phosphatase 79 Total Protein 6.5 Albumin 2.2 L Globulin 4.3 H Albumin/Globulin Ratio 0.5 L Urine Color Urine Clarity Urine pH Ur Specific [place] Urine Protein Urine Glucose (UA) Urine Ketones Urine Occult Blood Urine Nitrite Urine Bilirubin Urine Urobilinogen Ur Leukocyte Esterase Urine RBC Urine WBC Ur Squamous Epith Cells Urine Bacteria Urine Mucus Radiography Chest X-Ray - ED: 1 View, Read by ED Physician, Heart, Mediastinum, Bony Structures, No Acute Disease, Chronic Changes and Left Effusion Diagnostic Testing: Radiology Impression Chest X-Ray 05/21/21 16:48 IMPRESSION: 1. Mild left lower lobe atelectasis is present with a small pleural effusion. The remaining visualized lung jarvis are clear. Electronically Signed: Clifton Ortega MD at 17:25 EDT , Service support , Portable chest x-ray shows left lower lobe atelectasis and small pleural effusion. Interpreted by the radiologist and myself. Rhythm Strip Rhythm Strip: Sinus Rhythm Rate: 74 Ectopy: None EKG Initial EKG: Attestation: I personally reviewed and interpreted this EKG as follows: Interpretation: Sinus Rhythm and No Acute Injury Pattern Comments: Normal sinus rhythm rate of 74 no acute signs of NV or dysrhythmia. Discharge Plan Triage Chief Complaint: Alt LOC ED Provider: Dami Morales Dx/Rx/DC Orders Clinical Impression: Altered mental status Instructions: ED Confusion Prescriptions: No Action fluticasone propionate 1 SPRAY spray,suspension 2 spray NARES DAILY RF: 0 duloxetine 60 MG capsule 60 mg PO DAILY RF: 0 polyethylene glycol 3350 17 GM packet 17 gm PO DAILY RF: 0 cyanocobalamin (vitamin B-12) 1,000 MCG/ML solution 1,000 mcg IM Q30D RF: 0 venlafaxine 75 MG tablet extended release 24hr 75 mg PO DAILY RF: 0 omeprazole 20 MG capsule,delayed release(DR/EC) 20 mg PO BID RF: 0 cholecalciferol (vitamin D3) 1,000 UNIT tablet 2,000 unit PO DAILY RF: 0 levothyroxine 100 MCG tablet 125 mcg PO DAILY RF: 0 quetiapine 200 MG tablet extended release 24 hr 200 mg PO QHS RF: 0 fluconazole 150 MG tablet 150 mg PO WE RF: 0 calcium polycarbophil 625 MG tablet 1,250 mg PO BID RF: 0 Potassium Chloride 10 MEQ Capsule.Er 40 meq PO DAILY RF: 0 guaifenesin 10 ML liquid 20 ml PO Q4H PRN PRN (Reason: COUGH) Qty: 0 RF: 0 menthol-zinc oxide 1 APPLIC ointment 1 applic TOPICAL 4X/DAY RF: 0 cqhqx-dpgo-ZvKEC-nzvckq-ld-dms 1 PACKET packet 1 packet PO BIDCM RF: 0 hydrocodone-acetaminophen [[place]] 5-325 mg Tablet 1 tab PO 4X/DAY RF: 0 alprazolam [Xanax] 0.25 mg tablet 0.25 mg PO TID RF: 0 ferrous sulfate [Iron (ferrous sulfate)] 325 mg (65 mg iron) Tablet 325 mg PO DAILY RF: 0 gabapentin 100 mg Capsule 100 mg PO TID RF: 0 olopatadine 0.2 % Drops 1 drp EACH EYE BID RF: 0 diclofenac sodium [Voltaren Arthritis Pain] 1 % Gel 1 ea TOPICAL TID RF: 0 Xarelto 10 mg Tablet 10 mg PO QHS RF: 0 Primary Care Provider: Eduard Bagley Referrals: Eduard Bagley MD [Primary Care Provider] - As soon as possible Activity Restrictions/Additional Instructions: Continue the current antibiotic Augmentin. Plenty of fluids and rest. Your labs today were basically unremarkable there is a urine and blood cultures pending those are not resulted tonight. Follow-up with your primary care physician with [facility]. Disposition Disposition: Intermediate Facility
--- NOTE | 2021-05-21 16:48 | RAD_ITS ---
STUDY: X-RAY CHEST REASON FOR EXAM: Female, 80 years old. cough TECHNIQUE: Single AP portable view of the chest. COMPARISON: July 11, 2020 FINDINGS: Mild left lower lobe atelectasis is present with a small pleural effusion. The remaining visualized lung jarvis are clear. Normal size heart. Normal mediastinum and rozina. Normal visualized pulmonary arteries. There is atherosclerotic calcification of the aortic arch with tortuosity. There is demineralization of the osseous structures. Normal visualized ribs, clavicles, and shoulders. Suture anchors reidentified in the left humeral head. There is no demonstrated abnormality of the visualized soft tissue structures of the upper abdomen. RAD/Chest 1 View (Portable) IMPRESSION: 1. Mild left lower lobe atelectasis is present with a small pleural effusion. The remaining visualized lung jarvis are clear. Electronically Signed: Clifton Ortega MD at 17:25 EDT , Service support ,
[2021-05-21] MEDS: 0.9% Normal Saline 1,000 ML 999 ML IV (16:49)
--- NOTE | 2021-05-21 17:20 | ED.RN ---
rn attempted two blood draws. unsuccessful. dr oswlad notified at this time. lab called.
[2021-05-21 17:30] LABS: Mucous, Urine 0 SEEN /hpf (<or=2+)
[2021-05-21 17:57] LABS: Absolute Lymphocyte Count 2.11 X10^3/uL (0.83-4.51); Absolute Neutrophil Count 5.9 X10^3/uL (2.0-7.7); Basophil# 0.08 X10^3/uL; Basophil% 0.8 % (0-1); Eosinophil# 0.61 X10^3/uL; Eosinophils% 6.4 % (0-5); Hematocrit 36.3 % (37-47); Hemoglobin 10.9 g/dL (12.0-15.0); Lymphocyte # 2.11 X10^3/ul (0.83-4.51); Lymphocyte % 22.2 % (19-41); Mean Corpuscular Hgb 30.4 pg (27.0-32.0); Mean Corpuscular Volume 101.1 fL (81-99); Mean Platelet Vol. 11.1 fl (6.2-12.0); Monocyte% 7.4 % (0-10); NRBC Flagged by Analyzer 0 % (0-5); Neutrophil # 5.91 X10^3/uL (2.7-7.7); Neutrophil % 62.1 % (47-70); Platelet Count 252 K/mm3 (150-450); RBC Distribution Width CV 14.5 % (11.6-14.6); RBC Distribution Width SD 52.9 fl (35.1-43.9); Red Blood Count 3.59 M/mm3 (4.2-5.4); White Blood Count 9.5 K/mm3 (4.4-11.0)
[2021-05-21 18:03] LABS: International Normalized Ratio 1.4; Prothrombin Time (Protime)PT. 16.2 SECONDS (11.7-14.9)
[2021-05-21 18:04] LABS: Partial Thromboplast Time 38.5 Seconds (24.1-36.2)
[2021-05-21 18:09] LABS: ALB/GLOB Ratio 0.5 RATIO (0.9-2.4); AST(SGOT) 17 U/L (15-37); Alanine Aminotransfer ALT/SGPT 14 U/L (13-56); Albumin, Serum 2.2 g/dL (3.2-5.0); Alkaline Phosphatase 79 U/L (45-117); Anion Gap 5 (5-15); BUN 16 mg/dL (7-18); BUN/Creat Ratio 28.6 RATIO (10-20); Chloride 110 mmol/L (98-107); Creatinine, Serum 0.56 mg/dL (0.55-1.02); EST Glomerular Filtration Rate 110 mL/min (>60); Est Glom Filt Rate - Afr Amer 133 mL/min (>60); Globulin 4.3 g/dL (2.2-4.2); Glucose 90 mg/dL (74-106); Potassium 4.4 mmol/L (3.5-5.1); Protein, Total 6.5 g/dL (6.4-8.2); Sodium Level 144 mmol/L (136-145)
[2021-05-21 18:19] LABS: Lactic Acid 0.7 mmol/L (0.4-1.9)
[2021-05-21 18:19] LABS: Color, Urine Yellow (Yellow); Glucose, Dipstick Normal (Normal); Ketone-Dipstick Negative (Negative); Leukocyte Esterase-Dipstick 500 /ul (Negative); Nitrite-Dipstick Negative (Negative); Occult Blood-Urine 250 /ul (Negative); Protein-Dipstick 100 mg/dl (Negative); Urine Bilirubin Dipstick Negative (Negative); Urine Clarity Cloudy (Clear); Urine Urobilinogen Normal (Normal)
[2021-05-21 18:52] LABS: Squamous Epithelial Cells - UA 25-50 SEEN /hpf (5-10); White Blood Cells >100 SEEN /hpf (0-5)
[2021-05-21 18:54] LABS: Bacteria 1+ /hpf (None Seen); Red Blood Cells-Urine 10-25 SEEN /hpf (0-5)
== END 2021-05-21 23:09 | disposition skilled nursing facility (03) ==
PROVIDERS: Emergency Provider Emergency Medicine; PCP Family Medicine
DX: R41.82 Altered mental status, unspecified (principal); Z66 Do not resuscitate; F41.9 Anxiety disorder, unspecified; F32.9 Major depressive disorder, single episode, unspecified; K21.9 Gastro-esophageal reflux disease without esophagitis; I10 Essential (primary) hypertension; E03.9 Hypothyroidism, unspecified; E66.9 Obesity, unspecified; Z86.718 Personal history of other venous thrombosis and embolism; Z79.02 Long term (current) use of antithrombotics/antiplatelets; Z79.899 Other long term (current) drug therapy
CPT/HCPCS: 71045; 80053; 81001; 83605; 85025; 85610; 85730; 87040; 87077; 87086; 87088; 87186; 93005; 96360; 96361; 99285; J7030; A4216

== ENCOUNTER 2021-09-20 14:16 | Emergency (ER) | payer MEDICARE, MEDICAID, SELFPAY ==
[2021-09-20 14:17] VITALS: BP 134/94; PULSE 92; RESP 18; TEMP 36.7; O2SAT 97; BMI 31.8
[2021-09-20 14:21] VITALS: BP 134/94; PULSE 96; RESP 18; TEMP 36.7; O2SAT 93
--- NOTE | 2021-09-20 14:58 | EKG12_ITS ---
Test Reason : SOB Blood Pressure : / mmHG Vent. Rate : 082 BPM Atrial Rate : 082 BPM P-R Int : 164 ms QRS Dur : 080 ms QT Int : 372 ms P-R-T Axes : -16 -07 010 degrees QTc Int : 434 ms Normal sinus rhythm Inferior infarct , age undetermined, cannot be excluded Abnormal ECG Confirmed by KURT MOY, PILAR ([id number]), manager editorial DEANNA JONES ([id number]) on 09/22/2021 10:54:16 AM Referred By: MACKENZIE Confirmed By:PILAR HICKS MD
--- NOTE | 2021-09-20 14:58 | RAD_ITS ---
STUDY: X-RAY CHEST REASON FOR EXAM: Female, 81 years old. dyspnea TECHNIQUE: 1 view COMPARISON: 05/21/2021 FINDINGS: Cardiac silhouette unremarkable. Left basilar airspace opacities are unchanged, likely scar. Lungs are otherwise clear. No sizable pleural effusion. Trachea midline. No pneumothorax. Multilevel thoracic spondylosis. Status post left rotator cuff repair. RAD/Chest 1 View (Portable) IMPRESSION: No significant interval change. Electronically Signed: José Aranda MD at 16:37 EST Tel , Service support ,
[2021-09-20 15:46] LABS: Absolute Lymphocyte Count 1.87 X10^3/uL (0.83-4.51); Absolute Neutrophil Count 5.5 X10^3/uL (2.0-7.7); Basophil# 0.08 X10^3/uL; Basophil% 0.9 % (0-1); Eosinophil# 0.57 X10^3/uL; Eosinophils% 6.5 % (0-5); Hematocrit 40.4 % (37-47); Hemoglobin 12.5 g/dL (12.0-15.0); Lymphocyte # 1.87 X10^3/ul (0.83-4.51); Lymphocyte % 21.3 % (19-41); Mean Corp Hgb Conc 30.9 g/dL (32-36); Mean Corpuscular Hgb 31.5 pg (27.0-32.0); Mean Corpuscular Volume 101.8 fL (81-99); Mean Platelet Vol. 11.2 fl (6.2-12.0); Monocyte# 0.66 X10^3/uL; Monocyte% 7.5 % (0-10); NRBC Flagged by Analyzer 0 % (0-5); Neutrophil # 5.47 X10^3/uL (2.7-7.7); Neutrophil % 62.4 % (47-70); Platelet Count 249 K/mm3 (150-450); RBC Distribution Width CV 14.6 % (11.6-14.6); Red Blood Count 3.97 M/mm3 (4.2-5.4); White Blood Count 8.8 K/mm3 (4.4-11.0)
[2021-09-20 15:53] LABS: International Normalized Ratio 1.1; Prothrombin Time (Protime)PT. 13.8 SECONDS (11.7-14.9)
[2021-09-20 15:54] LABS: Partial Thromboplast Time 28.3 Seconds (24.1-36.2)
[2021-09-20 16:03] LABS: ALB/GLOB Ratio 0.7 RATIO (0.9-2.4); AST(SGOT) 22 U/L (15-37); Alanine Aminotransfer ALT/SGPT 26 U/L (13-56); Albumin, Serum 2.8 g/dL (3.2-5.0); Alkaline Phosphatase 79 U/L (45-117); Anion Gap 5 (5-15); BUN 28 mg/dL (7-18); BUN/Creat Ratio 44.4 RATIO (10-20); Chloride 110 mmol/L (98-107); Creatinine, Serum 0.63 mg/dL (0.55-1.02); EST Glomerular Filtration Rate 96 mL/min (>60); Est Glom Filt Rate - Afr Amer 116 mL/min (>60); Glucose 121 mg/dL (74-106); Potassium 4.7 mmol/L (3.5-5.1); Protein, Total 6.8 g/dL (6.4-8.2); Sodium Level 142 mmol/L (136-145); Troponin-I HS 10 pg/mL (3.0-54.0)
[2021-09-20 16:08] LABS: Lactic Acid 1.6 mmol/L (0.4-1.9)
[2021-09-20 16:14] LABS: Mucous, Urine 0 SEEN /hpf (<or=2+); Squamous Epithelial Cells - UA 0 SEEN /hpf (5-10)
[2021-09-20 16:17] LABS: Color, Urine Yellow (Yellow); Glucose, Dipstick Normal (Normal); Ketone-Dipstick 5 mg/dl (Negative); Leukocyte Esterase-Dipstick 500 /ul (Negative); Nitrite-Dipstick Positive (Negative); Occult Blood-Urine 250 /ul (Negative); Protein-Dipstick 30 mg/dl (Negative); Urine Bilirubin Dipstick Negative (Negative); Urine Clarity Cloudy (Clear); Urine Urobilinogen Normal (Normal)
[2021-09-20 16:23] VITALS: BP 112/91; PULSE 79; RESP 18; TEMP 36.2; O2SAT 96
[2021-09-20 16:23] LABS: Bacteria 4+ /hpf (None Seen); Red Blood Cells-Urine 5-10 SEEN /hpf (0-5); White Blood Cells 50-100 SEEN /hpf (0-5)
--- NOTE | 2021-09-20 16:23 | EDS_ITS ---
HPI <Dr. Jake Patel DO - Last Filed: 09/20/21 16:39> History of Present Illness Chief Complaint: Shortness of Breath Narrative Narrative: 81-year-old female presenting with generalized weakness and shortness of breath. She is on home oxygen at 2 L at baseline. She presents to the ER with hypoxia and was initially on 15 L nonrebreather but has been weaned down to 4 L. She does not appear to be dyspneic but does appear generally weak. She states he is not having any chest pain. Per her family they state that she choked on lunch today and was having difficulty getting it down. A special diet to prevent choking. They were able to remove the food from her mouth. Since that time family reports that she has been weaker and more short of breath. Patient also was supposed to be checked for UTI today. Patient apparently has history of ESBL UTI, sepsis, bacteremia, pyelonephritis. She is not complaining of any flank pain today. She has not had a fever. [facility] <Dr. Jake Patel DO - Last Filed: 09/20/21 16:39> [facility] Medical History Antisocial personality disorder Anxiety Anxiety Back pain Bipolar 1 disorder CHF (congestive heart failure) COPD (chronic obstructive pulmonary disease) Depression Dysphagia GERD (gastroesophageal reflux disease) HTN (hypertension) Hypokalemia Hypothyroidism Migraine Overactive bladder Post-polio syndrome Schizoaffective disorder Sleep apnea Thrombosis UTI (urinary tract infection) Venous thromboembolism (VTE) Home Medications duloxetine 60 mg PO DAILY 03/12/15 [History Last Taken 07/10/20] fluticasone propionate 2 spray NARES DAILY 03/12/15 [History Last Taken 07/10/20] cyanocobalamin (vitamin B-12) 1,000 mcg IM Q30D 03/19/19 [History Last Taken 06/25/20] polyethylene glycol 3350 17 gm PO DAILY 03/19/19 [History Last Taken 07/10/20] venlafaxine 75 mg PO DAILY 03/19/19 [History Last Taken 07/10/20] omeprazole 20 mg PO BID 04/06/19 [History Last Taken 07/10/20] cholecalciferol (vitamin D3) 2,000 unit PO DAILY 04/17/19 [History Last Taken 07/10/20] Potassium Chloride 40 meq PO DAILY 07/11/20 [History Last Taken 07/10/20] levothyroxine 137 mcg PO DAILY 07/11/20 [History Last Taken 07/11/20] quetiapine 200 mg PO QHS 07/11/20 [History Last Taken 07/10/20] guaifenesin 20 ml PO Q4H PRN PRN #0 udc 07/16/20 [Rx Last Taken Unknown] alprazolam [Xanax] 0.25 mg PO DAILY PRN PRN 05/21/21 [History Last Taken Unknown] ferrous sulfate [Iron (ferrous sulfate)] 325 mg PO DAILY 05/21/21 [History Last Taken Unknown] gabapentin 100 mg PO TID 05/21/21 [History Last Taken Unknown] hydrocodone-acetaminophen [[place]] 1 tab PO DAILY 05/21/21 [History Last Taken Unknown] olopatadine 1 drp EACH EYE BID 05/21/21 [History Last Taken Unknown] rivaroxaban [Xarelto] 10 mg PO QHS 05/21/21 [History Last Taken Unknown] acetaminophen 650 mg PO Q6H PRN 09/20/21 [History Last Taken Unknown] amoxicillin-pot clavulanate 875 mg PO Q12H #20 tablet 09/20/21 [Rx Last Taken Unknown] bisacodyl 10 mg MA DAILY PRN 09/20/21 [History Last Taken Unknown] calcium polycarbophil [Fiber Laxative (ca polycarbo)] 1,250 mg PO BID 09/20/21 [History Last Taken Unknown] cefixime 400 mg PO DAILY 09/20/21 [History Last Taken Unknown] magnesium hydroxide [Milk of Magnesia] 30 ml PO DAILY PRN PRN 09/20/21 [History Last Taken Unknown] nystatin 1 applic TOPICAL TID 09/20/21 [History Last Taken Unknown] Allergy/AdvReac Type Severity Reaction Status Date / Time bupropion HCl AdvReac Other Verified 09/20/21 14:31 [From Wellbutrin] ibuprofen AdvReac Other Verified 09/20/21 14:31 nitrofurantoin AdvReac Other Verified 09/20/21 14:31 [From Macrobid] nitrofurantoin AdvReac Other Verified 09/20/21 14:31 macrocrystalline [From Macrobid] piroxicam [From Feldene] AdvReac Upset Verified 09/20/21 14:31 Stomach Social History Smoking Status: Never smoker ROS <Dr. Jake Patel, - Last Filed: 09/20/21 16:39> ROS ED ROS Narrative Generalized weakness Constitutional Constitutional ED: Denies chills or fever(s) Eyes Eyes: Denies blurry vision ENT ENT ED: Denies rhinorrhea or sore throat Cardiovascular Cardiovascular: Denies chest pain Respiratory/Chest Respiratory/Chest: Reports cough and dyspnea Gastrointestinal Gastrointestinal: Denies abdominal pain, nausea or vomiting Genitourinary Genitourinary ED: Denies dysuria or hematuria Musculoskeletal Musculoskeletal: Denies back pain or myalgias Neurologic Neurologic: Denies headache(s) or paresthesias EXAM <Dr. Jake Patel, - Last Filed: 09/20/21 16:39> Physical Exam Const Vital Signs: 09/20/21 14:17 09/20/21 14:21 09/20/21 15:43 Temperature 98.0 F 98.0 F Temperature Source Temporal Temporal Pulse Rate 92 96 Respiratory Rate 18 18 Respiratory Effort Respiratory Depth Respiratory Pattern Blood Pressure 134/94 H 134/94 H Blood Pressure Mean 107 107 Pulse Ox 97 93 Oxygen Delivery Method Room Air Non-Rebreather Non-Rebreather Oxygen Flow Rate (L/min) 15 09/20/21 16:23 09/20/21 16:24 09/20/21 17:15 Temperature 97.1 F L 97.1 F L Temperature Source Temporal Temporal Pulse Rate 79 76 Respiratory Rate 18 17 Respiratory Effort Normal Non-Labored Respiratory Depth Normal Respiratory Pattern Normal Blood Pressure 112/91 H 113/84 H Blood Pressure Mean 98 93 Pulse Ox 96 96 Oxygen Delivery Method Nasal Cannula Nasal Cannula Oxygen Flow Rate (L/min) 4 2 09/20/21 17:27 Temperature Temperature Source Pulse Rate Respiratory Rate Respiratory Effort Respiratory Depth Respiratory Pattern Blood Pressure Blood Pressure Mean Pulse Ox 93 Oxygen Delivery Method Nasal Cannula Oxygen Flow Rate (L/min) 2 Positive obese General Appearance ED: NAD; Negative for pallor Nutritional Appearance: obese HEENT Reports dry mucous membranes atraumatic Mouth ED: Yes dry mucous membranes Mouth: dry mucous membranes Eyes PERRL and EOMs intact bilaterally General Eye ED: Negative for pale conjunctiva or scleral icterus Neck no lymphadenopathy and supple Resp normal respiratory effort and clear to auscultation bilaterally Cardio regular rate and regular rhythm Back/Spine no CVA tenderness Neuro CN's II-XII intact bilaterally Sensorium / Orientation: alert Skin General Skin Exam: Negative for jaundice or pallor Rashes: no rashes <Dr. Arbne Garibay, DO - Last Filed: 09/20/21 18:14> Physical Exam Const Vital Signs: 09/20/21 14:17 09/20/21 14:21 09/20/21 15:43 Temperature 98.0 F 98.0 F Temperature Source Temporal Temporal Pulse Rate 92 96 Respiratory Rate 18 18 Respiratory Effort Respiratory Depth Respiratory Pattern Blood Pressure 134/94 H 134/94 H Blood Pressure Mean 107 107 Pulse Ox 97 93 Oxygen Delivery Method Room Air Non-Rebreather Non-Rebreather Oxygen Flow Rate (L/min) 15 09/20/21 16:23 09/20/21 16:24 09/20/21 17:15 Temperature 97.1 F L 97.1 F L Temperature Source Temporal Temporal Pulse Rate 79 76 Respiratory Rate 18 17 Respiratory Effort Normal Non-Labored Respiratory Depth Normal Respiratory Pattern Normal Blood Pressure 112/91 H 113/84 H Blood Pressure Mean 98 93 Pulse Ox 96 96 Oxygen Delivery Method Nasal Cannula Nasal Cannula Oxygen Flow Rate (L/min) 4 2 09/20/21 17:27 Temperature Temperature Source Pulse Rate Respiratory Rate Respiratory Effort Respiratory Depth Respiratory Pattern Blood Pressure Blood Pressure Mean Pulse Ox 93 Oxygen Delivery Method Nasal Cannula Oxygen Flow Rate (L/min) 2 MDM <Dr. Jake Patel, DO - Last Filed: 09/20/21 16:39> [facility] MDM Narrative Medical decision making narrative: Patient presenting with dyspnea and he is initially hypoxic requiring 15 L via nonrebreather but she has been weaned down to 4 L. Due to her history of sepsis a sepsis work-up was pursued. Patient's EKG performed on arrival shows a sinus rhythm with a ventricular rate of 83 bpm on my interpretation and the radiologist does agree. CBC thus far shows no leukocytosis and her hemoglobin hematocrit are stable. Platelets are normal at 249. Coagulation studies are normal. Lactic acid 1.6. Patient slightly dehydrated with normal renal function. Ha[place] catheter was changed and a clean urine specimen was obtained which is positive for nitrites, WBCs of 50-100, 4+ bacteria. Lab Data Labs: Laboratory Results - last 24 hr 09/20/21 09/20/21 09/20/21 15:30 15:30 15:30 WBC 8.8 RBC 3.97 L Hgb 12.5 Hct 40.4 MCV 101.8 H MCH 31.5 MCHC 30.9 L RDW Std Deviation 54.0 H RDW Coeff of Kadeem 14.6 Plt Count 249 MPV 11.2 Immature Gran % (Auto) 1.400 H Neut % (Auto) 62.4 Lymph % (Auto) 21.3 [place] % (Auto) 7.5 Eos % (Auto) 6.5 H Baso % (Auto) 0.9 Absolute Neuts (auto) 5.5 Absolute Lymphs (auto) 1.87 Nucleated RBC % 0 PT 13.8 INR 1.1 APTT 28.3 Sodium 142 Potassium 4.7 Chloride 110 H Carbon Dioxide 27.0 Anion Gap 5 BUN 28 H Creatinine 0.63 Estim Creat Clear Calc 34.30 Est GFR (MDRD) Af Amer 116 Est GFR (MDRD) Non-Af 96 BUN/Creatinine Ratio 44.4 H Glucose 121 H Lactic Acid Calcium 10.0 Total Bilirubin 0.40 AST 22 ALT 26 Alkaline Phosphatase 79 Troponin I High Sens 10 Total Protein 6.8 Albumin 2.8 L Globulin 4.0 Albumin/Globulin Ratio 0.7 L Urine Color Urine Clarity Urine pH Ur Specific [place] Urine Protein Urine Glucose (UA) Urine Ketones Urine Occult Blood Urine Nitrite Urine Bilirubin Urine Urobilinogen Ur Leukocyte Esterase Urine RBC Urine WBC Ur Squamous Epith Cells Urine Bacteria Urine Mucus 09/20/21 09/20/21 15:30 16:10 WBC RBC Hgb Hct MCV MCH MCHC RDW Std Deviation RDW Coeff of Kadeem Plt Count MPV Immature Gran % (Auto) Neut % (Auto) Lymph % (Auto) [place] % (Auto) Eos % (Auto) Baso % (Auto) Absolute Neuts (auto) Absolute Lymphs (auto) Nucleated RBC % PT INR APTT Sodium Potassium Chloride Carbon Dioxide Anion Gap BUN Creatinine Estim Creat Clear Calc Est GFR (MDRD) Af Amer Est GFR (MDRD) Non-Af BUN/Creatinine Ratio Glucose Lactic Acid 1.6 Calcium Total Bilirubin AST ALT Alkaline Phosphatase Troponin I High Sens Total Protein Albumin Globulin Albumin/Globulin Ratio Urine Color Yellow Urine Clarity Cloudy Urine pH 5.0 Ur Specific [place] 1.020 Urine Protein 30 H Urine Glucose (UA) Normal Urine Ketones 5 H Urine Occult Blood 250 H Urine Nitrite Positive H Urine Bilirubin Negative Urine Urobilinogen Normal Ur Leukocyte Esterase 500 H Urine RBC 5-10 SEEN Urine WBC 50-100 SEEN Ur Squamous Epith Cells 0 SEEN Urine Bacteria 4+ Urine Mucus 0 SEEN Radiography Diagnostic Testing: Clinical Impression(s) from Imaging Studies Chest X-Ray 09/20/21 14:58 IMPRESSION: No significant interval change. Electronically Signed: José Aranda MD at 16:37 EST Tel , Service support , <Dr. Arben Garibay, DO - Last Filed: 09/20/21 18:14> [facility] MDM Narrative Medical decision making narrative: Care of the patient was turned over to me. Patient maintained oxygen saturation of 97% on 2 L nasal cannula which is what she is normally on at the senior care. Patient was given a dose of Zosyn here. Patient was given a prescription for Augmentin. Patient was instructed to return if worse in any way. Patient and family understood and were agreeable with the plan. All questions were answered. Lab Data Attestation: I reviewed the patient's lab results. Labs: Laboratory Results - last 24 hr 09/20/21 09/20/21 09/20/21 15:30 15:30 15:30 WBC 8.8 RBC 3.97 L Hgb 12.5 Hct 40.4 MCV 101.8 H MCH 31.5 MCHC 30.9 L RDW Std Deviation 54.0 H RDW Coeff of Kadeem 14.6 Plt Count 249 MPV 11.2 Immature Gran % (Auto) 1.400 H Neut % (Auto) 62.4 Lymph % (Auto) 21.3 [place] % (Auto) 7.5 Eos % (Auto) 6.5 H Baso % (Auto) 0.9 Absolute Neuts (auto) 5.5 Absolute Lymphs (auto) 1.87 Nucleated RBC % 0 PT 13.8 INR 1.1 APTT 28.3 Sodium 142 Potassium 4.7 Chloride 110 H Carbon Dioxide 27.0 Anion Gap 5 BUN 28 H Creatinine 0.63 Estim Creat Clear Calc 34.30 Est GFR (MDRD) Af Amer 116 Est GFR (MDRD) Non-Af 96 BUN/Creatinine Ratio 44.4 H Glucose 121 H Lactic Acid Calcium 10.0 Total Bilirubin 0.40 AST 22 ALT 26 Alkaline Phosphatase 79 Troponin I High Sens 10 Total Protein 6.8 Albumin 2.8 L Globulin 4.0 Albumin/Globulin Ratio 0.7 L Urine Color Urine Clarity Urine pH Ur Specific [place] Urine Protein Urine Glucose (UA) Urine Ketones Urine Occult Blood Urine Nitrite Urine Bilirubin Urine Urobilinogen Ur Leukocyte Esterase Urine RBC Urine WBC Ur Squamous Epith Cells Urine Bacteria Urine Mucus 09/20/21 09/20/21 15:30 16:10 WBC RBC Hgb Hct MCV MCH MCHC RDW Std Deviation RDW Coeff of Kadeem Plt Count MPV Immature Gran % (Auto) Neut % (Auto) Lymph % (Auto) [place] % (Auto) Eos % (Auto) Baso % (Auto) Absolute Neuts (auto) Absolute Lymphs (auto) Nucleated RBC % PT INR APTT Sodium Potassium Chloride Carbon Dioxide Anion Gap BUN Creatinine Estim Creat Clear Calc Est GFR (MDRD) Af Amer Est GFR (MDRD) Non-Af BUN/Creatinine Ratio Glucose Lactic Acid 1.6 Calcium Total Bilirubin AST ALT Alkaline Phosphatase Troponin I High Sens Total Protein Albumin Globulin Albumin/Globulin Ratio Urine Color Yellow Urine Clarity Cloudy Urine pH 5.0 Ur Specific [place] 1.020 Urine Protein 30 H Urine Glucose (UA) Normal Urine Ketones 5 H Urine Occult Blood 250 H Urine Nitrite Positive H Urine Bilirubin Negative Urine Urobilinogen Normal Ur Leukocyte Esterase 500 H Urine RBC 5-10 SEEN Urine WBC 50-100 SEEN Ur Squamous Epith Cells 0 SEEN Urine Bacteria 4+ Urine Mucus 0 SEEN Radiography Diagnostic Testing: Clinical Impression(s) from Imaging Studies Chest X-Ray 09/20/21 14:58 IMPRESSION: No significant interval change. Electronically Signed: José Aranda MD at 16:37 EST Tel , Service support , Discharge Plan Triage Chief Complaint: Shortness of Breath ED Provider: Jake Patel Dx/Rx/DC Orders Clinical Impression: UTI (urinary tract infection), Dysphagia Instructions: ED CYSTITIS Female Adult, ED Dysphagia (Adult) Prescriptions: New amoxicillin-pot clavulanate [amoxicillin-pot clavulanate] 875 MG tablet 875 mg PO Q12H Qty: 20 RF: 0 No Action fluticasone propionate 1 SPRAY spray,suspension 2 spray NARES DAILY RF: 0 duloxetine 60 MG capsule 60 mg PO DAILY RF: 0 polyethylene glycol 3350 17 GM packet 17 gm PO DAILY RF: 0 cyanocobalamin (vitamin B-12) 1,000 MCG/ML solution 1,000 mcg IM Q30D RF: 0 venlafaxine 75 MG tablet extended release 24hr 75 mg PO DAILY RF: 0 omeprazole 20 MG capsule,delayed release(DR/EC) 20 mg PO BID RF: 0 cholecalciferol (vitamin D3) 1,000 UNIT tablet 2,000 unit PO DAILY RF: 0 levothyroxine 100 MCG tablet 137 mcg PO DAILY RF: 0 quetiapine 200 MG tablet extended release 24 hr 200 mg PO QHS RF: 0 Potassium Chloride 10 MEQ Capsule.Er 40 meq PO DAILY RF: 0 guaifenesin 10 ML liquid 20 ml PO Q4H PRN PRN (Reason: COUGH) Qty: 0 RF: 0 hydrocodone-acetaminophen [[place]] 5-325 mg Tablet 1 tab PO DAILY RF: 0 alprazolam [Xanax] 0.25 mg tablet 0.25 mg PO DAILY PRN PRN (Reason: Anxiety) RF: 0 ferrous sulfate [Iron (ferrous sulfate)] 325 mg (65 mg iron) Tablet 325 mg PO DAILY RF: 0 gabapentin 100 mg Capsule 100 mg PO TID RF: 0 olopatadine 0.2 % Drops 1 drp EACH EYE BID RF: 0 Xarelto 10 mg Tablet 10 mg PO QHS RF: 0 bisacodyl 10 mg Suppository 10 mg MA DAILY PRN (Reason: Constipation) RF: 0 acetaminophen 325 mg Capsule 650 mg PO Q6H PRN (Reason: pain/fever) RF: 0 cefixime 400 mg Capsule 400 mg PO DAILY RF: 0 magnesium hydroxide [Milk of Magnesia] 400 mg/5 mL Suspension 30 ml PO DAILY PRN PRN (Reason: Constipation) RF: 0 nystatin 100,000 unit/gram Cream 1 applic TOPICAL TID RF: 0 calcium polycarbophil [Fiber Laxative (ca polycarbo)] 625 mg Tablet 1,250 mg PO BID RF: 0 Primary Care Provider: Eduard Bagley Referrals: Eduard Bagley MD [Primary Care Provider] - 3-5 Days Disposition Disposition: Home, Self Care
[2021-09-20 17:15] VITALS: BP 113/84; PULSE 76; RESP 17; TEMP 36.2; O2SAT 96
[2021-09-20 17:27] VITALS: O2SAT 93
[2021-09-20 18:29] VITALS: BP 118/92; PULSE 75; RESP 18; O2SAT 96
--- NOTE | 2021-09-20 18:33 | ED.RN ---
Spoke with Joyce-nurse from [facility], report was called on patient and updated that antibiotic prescription is sent to [facility] per Joyce's request. All questions answered.
== END 2021-09-20 19:07 | disposition home or self-care (01) ==
PROVIDERS: Emergency Provider Student in an Organized Health Care Education/Training Program; PCP Family Medicine; Visit Provider Student in an Organized Health Care Education/Training Program
DX: N39.0 Urinary tract infection, site not specified (principal); J44.9 Chronic obstructive pulmonary disease, unspecified; I11.0 Hypertensive heart disease with heart failure; I50.9 Heart failure, unspecified; F31.9 Bipolar disorder, unspecified; R13.10 Dysphagia, unspecified; R09.02 Hypoxemia; E86.0 Dehydration; Z99.81 Dependence on supplemental oxygen; Z79.899 Other long term (current) drug therapy; Z79.51 Long term (current) use of inhaled steroids; Z79.890 Hormone replacement therapy; E03.9 Hypothyroidism, unspecified; Z79.01 Long term (current) use of anticoagulants; F41.9 Anxiety disorder, unspecified; K21.9 Gastro-esophageal reflux disease without esophagitis; G43.909 Migraine, unspecified, not intractable, without status migrainosus; Z86.12 Personal history of poliomyelitis; G47.30 Sleep apnea, unspecified
CPT/HCPCS: 36415; 51702; 71045; 80053; 81001; 83605; 84484; 85025; 85610; 85730; 87040; 87077; 87086; 87088; 87149; 87186; 87426; 93005; 96365; 99285; J7040; A4216